=== PATIENT | female | born 1975 | race Caucasian/White ===

== ENCOUNTER 2022-07-25 09:07 | Inpatient (IN) ==
[2022-07-25] MEDS ORDERED: ACETAMINOPHEN 1,000 MG/100 ML VIAL IV STA (09:21)
[2022-07-25] MEDS ORDERED: MoRPHine SULFATE 10 MG/ML CARP/VIAL IV STA (09:21)
[2022-07-25] MEDS ORDERED: SODIUM CHLORIDE 0.9% 1000ML 1,000 ML IV ONE (09:21)
[2022-07-25] MEDS ORDERED: PIPERACILLIN/TAZOBACTAM 4.5 GM/120 ML BAG IV ONE (09:24)
[2022-07-25 09:40] LABS: Basophils # (auto) 0.04 K/uL (0-0.2); Basophils % (auto) 0.4 %; Hematocrit (blood only) 36.6 % (34.1-44.9); Hemoglobin 11.8 g/dl (12.0-16.0); Immature Granulocytes # (auto) 0.03 K/uL (0.00-0.02); Immature Granulocytes % (auto) 0.3 %; Lymphocytes # (auto) 1.64 K/uL (1.2-3.4); Lymphocytes % (auto) 17.6 %; Mean Corpuscular Hemoglobin 32.8 pg (25.0-34.0); Mean Corpuscular Hgb Conc 32.2 g/dL (32.0-36.0); Mean Corpuscular Volume 101.7 fL (80.0-100.0); Mean Platelet Volume 9.8 fL (9.4-12.3); Monocytes # (auto) 0.53 K/uL (0.24-0.82); Monocytes % (auto) 5.7 %; Neutrophils # (auto) 7.07 K/uL (1.4-6.5); Platelet Count 316 K/uL (130-400); RDW Standard Deviation 74.8 fL (36.4-46.3); White Blood Count 9.31 K/ul (4.8-10.8)
--- NOTE | 2022-07-25 09:45 | XRay Report ---
XR chest 1V portable HISTORY: 47 years-old Female SEPSIS acute sepsis COMPARISON: CTA chest 12/23/2018 TECHNIQUE: Portable AP view of the chest FINDINGS: Nipple shadow projects over the lateral right lung base. The cardiomediastinal and hilar silhouettes are unchanged. No pneumothorax, pleural effusion, airspace consolidation or overt pulmonary edema. Th e bones of the chest appear grossly intact. IMPRESSION: No acute process. ACT 112: Negative or not required by law. The above report was generated using voice recognition software. It may contain grammatical, syntax o r spelling errors. Electronically signed by: Raoul Nicholas M.D. 07/25/2022 9:44 AM
[2022-07-25 09:51] LABS: INR 1.2 (0.9-1.1); Partial Thromboplastin Ratio 0.9; Partial Thromboplastin Time 25.1 Seconds (21.0-31.0); Prothrombin Time 12.2 Seconds (9.0-12.0)
[2022-07-25 10:11] LABS: Albumin Level 3.1 gm/dl (3.4-5.0); Bilirubin,Total 1.3 mg/dl (0.2-1.0); C Reactive Protein 4.48 mg/dl (0-0.5); Calcium 8.9 mg/dl (8.5-10.1); Creatinine Clr Calc Pharmacy 83.2 ml/min; Est GFR (African American) 115.3 ml/min; Est GFR (Non-African American) 99.5 ml/min; Globulin 3.2 gm/dl (2.5-4.0); Magnesium 1.5 mg/dl (1.7-2.4); Potassium 3.5 mmol/L (3.5-5.1); Total Protein 6.3 gm/dl (6.0-8.3); Troponin I High Sensitivity 17.3 pg/ml (0-14)
[2022-07-25] MEDS ORDERED: OPTIRAY 300 500mL IV ONE (10:36)
[2022-07-25] MEDS ORDERED: LORazepam 2 MG/1 ML VIAL IV STA (10:52)
--- NOTE | 2022-07-25 11:13 | CT Scan Report ---
CT tib/fib RT w con CLINICAL HISTORY: ?necrotizing infection COMPARISON STUDY: No previous studies for comparison. TECHNIQUE: Axial images of the right lower leg/tibia and fibula were performed following intravenous injection 116 cc of Optiray 300. Sagittal and coronal reconstructions were viewed. Automated exposure control was utilized for the study. A dose lowering technique was utilized adhering to the principl es of KI. FINDINGS: Please note that the CT of the left lower leg will be reported separately. Note is made of extensive subcutaneous edema of the right lower leg and foot. There is mild fluid along the fascia. M ultifocal skin irregularity likely reflects wounds. There is no rim-enhancing fluid collection to sug gest an abscess. There is no soft tissue gas within the right lower leg or foot. There is no evidence for acute osteomyelitis. No acute fracture is present. There is a filling defect suggestive of deep venous thrombus within a right peroneal vein, shown best on axial image 107 of 541. IMPRESSION: 1. Extensive subcutaneous edema of the right lower leg with mild fascial fluid. These findings sugges t cellulitis. Multiple suspected wounds of the right lower leg. No fluid collection to suggest absces s. No soft tissue gas to suggest necrotizing fasciitis by CT. No evidence for acute osteomyelitis. 2. Deep venous thrombus within a right peroneal vein, as described above. ACT 112: Negative or not required by law. Electronically signed by: Rafita Dodd M.D. 07/25/2022 11:12 AM
--- NOTE | 2022-07-25 11:40 | CT Scan Report ---
CT angio chest PE protocol CT DOSE: 630.23 mGy.cm HISTORY: 47 years-old Female with hypoxia, tachycardia, r/o PE. Acute hypoxia with tachycardia TECHNIQUE: Multiple CTA images of the chest were obtained after the intravenous administration of 116 ml Optiray. Coronal and sagittal MIPS were obtained from the axial data set and were submitted for review. All measurements were obtained according to NASCET criteria. A dose lowering technique was u tilized adhering to the principles of ALARA. COMPARISON: CTA chest 12/23/2018 FINDINGS: CTA: Mild cardiomegaly. No pericardial effusion. The thoracic aorta and left heart structures are suboptim ally evaluated secondary to contrast bolus timing. No thoracic aortic aneurysm identified. Segmental and subsegmental acute appearing pulmonary emboli are noted within the left upper lobe. No central pu lmonary emboli or evidence of right heart strain. CT CHEST: Unremarkable thyroid. There are a few nonspecific borderline enlarged mediastinal and hilar lymph nod es measuring up to 9-10 mm. Study is limited secondary to upper extremity positioning. No pneumothora x, pleural effusion or lobar airspace consolidation. Bilateral groundglass densities with mosaic atte nuation and mild intralobular septal thickening. Mild bronchial wall thickening. Central airways are patent. There are no suspicious pulmonary nodules or masses. Mild nonspecific distal esophageal wall thickening. Nonobstructing calculi of the superior pole right kidney with medullary nephrocalcinosis. There is anasarca. No acute fracture. No destructive bone le sara. Scoliotic curvature of the thoracic spine. IMPRESSION: 1. Segmental and subsegmental pulmonary emboli of the left upper lobe. 2. Diffuse bilateral groundglass densities with mosaic attenuation suggestive of atelectasis with air trapping. An infectious or inflammatory pneumonitis could appear similarly. 3. Right renal calculi with medullary nephrocalcinosis redemonstrated. 4. Anasarca. ACT 112: Negative or not required by law. The above report was generated using voice recognition software. It may contain grammatical, syntax o r spelling errors. Electronically signed by: Raoul Nicholas M.D. 07/25/2022 11:39 AM
[2022-07-25 11:53] LABS: Base Excess VBG 6.9 mEq/L; HCO3 VBG 33 mmol/L; Oxygen Saturation VBG < 60.0 %; PCO2 VBG 49 mmHg (38-50); PO2 VBG 40 mmHg; pH VBG 7.43 (7.36-7.41)
[2022-07-25] MEDS: MAGNESIUM SULFATE / D5W 1 GM/100 ML BAG IV SCH ×2 (12:03→13:17)
--- NOTE | 2022-07-25 12:06 | CT Scan Report ---
CT SCAN OF THE LEFT TIBIA AND FIBULA WITH IV CONTRAST CLINICAL HISTORY: Left lower extremity edema. Clinical concern for necrotizing infection. COMPARISON STUDY: No priors. TECHNIQUE: Following the IV administration of 116 cc of Optiray 300, CT scan of the left tibia and fi bula is performed from the distal femur to the foot. Images are reviewed in the axial, sagittal, and coronal planes. IV contrast was administered without complication. A dose lowering technique was util ized adhering to the principles of ALARA. FINDINGS: The skeletal structures are osteopenic. There is no evidence of tibial or fibular fracture. There is no bone erosion or periostitis. The knee and ankle joints appear maintained. There is diffu se subcutaneous soft tissue edema seen throughout the left lower extremity with associated dermal thi ckening. No soft tissue gas is identified. There is generalized atrophy of the regional musculature. There is a filling defect within the deep veins of the calf, best seen on image #103 consistent with deep venous thrombosis. There is no evidence of fluid collection. The Achilles tendon is intact as im aged. IMPRESSION: 1. No osseous abnormality is seen involving the left tibia or fibula. 2. There is evidence of deep venous thrombosis in the left calf. 3. Diffuse soft tissue edema and dermal thickening is noted throughout the left lower extremity. 4. No soft tissue gas is identified. ACT 112: Negative or not required by law. Dictated: 07/25/2022 11:16 AM Transcribed: 07/25/2022 11:55 AM Dulce [id number] [email or web address] Electronically signed by: Osito Bernard M.D. 07/25/2022 12:05 PM
--- NOTE | 2022-07-25 12:29 | History & Physical Report ---
Date of Service July 25, 2022 Assessment & Plan (1) Sepsis: (2) Cellulitis, leg: (3) DVT (deep venous thrombosis): (4) Pulmonary embolism: (5) ADHD: (6) Self neglect: (7) COPD (chronic obstructive pulmonary disease): Plan 47 year old with 3 month lower extremity wound progression that has worsened more significantly over past 3 weeks; leading to her being bedbound and unable to performed her own ADL's. Pt meets sepsis criteria; cultures pending; Heparin gtt, pain and wound management; will consult ID and General surgery for possible debridement. Sepsis LE Cellulitis DVT: Meets sepsis criteria secondary to bilateral LE cellulitis. Tachycardia, tachypnea and multiple wounds as infectious source; tachycardia and tachypnea likely also related to PE Numerous anterio-medial and posterior B/L LE extensive purulent ulcers a/w associated with foul smelling and purulent drainage. LE CT: No gas ruling out necrotizing infection. No abscess noted. B/L venous Doppler US ordered. WOCN consulted; blood cultures and wound culture ordered Superficial debridement likely; general surgery consult placed. Zosyn and Dapto started in ED; ID consult placed for additional recs. NPO for now until surgery consult. Morphine PRN ordered for pain control. Hold on IVF for now due to anasarca noted on CT PE: Confirmed by CTA; Segmental and subsegmental pulmonary emboli of the left upper lobe Heparin gtt; continue per protocol Initial Troponin; 17.3; will trend ECHO ordered PT/INT per protocol VBG pending ADHD: Self neglect Continue Adderol Psych consult placed for Behavioral Health Liason to see pt due to nature of progression of wounds and worsening depression/isolation/self neglect and i nability to perform on ADL's; discussed with Beverley CAMPBELL COPD: Previously diagnosed; does not follow with Pulmonary Has Albuterol PRN for rescue inhaler No Home O2 Consider OPT referral unless worsening while IPT Disposition: PCP: Henny Panchal PA-C/Dr. Oleary Code Status: Full Code VTE Prophylaxis: Heparin gtt Next of Kin: Fausto Trujillo (father) [phone] History of Present Illness Chief Complaint: intractable LE pain Primary Care Provider: Henny Hernandez PA-C Ms. Soo Donovan presented to the [facility] ED with increasing pain in her bilateral lower extremities. She reports that over the past 3 months her wounds have progressively gotten worse with more ulcers opening and due to the pain, she has become immobile for the past 3-4 weeks. Her mother, father and oldest daughter helps with her ADLs and brings her a cooler to place next to her sofa with food inside of it. She reports not having done any wound care to her extremities. Additional PMH includes COPD, bronchitis, ADHD, GERD, kidney stones, urinary incontinence, genital herpes, Cervical LSIL, and frequent UTI's. Pt reports using liquor 1/2 pint 2-3 times per week. Last drink was Monday 07/23. Pt reports smoking 1/2-1 ppd of cigarettes. Pt has a medical marijuana card for PTSD. Pt denies dizziness, chest pain, dizziness N/V/D, appetite changes. Patient will be admitted for further evaluation and management with wound and general surgery. Please see A/P for further details. Allergies Allergy/AdvReac Type Severity Reaction Status Date / Time No Known Allergies Allergy Unknown Verified 12/28/21 02:02 Home Medications Medication Instructions Recorded Confirmed Type albuterol sulfate 90 mcg/actuation 2 puffs inhalation Q4 PRN Wheezing 08/18/19 07/25/22 History aerosol inhaler (Ventolin HFA) dextroamphetamine-amphetamine 20 20 mg PO .EVERY AFTERNOON PRN as 12/28/21 07/25/22 History mg tablet directed dextroamphetamine-amphetamine ER 30 mg PO QAM 12/28/21 07/25/22 History 30 mg 24hr capsule,extend release furosemide 20 mg tablet 20 mg PO DAILY 12/28/21 07/25/22 History potassium chloride 10 mEq 10 meq PO DAILY 12/28/21 07/25/22 History tablet,extended release(part/cryst) Past Med/Surg History Medical History (Updated 07/25/22 @ 14:13 by SHANNAN Baker) ADHD Cellulitis, leg Cervicovaginal cytology: Low grade squamous intraepithelial lesion (Unknown) "S/P LEEP " COPD (chronic obstructive pulmonary disease) DVT (deep venous thrombosis) Pulmonary embolism Self neglect Sepsis Standard chest X-ray abnormal (Unknown) "RUL density noted on CXR 05/22/12. CT follow-up recommended. " On 05/23/12 06:11 You Reina wrote "RUL density noted on CXR 05/22/12. CT follow-up recommended. " Social History Smoking Status: Current every day smoker Tobacco Type: Cigarettes Preferred Language: Bahraini Feels Safe at Home: Yes Review of Systems Review of Systems: Neuro: (-) Falls, trauma, slurred speech HEENT: (-) OLSON, dizziness, dysphagia, visual or auditory changes CV: (-) CP, palpitations, swelling Resp: (-) SOB GI: (-) appetite changes, N/V/D, bowel changes : (-) urinary changes Skin: (+) pain and ulcers in bilateral LE Psych: (-) anxiety, depression Physical Exam Physical Exam: Neuro: AAOx4, PERRLA, no aphagia, memory changes, CNII-XII grossly intact HEENT: head normocephalic, dry mucus membranes CV: S1/S2, (-) M/G/R, (-) edema, cap refill < 3 seconds Resp: Lungs CTA in all whiting. On 2LNC GI: Abdomen S/NT/ND, large ventral hernia, Ax4 bowel sounds, (-) CVA tenderness Musculoskeletal: 5/5 B/L UE strength, 5/5 B/L LE strength. No gait disturbance Skin: (+) skin sloughing and numerous anterior/medial/posterior ulcers and gangrenous skin with erythematous border Psych: scattered and not focused mood Results & Data Results & Data ([facility]) Vital Signs (Past 12 Hours) Vital Signs Temp Pulse Resp BP Pulse Ox O2 Del Method O2 Flow Rate 07/25/22 10:04 121 H 22 95 2 07/25/22 10:04 141/89 H 07/25/22 10:00 121 H 18 98 2 07/25/22 09:50 123 H 18 93 2 07/25/22 09:50 119/91 07/25/22 09:45 121 H 17 98 2 07/25/22 09:30 121 H 20 07/25/22 09:15 118 H 25 H 98 2 07/25/22 09:12 119 H 16 85 L 07/25/22 09:21 Nasal Cannula 07/25/22 09:16 88 L Room Air, Nasal Cannula 0 07/25/22 09:11 36.7 C 118 H 22 112/86 88 L Room Air Laboratory Results Short CBC 07/25/22 Range/Units 09:11 WBC 9.31 (4.8-10.8) K/ul Hgb 11.8 L (12.0-16.0) g/dl Hct 36.6 (34.1-44.9) % Plt Count 316 (130-400) K/uL BMP 07/25/22 09:11 Sodium 137 Potassium 3.5 Chloride 97 L Carbon Dioxide 30 BUN 8 Creatinine 0.73 Glucose 150 H Calcium 8.9 Cardiac Enzymes 07/25/22 Range/Units 09:11 Total Creatine Kinase 50 (26-192) U/L Liver Function 07/25/22 Range/Units 09:11 Total Bilirubin 1.3 H (0.2-1.0) mg/dl AST 16 (13-39) U/L ALT 10 (7-52) U/L Alkaline Phosphatase 124 H (34-104) U/L Albumin 3.1 L (3.4-5.0) gm/dl Diagnostic Findings Chest X-Ray 07/25/22 09:21 XR chest 1V portable HISTORY: 47 years-old Female SEPSIS acute sepsis COMPARISON: CTA chest 12/23/2018 TECHNIQUE: Portable AP view of the chest FINDINGS: Nipple shadow projects over the lateral right lung base. The cardiomediastinal and hilar silhouettes are unchanged. No pneumothorax, pleural effusion, airspace consolidation or overt pulmonary edema. The bones of the chest appear grossly intact. IMPRESSION: No acute process. ACT 112: Negative or not required by law. The above report was generated using voice recognition software. It may contain grammatical, syntax or spelling errors. Electronically signed by: Raoul Nicholas M.D. 07/25/2022 9:[address] 07/25/22 09:21 CT SCAN OF THE LEFT TIBIA AND FIBULA WITH IV CONTRAST CLINICAL HISTORY: Left lower extremity edema. Clinical concern for necrotizing infection. COMPARISON STUDY: No priors. TECHNIQUE: Following the IV administration of 116 cc of Optiray 300, CT scan of the left tibia and fibula is performed from the distal femur to the foot. Images are reviewed in the axial, sagittal, and coronal planes. IV contrast was administered without complication. A dose lowering technique was utilized adhering to the principles of ALARA. FINDINGS: The skeletal structures are osteopenic. There is no evidence of tibial or fibular fracture. There is no bone erosion or periostitis. The knee and ankle joints appear maintained. There is diffuse subcutaneous soft tissue edema seen throughout the left lower extremity with associated dermal thickening. No soft tissue gas is identified. There is generalized atrophy of the regional musculature. There is a filling defect within the deep veins of the calf, best seen on image #103 consistent with deep venous thrombosis. There is no evidence of fluid collection. The Achilles tendon is intact as imaged. IMPRESSION: 1. No osseous abnormality is seen involving the left tibia or fibula. 2. There is evidence of deep venous thrombosis in the left calf. 3. Diffuse soft tissue edema and dermal thickening is noted throughout the left lower extremity. 4. No soft tissue gas is identified. ACT 112: Negative or not required by law. Dictated: 07/25/2022 11:16 AM Transcribed: 07/25/2022 11:55 AM Dulce [id number] [email or web address] Electronically signed by: Osito Bernard M.D. 07/25/2022 12:[address] 07/25/22 09:21 CT tib/fib RT w con CLINICAL HISTORY: ?necrotizing infection COMPARISON STUDY: No previous studies for comparison. TECHNIQUE: Axial images of the right lower leg/tibia and fibula were performed following intravenous injection 116 cc of Optiray 300. Sagittal and coronal reconstructions were viewed. Automated exposure control was utilized for the study. A dose lowering technique was utilized adhering to the principles of ALARA. FINDINGS: Please note that the CT of the left lower leg will be reported separately. Note is made of extensive subcutaneous edema of the right lower leg and foot. There is mild fluid along the fascia. Multifocal skin irregularity likely reflects wounds. There is no rim-enhancing fluid collection to suggest an abscess. There is no soft tissue gas within the right lower leg or foot. There is no evidence for acute osteomyelitis. No acute fracture is present. There is a filling defect suggestive of deep venous thrombus within a right peroneal vein, shown best on axial image 107 of 541. IMPRESSION: 1. Extensive subcutaneous edema of the right lower leg with mild fascial fluid. These findings suggest cellulitis. Multiple suspected wounds of the right lower leg. No fluid collection to suggest abscess. No soft tissue gas to suggest necrotizing fasciitis by CT. No evidence for acute osteomyelitis. 2. Deep venous thrombus within a right peroneal vein, as described above. ACT 112: Negative or not required by law. Electronically signed by: Rafita Dodd M.D. 07/25/2022 11:12 AM Chest CTA 07/25/22 10:32 CT angio chest PE protocol CT DOSE: 630.23 mGy.cm HISTORY: 47 years-old Female with hypoxia, tachycardia, r/o PE. Acute hypoxia with tachycardia TECHNIQUE: Multiple CTA images of the chest were obtained after the intravenous administration of 116 ml Optiray. Coronal and sagittal MIPS were obtained from the axial data set and were submitted for review. All measurements were obtained according to NASCET criteria. A dose lowering technique was utilized adhering to the principles of ALARA. COMPARISON: CTA chest 12/23/2018 FINDINGS: CTA: Mild cardiomegaly. No pericardial effusion. The thoracic aorta and left heart structures are suboptimally evaluated secondary to contrast bolus timing. No thoracic aortic aneurysm identified. Segmental and subsegmental acute appearing pulmonary emboli are noted within the left upper lobe. No central pulmonary emboli or evidence of right heart strain. CT CHEST: Unremarkable thyroid. There are a few nonspecific borderline enlarged mediastinal and hilar lymph nodes measuring up to 9-10 mm. Study is limited secondary to upper extremity positioning. No pneumothorax, pleural effusion or lobar airspace consolidation. Bilateral groundglass densities with mosaic attenuation and mild intralobular septal thickening. Mild bronchial wall thickening. Central airways are patent. There are no suspicious pulmonary nodules or masses. Mild nonspecific distal esophageal wall thickening. Nonobstructing calculi of the superior pole right kidney with medullary nephrocalcinosis. There is anasarca. No acute fracture. No destructive bone lesion. Scoliotic curvature of the thoracic spine. IMPRESSION: 1. Segmental and subsegmental pulmonary emboli of the left upper lobe. 2. Diffuse bilateral groundglass densities with mosaic attenuation suggestive of atelectasis with air trapping. An infectious or inflammatory pneumonitis could appear similarly. 3. Right renal calculi with medullary nephrocalcinosis redemonstrated. 4. Anasarca. ACT 112: Negative or not required by law. The above report was generated using voice recognition software. It may contain grammatical, syntax or spelling errors. Electronically signed by: Raoul Nicholas M.D. 07/25/2022 11:39 AM ECG Additional Comments: ST with PVC's HR 118 RAINE 118 ms QRS 82 ms QTc 400 Code Status & VTE Plan Code Status Full code in the event of cardiac or respiratory arrest VTE Prophylaxis Plan VTE Prophylaxis will be ordered: Yes Supervising Physician Co-Signing Physician Notes 47 yo F w/ PMH of Gr B COPD, Chronic bronchitis, GERD, Drug abuse (quit 2017, used "everything" prior to that per pt), genital herpes, Cervical LSIL, marijuana use, ADHD presented to our ED 07/25 w/ c/o increasing BLE pain. Patient reports having bilateral lower extremity ulcers since last 2 to 3 months, progressively worsening, associated with pain, being immobile since last 3 to 4 weeks, and presented finally due to unbearable pain in the lower extremities. Labs reviewed, Hb low normal, renal function fairly normal, Mg low, replete w/ aim of 2.0. Trop minimally elevated at 17.3, trend. Imagings reviewed. LE CT w/ con w/ b/l DVT and BLE edema/swelling, not s/o abscesses. CTA chest w/ ISELA segmental and subsegmental PE. Also suggestive of anasarca. Echo. Heparin drip. On examination: Bilateral lower legs w/ melva-medial and posteriorly located pu rulent/extensive cellulitis with associated erythema/swelling/tenderness. Wound care nurse, general surgery consult, infectious disease consult, wound culture, blood culture, Zosyn given in the ED, continue with the same and add vanco for now. Given increased pulse and RR at presentation, likely sepsis 2/2 LE cellulitis but again since she had PE, some of the increased RR and Pulse could be contributed by this fact. Diet now, NPO midnight until Sx eval in AM. C/w home meds as able. Pain Mx. Patient smokes 15 cigarettes a day for 30+ years, has quit using alcohol excessively since 2017, drinks couple of times a month currently, has quit drug use since 2017. Patient would like nicotine patch while in here. Watch out for alcohol withdrawal. Can supplement w/ PO thiamine and folate. Upon examination: GENERAL: Alert and oriented x3. mild distress, on 2L NC O2. HEENT: No pallor, no icterus. Pupils equal, round and reactive to light. Oral mucosa moist. NECK: No JVD, no neck masses. HEART: S1 and S2 heard. Tachycardia. Systolic murmur at Pulmonic area, no gallop. RESPIRATORY SYSTEM: Normal AP diameter. No accessory muscle use. No wheezing, no crackles. ABDOMEN: Soft, bowel sounds present, nontender, no distention. Ventral hernia, nontender. CENTRAL NERVOUS SYSTEM: No facial droop. Speech is clear. Obeys simple commands. Moves extremities. EXTREMITIES: B/l legs w/ anteriomedial and posterior extensive purulent ulcers a/w erythema/swelling/tenderness. I have seen and examined the patient and have discussed the case with the provider above. I agree with the assessment and plan as stated.
[2022-07-25] MEDS ORDERED: Heparin IV Adult Wt-Based Standard WITH Bolus Protocol IV STA (12:42)
[2022-07-25] MEDS ORDERED: HEPARIN SOD (PORCINE) 1000 UNIT/ML IV ONE (12:58)
[2022-07-25] MEDS: HEPARIN SODIUM/DEXTROSE 25,000 UNITS/500 ML BAG IV SCH (13:13)
[2022-07-25] MEDS ORDERED: MAGNESIUM SULFATE / D5W 1 GM/100 ML BAG IV ONE (13:27)
--- NOTE | 2022-07-25 15:06 | Surgery Consultation ---
Date of Consultation July 25, 2022 Assessment & Plan (1) Cellulitis, leg: No indication for surgical debridement at this time. Continue local wound care and antibiotics. Supervising Physician Co-Signing Physician Notes agree with above, no abscess or eschar. Local wound care, abx, consider wound care nurse consults and follow up with wound care clinic as outpatient. History of Present Illness History of Present Illness 47 y/o female with lower leg wounds 2-3 months worsening over the past 2-3 days now being admitted for cellulitis. Allergies Allergy/AdvReac Type Severity Reaction Status Date / Time No Known Allergies Allergy Unknown Verified 12/28/21 02:02 Home Medications Medication Instructions Recorded Confirmed Type albuterol sulfate 90 mcg/actuation 2 puffs inhalation Q4 PRN Wheezing 08/18/19 07/25/22 History aerosol inhaler (Ventolin HFA) dextroamphetamine-amphetamine 20 20 mg PO .EVERY AFTERNOON PRN as 12/28/21 07/25/22 History mg tablet directed dextroamphetamine-amphetamine ER 30 mg PO QAM 12/28/21 07/25/22 History 30 mg 24hr capsule,extend release furosemide 20 mg tablet 20 mg PO DAILY 12/28/21 07/25/22 History potassium chloride 10 mEq 10 meq PO DAILY 12/28/21 07/25/22 History tablet,extended release(part/cryst) Patient History Medical History ADHD Cellulitis, leg Cervicovaginal cytology: Low grade squamous intraepithelial lesion (Unknown) "S/P LEEP " COPD (chronic obstructive pulmonary disease) DVT (deep venous thrombosis) Pulmonary embolism Self neglect Sepsis Standard chest X-ray abnormal (Unknown) "RUL density noted on CXR 05/22/12. CT follow-up recommended. " On 05/23/12 06:11 You Reina wrote "RUL density noted on CXR 05/22/12. CT follow-up recommended. " Social History Smoking Status: Current every day smoker Tobacco Type: Cigarettes Preferred Language: Macedonian Feels Safe at Home: Yes Review of Systems Constitutional: no fever and no chills Physical Exam Constitutional: no acute distress Skin: + ulcer, + wound (bilat lower extremities involving 75% both shins) and + eschar (small area left); no erythema Results & Data ([facility]) Vital Signs (Past 12 Hours) Vital Signs Temp Pulse Resp BP Pulse Ox O2 Del Method O2 Flow Rate 07/25/22 13:39 75 14 129/91 95 Room Air 07/25/22 10:04 121 H 22 95 2 07/25/22 10:04 141/89 H 07/25/22 10:00 121 H 18 98 2 07/25/22 09:50 123 H 18 93 2 07/25/22 09:50 119/91 07/25/22 09:45 121 H 17 98 2 07/25/22 09:30 121 H 20 07/25/22 09:15 118 H 25 H 98 2 07/25/22 09:12 119 H 16 85 L 07/25/22 09:21 Nasal Cannula 07/25/22 09:16 88 L Room Air, Nasal Cannula 0 07/25/22 09:11 36.7 C 118 H 22 112/86 88 L Room Air PG Care Time/CCT Total # of Minutes Spent Total Time Spent with Patient: Total time spent is greater than 50% in coordination of care (as documented) at patient's floor/unit and/or counseling patient: Coding Level of Care Code 34973 Inpt Consult Level 2 Diagnoses Cellulitis, leg L03.119
--- NOTE | 2022-07-25 15:23 | Ultrasound Report ---
BILATERAL LOWER EXTREMITY VENOUS DOPPLER HISTORY: Acute pain and swelling of the legs BLE edema COMPARISON STUDY: CT tibia and fibula of same day. FINDINGS: There is normal compressibility, flow, and augmentation within the bilateral lower extremit y deep venous systems. Study is limited secondary to reported wounds the lower legs. The deep venous thrombus of the right peroneal vein cannot be imaged secondary to these findings. IMPRESSION: No DVT within the right or left lower extremity is identified. The lower leg deep venous thrombi desc ribed on the CT studies of same day were unable to be imaged secondary to the overlying soft tissue w ounds. ACT 112: Negative or not required by law. Electronically signed by: Raoul Nicholas M.D. 07/25/2022 3:22 PM
[2022-07-25] MEDS ORDERED: ALBUTEROL HFA 8 GM INHALER INH PRN (15:28)
[2022-07-25] MEDS ORDERED: VANCOMYCIN CONSULT ACTIVE PRN (15:28)
[2022-07-25] MEDS: MoRPHine SULFATE 2 MG/ML CARP IV PRN ×2 (15:45→20:45)
[2022-07-25] MEDS ORDERED: VANCOMYCIN HCL 1,750 MG in SODIUM CHLORIDE 0.9% 500 ML IV ONE (15:45)
[2022-07-25] MEDS ORDERED: KETOROLAC TROMETHAMINE 15 MG/ML VIAL IV ONE (16:25)
[2022-07-25] MEDS ORDERED: KETOROLAC TROMETHAMINE 15 MG/ML VIAL ONE (16:34)
--- NOTE | 2022-07-25 16:43 | Electrocardiogram Report ---
Test Reason : Blood Pressure : / mmHG Vent. Rate : 118 BPM Atrial Rate : 118 BPM P-R Int : 118 ms QRS Dur : 082 ms QT Int : 286 ms P-R-T Axes : 079 -45 037 degrees QTc Int : 400 ms Sinus tachycardia with occasional Premature ventricular complexes Possible Left atrial enlargement Left axis deviation Incomplete right bundle branch block Low voltage QRS Abnormal ECG Confirmed by Grupo Wade ([id number]) on 07/25/2022 4:42:48 PM Referred By: REFERRED SELF Confirmed By:Antonio Wade
--- NOTE | 2022-07-25 17:41 | Emergency Department Note ---
Impression & Plan Sepsis, Pulmonary embolism, Bilateral lower leg cellulitis, DVT (deep venous thrombosis) ED Provider Note NAME: JAGDEEP MORRIS AGE: 47 SEX: F ARRIVES VIA: Ambulance INFORMANT: Patient, EMS ED PROVIDER(S): Navjot Valiente MD CHIEF COMPLAINT: Leg infection PLAN: Disposition: Admit MEDICAL DECISION MAKING: The patient is a pleasant 47-year-old woman with a past medical history of ADHD, COPD who presents to the emergency department from home via EMS with worsening leg pain bilaterally with bilateral leg skin infection that she reports has been ongoing for the past several months but became particularly worse over the past several weeks and most severe today where she finally agreed to seek medical attention. She reports she did not seek help prior because she felt it may have been getting better. Per EMS report patient's father who was present at the home reported that she repeatedly declined to go see a doctor. Patient reports because of the pain in her legs she has not been walking at all for the past several weeks. She denies any fevers, chills, cough, congestion, GI or symptoms. On arrival the patient is uncomfortable in no distress, afebrile with heart in the 110s and vital signs otherwise stable. O2 saturation 88% on RA, low 90s on 2L NC. She appears euvolemic to hypervolemic with 2+ edema bilateral lower extremities with erythema warmth and tenderness of bilateral lower legs with cutaneous erosions of bilateral medial lower legs with purulent discharge with foul odor, left mid calf eschar. Distal PMS is intact. EKG without overt acute ischemia. CXR negative for acute cardiopulmonary process. WBC and platelets within normal limits. H/H 11.8/36.6 without recent values for comparison. Chemistry without metabolic acidosis. Lactic acid 1.8, within normal limits. Magnesium 1.5, with repletion provided. High-sensitivity troponin elevated 17.3, nonspecific. ESR and CRP are elevated at 58 and 4.4, respectively. Procalcitonin is not elevated. COVID-19 RNA, MANOJ test was negative. CT of bilateral lower extremities was performed and demonstrates extensive cellulitis without gas to suggest necrotizing infection. No fluid collections are seen. CT evidence of left calf DVT noted. CT of the chest was performed and demonstrates segmental and subsegmental pulmonary emboli of the left upper lobe. Patient was ordered for empiric antibiotics with Zosyn and daptomycin in the setting of suspected sepsis. 30cc/kg IVF deferred; Patient was given IV fluid hydration cautiously given her lower extremity edema and was otherwise hemodynamically stable. The patient agrees with the plan for admission for further management. Case was discussed with Aisha Wood, with Dr. Jose jones who will evaluate the patient for admission. Will begin heparin for treatment of PE at this time. Bilateral lower extremity Dopplers were ordered for additional evaluation of clot burden and were negative DVT though CT imaged left calf DVT not sufficiently visualized 2/2 soft tissue. Triage Nursing notes reviewed and agree them. Prior medical records reviewed Vital Signs: reviewed and remarkable for tachycardia. Differential diagnosis: Cellulitis, abscess, MRSA infection, DVT, necrotizing fasciitis, dermatitis, drug eruption, allergic reaction, as well as other pathologies. ER treatment provided: See below. Diagnostics interpreted by me: ECG: Sinus tachycardia, 118 bpm, PVCs, no overt ST elevation or depression. Cardiac Monitoring: An order for continuous cardiac monitoring was placed and demonstrated Sinus tachycardia, 118 bpm, PVCs. Laboratory studies: See below Imaging studies: See below Consultation(s): Aisha Wood, with Dr. Jose jones HPI: The patient is a pleasant 47-year-old woman with a past medical history of ADHD, COPD who presents to the emergency department from home via EMS with worsening leg pain bilaterally with bilateral leg skin infection that she reports has been ongoing for the past several months but became particularly w orse over the past several weeks and most severe today where she finally agreed to seek medical attention. She reports she did not seek help prior because she felt it may have been getting better. Per EMS report patient's father who was present at the home reported that she repeatedly declined to go see a doctor. Patient reports because of the pain in her legs she has not been walking at all for the past several weeks. She denies any fevers, chills, cough, congestion, GI or symptoms. ROS: See above HPI for pertinent positives & negatives. A total of 10 systems reviewed and were otherwise negative. VITALS:See Below PHYSICAL EXAMINATION: GENERAL: Awake, alert, uncomfortable-appearing, in no distress, BMI 30.4. HENT: Normocephalic, atraumatic. Oropharynx with dry mucous membranes and otherwise unremarkable. . EYES: Normal conjunctiva. Sclera non-icteric. NECK: Supple. No nuchal rigidity. FROM. No JVD. RESPIRATORY: Clear to auscultation. CARDIAC: Tachycardic rate, normal rhythm. Extremities warm and well perfused. Pulses equal. ABDOMEN: Soft, non-distended. No tenderness to palpation. No rebound or gu arding. No masses. RECTAL: Deferred. MUSCULOSKELETAL: Chest examination reveals no tenderness. The back is symmetrical on inspection without obvious abnormality. There is no CVA tenderness to palpation. No joint edema. LOWER EXTREMITIES: 2+ edema bilateral lower extremities with erythema warmth and tenderness of bilateral lower legs with cutaneous erosions of bilateral medial lower legs with purulent discharge with foul odor, left mid calf eschar. Distal PMS is intact. NEURO: Normal sensorium. No sensory or motor deficits noted. SKIN: No rash or jaundice noted. ED COURSE: Critical Care: I have personally spent greater than 75 minutes of critical care time in the di rect management of this patient. This includes bedside care, interpretation of diagnostic studies, and testing, discussion with consultants, patient, and family members, and other required patient management activities. This 75 minutes is in excess of all separately billable procedures. Navjot Valiente MD Past Med/Surg History Medical History ADHD Cellulitis, leg Cervicovaginal cytology: Low grade squamous intraepithelial lesion (Unknown) "S/P LEEP " COPD (chronic obstructive pulmonary disease) DVT (deep venous thrombosis) Pulmonary embolism Self neglect Sepsis Standard chest X-ray abnormal (Unknown) "RUL density noted on CXR 05/22/12. CT follow-up recommended. " On 05/23/12 06:11 You Reina wrote "RUL density noted on CXR 05/22/12. CT follow-up recommended. 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 Beliefs That Will Affect Care: None Current Living Situation: Alone Feels Safe at Home: Yes Assistive Devices: Glasses and Walker Allergies Allergies Allergy/AdvReac Type Severity Reaction Status Date / Time No Known Allergies Allergy Unknown Verified 12/28/21 02:02 Home Meds Home Medications Medication Instructions Recorded Confirmed albuterol sulfate 90 mcg/actuation 2 puffs inhalation Q4 PRN Wheezing 08/18/19 07/25/22 aerosol inhaler (Ventolin HFA) dextroamphetamine-amphetamine 20 20 mg PO .EVERY AFTERNOON PRN as 12/28/21 07/25/22 mg tablet directed dextroamphetamine-amphetamine ER 30 mg PO QAM 12/28/21 07/25/22 30 mg 24hr capsule,extend release furosemide 20 mg tablet 20 mg PO DAILY 12/28/21 07/25/22 potassium chloride 10 mEq 10 meq PO DAILY 12/28/21 07/25/22 tablet,extended release(part/cryst) Results & Data (ED) Vital Signs Vital Signs - 24 hr 07/25/22 09:11 07/25/22 09:16 07/25/22 09:21 Temperature 36.7 C Temperature Source Oral Pulse Rate 118 H Pulse Rate from SpO2 Sensor Respiratory Rate 22 Respiratory Effort / Characteristics Non-Labored Spontaneous Blood Pressure 112/86 Blood Pressure Mean 94 Pulse Oximetry 88 L 88 L Oxygen Delivery Method Room Air Room Air Nasal Cannula Nasal Cannula Oxygen Flow Rate 0 Sepsis Recent Fever Within 48 Hours No Sepsis New/Unexplained Change in Mental Status No Sepsis Action Taken by Nursing Physician Notified Oxygen Flow Rate - Titration 2 Pulse Oximetry Post Tiitration 98 07/25/22 09:12 07/25/22 09:15 07/25/22 09:30 Temperature Temperature Source Pulse Rate 119 H 118 H 121 H Pulse Rate from SpO2 Sensor 115 H 119 H Respiratory Rate 16 25 H 20 Respiratory Effort / Characteristics Blood Pressure Blood Pressure Mean Pulse Oximetry 85 L 98 Oxygen Delivery Method Oxygen Flow Rate 2 Sepsis Recent Fever Within 48 Hours Sepsis New/Unexplained Change in Mental Status Sepsis Action Taken by Nursing Oxygen Flow Rate - Titration Pulse Oximetry Post Tiitration 07/25/22 09:45 07/25/22 09:50 07/25/22 09:50 Temperature Temperature Source Pulse Rate 121 H 123 H Pulse Rate from SpO2 Sensor 122 H 123 H Respiratory Rate 17 18 Respiratory Effort / Characteristics Blood Pressure 119/91 Blood Pressure Mean 100 Pulse Oximetry 98 93 Oxygen Delivery Method Oxygen Flow Rate 2 2 Sepsis Recent Fever Within 48 Hours Sepsis New/Unexplained Change in Mental Status Sepsis Action Taken by Nursing Oxygen Flow Rate - Titration Pulse Oximetry Post Tiitration 07/25/22 10:00 07/25/22 10:04 07/25/22 10:04 Temperature Temperature Source Pulse Rate 121 H 121 H Pulse Rate from SpO2 Sensor 121 H 124 H Respiratory Rate 18 22 Respiratory Effort / Characteristics Blood Pressure 141/89 H Blood Pressure Mean 106 Pulse Oximetry 98 95 Oxygen Delivery Method Oxygen Flow Rate 2 2 Sepsis Recent Fever Within 48 Hours Sepsis New/Unexplained Change in Mental Status Sepsis Action Taken by Nursing Oxygen Flow Rate - Titration Pulse Oximetry Post Tiitration Laboratory Data Attestation: I reviewed the patient's lab results. Result diagrams: 07/25/22 09:11 07/25/22 09:11 Lab Results 07/25/22 07/25/22 07/25/22 Range/Units 09:11 09:11 09:11 WBC 9.31 (4.8-10.8) K/ul RBC 3.60 L (3.93-5.22) M/uL Hgb 11.8 L (12.0-16.0) g/dl Hct 36.6 (34.1-44.9) % MCV 101.7 H (80.0-100.0) fL MCH 32.8 (25.0-34.0) pg MCHC 32.2 (32.0-36.0) g/dL RDW Std Deviation 74.8 H (36.4-46.3) fL RDW Coeff of Tyrel 20.0 H (11.5-14.5) % Plt Count 316 (130-400) K/uL MPV 9.8 (9.4-12.3) fL Immature Gran % (Auto) 0.3 % Neut % (Auto) 76.0 % Lymph % (Auto) 17.6 % [place] % (Auto) 5.7 % Eos % (Auto) 0.0 % Baso % (Auto) 0.4 % Neut # (Auto) 7.07 H (1.4-6.5) K/uL Lymph # (Auto) 1.64 (1.2-3.4) K/uL [place] # (Auto) 0.53 (0.24-0.82) K/uL Eos # (Auto) 0.00 (0-0.50) K/uL Baso # (Auto) 0.04 (0-0.2) K/uL Immature Gran # (Auto) 0.03 H (0.00-0.02) K/uL ESR 58 H (0-20) mm/hr PT 12.2 H (9.0-12.0) Seconds INR 1.2 H (0.9-1.1) APTT 25.1 (21.0-31.0) Seconds PTT Ratio 0.9 VBG pH (7.36-7.41) VBG pCO2 (38-50) mmHg VBG pO2 mmHg VBG HCO3 mmol/L VBG O2 Saturation % VBG Base Excess mEq/L Sodium (136-145) mmol/L Potassium (3.5-5.1) mmol/L Chloride (98-107) mmol/L Carbon Dioxide (21-32) mmol/L Anion Gap (3-11) BUN (6-23) mg/dl Creatinine (0.6-1.2) mg/dl Est Cr Clr Drug Dosing ml/min Est GFR ( Amer) ml/min Est GFR (Non-Af Amer) ml/min BUN/Creatinine Ratio (10-20) Glucose (70-99(Fasting)) mg/dl Lactate (0.4-2.0) mmol/L Calcium (8.5-10.1) mg/dl Magnesium (1.7-2.4) mg/dl Total Bilirubin (0.2-1.0) mg/dl AST (13-39) U/L ALT (7-52) U/L Alkaline Phosphatase (34-104) U/L Total Creatine Kinase (26-192) U/L Troponin I High Sens (0-14) pg/ml C-Reactive Protein (0-0.5) mg/dl Total Protein (6.0-8.3) gm/dl Albumin (3.4-5.0) gm/dl Globulin (2.5-4.0) gm/dl Albumin/Globulin Ratio (0.9-2) Procalcitonin (0-0.5) ng/ml SARS-CoV-2, RNA, NAAT (NEGATIVE) 07/25/22 07/25/22 07/25/22 Range/Units 09:11 09:11 09:29 WBC (4.8-10.8) K/ul RBC (3.93-5.22) M/uL Hgb (12.0-16.0) g/dl Hct (34.1-44.9) % MCV (80.0-100.0) fL MCH (25.0-34.0) pg MCHC (32.0-36.0) g/dL RDW Std Deviation (36.4-46.3) fL RDW Coeff of Tyrel (11.5-14.5) % Plt Count (130-400) K/uL MPV (9.4-12.3) fL Immature Gran % (Auto) % Neut % (Auto) % Lymph % (Auto) % [place] % (Auto) % Eos % (Auto) % Baso % (Auto) % Neut # (Auto) (1.4-6.5) K/uL Lymph # (Auto) (1.2-3.4) K/uL [place] # (Auto) (0.24-0.82) K/uL Eos # (Auto) (0-0.50) K/uL Baso # (Auto) (0-0.2) K/uL Immature Gran # (Auto) (0.00-0.02) K/uL ESR (0-20) mm/hr PT (9.0-12.0) Seconds INR (0.9-1.1) APTT (21.0-31.0) Seconds PTT Ratio VBG pH (7.36-7.41) VBG pCO2 (38-50) mmHg VBG pO2 mmHg VBG HCO3 mmol/L VBG O2 Saturation % VBG Base Excess mEq/L Sodium 137 (136-145) mmol/L Potassium 3.5 (3.5-5.1) mmol/L Chloride 97 L (98-107) mmol/L Carbon Dioxide 30 (21-32) mmol/L Anion Gap 10 (3-11) BUN 8 (6-23) mg/dl Creatinine 0.73 (0.6-1.2) mg/dl Est Cr Clr Drug Dosing 83.2 ml/min Est GFR ( Amer) 115.3 ml/min Est GFR (Non-Af Amer) 99.5 ml/min BUN/Creatinine Ratio 11.0 (10-20) Glucose 150 H (70-99(Fasting)) mg/dl Lactate 1.8 (0.4-2.0) mmol/L Calcium 8.9 (8.5-10.1) mg/dl Magnesium 1.5 L (1.7-2.4) mg/dl Total Bilirubin 1.3 H (0.2-1.0) mg/dl AST 16 (13-39) U/L ALT 10 (7-52) U/L Alkaline Phosphatase 124 H (34-104) U/L Total Creatine Kinase 50 (26-192) U/L Troponin I High Sens 17.3 H (0-14) pg/ml C-Reactive Protein 4.48 H (0-0.5) mg/dl Total Protein 6.3 (6.0-8.3) gm/dl Albumin 3.1 L (3.4-5.0) gm/dl Globulin 3.2 (2.5-4.0) gm/dl Albumin/Globulin Ratio 1.0 (0.9-2) Procalcitonin 0.08 (0-0.5) ng/ml SARS-CoV-2, RNA, NAAT (NEGATIVE) 07/25/22 07/25/22 Range/Units 09:34 11:01 WBC (4.8-10.8) K/ul RBC (3.93-5.22) M/uL Hgb (12.0-16.0) g/dl Hct (34.1-44.9) % MCV (80.0-100.0) fL MCH (25.0-34.0) pg MCHC (32.0-36.0) g/dL RDW Std Deviation (36.4-46.3) fL RDW Coeff of Tyrel (11.5-14.5) % Plt Count (130-400) K/uL MPV (9.4-12.3) fL Immature Gran % (Auto) % Neut % (Auto) % Lymph % (Auto) % [place] % (Auto) % Eos % (Auto) % Baso % (Auto) % Neut # (Auto) (1.4-6.5) K/uL Lymph # (Auto) (1.2-3.4) K/uL [place] # (Auto) (0.24-0.82) K/uL Eos # (Auto) (0-0.50) K/uL Baso # (Auto) (0-0.2) K/uL Immature Gran # (Auto) (0.00-0.02) K/uL ESR (0-20) mm/hr PT (9.0-12.0) Seconds INR (0.9-1.1) APTT (21.0-31.0) Seconds PTT Ratio VBG pH 7.43 H (7.36-7.41) VBG pCO2 49 (38-50) mmHg VBG pO2 40 mmHg VBG HCO3 33 mmol/L VBG O2 Saturation < 60.0 % VBG Base Excess 6.9 mEq/L Sodium (136-145) mmol/L Potassium (3.5-5.1) mmol/L Chloride (98-107) mmol/L Carbon Dioxide (21-32) mmol/L Anion Gap (3-11) BUN (6-23) mg/dl Creatinine (0.6-1.2) mg/dl Est Cr Clr Drug Dosing ml/min Est GFR ( Amer) ml/min Est GFR (Non-Af Amer) ml/min BUN/Creatinine Ratio (10-20) Glucose (70-99(Fasting)) mg/dl Lactate (0.4-2.0) mmol/L Calcium (8.5-10.1) mg/dl Magnesium (1.7-2.4) mg/dl Total Bilirubin (0.2-1.0) mg/dl AST (13-39) U/L ALT (7-52) U/L Alkaline Phosphatase (34-104) U/L Total Creatine Kinase (26-192) U/L Troponin I High Sens (0-14) pg/ml C-Reactive Protein (0-0.5) mg/dl Total Protein (6.0-8.3) gm/dl Albumin (3.4-5.0) gm/dl Globulin (2.5-4.0) gm/dl Albumin/Globulin Ratio (0.9-2) Procalcitonin (0-0.5) ng/ml SARS-CoV-2, RNA, NAAT NEGATIVE (NEGATIVE) Administered Medications Heparin Sodium/Dextrose (Heparin Sodium/Dextrose) 25,000 units in 500 mls @ 20 mls/hr IV .Q24H [facility]; Protocol Stop: 08/24/22 12:59 Last Admin: 07/25/22 13:13 Dose: 20 units/hr, 0.4 mls/hr Documented By: RALF Co-signed By: ARA Piperacillin Sod/Tazobactam (Sod 3.375 gm/ Dextrose) 115 mls @ 28.75 mls/hr IV Q8H [facility]; Protocol Stop: 08/01/22 15:59 Last Admin: 07/25/22 18:45 Dose: 28.8 mls/hr Documented By: EMIL Morphine Sulfate (Morphine Sulfate 2 Mg/Ml Carp) 2 mg IV Q4H PRN PRN Reason: Pain Stop: 08/08/22 15:27 Last Admin: 07/25/22 15:45 Dose: 2 mg Documented By: EMIL Ondansetron HCl (Ondansetron Inj 2 Mg/Ml 2 Ml Vial) 4 mg IV Q6H PRN PRN Reason: Nausea And Vomiting Stop: 08/24/22 18:48 Last Admin: 07/25/22 20:45 Dose: 4 mg Documented By: RADHA Discontinued Medications Heparin Sodium (Porcine) (Heparin Sod (Porcine) 1000 Unit/Ml) 1 units IV NOW ONE Stop: 07/25/22 12:59 Last Admin: 07/25/22 13:14 Dose: 4,000 units Documented By: RALF Co-signed By: ARA Heparin Sodium/Dextrose (Heparin Iv Adult Wt-Based Standard With Bolus Protocol) 1 each IV NOW STA; Protocol Stop: 07/25/22 12:43 Last Admin: 07/25/22 13:18 Dose: Not Given Documented By: RALF Sodium Chloride (Nss 1000ml) 1,000 mls @ 999 mls/hr IV .Q1H1M ONE Stop: 07/25/22 10:21 Last Infusion: 07/25/22 11:26 Dose: 0 mls/hr Documented By: Admin: 07/25/22 09:32 Dose: 999 mls/hr Documented By: PRIYANKA Acetaminophen (Ofirmev) 1,000 mg in 100 mls @ 400 mls/hr IV NOW STA Stop: 07/25/22 09:35 Last Infusion: 07/25/22 11:25 Dose: 0 mls/hr Documented By: Admin: 07/25/22 09:32 Dose: 400 mls/hr Documented By: PRIYANKA Piperacillin Sod/Tazobactam Sod (Zosyn) 4.5 gm in 120 mls @ 240 mls/hr IV NOW ONE Stop: 07/25/22 09:53 Last Infusion: 07/25/22 11:26 Dose: 0 mls/hr Documented By: Admin: 07/25/22 09:42 Dose: 240 mls/hr Documented By: [id number] Magnesium Sulfate/Dextrose (Magnesium Sulfate / D5w) 1 gm in 100 mls @ 100 mls/hr IV Q1H JENN Stop: 07/25/22 13:38 Last Infusion: 07/25/22 20:38 Dose: 0 mls/hr Documented By: Admin: 07/25/22 13:17 Dose: 100 mls/hr Documented By: Infusion: 07/25/22 13:08 Dose: 0 mls/hr Documented By: Admin: 07/25/22 12:03 Dose: 100 mls/hr Documented By: RALF Magnesium Sulfate/Dextrose (Magnesium Sulfate / D5w) 1 gm in 100 mls @ 50 mls/hr IV ONE ONE Stop: 07/25/22 15:26 Last Admin: 07/25/22 16:41 Dose: Not Given Documented By: EMIL Vancomycin HCl 1,750 mg/ (Sodium Chloride) 535 mls @ 200 mls/hr IV ONE ONE Stop: 07/25/22 18:25 Last Infusion: 07/25/22 20:38 Dose: 0 mls/hr Documented By: Admin: 07/25/22 16:38 Dose: 200 mls/hr Documented By: EMIL Ioversol (Optiray 300 500ml) 116 ml IV ONCE ONE Stop: 07/25/22 10:37 Last Admin: 07/25/22 10:43 Dose: 116 ml Documented By: NABIL Ketorolac Tromethamine (Ketorolac Tromethamine 15 Mg/Ml Vial) 15 mg IV NOW ONE Stop: 07/25/22 16:26 Last Admin: 07/25/22 16:45 Dose: 15 mg Documented By: EMIL Ketorolac Tromethamine (Ketorolac Tromethamine 15 Mg/Ml Vial) Confirm Admini stered Dose 15 mg .ROUTE .STK-MED ONE Stop: 07/25/22 16:35 Last Admin: 07/25/22 17:53 Dose: Not Given Documented By: EMIL Lorazepam (Lorazepam 2 Mg/1 Ml Vial) 0.5 mg IV NOW STA; Protocol Stop: 07/25/22 10:53 Last Admin: 07/25/22 10:57 Dose: 0.5 mg Documented By: KHOA Morphine Sulfate (Morphine Sulfate 10 Mg/Ml Carp/Vial) 6 mg IV NOW STA Stop: 07/25/22 09:22 Last Admin: 07/25/22 09:29 Dose: 6 mg Documented By: KN Imaging Data Radiologist's Impression: Chest X-Ray 07/25/22 09:21 XR chest 1V portable HISTORY: 47 years-old Female SEPSIS acute sepsis COMPARISON: CTA chest 12/23/2018 TECHNIQUE: Portable AP view of the chest FINDINGS: Nipple shadow projects over the lateral right lung base. The cardiomediastinal and hilar silhouettes are unchanged. No pneumothorax, pleural effusion, airspace consolidation or overt pulmonary edema. The bones of the chest appear grossly intact. IMPRESSION: No acute process. ACT 112: Negative or not required by law. The above report was generated using voice recognition software. It may contain grammatical, syntax or spelling errors. Electronically signed by: Raoul Nicholas M.D. 07/25/2022 9:[address] 07/25/22 09:21 CT SCAN OF THE LEFT TIBIA AND FIBULA WITH IV CONTRAST CLINICAL HISTORY: Left lower extremity edema. Clinical concern for necrotizing infection. COMPARISON STUDY: No priors. TECHNIQUE: Following the IV administration of 116 cc of Optiray 300, CT scan of the left tibia and fibula is performed from the distal femur to the foot. Images are reviewed in the axial, sagittal, and coronal planes. IV contrast was administered without complication. A dose lowering technique was utilized adhering to the principles of ALARA. FINDINGS: The skeletal structures are osteopenic. There is no evidence of tibial or fibular fracture. There is no bone erosion or periostitis. The knee and ankle joints appear maintained. There is diffuse subcutaneous soft tissue edema seen throughout the left lower extremity with associated dermal thickening. No soft t issue gas is identified. There is generalized atrophy of the regional musculature. There is a filling defect within the deep veins of the calf, best seen on image #103 consistent with deep venous thrombosis. There is no evidence of fluid collection. The Achilles tendon is intact as imaged. IMPRESSION: 1. No osseous abnormality is seen involving the left tibia or fibula. 2. There is evidence of deep venous thrombosis in the left calf. 3. Diffuse soft tissue edema and dermal thickening is noted throughout the left lower extremity. 4. No soft tissue gas is identified. ACT 112: Negative or not required by law. Dictated: 07/25/2022 11:16 AM Transcribed: 07/25/2022 11:55 AM Dulce [id number] [email or web address] Electronically signed by: Osito Bernard M.D. 07/25/2022 12:[address] 07/25/22 09:21 CT tib/fib RT w con CLINICAL HISTORY: ?necrotizing infection COMPARISON STUDY: No previous studies for comparison. TECHNIQUE: Axial images of the right lower leg/tibia and fibula were performed following intravenous injection 116 cc of Optiray 300. Sagittal and coronal reconstructions were viewed. Automated exposure control was utilized for the study. A dose lowering technique was utilized adhering to the principles of ALARA. FINDINGS: Please note that the CT of the left lower leg will be reported separately. Note is made of extensive subcutaneous edema of the right lower leg and foot. There is mild fluid along the fascia. Multifocal skin irregularity likely reflects wounds. There is no rim-enhancing fluid collection to suggest an abscess. There is no soft tissue gas within the right lower leg or foot. There is no evidence for acute osteomyelitis. No acute fracture is present. There is a filling defect suggestive of deep venous thrombus within a right peroneal vein, shown best on axial image 107 of 541. IMPRESSION: 1. Extensive subcutaneous edema of the right lower leg with mild fascial fluid. These findings suggest cellulitis. Multiple suspected wounds of the right lower leg. No fluid collection to suggest abscess. No soft tissue gas to suggest necrotizing fasciitis by CT. No evidence for acute osteomyelitis. 2. Deep venous thrombus within a right peroneal vein, as described above. ACT 112: Negative or not required by law. Electronically signed by: Rafita Dodd M.D. 07/25/2022 11:12 AM Chest CTA 07/25/22 10:32 CT angio chest PE protocol CT DOSE: 630.23 mGy.cm HISTORY: 47 years-old Female with hypoxia, tachycardia, r/o PE. Acute hypoxia with tachycardia TECHNIQUE: Multiple CTA images of the chest were obtained after the intravenous administration of 116 ml Optiray. Coronal and sagittal MIPS were obtained from the axial data set and were submitted for review. All measurements were obtained according to NASCET criteria. A dose lowering technique was utilized adhering to the principles of ALARA. COMPARISON: CTA chest 12/23/2018 FINDINGS: CTA: Mild cardiomegaly. No pericardial effusion. The thoracic aorta and left heart structures are suboptimally evaluated secondary to contrast bolus timing. No thoracic aortic aneurysm identified. Segmental and subsegmental acute appearing pulmonary emboli are noted within the left upper lobe. No central pulmonary emboli or evidence of right heart strain. CT CHEST: Unremarkable thyroid. There are a few nonspecific borderline enlarged mediastinal and hilar lymph nodes measuring up to 9-10 mm. Study is limited secondary to upper extremity positioning. No pneumothorax, pleural effusion or lobar airspace consolidation. Bilateral groundglass densities with mosaic attenuation and mild intralobular septal thickening. Mild bronchial wall thickening. Central airways are patent. There are no suspicious pulmonary nodules or masses. Mild nonspecific distal esophageal wall thickening. Nonobstructing calculi of the superior pole right kidney with medullary nephrocalcinosis. There is anasarca. No acute fracture. No destructive bone lesion. Scoliotic curvature of the thoracic spine. IMPRESSION: 1. Segmental and subsegmental pulmonary emboli of the left upper lobe. 2. Diffuse bilateral groundglass densities with mosaic attenuation suggestive of atelectasis with air trapping. An infectious or inflammatory pneumonitis could appear similarly. 3. Right renal calculi with medullary nephrocalcinosis redemonstrated. 4. Anasarca. ACT 112: Negative or not required by law. The above report was generated using voice recognition software. It may contain grammatical, syntax or spelling errors. Electronically signed by: Raoul Nicholas M.D. 07/25/2022 11:39 AM Discharge Plan Visit Data Chief Complaint: Leg Injury/Pain Stated Complaint: LEG INFECTION ED Provider: Navjot Valiente Discharge Problem: Sepsis, Pulmonary embolism, Bilateral lower leg cellulitis, DVT (deep venous thrombosis) Patient Disposition: Admitted As Inpatient Discharge Instructions Interventions: ED Discharge Assessment Last Done: 07/25/22 13:39
[2022-07-25 18:02] LABS: Iron 92 mcg/dl (35-150); Total Iron Binding Cap Calc 273 mcg/dl (250-450); Transferrin (FE) Percent Satur 34 % (15-50); Unsaturated Iron Binding Cap 181 mcg/dl (155-355)
--- NOTE | 2022-07-25 18:03 | XRay Report ---
SINGLE VIEW CHEST CLINICAL HISTORY: Preoperative examination. Cough and wheezing. Pulmonary embolus. FINDINGS: An AP, portable, upright chest radiograph is compared to study performed earlier the same d ay 07/25/2022. The cardiomediastinal silhouette is mildly enlarged. The pulmonary vasculature is noncon gested. The lungs and pleural spaces are clear. No pneumothorax is seen. The bony thorax is grossly i ntact. IMPRESSION: The lungs are clear. ACT 112: Negative or not required by law. Electronically signed by: Osito Bernard M.D. 07/25/2022 6:00 PM
[2022-07-25 18:15] LABS: Partial Thromboplastin Ratio 1.9
[2022-07-25] MEDS: PIPERACILLIN/TAZOBACTAM 3.375 GM in DEXTROSE 5% 100 ML IV SCH ×2 (18:45→23:17)
[2022-07-25] MEDS: ONDANSETRON INJ 2 MG/ML 2 ML VIAL IV PRN (20:45)
[2022-07-25] MEDS: KETOROLAC TROMETHAMINE 15 MG/ML VIAL IV PRN (21:20)
[2022-07-26] MEDS ORDERED: VANCOMYCIN HCL 1,000 MG in SODIUM CHLORIDE 0.9% 500 ML IV SCH
[2022-07-26] MEDS: VANCOMYCIN HCL 1,000 MG in SODIUM CHLORIDE 0.9% 250 ML IV SCH ×2 (00:35→13:30)
[2022-07-26] MEDS: MoRPHine SULFATE 2 MG/ML CARP IV PRN ×4 (00:38→19:27)
[2022-07-26 01:59] LABS: Appearance Urine Cloudy (Clear); Bilirubin Urine Negative (Negative); Blood Urine 2+ (Negative); Color Urine Dark Yellow; Epithelial Cell Urine Auto >30 /lpf (0-5); Glucose Urine UA Negative (Negative); Ketones Urine Trace (Negative); Leukocyte Esterase Urine Trace (Negative); Nitrite Urine Negative (Negative); Protein Urine 2+ (Negative); Specific Gravity Urine > 1.045 (1.000-1.030); Urobilinogen Urine Negative (Negative); WBC Urine Automated >30 /hpf (0-5)
[2022-07-26 02:33] LABS: Calcium Oxalate Crystals Urine Present (None Prsent)
[2022-07-26 02:34] LABS: Bacteria Urine Automated 1+ (Negative)
[2022-07-26] MEDS: ONDANSETRON INJ 2 MG/ML 2 ML VIAL IV PRN ×2 (02:47→19:27)
[2022-07-26 06:22] LABS: Hematocrit (blood only) 35.7 % (34.1-44.9); Hemoglobin 11.5 g/dl (12.0-16.0); Mean Corpuscular Hemoglobin 32.7 pg (25.0-34.0); Mean Corpuscular Hgb Conc 32.2 g/dL (32.0-36.0); Mean Corpuscular Volume 101.4 fL (80.0-100.0); Mean Platelet Volume 10.1 fL (9.4-12.3); Platelet Count 289 K/uL (130-400); RDW Coefficient of Variation 19.6 % (11.5-14.5); Red Blood Count 3.52 M/uL (3.93-5.22)
[2022-07-26 06:38] LABS: Partial Thromboplastin Ratio 1.1; Partial Thromboplastin Time 29.7 Seconds (21.0-31.0)
[2022-07-26] MEDS ORDERED: HEPARIN SOD (PORCINE) 1000 UNIT/ML IV ONE (06:43)
[2022-07-26 06:48] LABS: Troponin I High Sensitivity 14.1 pg/ml (0-14)
[2022-07-26 07:17] LABS: Albumin Level 2.9 gm/dl (3.4-5.0); BUN Creatinine Ratio 10.7 (10-20); Bilirubin,Total 1.6 mg/dl (0.2-1.0); C Reactive Protein 8.02 mg/dl (0-0.5); Calcium 8.8 mg/dl (8.5-10.1); Est GFR (Non-African American) 65.6 ml/min; Globulin 2.9 gm/dl (2.5-4.0); Magnesium 1.8 mg/dl (1.7-2.4); Total Protein 5.8 gm/dl (6.0-8.3)
--- NOTE | 2022-07-26 08:36 | Psychiatric Consultation ---
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 This time she endorses depressed mood due to the pain and dealing with leg wounds and how this has impacted her mobility at home consistent with adjustment disorder with depressed mood. She also has nicotine use disorder and is having significant cravings to smoke offered nicotine replacement products which she may consider. She denies suicidal ideation, homicidal ideation does not demonstrate any symptoms of acute robbie nor acute psychosis nor acute delirium and can speak to how she cares for her needs. Acute risk of self-harm is low given denial of SI. She is not interested in any current outpatient therapy nor inpatient psychiatric care nor is she felt to meet criteria at this point and does not meet involuntary criteria. Assess decision-making capacity given that she was talking about her possible desire to leave AMA and concerns about possible depression contributing to lack of self-care. In speaking with her it seems that depression did not cause her delay in seeking treatment for her leg wounds but rather a poor interaction with a medical provider and concerns about how the medical admission would limit her ability to smoke cigarettes. In terms of decision making capacity regarding leaving AMA she can speak to her diagnosis recalling that it was called "PG" and is able to tell me what the various specialists and hospitalist have talked with her about the required treatment including "steroids and wrapping my legs the certain way and antibiotics". She is able to speak to benefits of hospitalization including that "this could get better and hopefully the pain would lessen and I could do more again and my mood would improve". She can also speak to the risks of leaving stating "it could get worse but also then I could smoke and I could just check myself into a hospital somewhere else or check back in here". Per discussion with her hospitalist provider to ensure the accuracy of the information she shared with me regarding potential risks and benefits and treatment plan as they have discussed with her it seems that she does have decision-making capacity as her sense of the treatment plan is accurate and she understands the potential high risks of leaving without treatment as well as the potential benefits. (1) Adjustment disorder with depressed mood: (2) Nicotine use disorder: (3) ADHD: (4) Bilateral lower leg cellulitis: Plan -Continue Adderall as ordered -UDS ordered -At this time felt to have decision making capacity to leave AMA -Does not meet 302 criteria -If depression does not improve with ongoing medical treatment she can discuss additional medication options with her outpatient psychiatrist, in the hospital could use Vistaril 25mg q6h prn for anxiety -Agree with encouraging use of nicotine replacement products, could consider Chantix trial if cravings continue to interfere with medical treatment -Discussed recommendations with Dr. Elder Risk Factors Assessment Do You Have Access To A Gun?: No Psych History Identifying Data 47-year-old woman with history of depression, ADHD, polysubstance use, nicotine use disorder and medical comorbidities admitted medically for wounds and pain in her bilateral lower legs. Psychiatry was consulted for recommendations given concern about possible mood symptoms contributing lack of self-care/delaying seeking medical treatment for lower leg wounds. Chief Complaint "At first I thought they were just going to get better on their own and then when they didn't I knew I'd have to go into the hospital and that meant I wouldn't be able to smoke". History of Present Illness Soo is admitted for wounds on her legs and increasing bilateral pain in her l ower legs. She was seen by dermatology and the hospitalist service who feel her condition is most consistent with Pyoderma gangrenosum. Given the worsening pain of her legs she has been bedbound at home requiring family to bring her food and coolers with drinks to her bedside. He states that she had not used alcohol in a long time but recently has been using "a shot or 2 to go to sleep". She smokes 1 pack of cigarettes daily and has been smoking for the last 35 years. Today she is focused on her desire to smoke a cigarette stating that she may need to leave the hospital to do so because nicotine replacement products do not do enough for her. We review recent events and she states that while she had depression and anxiety many years ago and tried various medications for this she has not been depressed in many years since she was diagnosed with ADHD and has been on stimulant medication. Review of outpatient records from [place] is consistent with this as recent notes state that she has been stable and mood has been stable. However she states that over the last few weeks she developed wounds on her legs and the pain has become increasingly worse and due to this she has been feeling more depressed. She adamantly denies any suicidal ideation and denies any prior attempts nor any access to weapons at home nor any prior psychiatric hospitalizations. She explains further that her depression is "only because of this" in reference to her legs. She expresses frustration with not being able to smoke cigarettes noting that initially when she had the leg wounds she thought "it would get better on its own". She states when that did not happen she went to her primary care office but it was a [facility] office at a different location and she notes "the doctor made me feel like I was crazy told me to see my psychiatrist so then I was not going to go back there". She states that then as the symptoms progressed further she "knew I had be admitted and then I would not be able to smoke so I did not want to go to the hospital". States that now she is here her concerns about being unable to smoke have come to fruition and states she is considering signing herself out AMA. She currently takes Adderall and no other current psychiatric medications. He denies any recent substance use except alcohol to sleep. In the past he used cocaine and is currently on probation for a history of 3 prior DUIs due to a "controlled substances" and possession of cocaine with incarceration of 5 years previously. She has a history of cocaine, opiate, LSD use in the past. Past Psychiatric History Previous Psych History: PTSD, ADHD, dep, anxiety Current Psychiatric Diagnosis: ADHD Outpatient Services: [facility] [place] Previous Psych Admissions: denies Do You Have Access To A Gun?: No History of Previous Suicide Attempt: No Past Medication Trials: multiple SSRIs, SNRis, WEllbutrin, gabapentin, clonidine, tenex, intuniv, prazosin, Klonopin Allergies Allergy/AdvReac Type Severity Reaction Status Date / Time No Known Allergies Allergy Unknown Verified 12/28/21 02:02 Home Medications Medication Instructions Recorded Confirmed Type albuterol sulfate 90 mcg/actuation 2 puffs inhalation Q4 PRN Wheezing 08/18/19 07/25/22 History aerosol inhaler (Ventolin HFA) dextroamphetamine-amphetamine 20 20 mg PO .EVERY AFTERNOON PRN as 12/28/21 07/25/22 History mg tablet directed dextroamphetamine-amphetamine ER 30 mg PO QAM 12/28/21 07/25/22 History 30 mg 24hr capsule,extend release furosemide 20 mg tablet 20 mg PO DAILY 12/28/21 07/25/22 History potassium chloride 10 mEq 10 meq PO DAILY 12/28/21 07/25/22 History tablet,extended release(part/cryst) Family History brother with schizophrenia Substance Abuse History Extensive see HPI Personal History Living Arrangements: Home Employment Status: Unemployed Beliefs That Will Affect Care: None Patient History Medical History ADHD Cellulitis, leg Cervicovaginal cytology: Low grade squamous intraepithelial lesion (Unknown) "S/P LEEP " COPD (chronic obstructive pulmonary disease) DVT (deep venous thrombosis) Pulmonary embolism Pyoderma gangrenosum Self neglect Sepsis Standard chest X-ray abnormal (Unknown) "RUL density noted on CXR 05/22/12. CT follow-up recommended. " On 05/23/12 06:11 You Reina wrote "RUL density noted on CXR 05/22/12. CT follow-up recommended. " Social History Smoking Status: Current every day smoker Tobacco Type: Cigarettes Second Hand Exposure: No; Hx Alcohol Use: Yes Alcohol type: hard liquor Hx Substance Use: Yes Last Used Substance: Just Prior to Arrival Preferred Language: Venezuelan Communication Ability: Effective Sales Administrator Required: No Beliefs That Will Affect Care: None Current Living Situation: Alone Feels Safe at Home: Yes Assistive Devices: None Physical Exam Psychiatric: Orientation: alert and oriented x 3 Apperance: appropriately dressed and appropriately groomed Eye Contact: good eye contact Motor Behavior: no abnormal motor movements Speech: normal rate/rhythm/volume of speech Affect: + irritable affect Mood: + depressed mood and + anxious mood (due to not being able to smoke) Thought Process: goal directed thought process Thought Content: reality based without delusions Suicidal Thoughts: denies suicidal thoughts Homicidal Thoughts: denies homicidal thoughts Hallucinations: no auditory hallucinations and no visual hallucinations Cognition: recent memory grossly intact, remote memory grossly intact, attention grossly intact and language grossly intact Estimated Intelligence: consistent with education level Insight: + fair insight Judgement: + limited judgement Vital Signs (Past 24 Hours): Last Vital Signs Temp 36.3 C L 07/26/22 07:23 Pulse 57 L 07/26/22 07:23 Resp 20 07/26/22 07:23 BP 109/78 07/26/22 07:23 Pulse Ox 96 07/26/22 07:23 O2 Del Method 07/26/22 07:23 O2 Flow Rate 2 07/25/22 10:04 Review of Systems All systems reviewed & are unremarkable except as noted in HPI & below (leg pain) Results & Data (PSY) Medications Administered Heparin Sodium/Dextrose (Heparin Sodium/Dextrose) 25,000 units in 500 mls @ 23 mls/hr IV .[id number] [facility]; Protocol Stop: 08/24/22 12:59 Last Titration: 07/26/22 08:10 Dose: 1,150 units/hr, 23 mls/hr Documented By: CITLALLI Co-signed By: APRIL Titration: 07/26/22 07:09 Dose: 20 units/hr, 0.4 mls/hr Documented By: CITLALLI Co-signed By: RADHA Admin: 07/25/22 13:13 Dose: 20 units/hr, 0.4 mls/hr Documented By: RALF Co-signed By: ARA Piperacillin Sod/Tazobactam (Sod 3.375 gm/ Dextrose) 115 mls @ 28.75 mls/hr IV Q8H [facility]; Protocol Stop: 08/01/22 15:59 Last Infusion: 07/26/22 03:45 Dose: 0 mls/hr Documented By: Admin: 07/25/22 23:17 Dose: 28.8 mls/hr Documented By: Infusion: 07/25/22 22:46 Dose: 0 mls/hr Documented By: Admin: 07/25/22 18:45 Dose: 28.8 mls/hr Documented By: EMIL Vancomycin HCl 1,000 mg/ (Sodium Chloride) 270 mls @ 200 mls/hr IV Q12H [facility] Stop: 08/02/22 00:00 Last Infusion: 07/26/22 01:48 Dose: 0 mls/hr Documented By: Admin: 07/26/22 00:35 Dose: 200 mls/hr Documented By: RADHA Ketorolac Tromethamine (Ketorolac Tromethamine 15 Mg/Ml Vial) 10 mg IV Q6H PRN PRN Reason: severe pain Stop: 07/30/22 16:29 Last Admin: 07/25/22 21:20 Dose: 10 mg Documented By: RADHA Morphine Sulfate (Morphine Sulfate 2 Mg/Ml Carp) 2 mg IV Q4H PRN PRN Reason: Pain Stop: 08/08/22 15:27 Last Admin: 07/26/22 08:30 Dose: 2 mg Documented By: Admin: 07/26/22 00:38 Dose: 2 mg Documented By: Admin: 07/25/22 20:45 Dose: 2 mg Documented By: Admin: 07/25/22 15:45 Dose: 2 mg Documented By: EMIL Ondansetron HCl (Ondansetron Inj 2 Mg/Ml 2 Ml Vial) 4 mg IV Q6H PRN PRN Reason: Nausea And Vomiting Stop: 08/24/22 18:48 Last Admin: 07/26/22 02:47 Dose: 4 mg Documented By: Admin: 07/25/22 20:45 Dose: 4 mg Documented By: RADHA Coding Level of Care Code 27828 Inpt Consult Level 4 Diagnoses Adjustment disorder with depressed mood F43.21 Nicotine use disorder F17.200 ADHD F90.9 Bilateral lower leg cellulitis L03.116; L03.115 Time Spent (min) 50
[2022-07-26] MEDS ORDERED: POTASSIUM CHLORIDE 10 MEQ TABCR PO SCH (09:00)
[2022-07-26] MEDS ORDERED: FUROSEMIDE 20 MG TAB PO SCH (09:00)
[2022-07-26] MEDS ORDERED: NICOTINE 14 MG/24 HR PATCH TD SCH (09:00)
[2022-07-26] MEDS: THIAMINE HCL 100 MG TAB PO SCH (09:27)
[2022-07-26] MEDS: DEXTROAMPHETAMINE/AMPHETAMINE ER 10 MG CAP PO SCH (09:31)
[2022-07-26] MEDS: PIPERACILLIN/TAZOBACTAM 3.375 GM in DEXTROSE 5% 100 ML IV SCH ×2 (10:00→16:54)
[2022-07-26] MEDS: FOLIC ACID 1 MG TAB PO SCH (10:01)
[2022-07-26] MEDS: KETOROLAC TROMETHAMINE 15 MG/ML VIAL IV PRN (10:35)
--- NOTE | 2022-07-26 12:55 | Gastrointestinal Consultation ---
Date of Consultation July 26, 2022 Assessment & Plan (1) Elevated LFTs: Pt is a 47 yo female admitted w bilateral LE cellulitis, DVT, seen for elevated LFTs that's a new finding. She had been bed ridden for a few weeks at home, so wonder if she has rhabdomyolosis. Other DDx include DILI, antibiotic related, infection, viral hepatitis, AIH. - Obtain CK, serologies: Acute hepatitis panel, DANIEL, AMA, ASMA, Ceruloplasmin, A1A antitrypsin, Iron profile studies. - RUQ us - Check urine drug screen and APAP level - Avoid hepatotoxic meds, no APAP >2g a day if needed - Trend LFTs - Marijuana cessation recommended - Call GI if US shows signs of biliary obstruction/dilation or urgent need; otherwise will re-eval on Friday Supervising Physician Co-Signing Physician Notes I saw and evaluated the patient. We were consulted for evaluation of elevated liver enzymes noted this morning. The patient was admitted for bilateral lower extremity swelling and cellulitis and is presently on therapy with vancomycin and Zosyn. Patient denies having nausea, vomiting abdominal pain, fevers nor chills today. no scleral icterus No abdominal tenderness Bilateral edema of the lower extremities impression: Patient with a history of elevated liver enzymes, no. Would recommend a right upper quadrant ultrasound to assess her biliary tree. Based on the pattern I wonder about potential etiologies such as muscular or perhaps an antibiotic associated LFT elevation. Recommendations RUQ US Consider changing the patient's antibiotic coverage in particular the penicillin that is being used Urine tox screen Labs to screen for viral liver disease (hAV, HBV, HCV, EBV and CMV) Please call with any questions or concerns over the weekend otherwise coverage to resume on Friday History of Present Illness Reason for Consultation: Elevated LFTs Requesting Physician: Dr. Judie Elder Attending Physician: Dr. Patricia Kilpatrick History of Present Illness Pt is a 47 yo female seen today for evaluation of elevated LFTs. She was admitted with bilateral LE pain w ulcerations, rendering her immobile and bed ridden for few weeks. Noted to have cellulitis and DVT on lower extremities CT scan. She is currently being treated w Vancomycin and Zosyn IV. LFTs noted to be elevated today: Tbili 1.6, AST 386, ALT 140, Alk phose 111. US liver ordered, to be obtained. Pt denies any jaundice, + mild nausea but seen eating lunch. She denies any vomiting, abd pain. + constipation. No rectal bleeding. Hx of cholecystectomy + tatoos, no body piercing, blood transfusion She uses medical marijuana. Drank heavily in "20s", but denies ETOH uses now. + tobacco use Denies any herbal supplements at home. Denies family hx of liver dz, autoimmune dz or IBD, iron/copper overload Allergies Allergy/AdvReac Type Severity Reaction Status Date / Time No Known Allergies Allergy Unknown Verified 12/28/21 02:02 Home Medications Medication Instructions Recorded Confirmed Type albuterol sulfate 90 mcg/actuation 2 puffs inhalation Q4 PRN Wheezing 08/18/19 07/25/22 History aerosol inhaler (Ventolin HFA) dextroamphetamine-amphetamine 20 20 mg PO .EVERY AFTERNOON PRN as 12/28/21 07/25/22 History mg tablet directed dextroamphetamine-amphetamine ER 30 mg PO QAM 12/28/21 07/25/22 History 30 mg 24hr capsule,extend release furosemide 20 mg tablet 20 mg PO DAILY 12/28/21 07/25/22 History potassium chloride 10 mEq 10 meq PO DAILY 12/28/21 07/25/22 History tablet,extended release(part/cryst) Patient History Medical History ADHD Cellulitis, leg Cervicovaginal cytology: Low grade squamous intraepithelial lesion (Unknown) "S/P LEEP " COPD (chronic obstructive pulmonary disease) DVT (deep venous thrombosis) Pulmonary embolism Self neglect Sepsis Standard chest X-ray abnormal (Unknown) "RUL density noted on CXR 05/22/12. CT follow-up recommended. " On 05/23/12 06:11 You Reina wrote "RUL density noted on CXR 05/22/12. CT follow-up recommended. " Social History Smoking Status: Current every day smoker Tobacco Type: Cigarettes Second Hand Exposure: No; Hx Alcohol Use: Yes Alcohol type: hard liquor Hx Substance Use: Yes Last Used Substance: Just Prior to Arrival Preferred Language: Serbian Communication Ability: Effective Dishroom Attendant Required: No Beliefs That Will Affect Care: None Current Living Situation: Alone Feels Safe at Home: Yes Assistive Devices: Glasses and Walker Review of Systems Review of Systems: All systems reviewed & are unremarkable except as noted in HPI & below Physical Exam Constitutional: WD/WN, vitals as above well groomed, cooperative and comfortable Eyes: PERRL, conjunctivae normal, anicteric sclerae ENMT: external ear and nose normal, oropharynx normal Respiratory: normal respiratory effort, lungs clear to auscultation Cardiovascular: RRR, no murmur, no edema Gastrointestinal (Abdomen): Mild TTP RUQ, otherwise soft, BS present, seen eating lunch Skin: no rashes, warm and dry no jaundice Psychiatric: A+Ox3, euthymic affect Lymphatic: no lymphedema Results & Data ([facility]) Vital Signs (Past 12 Hours) Vital Signs Temp Pulse Pulse Resp BP Pulse Ox O2 Del Method 07/26/22 06:00 104 H 07/26/22 11:12 36.6 C 107 H 20 107/75 93 Room Air 07/26/22 07:23 36.3 C L 57 L 20 109/78 96 Room Air 07/26/22 02:53 36.9 C 107 H 18 113/83 91 Room Air
[2022-07-26] MEDS: HEPARIN SODIUM/DEXTROSE 25,000 UNITS/500 ML BAG IV SCH (13:00)
--- NOTE | 2022-07-26 14:16 | Pharmacy Report ---
Pharmacy PK ABX Note - Date of Service July 26, 2022 - Assessment and Plan Assessment 47 year old F receiving Vancomycin for treatment of bilateral lower extremity cellulitis. Cultures pending. Patient has history of frequent UTIs and chronic ulcers on her legs. She is ordered Zosyn and Vancomycin Day #2 of antimicrobial therapy. Plan Vancomycin * Loading dose: 1750 mg IV x 1 yesterday at 16:58. * Maintenance dose: 1000 mg IV every 12 hours * Regimen is predicted to achieve target AUC/MARIA ELENA of 400-600 mg/L.hr * Trough level ordered for: 07/27 before dose at 12:00 Pharmacy will continue to follow and will adjust dose/frequency as necessary. Demian meyers. Pharmacy has transitioned to AUC monitoring for vancomycin. AUC/MARIA ELENA is the preferred PK/PD target and is associated with decreased risk of nephrotoxicity compared to traditional trough targets.
[2022-07-26] MEDS: AMPHETAMINE ASP/SULF/DEXTRAMPH 20 MG TAB PO SCH (14:22)
--- NOTE | 2022-07-26 14:28 | Ultrasound Report ---
US liver CLINICAL HISTORY: Transaminitis COMPARISON STUDY: CT of the abdomen and pelvis December 23, 2018. FINDINGS: There is no biliary ductal dilatation status post cholecystectomy. Common bile duct measure s 5 mm in caliber. Trace perihepatic ascites is present. No hepatic lesions are identified. There is possible subtle nodularity of the liver surface. There is also a fat and fluid containing midline boom tral hernia of the upper abdomen. Pancreatic body is normal. Head and tail are partially obscured. Fi ndings suggestive of medullary nephrocalcinosis within the right kidney with numerous small calculi. There is no right hydronephrosis. IMPRESSION: 1. No biliary ductal dilatation status post cholecystectomy. 2. Trace perihepatic ascites. 3. Subtle nodularity of the liver surface. Although not definitive, this raises the possibility of ci rrhosis. 4. Fluid and fat-containing upper abdominal midline ventral hernia. ACT 112: Negative or not required by law. Electronically signed by: Rafita Dodd M.D. 07/26/2022 2:25 PM
--- NOTE | 2022-07-26 14:34 | Dermatology Consultation ---
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 Her overall non-toxic status, normal WBC count and largely unremarkable findings on CT scan argue against a primary infectious process. Recommend the followin) AVOID any debridement of wounds as this typically leads to worsening. 2) Agree with current wound care regimen of xeroform gauze, ABD pad and gauze wrap. Agree with wound care nursing consult for dressing changes. 3) D/w primary MD starting systemic steroids for control of inflammation. Recommend starting with Prednisone 60mg daily (or IV equivalent) for now. 4) Discussed with patient that 50% of cases are idiopathic, but 50% are also associated with underlying systemic disease process. This would typically include IBD, inflammatory arthritis, monoclonal gammopathy or hematologic ma lignancy. Recommend checking RF, SPEP/UPEP or ROGER. Also recommend GI evaluation for colonoscopy as patient has not had this done yet. 5) Agree with empiric antibiotics as per ID for now until her cultures have been resulted. 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 7) Call with any acute issues. Otherwise, will follow-up on Friday to check status. Present on Admission?: Yes History of Present Illness Reason for Consultation: Lower leg ulcerations Requesting Physician: Judie Elder MD Attending Physician: Judie Elder MD History of Present Illness Patient is a 47-year-old female admitted to [facility] on 07/25/2022 for worsening, painful bilateral lower extremity ulcerations. I have been consulted for evaluation. She has a past medical history significant for COPD and ADHD. She reports that 3 months ago she developed a couple of "pimple lesions" on the bilateral lower legs. They were asymptomatic. The lesions gradually broke down and seemed to rapidly expand to the ulcerations as a appear today. She was not performing any particular treatment at home. She denies having any evaluation prior to her admission yesterday. She reports that the areas are painful. She does not recall any trauma prior to onset. She denies any history of similar lesions elsewhere on the body. She does not have any prior history of malignancy, rheumatoid arthritis or inflammatory bowel disease. At the time of her admission she did have CT scans of the bilateral lower extremities which suggested DVT in the left calf and right peroneal vein. There was no evidence to suggest osteomyelitis or necrotizing fasciitis. CT scan of the chest also showed evidence for segmental and subsegmental pulmonary emboli in the left upper lobe. Laboratory studies at the time of admission showed unremarkable CBC, elevated ESR (58), elevated CRP (8.02) and elevated AST/ALT (patient is being evaluated by GI). Blood cultures have been negative, and superficial wound cultures have not shown any growth to date. Infectious Disease has been consulted, and patient is currently on empiric treatment with vancomycin and Zosyn. Her main complaint today is of pain associated with her ulcerations. Legs are currently wrapped with xeroform gauze, ABD pads and gauze wrap. Allergies Allergy/AdvReac Type Severity Reaction Status Date / Time No Known Allergies Allergy Unknown Verified 12/28/21 02:02 Home Medications Medication Instructions Recorded Confirmed Type albuterol sulfate 90 mcg/actuation 2 puffs inhalation Q4 PRN Wheezing 08/18/19 07/25/22 History aerosol inhaler (Ventolin HFA) dextroamphetamine-amphetamine 20 20 mg PO .EVERY AFTERNOON PRN as 12/28/21 07/25/22 History mg tablet directed dextroamphetamine-amphetamine ER 30 mg PO QAM 12/28/21 07/25/22 History 30 mg 24hr capsule,extend release furosemide 20 mg tablet 20 mg PO DAILY 12/28/21 07/25/22 History potassium chloride 10 mEq 10 meq PO DAILY 12/28/21 07/25/22 History tablet,extended release(part/cryst) Patient History Medical History (Updated 07/26/22 @ 14:47 by Joshua Oliveira MD) ADHD Cellulitis, leg Cervicovaginal cytology: Low grade squamous intraepithelial lesion (Unknown) "S/P LEEP " COPD (chronic obstructive pulmonary disease) DVT (deep venous thrombosis) Pulmonary embolism Pyoderma gangrenosum Self neglect Sepsis Standard chest X-ray abnormal (Unknown) "RUL density noted on CXR 05/22/12. CT follow-up recommended. " On 05/23/12 06:11 You Reina wrote "RUL density noted on CXR 05/22/12. CT follow-up recommended. " Social History Smoking Status: Current every day smoker Tobacco Type: Cigarettes Second Hand Exposure: No; Hx Alcohol Use: Yes Alcohol type: hard liquor Hx Substance Use: Yes Last Used Substance: Just Prior to Arrival Preferred Language: French Communication Ability: Effective Senior Compliance Analyst Required: No Beliefs That Will Affect Care: None Current Living Situation: Alone Feels Safe at Home: Yes Assistive Devices: None Review of Systems Constitutional: no fever, no chills and no sweats Gastrointestinal: no abdominal pain, no nausea, no vomiting, no diarrhea/loose stools and no blood in stools Genitourinary: no dysuria and no hematuria Musculoskeletal: no joint pain, no swelling and no stiffness Integumentary: as per Subjective / HPI Hematologic / Lymphatic: no easy bleeding, no easy bruising and no unexplained weight loss Physical Exam Physical Exam: General Appearance:Well developed, well-nourished and in no acute distress Psych:Alert, Oriented and Appropriate Skin Type:2 Right Lower Extremity:large, multi-centimeter, geometric ulceration with jagged, undermined border and purulent base with associated granulation tissue extending from the lateral robert to the calf; 2+ dorsalis pedis pulse present Left Lower Extremity:large, multi-centimeter, geometric ulceration with jagged, undermined border and purulent base with associated granulation tissue extending from the lateral robert to the calf; 2+ dorsalis pedis pulse present Right Upper Extremity:no abnormalities noted. Left Upper Extremity:no abnormalities noted. Nails: no abnormalities noted. Results & Data ([facility]) Vital Signs (Past 12 Hours) Vital Signs Temp Pulse Pulse Resp BP Pulse Ox O2 Del Method 07/26/22 08:00 Room Air 07/26/22 06:00 104 H 07/26/22 11:12 36.6 C 107 H 20 107/75 93 Room Air 07/26/22 07:23 36.3 C L 57 L 20 109/78 96 Room Air 07/26/22 02:53 36.9 C 107 H 18 113/83 91 Room Air Laboratory Results 07/26/22 07/26/22 07/26/22 Range/Units 11:20 05:37 05:37 WBC 8.00 (4.8-10.8) K/ul RBC 3.52 L (3.93-5.22) M/uL Hgb 11.5 L (12.0-16.0) g/dl Hct 35.7 (34.1-44.9) % MCV 101.4 H (80.0-100.0) fL MCH 32.7 (25.0-34.0) pg MCHC 32.2 (32.0-36.0) g/dL RDW Std Deviation 72.0 H (36.4-46.3) fL RDW Coeff of Tyrel 19.6 H (11.5-14.5) % Plt Count 289 (130-400) K/uL MPV 10.1 (9.4-12.3) fL ESR (0-20) mm/hr APTT 29.7 (21.0-31.0) Seconds PTT Ratio 1.1 Sodium (136-145) mmol/L Potassium (3.5-5.1) mmol/L Chloride (98-107) mmol/L Carbon Dioxide (21-32) mmol/L Anion Gap (3-11) BUN (6-23) mg/dl Creatinine (0.6-1.2) mg/dl Est Cr Clr Drug Dosing ml/min Est GFR ( Amer) ml/min Est GFR (Non-Af Amer) ml/min BUN/Creatinine Ratio (10-20) Glucose (70-99(Fasting)) mg/dl Calcium (8.5-10.1) mg/dl Magnesium (1.7-2.4) mg/dl Iron (35-150) mcg/dl TIBC (250-450) mcg/dl Unsaturated IBC (155-355) mcg/dl Transferrin % Sat (15-50) % Total Bilirubin (0.2-1.0) mg/dl AST (13-39) U/L ALT (7-52) U/L Alkaline Phosphatase (34-104) U/L Troponin I High Sens 14.9 H (0-14) pg/ml C-Reactive Protein (0-0.5) mg/dl Total Protein (6.0-8.3) gm/dl Albumin (3.4-5.0) gm/dl Globulin (2.5-4.0) gm/dl Albumin/Globulin Ratio (0.9-2) Vitamin B12 (180-914) pg/ml Folate (>5.38) ng/ml Urine Color Urine Appearance (Clear) Urine pH (4.5-7.5) Ur Specific [place] (1.000-1.030) Urine Protein (Negative) Urine Glucose (UA) (Negative) Urine Ketones (Negative) Urine Blood (Negative) Urine Nitrite (Negative) Urine Bilirubin (Negative) Urine Urobilinogen (Negative) Ur Leukocyte Esterase (Negative) Urine WBC (Auto) (0-5) /hpf Urine RBC (Auto) (0-4) /hpf U Hyaline Cast (Auto) (0-5) /lpf U Epithel Cells (Auto) (0-5) /lpf Urine Bacteria (Auto) (Negative) Calcium Oxalate Crystal (None Prsent) Urine Yeast 07/26/22 07/26/22 07/26/22 Range/Units 05:37 05:37 00:08 WBC (4.8-10.8) K/ul RBC (3.93-5.22) M/uL Hgb (12.0-16.0) g/dl Hct (34.1-44.9) % MCV (80.0-100.0) fL MCH (25.0-34.0) pg MCHC (32.0-36.0) g/dL RDW Std Deviation (36.4-46.3) fL RDW Coeff of Tyrel (11.5-14.5) % Plt Count (130-400) K/uL MPV (9.4-12.3) fL ESR 39 H (0-20) mm/hr APTT (21.0-31.0) Seconds PTT Ratio Sodium 135 L (136-145) mmol/L Potassium 4.0 (3.5-5.1) mmol/L Chloride 97 L (98-107) mmol/L Carbon Dioxide 27 (21-32) mmol/L Anion Gap 11 (3-11) BUN 11 (6-23) mg/dl Creatinine 1.03 D (0.6-1.2) mg/dl Est Cr Clr Drug Dosing 61.0 ml/min Est GFR ( Amer) 76.0 ml/min Est GFR (Non-Af Amer) 65.6 ml/min BUN/Creatinine Ratio 10.7 (10-20) Glucose 95 (70-99(Fasting)) mg/dl Calcium 8.8 (8.5-10.1) mg/dl Magnesium 1.8 (1.7-2.4) mg/dl Iron (35-150) mcg/dl TIBC (250-450) mcg/dl Unsaturated IBC (155-355) mcg/dl Transferrin % Sat (15-50) % Total Bilirubin 1.6 H (0.2-1.0) mg/dl AST 386 H (13-39) U/L ALT 140 H (7-52) U/L Alkaline Phosphatase 111 H (34-104) U/L Troponin I High Sens 14.1 H (0-14) pg/ml C-Reactive Protein 8.02 H (0-0.5) mg/dl Total Protein 5.8 L (6.0-8.3) gm/dl Albumin 2.9 L (3.4-5.0) gm/dl Globulin 2.9 (2.5-4.0) gm/dl Albumin/Globulin Ratio 1.0 (0.9-2) Vitamin B12 (180-914) pg/ml Folate (>5.38) ng/ml Urine Color Dark Yellow Urine Appearance Cloudy A (Clear) Urine pH 5.0 (4.5-7.5) Ur Specific [place] > 1.045 H (1.000-1.030) Urine Protein 2+ H (Negative) Urine Glucose (UA) Negative (Negative) Urine Ketones Trace H (Negative) Urine Blood 2+ H (Negative) Urine Nitrite Negative (Negative) Urine Bilirubin Negative (Negative) Urine Urobilinogen Negative (Negative) Ur Leukocyte Esterase Trace H (Negative) Urine WBC (Auto) >30 H (0-5) /hpf Urine RBC (Auto) 10-30 H (0-4) /hpf U Hyaline Cast (Auto) 5-10 H (0-5) /lpf U Epithel Cells (Auto) >30 H (0-5) /lpf Urine Bacteria (Auto) 1+ H (Negative) Calcium Oxalate Crystal Present A (None Prsent) Urine Yeast Not Reportable 07/25/22 07/25/22 07/25/22 Range/Units 22:36 16:24 16:15 WBC (4.8-10.8) K/ul RBC (3.93-5.22) M/uL Hgb (12.0-16.0) g/dl Hct (34.1-44.9) % MCV (80.0-100.0) fL MCH (25.0-34.0) pg MCHC (32.0-36.0) g/dL RDW Std Deviation (36.4-46.3) fL RDW Coeff of Tyrel (11.5-14.5) % Plt Count (130-400) K/uL MPV (9.4-12.3) fL ESR (0-20) mm/hr APTT 52.0 H* (21.0-31.0) Seconds PTT Ratio 1.9 Sodium (136-145) mmol/L Potassium (3.5-5.1) mmol/L Chloride (98-107) mmol/L Carbon Dioxide (21-32) mmol/L Anion Gap (3-11) BUN (6-23) mg/dl Creatinine (0.6-1.2) mg/dl Est Cr Clr Drug Dosing ml/min Est GFR ( Amer) ml/min Est GFR (Non-Af Amer) ml/min BUN/Creatinine Ratio (10-20) Glucose (70-99(Fasting)) mg/dl Calcium (8.5-10.1) mg/dl Magnesium (1.7-2.4) mg/dl Iron (35-150) mcg/dl TIBC (250-450) mcg/dl Unsaturated IBC (155-355) mcg/dl Transferrin % Sat (15-50) % Total Bilirubin (0.2-1.0) mg/dl AST (13-39) U/L ALT (7-52) U/L Alkaline Phosphatase (34-104) U/L Troponin I High Sens 16.9 H (0-14) pg/ml C-Reactive Protein (0-0.5) mg/dl Total Protein (6.0-8.3) gm/dl Albumin (3.4-5.0) gm/dl Globulin (2.5-4.0) gm/dl Albumin/Globulin Ratio (0.9-2) Vitamin B12 349 (180-914) pg/ml Folate (>5.38) ng/ml Urine Color Urine Appearance (Clear) Urine pH (4.5-7.5) Ur Specific [place] (1.000-1.030) Urine Protein (Negative) Urine Glucose (UA) (Negative) Urine Ketones (Negative) Urine Blood (Negative) Urine Nitrite (Negative) Urine Bilirubin (Negative) Urine Urobilinogen (Negative) Ur Leukocyte Esterase (Negative) Urine WBC (Auto) (0-5) /hpf Urine RBC (Auto) (0-4) /hpf U Hyaline Cast (Auto) (0-5) /lpf U Epithel Cells (Auto) (0-5) /lpf Urine Bacteria (Auto) (Negative) Calcium Oxalate Crystal (None Prsent) Urine Yeast 07/25/22 07/25/22 07/25/22 Range/Units 16:15 16:15 16:15 WBC (4.8-10.8) K/ul RBC (3.93-5.22) M/uL Hgb (12.0-16.0) g/dl Hct (34.1-44.9) % MCV (80.0-100.0) fL MCH (25.0-34.0) pg MCHC (32.0-36.0) g/dL RDW Std Deviation (36.4-46.3) fL RDW Coeff of Tyrel (11.5-14.5) % Plt Count (130-400) K/uL MPV (9.4-12.3) fL ESR (0-20) mm/hr APTT (21.0-31.0) Seconds PTT Ratio Sodium (136-145) mmol/L Potassium (3.5-5.1) mmol/L Chloride (98-107) mmol/L Carbon Dioxide (21-32) mmol/L Anion Gap (3-11) BUN (6-23) mg/dl Creatinine (0.6-1.2) mg/dl Est Cr Clr Drug Dosing ml/min Est GFR ( Amer) ml/min Est GFR (Non-Af Amer) ml/min BUN/Creatinine Ratio (10-20) Glucose (70-99(Fasting)) mg/dl Calcium (8.5-10.1) mg/dl Magnesium (1.7-2.4) mg/dl Iron 92 (35-150) mcg/dl TIBC 273 (250-450) mcg/dl Unsaturated IBC 181 (155-355) mcg/dl Transferrin % Sat 34 (15-50) % Total Bilirubin (0.2-1.0) mg/dl AST (13-39) U/L ALT (7-52) U/L Alkaline Phosphatase (34-104) U/L Troponin I High Sens 17.9 H (0-14) pg/ml C-Reactive Protein (0-0.5) mg/dl Total Protein (6.0-8.3) gm/dl Albumin (3.4-5.0) gm/dl Globulin (2.5-4.0) gm/dl Albumin/Globulin Ratio (0.9-2) Vitamin B12 (180-914) pg/ml Folate 15.06 (>5.38) ng/ml Urine Color Urine Appearance (Clear) Urine pH (4.5-7.5) Ur Specific [place] (1.000-1.030) Urine Protein (Negative) Urine Glucose (UA) (Negative) Urine Ketones (Negative) Urine Blood (Negative) Urine Nitrite (Negative) Urine Bilirubin (Negative) Urine Urobilinogen (Negative) Ur Leukocyte Esterase (Negative) Urine WBC (Auto) (0-5) /hpf Urine RBC (Auto) (0-4) /hpf U Hyaline Cast (Auto) (0-5) /lpf U Epithel Cells (Auto) (0-5) /lpf Urine Bacteria (Auto) (Negative) Calcium Oxalate Crystal (None Prsent) Urine Yeast Diagnostic Findings Reviewed in [facility]. Medications Administered MAR reviewed in [facility]. PG Care Time/CCT Total # of Minutes Spent Total Time Spent with Patient: Total time spent is greater than 50% in coordination of care (as documented) at patient's floor/unit and/or counseling patient: Coding Level of Care Code 88357 Inpt Consult Level 3 Diagnoses Pyoderma gangrenosum L88
[2022-07-26] MEDS ORDERED: predniSONE 20 MG TAB PO ONE (15:09)
[2022-07-26] MEDS ORDERED: NICOTINE POLACRILEX 2 MG GUM MT PRN (15:11)
--- NOTE | 2022-07-26 15:23 | Cardiology Consultation ---
Date of Consultation July 26, 2022 Assessment & Plan (1) Pyoderma gangrenosum: (2) Bilateral lower leg cellulitis: (3) COPD (chronic obstructive pulmonary disease): (4) Self neglect: (5) ADHD: (6) Pulmonary embolism: (7) DVT (deep venous thrombosis): (8) Elevated LFTs: (9) Dilated cardiomyopathy: (10) Pulmonary hypertension: Plan This is a complex patient with poor medical care and neglect. I believe her lower extremity edema is of course multifactorial including due to chronic DVTs and pulmonary hypertension. Also a low protein state is probably contributing from malnutrition. She has a dilated cardiomyopathy on her echocardiogram with mitral regurgitation. She has biventricular heart failure. I would recommend starting where we can. I would try to slowly diurese her with IV diuretics with potassium supplements. Of course she needs to be on IV heparin with her DVT and pulmonary emboli. Dermatology has already seen her for her cellulitis. Psychiatry is also seeing her. We will following with you during her hospital stay. History of Present Illness Attending Physician: Judie Elder MD History of Present Illness This is a 47-year-old female who is not a good historian. Information is taken mostly from the medical record. She has a history of mental health problems, substance abuse and smoking. I can find nowhere in the medical record and the patient denies previous heart disease. She also denies high blood pressure or diabetes. No previous history of strokes. She had been seen years ago by the PA corporate accounting manager and urologist for renal calculi. She has had lower extremity edema for a long time. More recently she has developed a cellulitis and nonhealing decubitus ulcers of the posterior calfs. Uncertain as to her nutrition status. She was admitted to the hospital due to the cellulitis of the lower extremities but also to what is described as self-neglect. After admission she had a CT of the chest that indicates bilateral pulmonary emboli. CT of the lower extremities also indicates bilateral DVTs. She denies shortness of breath orthopnea. No recent activity related chest pain. She is currently in a sinus rhythm. Echocardiogram indicates an idiopathic dilated cardiomyopathy with an estimated left ventricular ejection fraction of around 35 to 40%. There is also evidence of pulmonary hypertension with the estimated pulmonary artery pressure being around 45. Allergies Allergy/AdvReac Type Severity Reaction Status Date / Time No Known Allergies Allergy Unknown Verified 12/28/21 02:02 Home Medications Medication Instructions Recorded Confirmed Type albuterol sulfate 90 mcg/actuation 2 puffs inhalation Q4 PRN Wheezing 08/18/19 07/25/22 History aerosol inhaler (Ventolin HFA) dextroamphetamine-amphetamine 20 20 mg PO .EVERY AFTERNOON PRN as 12/28/21 07/25/22 History mg tablet directed dextroamphetamine-amphetamine ER 30 mg PO QAM 12/28/21 07/25/22 History 30 mg 24hr capsule,extend release furosemide 20 mg tablet 20 mg PO DAILY 12/28/21 07/25/22 History potassium chloride 10 mEq 10 meq PO DAILY 12/28/21 07/25/22 History tablet,extended release(part/cryst) Patient History Medical History ADHD Cellulitis, leg Cervicovaginal cytology: Low grade squamous intraepithelial lesion (Unknown) "S/P LEEP " COPD (chronic obstructive pulmonary disease) DVT (deep venous thrombosis) Pulmonary embolism Pyoderma gangrenosum Self neglect Sepsis Standard chest X-ray abnormal (Unknown) "RUL density noted on CXR 05/22/12. CT follow-up recommended. " On 05/23/12 06:11 You Reina wrote "RUL density noted on CXR 05/22/12. CT follow-up recommended. " Social History Smoking Status: Current every day smoker Tobacco Type: Cigarettes Second Hand Exposure: No; Hx Alcohol Use: Yes Alcohol type: hard liquor Hx Substance Use: Yes Last Used Substance: Just Prior to Arrival Preferred Language: Yakut Communication Ability: Effective Bench Worker Helper Required: No Beliefs That Will Affect Care: None Current Living Situation: Alone Feels Safe at Home: Yes Assistive Devices: None Review of Systems Review of Systems: Review of Systems: See HPI for pertinent positives. All other 10 point review of systems are negative. Physical Exam Physical Exam: General: no acute distress and stated age Head: normocephalic, no masses, lesions, tenderness or abnormalities Eyes: conjunctiva are pink and non-injected, sclera clear Neck: supple, no adenopathy, no bruits, normal jugular venous pulse, no hepatojugular reflux Chest: normal shape and normal respiratory effort Lungs: clear to auscultation and percussion Cardiac Exam: - regular rate & rhythm, no murmurs gallops or rubs - normal S1, normal S2 Pulses: 2(+) throughout Abdomen: abdomen soft, non-tender, no abnormal masses and no hepatosplenomegaly Musculoskeletal: no gait disturbance, no joint inflammation, no deforming arthritis Extremities: Bilateral calves are wrapped. Neuro: grossly normal exam Results & Data ([facility]) Vital Signs (Past 12 Hours) Vital Signs Temp Pulse Pulse Resp BP Pulse Ox O2 Del Method 07/26/22 08:00 Room Air 07/26/22 06:00 104 H 07/26/22 11:12 36.6 C 107 H 20 107/75 93 Room Air 07/26/22 07:23 36.3 C L 57 L 20 109/78 96 Room Air Laboratory Results Laboratory Results - last 24 hr 07/25/22 07/25/22 07/25/22 16:15 16:15 16:15 WBC RBC Hgb Hct MCV MCH MCHC RDW Std Deviation RDW Coeff of Tyrel Plt Count MPV ESR APTT PTT Ratio Sodium Potassium Chloride Carbon Dioxide Anion Gap BUN Creatinine Est Cr Clr Drug Dosing Est GFR ( Amer) Est GFR (Non-Af Amer) BUN/Creatinine Ratio Glucose Calcium Magnesium Iron 92 TIBC 273 Unsaturated IBC 181 Transferrin % Sat 34 Total Bilirubin AST ALT Alkaline Phosphatase Troponin I High Sens 17.9 H C-Reactive Protein Total Protein Albumin Globulin Albumin/Globulin Ratio Vitamin B12 Folate 15.06 Urine Color Urine Appearance Urine pH Ur Specific [place] Urine Protein Urine Glucose (UA) Urine Ketones Urine Blood Urine Nitrite Urine Bilirubin Urine Urobilinogen Ur Leukocyte Esterase Urine WBC (Auto) Urine RBC (Auto) U Hyaline Cast (Auto) U Epithel Cells (Auto) Urine Bacteria (Auto) Calcium Oxalate Crystal Urine Yeast 07/25/22 07/25/22 07/25/22 16:15 16:24 22:36 WBC RBC Hgb Hct MCV MCH MCHC RDW Std Deviation RDW Coeff of Tyrel Plt Count MPV ESR APTT 52.0 H* PTT Ratio 1.9 Sodium Potassium Chloride Carbon Dioxide Anion Gap BUN Creatinine Est Cr Clr Drug Dosing Est GFR ( Amer) Est GFR (Non-Af Amer) BUN/Creatinine Ratio Glucose Calcium Magnesium Iron TIBC Unsaturated IBC Transferrin % Sat Total Bilirubin AST ALT Alkaline Phosphatase Troponin I High Sens 16.9 H C-Reactive Protein Total Protein Albumin Globulin Albumin/Globulin Ratio Vitamin B12 349 Folate Urine Color Urine Appearance Urine pH Ur Specific [place] Urine Protein Urine Glucose (UA) Urine Ketones Urine Blood Urine Nitrite Urine Bilirubin Urine Urobilinogen Ur Leukocyte Esterase Urine WBC (Auto) Urine RBC (Auto) U Hyaline Cast (Auto) U Epithel Cells (Auto) Urine Bacteria (Auto) Calcium Oxalate Crystal Urine Yeast 07/26/22 07/26/22 07/26/22 00:08 05:37 05:37 WBC RBC Hgb Hct MCV MCH MCHC RDW Std Deviation RDW Coeff of Tyrel Plt Count MPV ESR 39 H APTT PTT Ratio Sodium 135 L Potassium 4.0 Chloride 97 L Carbon Dioxide 27 Anion Gap 11 BUN 11 Creatinine 1.03 D Est Cr Clr Drug Dosing 61.0 Est GFR ( Amer) 76.0 Est GFR (Non-Af Amer) 65.6 BUN/Creatinine Ratio 10.7 Glucose 95 Calcium 8.8 Magnesium 1.8 Iron TIBC Unsaturated IBC Transferrin % Sat Total Bilirubin 1.6 H AST 386 H ALT 140 H Alkaline Phosphatase 111 H Troponin I High Sens 14.1 H C-Reactive Protein 8.02 H Total Protein 5.8 L Albumin 2.9 L Globulin 2.9 Albumin/Globulin Ratio 1.0 Vitamin B12 Folate Urine Color Dark Yellow Urine Appearance Cloudy A Urine pH 5.0 Ur Specific [place] > 1.045 H Urine Protein 2+ H Urine Glucose (UA) Negative Urine Ketones Trace H Urine Blood 2+ H Urine Nitrite Negative Urine Bilirubin Negative Urine Urobilinogen Negative Ur Leukocyte Esterase Trace H Urine WBC (Auto) >30 H Urine RBC (Auto) 10-30 H U Hyaline Cast (Auto) 5-10 H U Epithel Cells (Auto) >30 H Urine Bacteria (Auto) 1+ H Calcium Oxalate Crystal Present A Urine Yeast Not Reportable 07/26/22 07/26/22 07/26/22 05:37 05:37 11:20 WBC 8.00 RBC 3.52 L Hgb 11.5 L Hct 35.7 MCV 101.4 H MCH 32.7 MCHC 32.2 RDW Std Deviation 72.0 H RDW Coeff of Tyrel 19.6 H Plt Count 289 MPV 10.1 ESR APTT 29.7 PTT Ratio 1.1 Sodium Potassium Chloride Carbon Dioxide Anion Gap BUN Creatinine Est Cr Clr Drug Dosing Est GFR ( Amer) Est GFR (Non-Af Amer) BUN/Creatinine Ratio Glucose Calcium Magnesium Iron TIBC Unsaturated IBC Transferrin % Sat Total Bilirubin AST ALT Alkaline Phosphatase Troponin I High Sens 14.9 H C-Reactive Protein Total Protein Albumin Globulin Albumin/Globulin Ratio Vitamin B12 Folate Urine Color Urine Appearance Urine pH Ur Specific [place] Urine Protein Urine Glucose (UA) Urine Ketones Urine Blood Urine Nitrite Urine Bilirubin Urine Urobilinogen Ur Leukocyte Esterase Urine WBC (Auto) Urine RBC (Auto) U Hyaline Cast (Auto) U Epithel Cells (Auto) Urine Bacteria (Auto) Calcium Oxalate Crystal Urine Yeast Medications Administered Current Inpatient Medications Albuterol (Albuterol Hfa 8 Gm Inhaler) 2 puffs INH Q4R PRN PRN Reason: Wheezing Stop: 08/24/22 15:27 Amphetamine/Dextroamphetamine (Amphetamine Asp/Sulf/Dextramph 20 Mg Tab) 20 mg PO DAILY@1400 [facility] Stop: 08/09/22 13:59 Last Admin: 07/26/22 14:22 Dose: 20 mg Amphetamine/Dextroamphetamine (Dextroamphetamine/Amphetamine Er 10 Mg Cap) 30 mg PO QAM [facility] Stop: 08/09/22 08:59 Last Admin: 07/26/22 09:31 Dose: 30 mg Folic Acid (Folic Acid 1 Mg Tab) 1 mg PO QAM [facility] Stop: 08/25/22 08:59 Last Admin: 07/26/22 10:01 Dose: 1 mg Furosemide (Furosemide 20 Mg Tab) 20 mg PO DAILY [facility] Stop: 08/25/22 08:59 Last Admin: 07/26/22 09:27 Dose: 20 mg Heparin Sodium/Dextrose (Heparin Sodium/Dextrose) 25,000 units in 500 mls @ 23 mls/hr IV .[id number] [facility]; Protocol Stop: 08/24/22 12:59 Last Admin: 07/26/22 13:00 Dose: 1,150 units/hr, 23 mls/hr Piperacillin Sod/Tazobactam (Sod 3.375 gm/ Dextrose) 115 mls @ 28.75 mls/hr IV Q8H [facility]; Protocol Stop: 08/01/22 15:59 Last Infusion: 07/26/22 14:00 Dose: Infused Vancomycin HCl 1,000 mg/ (Sodium Chloride) 270 mls @ 200 mls/hr IV Q12H [facility] Stop: 08/02/22 00:00 Last Infusion: 07/26/22 14:51 Dose: Infused Ketorolac Tromethamine (Ketorolac Tromethamine 15 Mg/Ml Vial) 10 mg IV Q6H PRN PRN Reason: severe pain Stop: 07/30/22 16:29 Last Admin: 07/26/22 10:35 Dose: 10 mg Miscellaneous (Remove Nicoderm Patch) 1 each N/A DAILY@0859 [facility] Stop: 08/26/22 08:58 Miscellaneous (Remove Nicoderm Patch) 1 each N/A DAILY@0859 [facility] Stop: 08/26/22 08:58 Miscellaneous Information (Vancomycin Consult Active) 1 each N/A UD PRN PRN Reason: Consult Stop: 08/24/22 15:27 Morphine Sulfate (Morphine Sulfate 2 Mg/Ml Carp) 2 mg IV Q4H PRN PRN Reason: Pain Stop: 08/08/22 15:27 Last Admin: 07/26/22 14:32 Dose: 2 mg Nicotine (Nicotine 21 Mg/24 Hr Tdsy) 21 mg TD QAM [facility] Stop: 08/25/22 14:29 Nicotine Polacrilex (Nicotine Polacrilex 2 Mg Gum) 1 piece MT Q3H PRN PRN Reason: smoking Stop: 08/25/22 15:10 Ondansetron HCl (Ondansetron Inj 2 Mg/Ml 2 Ml Vial) 4 mg IV Q6H PRN PRN Reason: Nausea And Vomiting Stop: 08/24/22 18:48 Last Admin: 07/26/22 02:47 Dose: 4 mg Potassium Chloride (Potassium Chloride 10 Meq Tabcr) 10 meq PO DAILY [facility] Stop: 08/25/22 08:59 Last Admin: 07/26/22 09:27 Dose: 10 meq Prednisone (Prednisone 20 Mg Tab) 60 mg PO DAILY [facility] Stop: 08/26/22 08:59 Thiamine HCl (Thiamine Hcl 100 Mg Tab) 100 mg PO QAM [facility] Stop: 08/25/22 08:59 Last Admin: 07/26/22 09:27 Dose: 100 mg
--- NOTE | 2022-07-26 15:41 | Hospitalist Progress Note ---
Date of Service July 26, 2022 Assessment & Plan (1) Sepsis: (2) Cellulitis, leg: (3) DVT (deep venous thrombosis): (4) Pulmonary embolism: (5) ADHD: (6) Self neglect: (7) COPD (chronic obstructive pulmonary disease): Plan 47 year old with 3 month lower extremity wound progression that has worsened more significantly over past 3 weeks; leading to her being bedbound and unable to performed her own ADL's. Pt meets sepsis criteria; cultures pending; Heparin gtt, pain and wound management; will consult ID and General surgery for possible debridement. Sepsis LE Cellulitis B/L LE wound Meets sepsis criteria on admission with tachycardia, tachypnea and multiple wounds as infectious source CT LE showed extensive subcutaneous edema of the right lower leg with mild fascial fluid. These findings suggest cellulitis. Multiple suspected wounds of the right lower leg. No fluid collection to suggest abscess. No soft tissue gas to suggest necrotizing fasciitis by CT. No evidence for acute osteomyelitis. Wound cx pending. blood cx no growth ID on board recommended to discontinue IV zosyn Will start IV Cefepime 1g q6h and metronidazole 500mg TID and continues the IV Vanco as per ID Surgery on board - No indication for surgical debridement at this time. Pyoderma Gangrenosum Etiology unknown Dermatology on board - recommended to avoid any debridement of the wound because it will lead to worsening Will start on Prednisone 60mg daily for now Will check RF, SPEP/UPEP or ROGER, DANIEL Continue wound care regimen of Xeroform gauze, ABD pad and gauze wrap. Defer biopsy at this time as it is not likely to microsoft exchange administrator given the other factors in her case. Continue monitor closely DVT PE CTA chest showed Segmental and subsegmental pulmonary emboli of the left upper lobe. CT LE showed Deep venous thrombus within a right peroneal vein. Evidence of deep venous thrombosis in the left calf. Continue IV heparin drip for now Echo showed no RV strain Will discuss about oral agent tomorrow since patient is overwhelmed today with many consultants Dilated cardiomyopathy Pt has been having lower extremities edema and SOB with exertion ECHO showed Left atrium is moderated dilated. Moderate to severe mitral regurgitation with EF 35 to 40 % cardiology on board recommended IV lasix 40mg BID Pt will need ischemic cardiac work up as an outpatient once stable Transaminitis AST 386 and ALT 140 today Unknown etiology Will check liver u/s Gastro on baord Will check Acute hepatitis panel, DANIEL, AMA, ASMA, Ceruloplasmin, A1A antitrypsin, Iron profile studies, HIV Marijuana abuse Will check UDS Counseling on marijuana cessation ADHD: Self neglect Continue Adderol Psych on board COPD: Previously diagnosed; does not follow with Pulmonary Has Albuterol PRN for rescue inhaler No Home O2 Tobacco abuse Counseling on smoking cessation Continue nicotine patch Disposition: PCP: Henny Panchal PA-C/Dr. Oleary Code Status: Full Code VTE Prophylaxis: Heparin gtt Next of Kin: Fausto Trujillo (father) [phone] Admission and Anticipated Discharge Date Admission Date: July 25, 2022 Subjective Pt was seen and examined for follow up of LE wound/cellulitis and elevated liver enzymes Sitting in bed with no acute distress. Pt said that he is having so much pain in her lower extremities While I was examining her, her dad came to visit her dad said to her to mention that few weeks ago that she was retaining so much fluid in lower extremities Pt said that she sometimes has SOB with exertion She wants to go out to smoke a cigarette. She said that the reason she never seeks help was because she knew when she came to the ER that she would be admitted then she would not be able to smoke She has been threatened to sign AMA if she does not go outside to smoke After I spoke to her later she agreed to stay and to try the nicotine patch Denies any chest pain, palpitation, dizziness and SOB Review of Systems Review of Systems: All systems reviewed & are unremarkable except as noted in Subjective Physical Exam Physical Exam: General- No acute distress Head- atraumatic Eyes- PERRL, EOMI, ENT- oropharynx clear Neck- supple, no JVD Lungs- clear to auscultation Heart- regular rhythm; no murmur Abdomen- normal bowel sounds, soft, nontender Extremities- no calf tenderness, + large ulceration with purulent and granulation tissue with tenderness in B/L LE, +edema both legs Neuro- alert, oriented x 3; PERRL, EOMI; no facial palsy; no dysarthria Skin- warm & dry Results & Data Results & Data ([facility]) Vital Signs (Past 12 Hours) Vital Signs Temp Pulse Pulse Resp BP Pulse Ox O2 Del Method 07/26/22 08:00 Room Air 07/26/22 06:00 104 H 07/26/22 11:12 36.6 C 107 H 20 107/75 93 Room Air 07/26/22 07:23 36.3 C L 57 L 20 109/78 96 Room Air
[2022-07-26 15:49] LABS: Partial Thromboplastin Ratio 1.6; Partial Thromboplastin Time 43.8 Seconds (21.0-31.0)
[2022-07-26] MEDS: NICOTINE 21 MG/24 HR TDSY TD SCH (16:05)
[2022-07-26] MEDS: CEFEPIME 2,000 MG in SYRINGE 0 ML IV SCH (19:27)
[2022-07-26 21:45] LABS: Partial Thromboplastin Ratio 1.2; Partial Thromboplastin Time 33.7 Seconds (21.0-31.0)
[2022-07-26 23:30] LABS: Amphetamines+Metham, Urine Pos (Neg); Barbiturates, Urine Neg (Neg); Benzodiazepine, Urine Neg (Neg); Cocaine, Urine Neg (Neg); MDMA (Ecstacy), Urine Pos (Neg); Methadone, Urine Neg (Neg); Opiate, Urine Pos (Neg); Phencyclidine, Urine Neg (Neg)
[2022-07-27] MEDS: VANCOMYCIN HCL 1,000 MG in SODIUM CHLORIDE 0.9% 250 ML IV SCH ×3 (00:01→23:41)
[2022-07-27] MEDS: FUROSEMIDE 40 MG/4 ML VIAL IV SCH ×3 (00:02→21:03)
[2022-07-27] MEDS: POTASSIUM CHLORIDE CRTAB 20 MEQ TABCR PO SCH ×3 (00:02→21:02)
[2022-07-27] MEDS: metroNIDAZOLE 500 MG TAB PO SCH ×4 (00:02→21:02)
[2022-07-27] MEDS: KETOROLAC TROMETHAMINE 15 MG/ML VIAL IV PRN ×3 (00:03→19:14)
[2022-07-27] MEDS: MoRPHine SULFATE 2 MG/ML CARP IV PRN ×5 (01:40→22:12)
[2022-07-27 02:30] LABS: Partial Thromboplastin Ratio 1.3; Partial Thromboplastin Time 35.4 Seconds (21.0-31.0)
[2022-07-27] MEDS ORDERED: HEPARIN SOD (PORCINE) 1000 UNIT/ML IV ONE (02:40)
[2022-07-27 07:31] LABS: Creatine Kinase 34 U/L (26-192); Ferritin 257.9 ng/ml (8-388); Transferrin 189 mg/dl (200-360)
[2022-07-27] MEDS: CEFEPIME 2,000 MG in SYRINGE 0 ML IV SCH ×2 (09:00→20:00)
[2022-07-27] MEDS: FOLIC ACID 1 MG TAB PO SCH (09:01)
[2022-07-27] MEDS: NICOTINE 21 MG/24 HR TDSY TD SCH (09:02)
[2022-07-27] MEDS: predniSONE 20 MG TAB PO SCH (09:04)
[2022-07-27] MEDS: THIAMINE HCL 100 MG TAB PO SCH (09:04)
[2022-07-27] MEDS: DEXTROAMPHETAMINE/AMPHETAMINE ER 10 MG CAP PO SCH (09:12)
[2022-07-27 09:42] LABS: Partial Thromboplastin Ratio 2.2
[2022-07-27 11:30] LABS: Hemoglobin 11.7 g/dl (12.0-16.0); Mean Corpuscular Hemoglobin 33.2 pg (25.0-34.0); Mean Corpuscular Hgb Conc 33.4 g/dL (32.0-36.0); Mean Corpuscular Volume 99.4 fL (80.0-100.0); Mean Platelet Volume 10.4 fL (9.4-12.3); Platelet Count 330 K/uL (130-400); RDW Coefficient of Variation 19.8 % (11.5-14.5); RDW Standard Deviation 70.4 fL (36.4-46.3); Red Blood Count 3.52 M/uL (3.93-5.22); White Blood Count 9.63 K/ul (4.8-10.8)
[2022-07-27] MEDS ORDERED: VANCOMYCIN LEVEL ONE (11:30)
[2022-07-27 11:54] LABS: Albumin Globulin Ratio 0.9 (0.9-2); Albumin Level 2.7 gm/dl (3.4-5.0); BUN Creatinine Ratio 15.4 (10-20); Bilirubin,Total 0.7 mg/dl (0.2-1.0); Calcium 8.1 mg/dl (8.5-10.1); Creatinine Clr Calc Pharmacy 81.5 ml/min; Est GFR (African American) 106.4 ml/min; Est GFR (Non-African American) 91.8 ml/min; Globulin 2.9 gm/dl (2.5-4.0); Total Protein 5.6 gm/dl (6.0-8.3)
[2022-07-27 12:28] LABS: Partial Thromboplastin Time 59.8 Seconds (21.0-31.0)
--- NOTE | 2022-07-27 12:36 | Pharmacy Report ---
Pharmacy PK ABX Note - Date of Service July 27, 2022 - Assessment and Plan Assessment 47 year old F receiving Vancomycin for treatment of bilateral lower extremity cellulitis. * Day #3 abx therapy. * Patient has history of frequent UTIs and chronic ulcers on her legs. * ID consulted and recommends continuing Vancomycin but switched Zosyn to Cefepime + Flagyl. * No growth to date in any cultures. Plan Vancomycin * Current regimen: 1000 mg IV every 12 hours * Trough level obtained 07/27/22 resulted as 18.9 mcg/mL. This is predicted to achieve target AUC/MARIA ELENA of 400-600 mg/L.hr * Predicted AUC at steady state: 493 mg/L.hr * Continue 1000 mg IV every 12 hours * Repeat trough level ordered for: 07/29/22 Cefepime * Continue 2000 mg IV every 12 hours Metronidazole * Continue 500 mg PO every 8 hours Pharmacy will continue to follow and will adjust dose/frequency as necessary. Thank you. Pharmacy has transitioned to AUC monitoring for vancomycin. AUC/MARIA ELENA is the preferred PK/PD target and is associated with decreased risk of nephrotoxicity compared to traditional trough targets.
[2022-07-27] MEDS: AMPHETAMINE ASP/SULF/DEXTRAMPH 20 MG TAB PO SCH (13:59)
--- NOTE | 2022-07-27 16:48 | Cardiology Progress Note ---
Date of Service July 27, 2022 Assessment & Plan (1) Dilated cardiomyopathy: Plan: Telemetry reveals sinus rhythm with sinus tachycardia in the range of 100 120 bpm. It is noted that the patient is on Adderall, will need to explore her history of little bit better to determine overall benefits and risks of this medication. Start low-dose metoprolol. Hold off on LANDY inhibitor, ARB due to relative low blood pressure, most recent systolic blood pressure 102 mmHg. -Likely most reasonable to diurese as tolerated, will reassess to that regard tomorrow. (2) Pulmonary embolism: Plan: -Agree with unfractionated heparin. (3) Pyoderma gangrenosum: Plan: -Dermatology input noted and appreciated. Patient now on prednisone. Patient on empiric antibiotics for now. Admission and Anticipated Discharge Date Admission Date: July 25, 2022 Subjective Patient seen in cardiology follow-up. No acute complaints. Enjoying her noontime meal. Review of Systems Review of Systems: All systems reviewed & are unremarkable except as noted in HPI & below Physical Exam Constitutional: Chronically ill in appearance without acute distress Respiratory: Auscultation: lungs clear to auscultation bilaterally Cardiovascular: Regular rhythm, 2+ lower extremity edema, wounds dressed Gastrointestinal (Abdomen): normal bowel sounds, soft, nontender, no hepatosplenomegaly Neurologic: PERRL, EOMI, accommodation nl, no face palsy, no dysarthria Results & Data ([facility]) Vital Signs (Past 12 Hours) Vital Signs Temp Pulse Pulse Resp BP Pulse Ox O2 Del Method 07/27/22 15:10 121 H 07/27/22 12:02 36.8 C 113 H 20 102/71 07/27/22 09:00 Room Air 07/27/22 07:00 97 H 07/27/22 08:02 36.6 C 103 H 20 105/6 L 89 L Room Air Laboratory Results Cardiac Enzymes 07/27/22 Range/Units 11:01 AST 128 H (13-39) U/L Coagulation 07/26/22 07/27/22 07/27/22 Range/Units 21:20 02:03 08:52 APTT 33.7 H 35.4 H 59.8 H* (21.0-31.0) Seconds CBC 07/27/22 Range/Units 11:01 WBC 9.63 (4.8-10.8) K/ul RBC 3.52 L (3.93-5.22) M/uL Hgb 11.7 L (12.0-16.0) g/dl Hct 35.0 (34.1-44.9) % Plt Count 330 (130-400) K/uL Comprehensive Metabolic Panel 07/27/22 Range/Units 11:01 Sodium 135 L (136-145) mmol/L Potassium 4.0 (3.5-5.1) mmol/L Chloride 98 (98-107) mmol/L Carbon Dioxide 30 (21-32) mmol/L BUN 12 (6-23) mg/dl Creatinine 0.78 (0.6-1.2) mg/dl Glucose 176 H (70-99(Fasting)) mg/dl Calcium 8.1 L (8.5-10.1) mg/dl AST 128 H (13-39) U/L ALT 107 H (7-52) U/L Alkaline Phosphatase 107 H (34-104) U/L Total Protein 5.6 L (6.0-8.3) gm/dl Albumin 2.7 L (3.4-5.0) gm/dl Intake and Output 07/27/22 07/27/22 07/27/22 06:59 14:59 22:59 Intake Total 462.4 / 1964.247 720 / 990 270 / 990 Output Total 1100 / 1100 Balance 462.4 / 1964.247 -380 / -110 270 / -110 Intake: IV 462.4 / 1224.247 270 / 270 Heparin Sodium/Dextrose 25,000 192.4 / 454.247 units In 500 ml @ 1,300 UNITS/ HR 26 mls/hr IV .[id number] [facility] Rx #:[id number] Vancomycin HCl 1,000 mg In 270 / 540 270 / 270 Sodium Chloride 0.9% 250 ml @ 200 mls/hr IV Q12H [facility] Rx#: [id number] Oral 720 / 720 Output: Urine 1100 / 1100 # Bowel Movements 0 / 0 Other: # Unmeasured Voids 1 1 Weight 73.4 kg Weight Measurement Method Built in [facility] Diagnostic Findings Echocardiogram performed 07/26/2022, LVEF 35 to 40%, mild right ventricular chamber dilatation, moderate left atrial enlargement, moderate to severe mitral regurgitation, moderate tricuspid regurgitation, pulmonary artery systolic pressure estimated be [address] of the chest 07/25/2022: Segmental and subsegmental pulmonary emboli in the left upper lobe Diffuse bilateral groundglass densities with air trapping Right renal calculi with nephrocalcinosis Anasarca Lower extremity CT of the right leg revealed extensive subcutaneous edema of the right lower leg deep venous thrombus within the right peroneal vein
[2022-07-27] MEDS: HEPARIN SODIUM/DEXTROSE 25,000 UNITS/500 ML BAG IV SCH (17:51)
--- NOTE | 2022-07-27 18:02 | Hospitalist Progress Note ---
Date of Service July 27, 2022 Assessment & Plan (1) Sepsis: (2) Cellulitis, leg: (3) DVT (deep venous thrombosis): (4) Pulmonary embolism: (5) ADHD: (6) Self neglect: (7) COPD (chronic obstructive pulmonary disease): Plan 47 year old with 3 month lower extremity wound progression that has worsened more significantly over past 3 weeks; leading to her being bedbound and unable to performed her own ADL's. Pt meets sepsis criteria; cultures pending; Heparin gtt, pain and wound management; will consult ID and General surgery for possible debridement. Sepsis LE Cellulitis B/L LE wound Meets sepsis criteria on admission with tachycardia, tachypnea and multiple wounds as infectious source CT LE showed extensive subcutaneous edema of the right lower leg with mild fascial fluid. These findings suggest cellulitis. Multiple suspected wounds of the right lower leg. No fluid collection to suggest abscess. No soft tissue gas to suggest necrotizing fasciitis by CT. No evidence for acute osteomyelitis. Wound cx pending. blood cx no growth ID on board recommended to discontinue IV zosyn Continue IV Cefepime 1g q6h and metronidazole 500mg TID and Vanco as per ID Surgery on board - No indication for surgical debridement at this time. Pyoderma Gangrenosum Etiology unknown Dermatology on board - recommended to avoid any debridement of the wound because it will lead to worsening Continue Prednisone 60mg daily RF, SPEP/UPEP or ROGER, DANIEL pending Continue wound care regimen of Xeroform gauze, ABD pad and gauze wrap. Defer biopsy at this time as it is not likely to change management coordinator given the other factors in her case. Continue monitor closely DVT PE CTA chest showed Segmental and subsegmental pulmonary emboli of the left upper lobe. CT LE showed Deep venous thrombus within a right peroneal vein. Evidence of deep venous thrombosis in the left calf. Continue IV heparin drip for now Echo showed no RV strain Discussed with patient about oral anticoagulant btw warfarin and DOAC Pt will prefer the DOAC because she does not like the idea to check INR Will transition to PO elequis if affordable Dilated cardiomyopathy Pt has been having lower extremities edema and SOB with exertion ECHO showed Left atrium is moderated dilated. Moderate to severe mitral regurgitation with EF 35 to 40 % cardiology on board Continue IV lasix 40mg BID Metoprolol 12.5 mg BID added Pt will need ischemic cardiac work up as an outpatient once stable Transaminitis AST 386 and ALT 140 today Liver enzymes trending down with AST 128 and ALT 107 Liver U/S showed no biliary ductal dilatation status post cholecystectomy. Trace perihepatic ascites. Subtle nodularity of the liver surface Gastro on baord Acute hepatitis panel, DANIEL, AMA, ASMA, Ceruloplasmin, A1A antitrypsin, Iron profile studies, HIV pending Continue monitor LFT Marijuana abuse UDS positive for Marijuana Counseling on marijuana cessation ADHD: Self neglect Continue Adderall Psych on board no change in her home medication COPD: Previously diagnosed; does not follow with Pulmonary Has Albuterol PRN for rescue inhaler stable Tobacco abuse Counseling on smoking cessation Continue nicotine patch Disposition: PCP: Henny Panchal PA-C/Dr. Oleary Code Status: Full Code VTE Prophylaxis: Heparin gtt Next of Kin: Fausto Trujillo (father) [phone] Admission and Anticipated Discharge Date Admission Date: July 25, 2022 Subjective Pt was seen and examined for follow up of LE wound/cellulitis and elevated liver enzymes Sitting in bed with no acute distress. Pt said that her pain improved in lower extremities She said that she has been urinating well Denies any chest pain, palpitation, dizziness and SOB Review of Systems Review of Systems: All systems reviewed & are unremarkable except as noted in Subjective Physical Exam Physical Exam: General- No acute distress Head- atraumatic Eyes- PERRL, EOMI, ENT- oropharynx clear Neck- supple, no JVD Lungs- clear to auscultation Heart- regular rhythm; no murmur Abdomen- normal bowel sounds, soft, nontender Extremities- no calf tenderness, + large ulceration with purulent and granulation tissue with tenderness in B/L LE, +edema both legs Neuro- alert, oriented x 3; PERRL, EOMI; no facial palsy; no dysarthria Skin- warm & dry Results & Data Results & Data ([facility]) Vital Signs (Past 12 Hours) Vital Signs Temp Pulse Pulse Resp BP Pulse Ox O2 Del Method 07/27/22 16:53 36.7 C 57 L 18 102/72 97 Room Air 07/27/22 15:10 121 H 07/27/22 12:02 36.8 C 113 H 20 102/71 07/27/22 09:00 Room Air 07/27/22 07:00 97 H 07/27/22 08:02 36.6 C 103 H 20 105/6 L 89 L Room Air
[2022-07-27] MEDS: METOPROLOL TARTRATE 25 MG TAB PO SCH (21:02)
[2022-07-28] MEDS: KETOROLAC TROMETHAMINE 15 MG/ML VIAL IV PRN ×3 (01:08→20:28)
[2022-07-28] MEDS: MoRPHine SULFATE 2 MG/ML CARP IV PRN ×3 (03:12→22:32)
[2022-07-28 08:35] LABS: Partial Thromboplastin Ratio 2.6
[2022-07-28 08:42] LABS: Albumin Level 2.9 gm/dl (3.4-5.0); BUN Creatinine Ratio 22.9 (10-20); Bilirubin,Total 0.5 mg/dl (0.2-1.0); Calcium 8.5 mg/dl (8.5-10.1); Est GFR (African American) 74.3 ml/min; Est GFR (Non-African American) 64.1 ml/min; Globulin 2.9 gm/dl (2.5-4.0); Potassium 4.3 mmol/L (3.5-5.1); Total Protein 5.8 gm/dl (6.0-8.3)
[2022-07-28] MEDS: DEXTROAMPHETAMINE/AMPHETAMINE ER 10 MG CAP PO SCH (09:14)
[2022-07-28] MEDS: FOLIC ACID 1 MG TAB PO SCH (09:15)
[2022-07-28] MEDS: FERROUS SULFATE 325 MG TAB PO SCH (09:15)
[2022-07-28] MEDS: predniSONE 20 MG TAB PO SCH (09:15)
[2022-07-28] MEDS: FUROSEMIDE 40 MG/4 ML VIAL IV SCH ×2 (09:15→20:28)
[2022-07-28] MEDS: METOPROLOL TARTRATE 25 MG TAB PO SCH ×2 (09:16→20:29)
[2022-07-28] MEDS: NICOTINE 21 MG/24 HR TDSY TD SCH (09:17)
[2022-07-28] MEDS: POTASSIUM CHLORIDE CRTAB 20 MEQ TABCR PO SCH ×2 (09:17→20:29)
[2022-07-28] MEDS: THIAMINE HCL 100 MG TAB PO SCH (09:17)
[2022-07-28] MEDS: metroNIDAZOLE 500 MG TAB PO SCH ×3 (09:17→20:30)
[2022-07-28] MEDS: CEFEPIME 2,000 MG in SYRINGE 0 ML IV SCH ×2 (09:21→20:28)
[2022-07-28 10:52] LABS: Partial Thromboplastin Time 71.7 Seconds (21.0-31.0)
[2022-07-28] MEDS: HEPARIN SODIUM/DEXTROSE 25,000 UNITS/500 ML BAG IV SCH ×2 (12:32)
[2022-07-28] MEDS: VANCOMYCIN HCL 1,000 MG in SODIUM CHLORIDE 0.9% 250 ML IV SCH (12:32)
[2022-07-28] MEDS ORDERED: lisinopril 2.5 MG TAB PO SCH (13:15)
[2022-07-28] MEDS: AMPHETAMINE ASP/SULF/DEXTRAMPH 20 MG TAB PO SCH (14:12)
--- NOTE | 2022-07-28 15:11 | Cardiology Progress Note ---
Date of Service July 28, 2022 Assessment & Plan (1) Dilated cardiomyopathy: Plan: Mild improvement in heart rate in the 90s to 100s today on low-dose metoprolol. It is noted that the patient is on Adderall, will need to explore her history of little bit better to determine overall benefits and risks of this medication. Hold off on LANDY inhibitor, ARB due to relative low blood pressure, most recent systolic blood pressure 98 mmHg. -Continue furosemide 40 mg IV twice daily. (2) Pulmonary embolism: Plan: -Agree with unfractionated heparin. (3) Pyoderma gangrenosum: Plan: -Dermatology input noted and appreciated. Patient now on prednisone. Patient on empiric antibiotics for now. Admission and Anticipated Discharge Date Admission Date: July 25, 2022 Physical Exam Constitutional: Chronically ill in appearance. Respiratory: Auscultation: lungs clear to auscultation bilaterally Cardiovascular: Rate/Rhythm: regular rate Heart Sounds: no murmur Extremities: + edema (2+ lower extremity edema) Gastrointestinal (Abdomen): normal bowel sounds, soft, nontender, no hepatosplenomegaly Neurologic: PERRL, EOMI, accommodation nl, no face palsy, no dysarthria Results & Data ([facility]) Vital Signs (Past 12 Hours) Vital Signs Temp Pulse Pulse Resp BP Pulse Ox O2 Del Method 07/28/22 15:06 97 H 18 98/72 L 94 Room Air 07/28/22 14:14 36.5 C 95 H 20 98/71 L 92 Room Air 07/28/22 07:00 95 H 07/28/22 08:07 36.5 C 97 H 18 91/64 L 93 Room Air 07/28/22 03:42 36.4 C L 101 H 16 104/74 91 Laboratory Results Cardiac Enzymes 07/28/22 Range/Units 07:44 AST 107 H (13-39) U/L Coagulation 07/28/22 Range/Units 07:44 APTT 71.7 H* (21.0-31.0) Seconds Comprehensive Metabolic Panel 07/28/22 Range/Units 07:44 Sodium 132 L (136-145) mmol/L Potassium 4.3 (3.5-5.1) mmol/L Chloride 96 L (98-107) mmol/L Carbon Dioxide 30 (21-32) mmol/L BUN 24 H (6-23) mg/dl Creatinine 1.05 (0.6-1.2) mg/dl Glucose 114 H (70-99(Fasting)) mg/dl Calcium 8.5 (8.5-10.1) mg/dl AST 107 H (13-39) U/L ALT 104 H (7-52) U/L Alkaline Phosphatase 108 H (34-104) U/L Total Protein 5.8 L (6.0-8.3) gm/dl Albumin 2.9 L (3.4-5.0) gm/dl
--- NOTE | 2022-07-28 16:20 | Hospitalist Progress Note ---
Date of Service July 28, 2022 Assessment & Plan (1) Sepsis: (2) Cellulitis, leg: (3) DVT (deep venous thrombosis): (4) Pulmonary embolism: (5) ADHD: (6) Self neglect: (7) COPD (chronic obstructive pulmonary disease): Plan 47 year old with 3 month lower extremity wound progression that has worsened more significantly over past 3 weeks; leading to her being bedbound and unable to performed her own ADL's. Pt meets sepsis criteria; cultures pending; Heparin gtt, pain and wound management; will consult ID and General surgery for possible debridement. Sepsis LE Cellulitis B/L LE wound Meets sepsis criteria on admission with tachycardia, tachypnea and multiple wounds as infectious source CT LE showed extensive subcutaneous edema of the right lower leg with mild fascial fluid. These findings suggest cellulitis. Multiple suspected wounds of the right lower leg. No fluid collection to suggest abscess. No soft tissue gas to suggest necrotizing fasciitis by CT. No evidence for acute osteomyelitis. Blood cx no growth Left wound cx grew staphylococcus species Microbiology lab never received the wound cx specimen for the right lower extremity ID on board recommended to discontinue IV zosyn Continue IV Cefepime 1g q6h and metronidazole 500mg TID and Vanco as per ID Surgery on board - No indication for surgical debridement at this time. Will discuss with ID tomorrow about abx on discharge Pyoderma Gangrenosum Etiology unknown Dermatology on board - recommended to avoid any debridement of the wound because it will lead to worsening Continue Prednisone 60mg daily RF, SPEP/UPEP or ROGER, DANIEL pending Continue wound care regimen of Xeroform gauze, ABD pad and gauze wrap. Defer biopsy at this time as it is not likely to tire changer given the other factors in her case. Continue monitor closely DVT PE CTA chest showed Segmental and subsegmental pulmonary emboli of the left upper lobe. CT LE showed Deep venous thrombus within a right peroneal vein. Evidence of deep venous thrombosis in the left calf. Continue IV heparin drip for now Echo showed no RV strain Discussed with patient about oral anticoagulant btw warfarin and DOAC Pt will prefer the DOAC because she does not like the idea to check INR Will transition to PO Eliquis if affordable tomorrow Dilated cardiomyopathy Pt has been having lower extremities edema and SOB with exertion ECHO showed Left atrium is moderated dilated. Moderate to severe mitral regurgitation with EF 35 to 40 % cardiology on board Continue IV lasix 40mg BID and Metoprolol 12.5 mg BID Transaminitis AST 386 and ALT 140 today Liver enzymes trending down with AST 128-->107 and ALT 107 -->104 Liver U/S showed no biliary ductal dilatation status post cholecystectomy. Trace perihepatic ascites. Subtle nodularity of the liver surface Gastro on board Acute hepatitis panel, DANIEL, AMA, ASMA, Ceruloplasmin, A1A antitrypsin, Iron profile studies, HIV pending Continue monitor LFT Hypoalbuminemia Mostly related to liver disease Will try IV albumin x2 with the laxix Marijuana abuse UDS positive for Marijuana Counseling on marijuana cessation ADHD: Self neglect Continue Adderall Psych on board no change in her home medication COPD: Previously diagnosed; does not follow with Pulmonary Has Albuterol PRN for rescue inhaler stable Tobacco abuse Counseling on smoking cessation Continue nicotine patch Disposition: PCP: Henny Panchal PA-C/Dr. Oleary Code Status: Full Code VTE Prophylaxis: Heparin gtt Next of Kin: Fausto Trujillo (father) [phone] Admission and Anticipated Discharge Date Admission Date: July 25, 2022 Subjective Pt was seen and examined for follow up of LE wound/cellulitis and elevated liver enzymes Sitting in bed with no acute distress. Pt said that her pain improves Denies any chest pain, palpitation, dizziness and SOB Review of Systems Review of Systems: All systems reviewed & are unremarkable except as noted in Subjective Physical Exam Physical Exam: General- No acute distress Head- atraumatic Eyes- PERRL, EOMI, ENT- oropharynx clear Neck- supple, no JVD Lungs- clear to auscultation Heart- regular rhythm; no murmur Abdomen- normal bowel sounds, soft, nontender Extremities- no calf tenderness, + large ulceration with purulent and granulation tissue with tenderness in B/L LE, +edema both legs Neuro- alert, oriented x 3; PERRL, EOMI; no facial palsy; no dysarthria Skin- warm & dry Results & Data Results & Data ([facility]) Vital Signs (Past 12 Hours) Vital Signs Temp Pulse Pulse Resp BP Pulse Ox O2 Del Method 07/28/22 15:06 97 H 18 98/72 L 94 Room Air 07/28/22 14:14 36.5 C 95 H 20 98/71 L 92 Room Air 07/28/22 07:00 95 H 07/28/22 08:07 36.5 C 97 H 18 91/64 L 93 Room Air
[2022-07-28 17:41] LABS: Partial Thromboplastin Ratio 1.7
[2022-07-28 17:59] LABS: Partial Thromboplastin Time 46.4 Seconds (21.0-31.0)
[2022-07-28] MEDS ORDERED: LACTULOSE SYRUP 30 GM/45 ML UDP PO STA (20:47)
[2022-07-28] MEDS: ALBUMIN 25% 12.5 GM/50 ML VIAL IV SCH (22:26)
[2022-07-28] MEDS: DOCUSATE SODIUM/SENNA 50/8.6MG TAB PO SCH (22:36)
[2022-07-29] MEDS: VANCOMYCIN HCL 1,000 MG in SODIUM CHLORIDE 0.9% 250 ML IV SCH ×2 (01:07→12:43)
[2022-07-29] MEDS: MoRPHine SULFATE 2 MG/ML CARP IV PRN ×5 (02:45→22:25)
[2022-07-29 06:25] LABS: Hematocrit (blood only) 37.1 % (34.1-44.9); Hemoglobin 12.3 g/dl (12.0-16.0); Mean Corpuscular Hgb Conc 33.2 g/dL (32.0-36.0); Mean Corpuscular Volume 99.5 fL (80.0-100.0); Mean Platelet Volume 10.5 fL (9.4-12.3); Nucleated RBC # (auto) 0.03 K/uL (0-0); Nucleated RBC % (auto) 0.2 %; Platelet Count 316 K/uL (130-400); RDW Coefficient of Variation 20.7 % (11.5-14.5); RDW Standard Deviation 72.9 fL (36.4-46.3); Red Blood Count 3.73 M/uL (3.93-5.22); White Blood Count 15.79 K/ul (4.8-10.8)
[2022-07-29 06:42] LABS: Albumin Globulin Ratio 1.1 (0.9-2); Albumin Level 3.2 gm/dl (3.4-5.0); BUN Creatinine Ratio 30.2 (10-20); Bilirubin,Total 0.6 mg/dl (0.2-1.0); Calcium 8.6 mg/dl (8.5-10.1); Est GFR (African American) 94.6 ml/min; Est GFR (Non-African American) 81.6 ml/min; Potassium 4.5 mmol/L (3.5-5.1); Total Protein 6.2 gm/dl (6.0-8.3)
[2022-07-29 06:49] LABS: Partial Thromboplastin Ratio 2.6
[2022-07-29 07:02] LABS: Partial Thromboplastin Time 72.2 Seconds (21.0-31.0)
--- NOTE | 2022-07-29 08:22 | Gastroenterology Progress Note ---
Date of Service July 29, 2022 Assessment & Plan (1) Elevated LFTs: Plan: 47 year old female admitted w/ bilateral LE cellulitis, DVT, seen for elevated LFTs that's a new finding. ABD US raises concern for cirrhosis, no acute biliary findings, serology pending. - Follow up serologies Acute hepatitis panel, DANIEL, AMA, ASMA, Ceruloplasmin, A1A antitrypsin, Iron profile studies. - Avoid hepatotoxic meds - Less than 2g APAP daily if using - Trend LFTs - Marijuana cessation recommended Will sign off. OP GI/Hepatology follow up. Recall with any questions or concerns. Admission and Anticipated Discharge Date Admission Date: July 25, 2022 Subjective Pt was seen and evaluated, chart reviewed. Notes from a GI standpoint, feels well. Denies abd pain, nausea, vomiting. ABD US reviewed. Questionable cirrhosis given nodularity. No biliary dilation Transaminases persistently elevated, although decreased from admission values Entirety of liver serology is pending. ABD US 2021: No biliary ductal dilatation status post cholecystectomy. Trace perihepatic ascites. Subtle nodularity of the liver surface. Although not definitive, this raises the possibility of cirrhosis. CTAP 2019: Liver: Normal morphology. Normal density. Review of Systems Review of Systems: All systems reviewed & are unremarkable except as noted in HPI & below Physical Exam Constitutional: WD/WN, vitals as above Respiratory: normal respiratory effort; no respiratory distress, no labored breathing and no retractions Skin: No jaundice or scleral icterus Results & Data ([facility]) Vital Signs (Past 12 Hours) Vital Signs Temp Pulse Pulse Resp BP Pulse Ox O2 Del Method 07/29/22 07:59 36.6 C 95 H 20 107/73 94 Room Air 07/29/22 02:59 36.6 C 96 H 20 109/79 90 Room Air 07/28/22 23:59 98 H 07/28/22 22:52 36.2 C L 94 H 16 107/78 93 Room Air Laboratory Results 07/29/22 07/29/22 07/29/22 Range/Units 05:35 05:35 05:35 WBC 15.79 H (4.8-10.8) K/ul RBC 3.73 L (3.93-5.22) M/uL Hgb 12.3 (12.0-16.0) g/dl Hct 37.1 (34.1-44.9) % MCV 99.5 (80.0-100.0) fL MCH 33.0 (25.0-34.0) pg MCHC 33.2 (32.0-36.0) g/dL RDW Std Deviation 72.9 H (36.4-46.3) fL RDW Coeff of Tyrel 20.7 H (11.5-14.5) % Plt Count 316 (130-400) K/uL MPV 10.5 (9.4-12.3) fL Absolute Nucleated RBC 0.03 H (0-0) K/uL Nucleated RBC % (auto) 0.2 % APTT 72.2 H* (21.0-31.0) Seconds PTT Ratio 2.6 Sodium 132 L (136-145) mmol/L Potassium 4.5 (3.5-5.1) mmol/L Chloride 96 L (98-107) mmol/L Carbon Dioxide 29 (21-32) mmol/L Anion Gap 7 (3-11) BUN 26 H (6-23) mg/dl Creatinine 0.86 (0.6-1.2) mg/dl Est Cr Clr Drug Dosing 75.0 ml/min Est GFR ( Amer) 94.6 ml/min Est GFR (Non-Af Amer) 81.6 ml/min BUN/Creatinine Ratio 30.2 H (10-20) Glucose 154 H (70-99(Fasting)) mg/dl Calcium 8.6 (8.5-10.1) mg/dl Total Bilirubin 0.6 (0.2-1.0) mg/dl AST 102 H (13-39) U/L ALT 106 H (7-52) U/L Alkaline Phosphatase 127 H (34-104) U/L Total Protein 6.2 (6.0-8.3) gm/dl Albumin 3.2 L (3.4-5.0) gm/dl Globulin 3.0 (2.5-4.0) gm/dl Albumin/Globulin Ratio 1.1 (0.9-2) 07/28/22 07/28/22 Range/Units 17:01 07:44 WBC (4.8-10.8) K/ul RBC (3.93-5.22) M/uL Hgb (12.0-16.0) g/dl Hct (34.1-44.9) % MCV (80.0-100.0) fL MCH (25.0-34.0) pg MCHC (32.0-36.0) g/dL RDW Std Deviation (36.4-46.3) fL RDW Coeff of Tyrel (11.5-14.5) % Plt Count (130-400) K/uL MPV (9.4-12.3) fL Absolute Nucleated RBC (0-0) K/uL Nucleated RBC % (auto) % APTT 46.4 H* 71.7 H* (21.0-31.0) Seconds PTT Ratio 1.7 2.6 Sodium (136-145) mmol/L Potassium (3.5-5.1) mmol/L Chloride (98-107) mmol/L Carbon Dioxide (21-32) mmol/L Anion Gap (3-11) BUN (6-23) mg/dl Creatinine (0.6-1.2) mg/dl Est Cr Clr Drug Dosing ml/min Est GFR ( Amer) ml/min Est GFR (Non-Af Amer) ml/min BUN/Creatinine Ratio (10-20) Glucose (70-99(Fasting)) mg/dl Calcium (8.5-10.1) mg/dl Total Bilirubin (0.2-1.0) mg/dl AST (13-39) U/L ALT (7-52) U/L Alkaline Phosphatase (34-104) U/L Total Protein (6.0-8.3) gm/dl Albumin (3.4-5.0) gm/dl Globulin (2.5-4.0) gm/dl Albumin/Globulin Ratio (0.9-2)
[2022-07-29] MEDS: DEXTROAMPHETAMINE/AMPHETAMINE ER 10 MG CAP PO SCH (09:07)
[2022-07-29] MEDS: HEPARIN SODIUM/DEXTROSE 25,000 UNITS/500 ML BAG IV SCH ×2 (09:37→18:38)
[2022-07-29] MEDS: DOCUSATE SODIUM/SENNA 50/8.6MG TAB PO SCH (09:38)
[2022-07-29] MEDS: CEFEPIME 2,000 MG in SYRINGE 0 ML IV SCH ×2 (09:38→22:24)
[2022-07-29] MEDS: metroNIDAZOLE 500 MG TAB PO SCH ×3 (09:40→22:26)
[2022-07-29] MEDS: FUROSEMIDE 40 MG/4 ML VIAL IV SCH ×3 (09:40→22:26)
[2022-07-29] MEDS: POTASSIUM CHLORIDE CRTAB 20 MEQ TABCR PO SCH ×2 (09:44→22:27)
[2022-07-29] MEDS: THIAMINE HCL 100 MG TAB PO SCH (09:44)
[2022-07-29] MEDS: FERROUS SULFATE 325 MG TAB PO SCH (09:45)
[2022-07-29] MEDS: FOLIC ACID 1 MG TAB PO SCH (09:45)
[2022-07-29] MEDS: predniSONE 20 MG TAB PO SCH (09:45)
[2022-07-29] MEDS: ALBUMIN 25% 12.5 GM/50 ML VIAL IV SCH (09:48)
[2022-07-29] MEDS: NICOTINE 21 MG/24 HR TDSY TD SCH ×2 (09:49→17:36)
[2022-07-29] MEDS: METOPROLOL TARTRATE 25 MG TAB PO SCH ×2 (09:49→22:27)
[2022-07-29] MEDS ORDERED: VANCOMYCIN LEVEL ONE (11:30)
[2022-07-29] MEDS: KETOROLAC TROMETHAMINE 15 MG/ML VIAL IV PRN ×2 (11:34→18:24)
--- NOTE | 2022-07-29 13:07 | Dermatology Progress Note ---
Date of Service July 29, 2022 Assessment & Plan (1) Pyoderma gangrenosum: Plan: [id number] improved. Recommend the followin) Continue to AVOID any debridement of wounds as this typically leads to worsening. 2) Continue Prednisone 60mg daily for now. Recommend tapering by 10mg every 7 days until rate of healing progress can be determined. 4) Lab studies (RF, SPEP/UPEP or ROGER) pending. She will eventually need GI evaluation for colonoscopy. 5) Continue antibiotics as per ID for what appears to be secondary infection based on her superficial wound culture results. 6) Continue current wound care regimen of xeroform gauze, ABD pad and gauze wrap once daily. 7) Call with any acute issues. Otherwise, patient will need close follow-up with me 1 week following discharge. Admission and Anticipated Discharge Date Admission Date: July 25, 2022 Subjective Patient seen and evaluated at bedside. No acute skin issues over the weekend. She reports that legs are still painful, but they are somewhat less painful since starting prednisone. She also notes that prior eschar on the left robert has come off and wounds seem to be showing areas of "new skin" when she had bandages changed. No new areas of involvement. Chart reviewed. Serology labs and SPEP pending. She is currently on cefepime and metronidazole as per ID as prior wound culture was positive for S. aureur and Bacteroides; sensitivities pending. Review of Systems Review of Systems: All systems reviewed & are unremarkable except as noted in HPI & below Physical Exam Physical Exam: General Appearance:Well developed, well-nourished and in no acute distress Psych:Alert, Oriented and Appropriate Skin Type:2 Right Lower Extremity:stable large, multi-centimeter, geometric ulceration with jagged, undermined border and less purulent base with associated granulation tissue extending from the lateral robert to the calf Left Lower Extremity:stable large, multi-centimeter, geometric ulceration with jagged, undermined border and less purulent base with associated granulation tissue extending from the lateral robert to the calf Results & Data ([facility]) Vital Signs (Past 12 Hours) Vital Signs Temp Pulse Pulse Resp BP Pulse Ox O2 Del Method 07/29/22 12:46 36.4 C L 111 H 18 99/77 L 07/29/22 11:21 109/79 07/29/22 08:00 100 H 07/29/22 07:59 36.6 C 95 H 20 107/73 94 Room Air 07/29/22 02:59 36.6 C 96 H 20 109/79 90 Room Air Laboratory Results 07/29/22 07/29/22 07/29/22 Range/Units 13:10 11:33 05:35 WBC (4.8-10.8) K/ul RBC (3.93-5.22) M/uL Hgb (12.0-16.0) g/dl Hct (34.1-44.9) % MCV (80.0-100.0) fL MCH (25.0-34.0) pg MCHC (32.0-36.0) g/dL RDW Std Deviation (36.4-46.3) fL RDW Coeff of Tyrel (11.5-14.5) % Plt Count (130-400) K/uL MPV (9.4-12.3) fL Absolute Nucleated RBC (0-0) K/uL Nucleated RBC % (auto) % APTT 61.2 H* 72.2 H* (21.0-31.0) Seconds PTT Ratio 2.2 2.6 Sodium (136-145) mmol/L Potassium (3.5-5.1) mmol/L Chloride (98-107) mmol/L Carbon Dioxide (21-32) mmol/L Anion Gap (3-11) BUN (6-23) mg/dl Creatinine (0.6-1.2) mg/dl Est Cr Clr Drug Dosing ml/min Est GFR ( Amer) ml/min Est GFR (Non-Af Amer) ml/min BUN/Creatinine Ratio (10-20) Glucose (70-99(Fasting)) mg/dl Calcium (8.5-10.1) mg/dl Total Bilirubin (0.2-1.0) mg/dl AST (13-39) U/L ALT (7-52) U/L Alkaline Phosphatase (34-104) U/L Total Protein (6.0-8.3) gm/dl Albumin (3.4-5.0) gm/dl Globulin (2.5-4.0) gm/dl Albumin/Globulin Ratio (0.9-2) Vancomycin Trough 19.3 (10-20) mcg/ml EBV Capsid Ag IgG Ab U/mL EBV Capsid Ag IgM Ab U/mL EBV Nuclear Antigen Ab U/mL EBV Antibody Interp 07/29/22 07/29/22 07/28/22 Range/Units 05:35 05:35 17:01 WBC 15.79 H (4.8-10.8) K/ul RBC 3.73 L (3.93-5.22) M/uL Hgb 12.3 (12.0-16.0) g/dl Hct 37.1 (34.1-44.9) % MCV 99.5 (80.0-100.0) fL MCH 33.0 (25.0-34.0) pg MCHC 33.2 (32.0-36.0) g/dL RDW Std Deviation 72.9 H (36.4-46.3) fL RDW Coeff of Tyrel 20.7 H (11.5-14.5) % Plt Count 316 (130-400) K/uL MPV 10.5 (9.4-12.3) fL Absolute Nucleated RBC 0.03 H (0-0) K/uL Nucleated RBC % (auto) 0.2 % APTT 46.4 H* (21.0-31.0) Seconds PTT Ratio 1.7 Sodium 132 L (136-145) mmol/L Potassium 4.5 (3.5-5.1) mmol/L Chloride 96 L (98-107) mmol/L Carbon Dioxide 29 (21-32) mmol/L Anion Gap 7 (3-11) BUN 26 H (6-23) mg/dl Creatinine 0.86 (0.6-1.2) mg/dl Est Cr Clr Drug Dosing 75.0 ml/min Est GFR ( Amer) 94.6 ml/min Est GFR (Non-Af Amer) 81.6 ml/min BUN/Creatinine Ratio 30.2 H (10-20) Glucose 154 H (70-99(Fasting)) mg/dl Calcium 8.6 (8.5-10.1) mg/dl Total Bilirubin 0.6 (0.2-1.0) mg/dl AST 102 H (13-39) U/L ALT 106 H (7-52) U/L Alkaline Phosphatase 127 H (34-104) U/L Total Protein 6.2 (6.0-8.3) gm/dl Albumin 3.2 L (3.4-5.0) gm/dl Globulin 3.0 (2.5-4.0) gm/dl Albumin/Globulin Ratio 1.1 (0.9-2) Vancomycin Trough (10-20) mcg/ml EBV Capsid Ag IgG Ab U/mL EBV Capsid Ag IgM Ab U/mL EBV Nuclear Antigen Ab U/mL EBV Antibody Interp 07/27/22 Range/Units 06:02 WBC (4.8-10.8) K/ul RBC (3.93-5.22) M/uL Hgb (12.0-16.0) g/dl Hct (34.1-44.9) % MCV (80.0-100.0) fL MCH (25.0-34.0) pg MCHC (32.0-36.0) g/dL RDW Std Deviation (36.4-46.3) fL RDW Coeff of Tyrel (11.5-14.5) % Plt Count (130-400) K/uL MPV (9.4-12.3) fL Absolute Nucleated RBC (0-0) K/uL Nucleated RBC % (auto) % APTT (21.0-31.0) Seconds PTT Ratio Sodium (136-145) mmol/L Potassium (3.5-5.1) mmol/L Chloride (98-107) mmol/L Carbon Dioxide (21-32) mmol/L Anion Gap (3-11) BUN (6-23) mg/dl Creatinine (0.6-1.2) mg/dl Est Cr Clr Drug Dosing ml/min Est GFR ( Amer) ml/min Est GFR (Non-Af Amer) ml/min BUN/Creatinine Ratio (10-20) Glucose (70-99(Fasting)) mg/dl Calcium (8.5-10.1) mg/dl Total Bilirubin (0.2-1.0) mg/dl AST (13-39) U/L ALT (7-52) U/L Alkaline Phosphatase (34-104) U/L Total Protein (6.0-8.3) gm/dl Albumin (3.4-5.0) gm/dl Globulin (2.5-4.0) gm/dl Albumin/Globulin Ratio (0.9-2) Vancomycin Trough (10-20) mcg/ml EBV Capsid Ag IgG Ab >750.00 H U/mL EBV Capsid Ag IgM Ab >160.00 H U/mL EBV Nuclear Antigen Ab >600.00 H U/mL EBV Antibody Interp SEE NOTE Diagnostic [facility] Medications Administered MAR reviewed. PG Care Time/CCT Total # of Minutes Spent Total Time Spent with Patient: Total time spent is greater than 50% in coordination of care (as documented) at patient's floor/unit and/or counseling patient: Coding Level of Care Code 81582 Subseq Hosp Care Lvl 2 Diagnoses Pyoderma gangrenosum L88
[2022-07-29] MEDS: AMPHETAMINE ASP/SULF/DEXTRAMPH 20 MG TAB PO SCH (13:12)
[2022-07-29 13:15] LABS: EBV Nuclear Ag Antibody >600.00 U/mL; EBV Virus Capsid Ag IgG Ab >750.00 U/mL
[2022-07-29 13:57] LABS: Partial Thromboplastin Ratio 2.2
[2022-07-29 14:11] LABS: Partial Thromboplastin Time 61.2 Seconds (21.0-31.0)
--- NOTE | 2022-07-29 15:05 | Pharmacy Report ---
Pharmacy PK ABX Note - Date of Service July 29, 2022 - Assessment and Plan Assessment 47 year old F receiving Vancomycin for treatment of bilateral lower extremity cellulitis. * Day #5 abx therapy. * Patient has history of frequent UTIs and chronic ulcers on her legs. * ID consulted and recommends continuing Vancomycin but switched Zosyn to Cefepime + Flagyl. * Leg culture growing staph aurues, bacteroides. Awaiting sensitivities Plan Vancomycin * Current regimen: 1000 mg IV every 12 hours * Trough level obtained 07/29/22 resulted as 19.3 mcg/mL. This is predicted to achieve target AUC/MARIA ELENA of 400-600 mg/L.hr * Predicted AUC at steady state: 521 mg/L.hr * Continue 1000 mg IV every 12 hours * Repeat trough level not yet ordered; will wait for sensitivities Cefepime * Continue 2000 mg IV every 12 hours Metronidazole * Continue 500 mg PO every 8 hours Pharmacy will continue to follow and will adjust dose/frequency as necessary. Thank you. Pharmacy has transitioned to AUC monitoring for vancomycin. AUC/MARIA ELENA is the preferred PK/PD target and is associated with decreased risk of nephrotoxicity compared to traditional trough targets.
--- NOTE | 2022-07-29 15:37 | Hospitalist Progress Note ---
Date of Service July 29, 2022 Assessment & Plan (1) Sepsis: (2) Cellulitis, leg: (3) DVT (deep venous thrombosis): (4) Pulmonary embolism: (5) ADHD: (6) Self neglect: (7) COPD (chronic obstructive pulmonary disease): Plan 47 year old with 3 month lower extremity wound progression that has worsened more significantly over past 3 weeks; leading to her being bedbound and unable to performed her own ADL's. Pt meets sepsis criteria; cultures pending; Heparin gtt, pain and wound management; will consult ID and General surgery for possible debridement. Sepsis LE Cellulitis B/L LE wound Meets sepsis criteria on admission with tachycardia, tachypnea and multiple wounds as infectious source CT LE showed extensive subcutaneous edema of the right lower leg with mild fascial fluid. These findings suggest cellulitis. Multiple suspected wounds of the right lower leg. No fluid collection to suggest abscess. No soft tissue gas to suggest necrotizing fasciitis by CT. No evidence for acute osteomyelitis. Blood cx no growth Left wound cx grew staphylococcus species Microbiology lab never received the wound cx specimen for the right lower extremity ID on board recommended to discontinue IV zosyn Currently on IV Cefepime 1g q6h and metronidazole 500mg TID and Vanco as per ID Surgery on board - No indication for surgical debridement at this time. Will discuss with ID tomorrow about abx on discharge once sensitivity available Pyoderma Gangrenosum Etiology unknown Dermatology on board - recommended to avoid any debridement of the wound because it will lead to worsening Continue Prednisone 60mg daily RF, SPEP/UPEP or ROGER, DANIEL pending Continue wound care regimen of Xeroform gauze, ABD pad and gauze wrap. Defer biopsy at this time as it is not likely to ticket dispenser changer given the other factors in her case. Will discuss with dermatology about the duration for the steroid DVT PE CTA chest showed Segmental and subsegmental pulmonary emboli of the left upper lobe. CT LE showed Deep venous thrombus within a right peroneal vein. Evidence of deep venous thrombosis in the left calf. Continue IV heparin drip for now Echo showed no RV strain Discussed with patient about oral anticoagulant btw warfarin and DOAC Pt will prefer the DOAC because she does not like the idea to check INR Check vital for Eliquis and it will be $3/month Will transition to Eliquis perez Dilated cardiomyopathy Pt has been having lower extremities edema and SOB with exertion ECHO showed Left atrium is moderated dilated. Moderate to severe mitral regurgitation with EF 35 to 40 % cardiology on board Continue IV lasix 40mg BID and Metoprolol 12.5 mg BID Transaminitis AST 386 and ALT 140 today Liver enzymes trending down with AST 128-->107 -->102 and ALT 107 -->104-->106 Liver U/S showed no biliary ductal dilatation status post cholecystectomy. Trace perihepatic ascites. Subtle nodularity of the liver surface Gastro on board Acute hepatitis panel, DANIEL, AMA, ASMA, Ceruloplasmin, A1A antitrypsin, Iron profile studies, HIV negative Continue monitor LFT Hypoalbuminemia Mostly related to liver disease Albumin x 2 doses given Albumin 3.2 today Hyperglycemia Mostly related to oral prednisone Glucose 154 on BMP Will check Hba1c in am Marijuana abuse UDS positive for Marijuana Counseling on marijuana cessation ADHD: Self neglect Continue Adderall Psych on board no change in her home medication COPD: Previously diagnosed; does not follow with Pulmonary Has Albuterol PRN for rescue inhaler stable Tobacco abuse Counseling on smoking cessation Continue nicotine patch Disposition: PCP: Henny Panchal PA-C/Dr. Oleary Code Status: Full Code VTE Prophylaxis: Heparin gtt Next of Kin: Fausto Trujillo (father) [phone] Admission and Anticipated Discharge Date Admission Date: July 25, 2022 Subjective Pt was seen and examined for follow up of LE wound/cellulitis and elevated liver enzymes Sitting in bed with no acute distress working in her laptop She said that she has not been walking due to the pain Denies any chest pain, palpitation, dizziness and SOB Review of Systems Review of Systems: All systems reviewed & are unremarkable except as noted in Subjective Physical Exam Physical Exam: General- No acute distress Head- atraumatic Eyes- PERRL, EOMI, ENT- oropharynx clear Neck- supple, no JVD Lungs- clear to auscultation Heart- regular rhythm; no murmur Abdomen- normal bowel sounds, soft, nontender Extremities- no calf tenderness, + large ulceration with purulent and granulation tissue with tenderness in B/L LE, +edema improved in both legs Neuro- alert, oriented x 3; PERRL, EOMI; no facial palsy; no dysarthria Skin- warm & dry Results & Data Results & Data ([facility]) Vital Signs (Past 12 Hours) Vital Signs Temp Pulse Pulse Resp BP Pulse Ox O2 Del Method 07/29/22 12:46 36.4 C L 111 H 18 99/77 L 07/29/22 11:21 109/79 07/29/22 08:00 100 H 07/29/22 07:59 36.6 C 95 H 20 107/73 94 Room Air
--- NOTE | 2022-07-29 16:30 | Cardiology Progress Note ---
Date of Service July 29, 2022 Assessment & Plan (1) Dilated cardiomyopathy: Plan: Mild improvement in heart rate in the 90s to 100s today on low-dose metoprolol. It is noted that the patient is on Adderall, will need to explore her history of little bit better to determine overall benefits and risks of this medication. Hold off on LANDY inhibitor, ARB due to relative low blood pressure, most recent systolic blood pressure 98 mmHg. -Continue furosemide 40 mg IV twice daily. (2) Pulmonary embolism: Plan: -Agree with unfractionated heparin. (3) Pyoderma gangrenosum: Plan: -Dermatology input noted and appreciated. Patient now on prednisone. Given diagnosis of cardiomyopathy, and the association of monoclonal gammopathy with PG, proceed with serum protein electrophoresis. Added lambda, kappa, urine light chains, and urine immunofixation. Added urine protein to creatinine ratio given low albumin on serum studies, and proteinuria noted on urinalysis. Admission and Anticipated Discharge Date Admission Date: July 25, 2022 Subjective Patient seen in cardiology follow-up. Sinus tachycardia 100 2010 bpm noted, and patient has ongoing pain in her legs, but overall she feels much improved compared to when I met her 48 hours ago. Physical Exam Constitutional: Chronically ill in appearance Respiratory: Auscultation: lungs clear to auscultation bilaterally Cardiovascular: Rate/Rhythm: regular rate Heart Sounds: no murmur Extremities: + edema (2+ lower extremity edema) Gastrointestinal (Abdomen): normal bowel sounds, soft, nontender, no hepatosplenomegaly Neurologic: PERRL, EOMI, accommodation nl, no face palsy, no dysarthria Results & Data ([facility]) Vital Signs (Past 12 Hours) Vital Signs Temp Pulse Pulse Resp BP Pulse Ox O2 Del Method 07/29/22 12:46 36.4 C L 111 H 18 99/77 L 07/29/22 11:21 109/79 07/29/22 08:00 100 H 07/29/22 07:59 36.6 C 95 H 20 107/73 94 Room Air
[2022-07-29 21:12] LABS: Creatinine Urine Random 109.9 mg/dl; Protein Creatinine Ratio Urine 0.2 (0-0.2); Total Protein Urine Random 23.6 mg/dl (0-11.9)
[2022-07-29] MEDS: APIXABAN 5 MG TABLET PO SCH (22:25)
[2022-07-29] MEDS: ONDANSETRON INJ 2 MG/ML 2 ML VIAL IV PRN (23:32)
[2022-07-30] MEDS: VANCOMYCIN HCL 1,000 MG in SODIUM CHLORIDE 0.9% 250 ML IV SCH ×2 (00:40→13:36)
[2022-07-30] MEDS: MoRPHine SULFATE 2 MG/ML CARP IV PRN ×4 (02:30→19:55)
[2022-07-30 06:06] LABS: Hematocrit (blood only) 36.5 % (34.1-44.9); Mean Corpuscular Hemoglobin 33.1 pg (25.0-34.0); Mean Corpuscular Hgb Conc 32.9 g/dL (32.0-36.0); Mean Corpuscular Volume 100.6 fL (80.0-100.0); Mean Platelet Volume 10.3 fL (9.4-12.3); Nucleated RBC # (auto) 0.06 K/uL (0-0); Nucleated RBC % (auto) 0.4 %; Platelet Count 301 K/uL (130-400); RDW Standard Deviation 75.4 fL (36.4-46.3); Red Blood Count 3.63 M/uL (3.93-5.22); White Blood Count 17.12 K/ul (4.8-10.8)
[2022-07-30 06:17] LABS: Partial Thromboplastin Ratio 0.9; Partial Thromboplastin Time 25.4 Seconds (21.0-31.0)
[2022-07-30 06:39] LABS: Albumin Globulin Ratio 1.2 (0.9-2); Albumin Level 3.3 gm/dl (3.4-5.0); BUN Creatinine Ratio 30.2 (10-20); Bilirubin,Total 0.5 mg/dl (0.2-1.0); Calcium 8.8 mg/dl (8.5-10.1); Creatinine Clr Calc Pharmacy 66.7 ml/min; Est GFR (African American) 82.8 ml/min; Est GFR (Non-African American) 71.4 ml/min; Globulin 2.8 gm/dl (2.5-4.0); Potassium 4.9 mmol/L (3.5-5.1); Total Protein 6.1 gm/dl (6.0-8.3)
[2022-07-30 08:39] LABS: Estimated Average Glucose 160 mg/dl; Hemoglobin A1C 7.2 % (4.5-5.6)
[2022-07-30] MEDS: DEXTROAMPHETAMINE/AMPHETAMINE ER 10 MG CAP PO SCH (09:38)
[2022-07-30] MEDS: CEFEPIME 2,000 MG in SYRINGE 0 ML IV SCH ×2 (09:38→22:08)
[2022-07-30] MEDS: predniSONE 20 MG TAB PO SCH (09:40)
[2022-07-30] MEDS: DOCUSATE SODIUM/SENNA 50/8.6MG TAB PO SCH ×2 (09:40→23:51)
[2022-07-30] MEDS: THIAMINE HCL 100 MG TAB PO SCH (09:40)
[2022-07-30] MEDS: POTASSIUM CHLORIDE CRTAB 20 MEQ TABCR PO SCH ×2 (09:40→22:06)
[2022-07-30] MEDS: FOLIC ACID 1 MG TAB PO SCH (09:41)
[2022-07-30] MEDS: METOPROLOL TARTRATE 25 MG TAB PO SCH ×2 (09:41→22:08)
[2022-07-30] MEDS: APIXABAN 5 MG TABLET PO SCH ×2 (09:41→22:04)
[2022-07-30] MEDS: FERROUS SULFATE 325 MG TAB PO SCH (09:41)
[2022-07-30] MEDS: metroNIDAZOLE 500 MG TAB PO SCH ×3 (09:42→22:07)
[2022-07-30] MEDS: FUROSEMIDE 40 MG/4 ML VIAL IV SCH ×2 (09:42→22:07)
[2022-07-30] MEDS: NICOTINE 21 MG/24 HR TDSY TD SCH (11:14)
--- NOTE | 2022-07-30 12:25 | Cardiology Progress Note ---
Date of Service July 30, 2022 Assessment & Plan (1) Dilated cardiomyopathy: Plan: Mild improvement in heart rate in the 90s to 100s today on low-dose metoprolol. It is noted that the patient is on Adderall, will need to explore her history of little bit better to determine overall benefits and risks of this medication. Hold off on LANDY inhibitor, ARB due to relative low blood pressure, most recent systolic blood pressure 98 mmHg. -Continue furosemide 40 mg IV twice daily. (2) Pulmonary embolism: Plan: -Agree with transition to Eliquis. (3) Pyoderma gangrenosum: Plan: -Dermatology input noted and appreciated. Patient now on prednisone. Given diagnosis of cardiomyopathy, and the association of monoclonal gammopathy with PG, proceed with serum protein electrophoresis. Added lambda, kappa, urine light chains, and urine immunofixation. -Urine protein creatinine ratio is normal. Admission and Anticipated Discharge Date Admission Date: July 25, 2022 Subjective Patient seen in cardiology follow-up. She states her leg pain is improved today. She notes less swelling. Ongoing sinus tachycardia with rates of 100 210 bpm noted on telemetry. Review of Systems Review of Systems: All systems reviewed & are unremarkable except as noted in HPI & below Physical Exam Physical Exam: Temp Pulse Resp BP Pulse Ox O2 Del Method O2 Flow Rate 36.4 C L 107 H 19 102/82 92 2 07/30/22 11:17 07/30/22 11:17 07/30/22 11:17 07/30/22 11:17 07/30/22 11:17 07/30/22 11:17 07/25/22 10:04 Constitutional: Chronically ill in appearance, but no acute distress Respiratory: Auscultation: lungs clear to auscultation bilaterally Cardiovascular: Rate/Rhythm: regular rate Heart Sounds: no murmur Extremities: + edema (1-2+ lower extremity edema) Gastrointestinal (Abdomen): normal bowel sounds, soft, nontender, no hepatosplenomegaly Neurologic: PERRL, EOMI, accommodation nl, no face palsy, no dysarthria Results & Data ([facility]) Vital Signs (Past 12 Hours) Vital Signs Temp Pulse Pulse Resp BP Pulse Ox O2 Del Method 07/30/22 11:17 36.4 C L 107 H 19 102/82 92 Room Air 07/30/22 07:00 90 07/30/22 07:38 36.7 C 92 H 17 100/69 91 Room Air 07/30/22 03:44 36.6 C 100 H 18 103/70 97 Room Air Laboratory Results Cardiac Enzymes 07/30/22 Range/Units 05:39 AST 60 H (13-39) U/L Coagulation 07/29/22 07/30/22 Range/Units 13:10 05:39 APTT 61.2 H* 25.4 (21.0-31.0) Seconds CBC 07/30/22 Range/Units 05:39 WBC 17.12 H (4.8-10.8) K/ul RBC 3.63 L (3.93-5.22) M/uL Hgb 12.0 (12.0-16.0) g/dl Hct 36.5 (34.1-44.9) % Plt Count 301 (130-400) K/uL Comprehensive Metabolic Panel 07/30/22 Range/Units 05:39 Sodium 132 L (136-145) mmol/L Potassium 4.9 (3.5-5.1) mmol/L Chloride 95 L (98-107) mmol/L Carbon Dioxide 33 H (21-32) mmol/L BUN 29 H (6-23) mg/dl Creatinine 0.96 (0.6-1.2) mg/dl Glucose 116 H (70-99(Fasting)) mg/dl Calcium 8.8 (8.5-10.1) mg/dl AST 60 H (13-39) U/L ALT 85 H (7-52) U/L Alkaline Phosphatase 128 H (34-104) U/L Total Protein 6.1 (6.0-8.3) gm/dl Albumin 3.3 L (3.4-5.0) gm/dl I
[2022-07-30] MEDS: KETOROLAC TROMETHAMINE 15 MG/ML VIAL IV PRN (13:36)
[2022-07-30] MEDS: AMPHETAMINE ASP/SULF/DEXTRAMPH 20 MG TAB PO SCH (13:36)
[2022-07-30] MEDS ORDERED: CARBOHYDRATES FOR HYPOGLYCEMIA PO PRN (19:04)
[2022-07-30] MEDS ORDERED: GLUCAGON FOR INJ 1 MG VIAL SQ PRN (19:04)
[2022-07-30] MEDS ORDERED: GLUCOSE 10 TAB/TUBE PO PRN (19:04)
[2022-07-30] MEDS ORDERED: GLUCOSE 40% GEL 15 GM TUBE PO PRN (19:04)
[2022-07-30] MEDS ORDERED: DEXTROSE 50% 50 ML SYRINGE IV PRN (19:04)
--- NOTE | 2022-07-30 19:04 | Hospitalist Progress Note ---
Date of Service July 30, 2022 Assessment & Plan (1) Sepsis: (2) Cellulitis, leg: (3) DVT (deep venous thrombosis): (4) Pulmonary embolism: (5) ADHD: (6) Self neglect: (7) COPD (chronic obstructive pulmonary disease): Plan 47 year old with 3 month lower extremity wound progression that has worsened more significantly over past 3 weeks; leading to her being bedbound and unable to performed her own ADL's. Pt meets sepsis criteria; cultures pending; Heparin gtt, pain and wound management; will consult ID and General surgery for possible debridement. Sepsis LE Cellulitis B/L LE wound Meets sepsis criteria on admission with tachycardia, tachypnea and multiple wounds as infectious source CT LE showed extensive subcutaneous edema of the right lower leg with mild fascial fluid. These findings suggest cellulitis. Multiple suspected wounds of the right lower leg. No fluid collection to suggest abscess. No soft tissue gas to suggest necrotizing fasciitis by CT. No evidence for acute osteomyelitis. Blood cx no growth Microbiology lab never received the wound cx specimen for the right lower extremity Left wound cx grew staphylococcus species - Staph aureus MRSA and Bacteroides Vulgatus Currently on IV Cefepime 1g q6h and metronidazole 500mg TID and Vanco as per ID Surgery on board - No indication for surgical debridement at this time. Case discussed with ID dr. Vail about final abx therapy. As per ID recommended to continue current IV abx since wound cx also grew intestinal kenia that means gram-negative and staph MRSA Pyoderma Gangrenosum Etiology unknown Dermatology on board - recommended to avoid any debridement of the wound because it will lead to worsening RF, SPEP/UPEP or ROGER, DANIEL pending Continue wound care regimen of Xeroform gauze, ABD pad and gauze wrap. Defer biopsy at this time as it is not likely to roving changer given the other factors in her case. Continue Prednisone 60mg daily Will need to discuss with dermatology about steroid duration DVT PE CTA chest showed Segmental and subsegmental pulmonary emboli of the left upper lobe. CT LE showed Deep venous thrombus within a right peroneal vein. Evidence of deep venous thrombosis in the left calf. Continue IV heparin drip for now Echo showed no RV strain Discussed with patient about oral anticoagulant btw warfarin and DOAC Pt will prefer the DOAC because she does not like the idea to check INR Check vital for Eliquis and it will be $3/month IV heparin drip was discontinued then transition to eliquis Dilated cardiomyopathy Pt has been having lower extremities edema and SOB with exertion ECHO showed Left atrium is moderated dilated. Moderate to severe mitral regurgitation with EF 35 to 40 % cardiology on board Continue IV lasix 40mg BID and Metoprolol 12.5 mg BID Transaminitis AST 386 and ALT 140 today Liver enzymes trending down with AST 128-->107 -->102--> 60 and ALT 107 -->104-->106 --> 85 Liver U/S showed no biliary ductal dilatation status post cholecystectomy. Trace perihepatic ascites. Subtle nodularity of the liver surface Gastro on board Acute hepatitis panel, DAINEL, AMA, ASMA, Ceruloplasmin, A1A antitrypsin, Iron profile studies, HIV negative Continue monitor LFT Hypoalbuminemia Mostly related to liver disease Albumin x 2 doses given Albumin 3.2 today Diabetes Most recent Hab1c 7.2 BS elevated possible due to steroid Will start on Novolog subq Will consult diabetic education Marijuana abuse UDS positive for Marijuana Counseling on marijuana cessation ADHD: Self neglect Continue Adderall Psych on board no change in her home medication COPD: Previously diagnosed; does not follow with Pulmonary Has Albuterol PRN for rescue inhaler stable Tobacco abuse Counseling on smoking cessation Continue nicotine patch Disposition: PCP: Henny Panchal PA-C/Dr. Oleary Code Status: Full Code VTE Prophylaxis: Heparin gtt Next of Kin: Fausto Trujillo (father) [phone] Admission and Anticipated Discharge Date Admission Date: July 25, 2022 Subjective Pt was seen and examined for follow up of LE wound/cellulitis and elevated liver enzymes Sitting in bed with no acute distress She started to cry when i told her that she would have therapy today She said that she would not be able to walk around without a walker Denies any chest pain, palpitation, dizziness and SOB Review of Systems Review of Systems: All systems reviewed & are unremarkable except as noted in Subjective Physical Exam Physical Exam: General- No acute distress Head- atraumatic Eyes- PERRL, EOMI, ENT- oropharynx clear Neck- supple, no JVD Lungs- clear to auscultation Heart- regular rhythm; no murmur Abdomen- normal bowel sounds, soft, nontender Extremities- no calf tenderness, + large ulceration with purulent and granu lation tissue with tenderness in B/L LE, +edema improved in both legs Neuro- alert, oriented x 3; PERRL, EOMI; no facial palsy; no dysarthria Skin- warm & dry Results & Data Results & Data ([facility]) Vital Signs (Past 12 Hours) Vital Signs Temp Pulse Pulse Resp BP Pulse Ox O2 Del Method 07/30/22 14:30 96 H 07/30/22 15:26 36.7 C 89 16 101/70 90 Room Air 07/30/22 11:17 36.4 C L 107 H 19 102/82 92 Room Air 07/30/22 07:00 90 07/30/22 07:38 36.7 C 92 H 17 100/69 91 Room Air
[2022-07-30] MEDS ORDERED: POLYETHYLENE (MIRALAX) 17 GM PACK PO STA (20:20)
[2022-07-30] MEDS: INSULIN ASPART PER UNIT SC SCH (22:04)
[2022-07-30] MEDS: MAGNESIUM HYDROXIDE SUSP 30 ML UDC PO PRN (23:46)
[2022-07-31] MEDS: MoRPHine SULFATE 2 MG/ML CARP IV PRN ×6 (00:05→21:36)
[2022-07-31] MEDS: VANCOMYCIN HCL 1,000 MG in SODIUM CHLORIDE 0.9% 250 ML IV SCH ×2 (00:05→12:10)
[2022-07-31] MEDS: NICOTINE 21 MG/24 HR TDSY TD SCH ×2 (08:37→21:00)
[2022-07-31] MEDS: APIXABAN 5 MG TABLET PO SCH ×2 (08:38→20:39)
[2022-07-31] MEDS: predniSONE 20 MG TAB PO SCH (08:38)
[2022-07-31] MEDS: METOPROLOL TARTRATE 25 MG TAB PO SCH ×2 (08:39→20:40)
[2022-07-31] MEDS: FOLIC ACID 1 MG TAB PO SCH (08:39)
[2022-07-31] MEDS: POTASSIUM CHLORIDE CRTAB 20 MEQ TABCR PO SCH ×2 (08:39→20:42)
[2022-07-31] MEDS: FERROUS SULFATE 325 MG TAB PO SCH (08:39)
[2022-07-31] MEDS: metroNIDAZOLE 500 MG TAB PO SCH ×3 (08:39→20:42)
[2022-07-31] MEDS: THIAMINE HCL 100 MG TAB PO SCH (08:39)
[2022-07-31] MEDS: DOCUSATE SODIUM/SENNA 50/8.6MG TAB PO SCH ×3 (08:41→20:30)
[2022-07-31] MEDS: FUROSEMIDE 40 MG/4 ML VIAL IV SCH ×2 (08:43→20:39)
[2022-07-31 08:47] LABS: Albumin Globulin Ratio 1.2 (0.9-2); Albumin Level 3.1 gm/dl (3.4-5.0); Bilirubin,Total 0.6 mg/dl (0.2-1.0); Calcium 8.5 mg/dl (8.5-10.1); Est GFR (African American) 78.8 ml/min; Globulin 2.6 gm/dl (2.5-4.0); Potassium 4.8 mmol/L (3.5-5.1); Total Protein 5.7 gm/dl (6.0-8.3)
[2022-07-31] MEDS: INSULIN ASPART PER UNIT SC SCH ×4 (08:59→20:30)
[2022-07-31] MEDS: CEFEPIME 2,000 MG in SYRINGE 0 ML IV SCH ×2 (09:00→20:30)
[2022-07-31] MEDS: DEXTROAMPHETAMINE/AMPHETAMINE ER 10 MG CAP PO SCH (09:00)
[2022-07-31] MEDS ORDERED: VANCOMYCIN LEVEL ONE (11:00)
[2022-07-31] MEDS: AMPHETAMINE ASP/SULF/DEXTRAMPH 20 MG TAB PO SCH (13:02)
[2022-07-31 15:26] LABS: Free Kappa/Lambda Ratio 1.36 (0.26-1.65); Free Lambda 19.8 mg/L (5.7-26.3)
--- NOTE | 2022-07-31 17:13 | Hospitalist Progress Note ---
Date of Service July 31, 2022 Assessment & Plan (1) Sepsis: (2) Cellulitis, leg: (3) DVT (deep venous thrombosis): (4) Pulmonary embolism: (5) ADHD: (6) Self neglect: (7) COPD (chronic obstructive pulmonary disease): Plan 47 year old with 3 month lower extremity wound progression that has worsened more significantly over past 3 weeks; leading to her being bedbound and unable to performed her own ADL's. Pt meets sepsis criteria; cultures pending; Heparin gtt, pain and wound management; will consult ID and General surgery for possible debridement. Sepsis LE Cellulitis B/L LE wound Meets sepsis criteria on admission with tachycardia, tachypnea and multiple wounds as infectious source CT LE showed extensive subcutaneous edema of the right lower leg with mild fascial fluid. These findings suggest cellulitis. Multiple suspected wounds of the right lower leg. No fluid collection to suggest abscess. No soft tissue gas to suggest necrotizing fasciitis by CT. No evidence for acute osteomyelitis. Blood cx no growth Microbiology lab never received the wound cx specimen for the right lower extremity Left wound cx grew staphylococcus species - Staph aureus MRSA and Bacteroides Vulgatus Currently on IV Cefepime 1g q6h and metronidazole 500mg TID and Vanco as per ID Surgery on board - No indication for surgical debridement at this time. Case discussed with ID dr. Vail about final abx therapy. As per ID recommended to continue current IV abx since wound cx also grew intestinal kenia that means gram-negative and staph MRSA Will need to discuss with ID for antibiotic duration and type Clinically much better and denies any fever and no chills White count is elevated likely secondary to use of steroid Pyoderma Gangrenosum Etiology unknown Dermatology on board - recommended to avoid any debridement of the wound because it will lead to worsening RF, SPEP/UPEP or ROGER, DANIEL pending Continue wound care regimen of Xeroform gauze, ABD pad and gauze wrap. Defer biopsy at this time as it is not likely to address change clerk given the other factors in her case. Continue Prednisone 60mg daily Will need to discuss with dermatology about steroid duration DVT PE CTA chest showed Segmental and subsegmental pulmonary emboli of the left upper lobe. CT LE showed Deep venous thrombus within a right peroneal vein. Evidence of deep venous thrombosis in the left calf. Continue IV heparin drip for now Echo showed no RV strain Discussed with patient about oral anticoagulant btw warfarin and DOAC Pt will prefer the DOAC because she does not like the idea to check INR Check vital for Eliquis and it will be $3/month IV heparin drip was discontinued then transition to eliquis Advised to ambulate more and participate in physical therapy Dilated cardiomyopathy Pt has been having lower extremities edema and SOB with exertion ECHO showed Left atrium is moderated dilated. Moderate to severe mitral regurgitation with EF 35 to 40 % cardiology on board Continue IV lasix 40mg BID and Metoprolol 12.5 mg BID No acute fluid overload Transaminitis AST 386 and ALT 140 today Liver enzymes trending down with AST 128-->107 -->102--> 60 and ALT 107 -->104-->106 --> 85 Liver U/S showed no biliary ductal dilatation status post cholecystectomy. Trace perihepatic ascites. Subtle nodularity of the liver surface Gastro on board Acute hepatitis panel, DANIEL, AMA, ASMA, Ceruloplasmin, A1A antitrypsin, Iron profile studies, HIV negative Continue monitor LFT -normal Hypoalbuminemia Mostly related to liver disease Albumin x 2 doses given Albumin 3.2 today Diabetes Most recent Hab1c 7.2 BS elevated possible due to steroid Will start on Novolog subq Will consult diabetic education Marijuana abuse UDS positive for Marijuana Counseling on marijuana cessation ADHD: Self neglect Continue Adderall Psych on board no change in her home medication COPD: Previously diagnosed; does not follow with Pulmonary Has Albuterol PRN for rescue inhaler stable Tobacco abuse Counseling on smoking cessation Continue nicotine patch Disposition: PCP: Henny Panchal PA-C/Dr. Oleary Code Status: Full Code VTE Prophylaxis: Heparin gtt Next of Kin: Fausto Trujillo (father) [phone] Admission and Anticipated Discharge Date Admission Date: July 25, 2022 Subjective 07/31/2022 The patient was seen and examined in telemetry unit She has been feeling much better but has not been out of bed to participate in physical therapy Her legs are getting better Denies any other significant symptoms Review of Systems Review of Systems: All systems reviewed and are unremarkable except as noted below Physical Exam Physical Exam: Lying in bed comfortably Constitutional: + ill appearing and average body habitus Eyes: PERRL, conjunctivae normal, anicteric sclerae ENMT: external ear and nose normal, oropharynx normal Neck: trachea midline, no thyromegaly Respiratory: no respiratory distress Auscultation: lungs clear to auscultation bilaterally Cardiovascular: Rate/Rhythm: regular rate and regular rhythm; not tachycardic Heart Sounds: normal S1 and normal S2; no murmur Extremities: + edema (Trace to 1+ edema bilaterally) Musculoskeletal: Both the legs are bandaged. Please see the image of the wound Neurologic: Alert, awake and oriented x3. Lymphatic: no cervical or axillary lymphadenopathy Results & Data Results & Data ([facility]) Vital Signs (Past 12 Hours) Vital Signs Temp Pulse Pulse Resp BP Pulse Ox O2 Del Method 07/31/22 16:00 98 H 07/31/22 15:26 36.5 C 105 H 19 95/64 L 92 Room Air 07/31/22 11:26 36.5 C 71 19 108/77 95 Room Air 07/31/22 08:00 100 H 07/31/22 07:38 36.4 C L 98 H 20 103/73 92 Room Air Laboratory Results [facility] 07/31/22 07:48 Sodium 133 L Potassium 4.8 Chloride 97 L Carbon Dioxide 32 BUN 33 H Creatinine 1.00 Glucose 103 H Calcium 8.5 Liver Function 07/31/22 Range/Units 07:48 Total Bilirubin 0.6 (0.2-1.0) mg/dl AST 37 (13-39) U/L ALT 65 H (7-52) U/L Alkaline Phosphatase 111 H (34-104) U/L Albumin 3.1 L (3.4-5.0) gm/dl Medications Administered Current Inpatient Medications Albuterol (Albuterol Hfa 8 Gm Inhaler) 2 puffs INH Q4R PRN PRN Reason: Wheezing Stop: 08/24/22 15:27 Amphetamine/Dextroamphetamine (Amphetamine Asp/Sulf/Dextramph 20 Mg Tab) 20 mg PO DAILY@1400 [facility] Stop: 08/09/22 13:59 Last Admin: 07/31/22 13:02 Dose: 20 mg Amphetamine/Dextroamphetamine (Dextroamphetamine/Amphetamine Er 10 Mg Cap) 30 mg PO QAM [facility] Stop: 08/09/22 08:59 Last Admin: 07/31/22 09:00 Dose: 30 mg Apixaban (Apixaban 5 Mg Tablet) 10 mg PO BID [facility] Stop: 08/05/22 09:01 Last Admin: 07/31/22 08:38 Dose: 10 mg Apixaban (Apixaban 5 Mg Tablet) 5 mg PO BID [facility] Stop: 09/04/22 20:59 Dextrose (Dextrose 50% 50 Ml Syringe) 25 - 50 ml IV UD PRN; Protocol PRN Reason: Hypoglycemia Protocol Stop: 08/29/22 19:03 Ferrous Sulfate (Ferrous Sulfate 325 Mg Tab) 325 mg PO QAM JENN Stop: 08/27/22 08:59 Last Admin: 07/31/22 08:39 Dose: 325 mg Folic Acid (Folic Acid 1 Mg Tab) 1 mg PO QAM JENN Stop: 08/25/22 08:59 Last Admin: 07/31/22 08:39 Dose: 1 mg Furosemide (Furosemide 40 Mg/4 Ml Vial) 40 mg IV BID JENN Stop: 08/25/22 20:59 Last Admin: 07/31/22 08:43 Dose: 40 mg Glucagon (Glucagon For Inj 1 Mg Vial) 1 mg SQ UD PRN; Protocol PRN Reason: Hypoglycemia Protocol Stop: 08/29/22 19:03 Glucose (Glucose 40% Gel 15 Gm Tube) 15 - 30 gm PO UD PRN; Protocol PRN Reason: Hypoglycemia Protocol Stop: 08/29/22 19:03 Glucose (Glucose 10 Tab/Tube) 4 - 8 tab PO UD PRN; Protocol PRN Reason: Hypoglycemia Treatment Stop: 08/29/22 19:03 Cefepime HCl 2,000 mg/ Syringe 20 mls @ 5.5 mls/min IV Q12H [facility]; Protocol Stop: 08/02/22 19:59 Last Admin: 07/31/22 09:00 Dose: 5.5 mls/min Vancomycin HCl 750 mg/ Sodium (Chloride) 265 mls @ 200 mls/hr IV Q12H [facility] Stop: 08/02/22 23:59 Insulin Aspart (Insulin Aspart Per Unit) 0 units SC ACHS JENN Stop: 08/29/22 20:59 Last Admin: 07/31/22 13:02 Dose: 2 units Magnesium Hydroxide (Magnesium Hydroxide Susp 30 Ml Udc) 30 ml PO DAILY PRN PRN Reason: Constipation Stop: 08/29/22 20:18 Last Admin: 07/30/22 23:46 Dose: 30 ml Metoprolol Tartrate (Metoprolol Tartrate 25 Mg Tab) 12.5 mg PO BID JENN Stop: 08/26/22 20:59 Last Admin: 07/31/22 08:39 Dose: 12.5 mg Metronidazole (Metronidazole 500 Mg Tab) 500 mg PO TID [facility] Stop: 08/02/22 20:59 Last Admin: 07/31/22 13:04 Dose: 500 mg Miscellaneous (Remove Nicoderm Patch) 1 each N/A DAILY@0859 [facility] Stop: 08/26/22 08:58 Last Admin: 07/31/22 08:42 Dose: 1 each Miscellaneous (Remove Nicoderm Patch) 1 each N/A DAILY@0859 [facility] Stop: 08/26/22 08:58 Last Admin: 07/31/22 08:43 Dose: Not Given Miscellaneous (Carbohydrates For Hypoglycemia ) 15 - 30 gm PO UD PRN PRN Reason: Hypoglycemia Protocol Stop: 08/29/22 19:03 Miscellaneous Information (Vancomycin Consult Active) 1 each N/A UD PRN PRN Reason: Consult Stop: 08/24/22 15:27 Morphine Sulfate (Morphine Sulfate 2 Mg/Ml Carp) 2 mg IV Q4H PRN PRN Reason: Pain Stop: 08/08/22 15:27 Last Admin: 07/31/22 13:03 Dose: 2 mg Nicotine (Nicotine 21 Mg/24 Hr Tdsy) 21 mg TD QAM [facility] Stop: 08/25/22 14:29 Last Admin: 07/31/22 08:37 Dose: 21 mg Nicotine Polacrilex (Nicotine Polacrilex 2 Mg Gum) 1 piece MT Q3H PRN PRN Reason: smoking Stop: 08/25/22 15:10 Last Admin: 07/27/22 00:02 Dose: 1 piece Ondansetron HCl (Ondansetron Inj 2 Mg/Ml 2 Ml Vial) 4 mg IV Q6H PRN PRN Reason: Nausea And Vomiting Stop: 08/24/22 18:48 Last Admin: 07/29/22 23:32 Dose: 4 mg Potassium Chloride (Potassium Chloride Crtab 20 Meq Tabcr) 20 meq PO BID [facility] Stop: 08/25/22 20:59 Last Admin: 07/31/22 08:39 Dose: 20 meq Prednisone (Prednisone 20 Mg Tab) 60 mg PO DAILY [facility] Stop: 08/26/22 08:59 Last Admin: 07/31/22 08:38 Dose: 60 mg Senna/Docusate Sodium (Docusate Sodium/Senna 50/8.6mg Tab) 1 tab PO BID [facility] Stop: 08/29/22 20:19 Last Admin: 07/31/22 08:41 Dose: 1 tab Thiamine HCl (Thiamine Hcl 100 Mg Tab) 100 mg PO QAM [facility] Stop: 08/25/22 08:59 Last Admin: 07/31/22 08:39 Dose: 100 mg
--- NOTE | 2022-07-31 19:02 | Cardiology Progress Note ---
Date of Service July 31, 2022 Assessment & Plan (1) Dilated cardiomyopathy: Plan: Continue metoprolol, low-dose. Hold off on LANDY inhibitor, ARB due to relative low blood pressure, most recent systolic blood pressure 95 mmHg. -Continue furosemide 40 mg IV twice daily. -Serum protein electrophoresis, urine protein electrophoresis results still pending. Very minimally elevated free kappa urine light chain, normal lambda light chain, ratio normal. Doubt that this is pathologic. (2) Pulmonary embolism: Plan: -Agree with transition to Eliquis. (3) Pyoderma gangrenosum: Plan: -Dermatology input noted and appreciated. Patient now on prednisone. Given diagnosis of cardiomyopathy, and the association of monoclonal gammopathy with PG, proceed with serum protein electrophoresis. Added lambda, kappa, urine light chains, and urine immunofixation. -Urine protein creatinine ratio is normal. Admission and Anticipated Discharge Date Admission Date: July 25, 2022 Subjective Patient seen in cardiology follow-up. She describes that she has had a rough day today. She is tearful. She had been incontinent of urine several times, and to change her gown and bedding, and she feels her nicotine patch "fell off ". She notes ongoing pain in her legs. Physical Exam Constitutional: Tearful. Respiratory: Auscultation: lungs clear to auscultation bilaterally Cardiovascular: Rate/Rhythm: regular rate Heart Sounds: no murmur Extremities: + edema (1+ lower extremity edema, slightly improved compared to 9/) Gastrointestinal (Abdomen): normal bowel sounds, soft, nontender, no hepatosplenomegaly Neurologic: PERRL, EOMI, accommodation nl, no face palsy, no dysarthria Results & Data ([facility]) Vital Signs (Past 12 Hours) Vital Signs Temp Pulse Pulse Resp BP Pulse Ox O2 Del Method 07/31/22 16:00 98 H 07/31/22 15:26 36.5 C 105 H 19 95/64 L 92 Room Air 07/31/22 11:26 36.5 C 71 19 108/77 95 Room Air 07/31/22 08:00 100 H 07/31/22 07:38 36.4 C L 98 H 20 103/73 92 Room Air Laboratory Results Cardiac Enzymes 07/31/22 Range/Units 07:48 AST 37 (13-39) U/L Comprehensive Metabolic Panel 07/31/22 Range/Units 07:48 Sodium 133 L (136-145) mmol/L Potassium 4.8 (3.5-5.1) mmol/L Chloride 97 L (98-107) mmol/L Carbon Dioxide 32 (21-32) mmol/L BUN 33 H (6-23) mg/dl Creatinine 1.00 (0.6-1.2) mg/dl Glucose 103 H (70-99(Fasting)) mg/dl Calcium 8.5 (8.5-10.1) mg/dl AST 37 (13-39) U/L ALT 65 H (7-52) U/L Alkaline Phosphatase 111 H (34-104) U/L Total Protein 5.7 L (6.0-8.3) gm/dl Albumin 3.1 L (3.4-5.0) gm/dl Intake and Output 07/31/22 07/31/22 07/31/22 06:59 14:59 22:59 Intake Total 270 / 1340 1230 / 1230 Output Total 900 / 3500 1000 / 1000 Balance -630 / -2160 230 / 230 Intake: IV 270 / 540 270 / 270 Vancomycin HCl 1,000 mg In 270 / 540 270 / 270 Sodium Chloride 0.9% 250 ml @ 200 mls/hr IV Q12H [facility] Rx#: [id number] Oral 960 / 960 Output: Urine Amount (Catheter) 900 / 3500 1000 / 1000 External 900 / 3500 1000 / 1000 Other: # Unmeasured Voids 1 Weight 74.5 kg Patient Weight 08/01/22 06:59 Weight 74.5 kg
[2022-08-01] MEDS: MoRPHine SULFATE 2 MG/ML CARP IV PRN ×6 (01:41→23:22)
[2022-08-01] MEDS: VANCOMYCIN HCL 750 MG in SODIUM CHLORIDE 0.9% 250 ML IV SCH ×2 (06:13→17:45)
[2022-08-01 06:53] LABS: Hematocrit (blood only) 36.6 % (34.1-44.9); Mean Corpuscular Hemoglobin 32.9 pg (25.0-34.0); Mean Corpuscular Hgb Conc 32.8 g/dL (32.0-36.0); Mean Corpuscular Volume 100.3 fL (80.0-100.0); Mean Platelet Volume 10.1 fL (9.4-12.3); Nucleated RBC # (auto) 0.05 K/uL (0-0); Nucleated RBC % (auto) 0.2 %; Platelet Count 322 K/uL (130-400); RDW Coefficient of Variation 20.9 % (11.5-14.5); Red Blood Count 3.65 M/uL (3.93-5.22); White Blood Count 21.29 K/ul (4.8-10.8)
[2022-08-01 07:18] LABS: Basophils # (auto) 0.08 K/uL (0-0.2); Basophils % (auto) 0.4 %; Immature Granulocytes # (auto) 0.32 K/uL (0.00-0.02); Immature Granulocytes % (auto) 1.5 %; Lymphocytes # (auto) 5.13 K/uL (1.2-3.4); Lymphocytes % (auto) 24.1 %; Monocytes # (auto) 1.33 K/uL (0.24-0.82); Monocytes % (auto) 6.2 %; Neutrophils # (auto) 14.43 K/uL (1.4-6.5); Neutrophils % (auto) 67.8 %
[2022-08-01 07:20] LABS: BUN Creatinine Ratio 30.7 (10-20); Calcium 8.5 mg/dl (8.5-10.1); Creatinine Clr Calc Pharmacy 63.3 ml/min; Est GFR (African American) 77.9 ml/min; Est GFR (Non-African American) 67.2 ml/min; Potassium 4.4 mmol/L (3.5-5.1)
[2022-08-01] MEDS: CEFEPIME 2,000 MG in SYRINGE 0 ML IV SCH ×2 (07:48→20:05)
[2022-08-01] MEDS: NICOTINE 21 MG/24 HR TDSY TD SCH (08:29)
[2022-08-01] MEDS: metroNIDAZOLE 500 MG TAB PO SCH ×3 (08:30→20:10)
[2022-08-01] MEDS: FOLIC ACID 1 MG TAB PO SCH (08:30)
[2022-08-01] MEDS: POTASSIUM CHLORIDE CRTAB 20 MEQ TABCR PO SCH ×2 (08:30→20:09)
[2022-08-01] MEDS: DOCUSATE SODIUM/SENNA 50/8.6MG TAB PO SCH ×2 (08:30→20:05)
[2022-08-01] MEDS: predniSONE 20 MG TAB PO SCH (08:30)
[2022-08-01] MEDS: METOPROLOL TARTRATE 25 MG TAB PO SCH ×2 (08:31→20:08)
[2022-08-01] MEDS: FUROSEMIDE 40 MG/4 ML VIAL IV SCH ×2 (08:33→20:07)
[2022-08-01] MEDS: FERROUS SULFATE 325 MG TAB PO SCH (08:33)
[2022-08-01] MEDS: THIAMINE HCL 100 MG TAB PO SCH (08:33)
[2022-08-01] MEDS: APIXABAN 5 MG TABLET PO SCH ×2 (08:33→20:07)
[2022-08-01] MEDS: INSULIN ASPART PER UNIT SC SCH ×4 (08:40→21:13)
[2022-08-01] MEDS: DEXTROAMPHETAMINE/AMPHETAMINE ER 10 MG CAP PO SCH (10:42)
[2022-08-01] MEDS ORDERED: DEXTROAMPHETAMINE/AMPHETAMINE ER 10 MG CAP PO ONE (10:45)
--- NOTE | 2022-08-01 13:38 | Cardiology Progress Note ---
Date of Service August 01, 2022 Assessment & Plan (1) Dilated cardiomyopathy: Plan: -Echocardiogram performed 07/26/2022 revealed moderate left ventricular systolic dysfunction, LVEF in the range of 35-40%, with mild right ventricular dilatation and mild right ventricular systolic dysfunction. Moderate to severe mitral regurgitation noted, moderate tricuspid vegetation, PASP 45 mmHg. -This of course was performed in the setting of patient being acutely volume overloaded, and having been found to have an acute lower extremity DVT and pulmonary embolism. -Continue medication therapy, transition to Toprol tartrate to metoprolol succinate 25 mg daily -Start low-dose lisinopril 08/01/2022, -treatment with LANDY inhibitor/ARB has been limited by relative systolic hypertension -Anticipate ejection fraction may improve with treatment of her pulmonary embolism, improved volume status, treatment of PG. -No ventricular arrhythmias observed on telemetry (2) Pulmonary embolism: Plan: -Continue Eliquis (3) Pyoderma gangrenosum: Plan: This -Dermatology input noted and appreciated. Patient now on prednisone. Given diagnosis of cardiomyopathy, and the association of monoclonal gammopathy with PG, proceed with serum protein electrophoresis. Added lambda, kappa, urine light chains, and urine immunofixation. -Urine protein creatinine ratio is normal. -Wound culture yielded MRSA and Bacteroides vulgatus. Remains on IV cefepime, vancomycin. Admission and Anticipated Discharge Date Admission Date: July 25, 2022 Subjective Patient seen and cardiology follow-up of lower extremity edema, moderate left ventricular systolic dysfunction. Her leg pain is controlled well enough that she is ambulating to the bathroom to void. Subtle improvement in her lower extremity edema noted today. Patient had a tearful night last night, was significantly frustrated, feeling better today. Telemetry reveals subtle improvement in the heart rate to the mid 90s. Physical Exam Physical Exam: Temp Pulse Resp BP Pulse Ox O2 Del Method O2 Flow Rate 36.5 C 100 H 18 108/76 95 2 08/01/22 11:09 08/01/22 11:08/01/22 11:08/01/22 11:08/01/22 11:08/01/22 11:07/25/22 10:04 Constitutional: WD/WN, vitals as above Neck: normal visual inspection Respiratory: Auscultation: lungs clear to auscultation bilaterally Cardiovascular: Rate/Rhythm: regular rate Heart Sounds: no murmur Extremities: + edema (1+ lower extremity edema, slightly improved ) Gastrointestinal (Abdomen): normal bowel sounds, soft, nontender, no hepatosplenomegaly Neurologic: PERRL, EOMI, accommodation nl, no face palsy, no dysarthria Results & Data ([facility]) Vital Signs (Past 12 Hours) Vital Signs Temp Pulse Pulse Resp BP Pulse Ox O2 Del Method 08/01/22 08:00 101 H 08/01/22 11:09 36.5 C 100 H 18 108/76 95 Room Air 08/01/22 07:11 36.6 C 89 18 105/71 95 Room Air Laboratory Results CBC 08/01/22 Range/Units 06:30 WBC 21.29 H (4.8-10.8) K/ul RBC 3.65 L (3.93-5.22) M/uL Hgb 12.0 (12.0-16.0) g/dl Hct 36.6 (34.1-44.9) % Plt Count 322 (130-400) K/uL Neut # (Auto) 14.43 H (1.4-6.5) K/uL Lymph # (Auto) 5.13 H (1.2-3.4) K/uL [place]ala # (Auto) 1.33 H (0.24-0.82) K/uL Eos # (Auto) 0.00 (0-0.50) K/uL Baso # (Auto) 0.08 (0-0.2) K/uL Comprehensive Metabolic Panel 08/01/22 Range/Units 06:30 Sodium 132 L (136-145) mmol/L Potassium 4.4 (3.5-5.1) mmol/L Chloride 96 L (98-107) mmol/L Carbon Dioxide 31 (21-32) mmol/L BUN 31 H (6-23) mg/dl Creatinine 1.01 (0.6-1.2) mg/dl Glucose 109 H (70-99(Fasting)) mg/dl Calcium 8.5 (8.5-10.1) mg/dl
[2022-08-01 14:06] LABS: Amphetamine Urine, Confirm >15000 ng/mL (<250); Codeine Urine NEGATIVE ng/mL (<50); Hydrocodone Urine 1820 ng/mL (<50); Hydromor Urine 433 ng/mL (<50); MDA negative; MDEA negative; MDMA (Ecstasy) Urine, Confirm negative; Marijuana Quant, GCMS Urine 66 ng/mL (<5); Methamphetamine, Ur Confirm NEGATIVE ng/mL (<250); Morphine Urine 5530 ng/mL (<50); Norhydrocodone Conf Ur 2180 ng/mL (<50); Noroxycodone Urine NEGATIVE ng/mL (<50); Oxycodone Urine NEGATIVE ng/mL (<50); Oxymorph Urine NEGATIVE ng/mL (<50)
[2022-08-01] MEDS: AMPHETAMINE ASP/SULF/DEXTRAMPH 20 MG TAB PO SCH (14:38)
--- NOTE | 2022-08-01 16:56 | Hospitalist Progress Note ---
Date of Service August 01, 2022 Assessment & Plan (1) Sepsis: (2) Cellulitis, leg: (3) DVT (deep venous thrombosis): (4) Pulmonary embolism: (5) ADHD: (6) Self neglect: (7) COPD (chronic obstructive pulmonary disease): Plan 47 year old with 3 month lower extremity wound progression that has worsened more significantly over past 3 weeks; leading to her being bedbound and unable to performed her own ADL's. Pt meets sepsis criteria; cultures pending; Heparin gtt, pain and wound management; will consult ID and General surgery for possible debridement. Sepsis LE Cellulitis B/L LE wound Meets sepsis criteria on admission with tachycardia, tachypnea and multiple wounds as infectious source CT LE showed extensive subcutaneous edema of the right lower leg with mild fascial fluid. These findings suggest cellulitis. Multiple suspected wounds of the right lower leg. No fluid collection to suggest abscess. No soft tissue gas to suggest necrotizing fasciitis by CT. No evidence for acute osteomyelitis. Blood cx no growth Microbiology lab never received the wound cx specimen for the right lower extremity Left wound cx grew staphylococcus species - Staph aureus MRSA and Bacteroides Vulgatus Currently on IV Cefepime 1g q6h and metronidazole 500mg TID and Vanco as per ID Surgery on board - No indication for surgical debridement at this time. Case discussed with ID dr. Vail about final abx therapy. As per ID recommended to continue current IV abx since wound cx also grew intestinal kenia that means gram-negative and staph MRSA Will need to discuss with ID for antibiotic duration and type Clinically much better and denies any fever and no chills White count is elevated likely secondary to use of steroid Bilateral legs wound seems to be minimally improved Will discuss with ID specialist about the type and duration of antibiotics to be used Pyoderma Gangrenosum Etiology unknown Dermatology on board - recommended to avoid any debridement of the wound because it will lead to worsening RF, SPEP/UPEP or ROGER, DANIEL pending Continue wound care regimen of Xeroform gauze, ABD pad and gauze wrap. 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 Continue Prednisone 60mg daily Will need to discuss with dermatology about steroid duration As above DVT PE CTA chest showed Segmental and subsegmental pulmonary emboli of the left upper lobe. CT LE showed Deep venous thrombus within a right peroneal vein. Evidence of deep venous thrombosis in the left calf. Continue IV heparin drip for now Echo showed no RV strain Discussed with patient about oral anticoagulant btw warfarin and DOAC Pt will prefer the DOAC because she does not like the idea to check INR Check vital for Eliquis and it will be $3/month IV heparin drip was discontinued then transition to eliquis Advised to ambulate more and participate in physical therapy We will continue Eliquis Dilated cardiomyopathy Pt has been having lower extremities edema and SOB with exertion ECHO showed Left atrium is moderated dilated. Moderate to severe mitral regurgitation with EF 35 to 40 % cardiology on board Continue IV lasix 40mg BID and Metoprolol 12.5 mg BID No acute fluid overload Cardiac medications will be adjusted as per charge accounts audit clerk Transaminitis AST 386 and ALT 140 today Liver enzymes trending down with AST 128-->107 -->102--> 60 and ALT 107 -->104-->106 --> 85 Liver U/S showed no biliary ductal dilatation status post cholecystectomy. Trace perihepatic ascites. Subtle nodularity of the liver surface Gastro on board Acute hepatitis panel, DANIEL, AMA, ASMA, Ceruloplasmin, A1A antitrypsin, Iron profile studies, HIV negative Continue monitor LFT -normal Hypoalbuminemia Mostly related to liver disease Albumin x 2 doses given Albumin 3.2 today Diabetes Most recent Hab1c 7.2 BS elevated possible due to steroid Will start on Novolog subq Will consult diabetic education Marijuana abuse UDS positive for Marijuana Counseling on marijuana cessation ADHD: Self neglect Continue Adderall Psych on board no change in her home medication COPD: Previously diagnosed; does not follow with Pulmonary Has Albuterol PRN for rescue inhaler stable Tobacco abuse Counseling on smoking cessation Continue nicotine patch Disposition: PCP: Henny Panchal PA-C/Dr. Oleary Code Status: Full Code VTE Prophylaxis: Heparin gtt Next of Kin: Fausto Trujillo (father) [phone] Admission and Anticipated Discharge Date Admission Date: July 25, 2022 Subjective 07/31/2022 The patient was seen and examined in telemetry unit She has been feeling much better but has not been out of bed to participate in physical therapy Her legs are getting better Denies any other significant symptoms 08/01/2022 The patient was seen and examined in medical telemetry unit She mentions that her wound has improved a little bit but he still has significant pain with movement and during dressing Denies any other symptoms of fever and or chills, no nausea no vomiting Has been getting physical therapy the way she is supposed to get Review of Systems Review of Systems: All systems reviewed and are unremarkable except as noted below Physical Exam Physical Exam: Lying in bed comfortably Constitutional: + ill appearing and average body habitus Eyes: PERRL, conjunctivae normal, anicteric sclerae ENMT: external ear and nose normal, oropharynx normal Neck: trachea midline, no thyromegaly Respiratory: no respiratory distress Auscultation: lungs clear to auscultation bilaterally Cardiovascular: Rate/Rhythm: regular rate and regular rhythm; not tachycardic Heart Sounds: normal S1 and normal S2; no murmur Extremities: + edema (Trace to 1+ edema bilaterally) Gastrointestinal (Abdomen): Inspection/Auscultation: normal bowel sounds; abdomen not distended Percussion/Palpation: abdomen soft; abdomen nontender Musculoskeletal: Bilateral leg pain secondary to pyoderma gangrenosum Neurologic: normal touch/pain/proprioception and moves all extremities; no focal motor deficits Lymphatic: no cervical or axillary lymphadenopathy Results & Data Results & Data ([facility]) Vital Signs (Past 12 Hours) Vital Signs Temp Pulse Pulse Resp BP Pulse Ox O2 Del Method 08/01/22 16:00 101 H 08/01/22 16:23 36.6 C 96 H 18 100/70 93 Room Air 08/01/22 08:00 101 H 08/01/22 11:09 36.5 C 100 H 18 108/76 95 Room Air 08/01/22 07:11 36.6 C 89 18 105/71 95 Room Air Laboratory Results Short CBC 08/01/22 Range/Units 06:30 WBC 21.29 H (4.8-10.8) K/ul Hgb 12.0 (12.0-16.0) g/dl Hct 36.6 (34.1-44.9) % Plt Count 322 (130-400) K/uL BMP 08/01/22 06:30 Sodium 132 L Potassium 4.4 Chloride 96 L Carbon Dioxide 31 BUN 31 H Creatinine 1.01 Glucose 109 H Calcium 8.5 Medications Administered Current Inpatient Medications Albuterol (Albuterol Hfa 8 Gm Inhaler) 2 puffs INH Q4R PRN PRN Reason: Wheezing Stop: 08/24/22 15:27 Amphetamine/Dextroamphetamine (Amphetamine Asp/Sulf/Dextramph 20 Mg Tab) 20 mg PO DAILY@1400 [facility] Stop: 08/09/22 13:59 Last Admin: 08/01/22 14:38 Dose: 20 mg Amphetamine/Dextroamphetamine (Dextroamphetamine/Amphetamine Er 10 Mg Cap) 30 mg PO QAM [facility] Stop: 08/09/22 08:59 Last Admin: 08/01/22 10:42 Dose: Not Given Apixaban (Apixaban 5 Mg Tablet) 10 mg PO BID [facility] Stop: 08/05/22 09:01 Last Admin: 08/01/22 08:33 Dose: 10 mg Apixaban (Apixaban 5 Mg Tablet) 5 mg PO BID [facility] Stop: 09/04/22 20:59 Dextrose (Dextrose 50% 50 Ml Syringe) 25 - 50 ml IV UD PRN; Protocol PRN Reason: Hypoglycemia Protocol Stop: 08/29/22 19:03 Ferrous Sulfate (Ferrous Sulfate 325 Mg Tab) [facility] Stop: 08/27/22 08:59 Last Admin: 08/01/22 08:33 Dose: 325 mg Folic Acid (Folic Acid 1 Mg Tab) 1 mg PO [facility] Stop: 08/25/22 08:59 Last Admin: 08/01/22 08:30 Dose: 1 mg Furosemide (Furosemide 40 Mg/4 Ml Vial) 40 mg IV BID [facility] Stop: 08/25/22 20:59 Last Admin: 08/01/22 08:33 Dose: 40 mg Glucagon (Glucagon For Inj 1 Mg Vial) 1 mg SQ UD PRN; Protocol PRN Reason: Hypoglycemia Protocol Stop: 08/29/22 19:03 Glucose (Glucose 40% Gel 15 Gm Tube) 15 - 30 gm PO UD PRN; Protocol PRN Reason: Hypoglycemia Protocol Stop: 08/29/22 19:03 Glucose (Glucose 10 Tab/Tube) 4 - 8 tab PO UD PRN; Protocol PRN Reason: Hypoglycemia Treatment Stop: 08/29/22 19:03 Cefepime HCl 2,000 mg/ Syringe 20 mls @ 5.5 mls/min IV Q12H JENN; Protocol Stop: 08/02/22 19:59 Last Admin: 08/01/22 07:48 Dose: 5.5 mls/min Vancomycin HCl 750 mg/ Sodium (Chloride) 265 mls @ 200 mls/hr IV Q12H [facility] Stop: 08/02/22 23:59 Last Infusion: 08/01/22 07:45 Dose: Infused Insulin Aspart (Insulin Aspart Per Unit) 0 units SC ACHS [facility] Stop: 08/29/22 20:59 Last Admin: 08/01/22 12:41 Dose: 4 units Lisinopril (Lisinopril 2.5 Mg Tab) 2.5 mg PO QAM [facility] Stop: 09/01/22 08:59 Magnesium Hydroxide (Magnesium Hydroxide Susp 30 Ml Udc) 30 ml PO DAILY PRN PRN Reason: Constipation Stop: 08/29/22 20:18 Last Admin: 07/30/22 23:46 Dose: 30 ml Metoprolol Succinate (Metoprolol Succ 25mg Ext Rel Tab) 25 mg PO QAM [facility] Stop: 09/01/22 08:59 Metoprolol Tartrate (Metoprolol Tartrate 25 Mg Tab) 12.5 mg PO BID [facility] Stop: 08/01/22 23:59 Last Admin: 08/01/22 08:31 Dose: 12.5 mg Metronidazole (Metronidazole 500 Mg Tab) 500 mg PO TID [facility] Stop: 08/02/22 20:59 Last Admin: 08/01/22 14:36 Dose: 500 mg Miscellaneous (Carbohydrates For Hypoglycemia ) 15 - 30 gm PO UD PRN PRN Reason: Hypoglycemia Protocol Stop: 08/29/22 19:03 Miscellaneous (Remove Nicoderm Patch) 1 each N/A DAILY@0859 [facility] Stop: 08/31/22 08:58 Last Admin: 08/01/22 08:34 Dose: 1 each Miscellaneous Information (Vancomycin Consult Active) 1 each N/A UD PRN PRN Reason: Consult Stop: 08/24/22 15:27 Morphine Sulfate (Morphine Sulfate 2 Mg/Ml Carp) 2 mg IV Q4H PRN PRN Reason: Pain Stop: 08/08/22 15:27 Last Admin: 08/01/22 14:35 Dose: 2 mg Nicotine (Nicotine 21 Mg/24 Hr Tdsy) 21 mg TD QAM [facility] Stop: 08/30/22 18:14 Last Admin: 08/01/22 08:29 Dose: 21 mg Nicotine Polacrilex (Nicotine Polacrilex 2 Mg Gum) 1 piece MT Q3H PRN PRN Reason: smoking Stop: 08/25/22 15:10 Last Admin: 07/27/22 00:02 Dose: 1 piece Ondansetron HCl (Ondansetron Inj 2 Mg/Ml 2 Ml Vial) 4 mg IV Q6H PRN PRN Reason: Nausea And Vomiting Stop: 08/24/22 18:48 Last Admin: 07/29/22 23:32 Dose: 4 mg Potassium Chloride (Potassium Chloride Crtab 20 Meq Tabcr) 20 meq PO BID [facility] Stop: 08/25/22 20:59 Last Admin: 08/01/22 08:30 Dose: 20 meq Prednisone (Prednisone 20 Mg Tab) 60 mg PO DAILY [facility] Stop: 08/26/22 08:59 Last Admin: 08/01/22 08:30 Dose: 60 mg Senna/Docusate Sodium (Docusate Sodium/Senna 50/8.6mg Tab) 1 tab PO BID [facility] Stop: 08/29/22 20:19 Last Admin: 08/01/22 08:30 Dose: 1 tab Thiamine HCl (Thiamine Hcl 100 Mg Tab) 100 mg PO QAM [facility] Stop: 08/25/22 08:59 Last Admin: 08/01/22 08:33 Dose: 100 mg
[2022-08-01] MEDS: MAGNESIUM HYDROXIDE SUSP 30 ML UDC PO PRN (20:21)
[2022-08-02] MEDS ORDERED: MoRPHine SULFATE 4 MG/ML 1 ML CARP\\VIAL IV STA (02:46)
[2022-08-02] MEDS ORDERED: MoRPHine SULFATE 4 MG/ML 1 ML CARP\\VIAL ONE (02:51)
[2022-08-02] MEDS: MoRPHine SULFATE 2 MG/ML CARP IV PRN ×4 (06:12→19:33)
[2022-08-02] MEDS: VANCOMYCIN HCL 750 MG in SODIUM CHLORIDE 0.9% 250 ML IV SCH ×2 (06:13→17:23)
[2022-08-02] MEDS: NICOTINE 21 MG/24 HR TDSY TD SCH (07:53)
[2022-08-02] MEDS: DEXTROAMPHETAMINE/AMPHETAMINE ER 10 MG CAP PO SCH (07:53)
[2022-08-02] MEDS: metroNIDAZOLE 500 MG TAB PO SCH ×3 (07:54→20:22)
[2022-08-02] MEDS: lisinopril 2.5 MG TAB PO SCH (07:54)
[2022-08-02] MEDS: FERROUS SULFATE 325 MG TAB PO SCH (07:54)
[2022-08-02] MEDS: APIXABAN 5 MG TABLET PO SCH ×2 (07:55→20:23)
[2022-08-02] MEDS: METOPROLOL SUCC 25MG EXT REL TAB PO SCH (07:55)
[2022-08-02] MEDS: POTASSIUM CHLORIDE CRTAB 20 MEQ TABCR PO SCH ×2 (07:55→20:23)
[2022-08-02] MEDS: DOCUSATE SODIUM/SENNA 50/8.6MG TAB PO SCH ×2 (07:56→20:22)
[2022-08-02] MEDS: predniSONE 20 MG TAB PO SCH (07:56)
[2022-08-02] MEDS: THIAMINE HCL 100 MG TAB PO SCH (07:56)
[2022-08-02] MEDS: CEFEPIME 2,000 MG in SYRINGE 0 ML IV SCH ×2 (07:57→20:10)
[2022-08-02] MEDS: FUROSEMIDE 40 MG/4 ML VIAL IV SCH (07:58)
[2022-08-02] MEDS: FOLIC ACID 1 MG TAB PO SCH (07:58)
[2022-08-02] MEDS: INSULIN ASPART PER UNIT SC SCH ×4 (08:52→21:48)
--- NOTE | 2022-08-02 10:43 | Pharmacy Report ---
Pharmacy PK ABX Note - Date of Service August 02, 2022 - Assessment and Plan Assessment * Ms Donovan is a 47 year old F receiving Vancomycin for treatment of bilateral lower extremity cellulitis. * Day #7 abx therapy. * Patient has history of frequent UTIs and chronic ulcers on her legs. * ID consulted and recommends continuing Vancomycin, Cefepime, and Flagyl. Awaiting further recs for duration of therapy. * L leg culture with: * MRSA (vanc MARIA ELENA = 2) * Bacteroides vulgatus * Trough level obtained 07/31 while on Vancomycin 1gm IV q12h was 21.5mcg/mL, indicating supratherapeutic dosing (likely d/t accumulation in obese patient). Plan Vancomycin * Trough level obtained 07/31 is predicted to produce greater than AUC/MARIA ELENA of 400-600 mg/L.hr * Dose reduced to Vanc 750mg IV q12h * Will check a vanc level tomorrow morning to monitor for appropriateness of new regimen. Cefepime * Continue 2000 mg IV every 12 hours Metronidazole * Continue 500 mg PO every 8 hours Pharmacy will continue to follow and will adjust dose/frequency as necessary. Thank you. Pharmacy has transitioned to AUC monitoring for vancomycin. AUC/MARIA ELENA is the preferred PK/PD target and is associated with decreased risk of nephrotoxicity compared to traditional trough targets.
--- NOTE | 2022-08-02 11:28 | Cardiology Progress Note ---
Date of Service August 02, 2022 Assessment & Plan (1) Dilated cardiomyopathy: Plan: -Echocardiogram performed 07/26/2022 revealed moderate left ventricular systolic dysfunction, LVEF in the range of 35-40%, with mild right ventricular dilatation and mild right ventricular systolic dysfunction. Moderate to severe mitral regurgitation noted, moderate tricuspid vegetation, PASP 45 mmHg. -This of course was performed in the setting of patient being acutely volume overloaded, and having been found to have an acute lower extremity DVT and pulmonary embolism. -Continue medication therapy, transition to Toprol tartrate to metoprolol succinate 25 mg daily -Started low-dose lisinopril 08/01/2022, -treatment with LANDY inhibitor/ARB has been limited by relative systolic hypertension -Patient has been on furosemide 40 mg IV twice daily since 07/26 -Transition to furosemide 40 mg p.o. once daily on 08/03 -May need to increase diuretic dose depending upon her intake/output as she is still on IV antibiotics. -Anticipate ejection fraction may improve with treatment of her pulmonary embolism, improved volume status, treatment of PG. -No ventricular arrhythmias observed on telemetry (2) Pulmonary embolism: Plan: -Continue Eliquis (3) Pyoderma gangrenosum: Plan: -Dermatology input noted and appreciated. Patient now on prednisone. Given diagnosis of cardiomyopathy, and the association of monoclonal gammopathy with PG. -Serum protein electrophoresis results still pending. -Urine electrophoresis results reveal a faint lambda band for which 24-hour collection will be performed for further assessment -Urine protein creatinine ratio is normal. -Wound culture yielded MRSA and Bacteroides vulgatus. Remains on IV cefepime, vancomycin. DVT prophylaxis: Patient is already on full dose anticoagulation with Eliquis for DVT, PE Admission and Anticipated Discharge Date Admission Date: July 25, 2022 Subjective Patient seen in cardiology follow-up. Telemetry reveals ongoing sinus rhythm a nd sinus tachycardia in the range of 90 to 105 bpm. Patient denies shortness of breath. Walking minimal distance to the restroom. Walking is impaired due to her pain of her legs, she touches down with her toes, without placing her heels on the floor in an effort to not extend her calf muscles due to the pain it causes. Physical Exam Constitutional: WD/WN, vitals as above Neck: normal visual inspection Respiratory: Auscultation: lungs clear to auscultation bilaterally Cardiovascular: Rate/Rhythm: regular rate Heart Sounds: no murmur Extremities: + edema (1+ lower extremity edema, slightly improved ) Gastrointestinal (Abdomen): normal bowel sounds, soft, nontender, no hepatosplenomegaly Neurologic: PERRL, EOMI, accommodation nl, no face palsy, no dysarthria Results & Data ([facility]) Vital Signs (Past 12 Hours) Vital Signs Temp Pulse Pulse Resp BP Pulse Ox O2 Del Method 08/02/22 09:06 101 H 08/02/22 08:25 Room Air 08/02/22 07:33 36.4 C L 104 H 16 100/68 96 Room Air 08/02/22 02:57 36.4 C L 98 H 24 98/63 L 100 Room Air
[2022-08-02] MEDS: AMPHETAMINE ASP/SULF/DEXTRAMPH 20 MG TAB PO SCH (13:11)
--- NOTE | 2022-08-02 15:07 | Hospitalist Progress Note ---
Date of Service August 02, 2022 Assessment & Plan (1) Sepsis: (2) Cellulitis, leg: (3) DVT (deep venous thrombosis): (4) Pulmonary embolism: (5) ADHD: (6) Self neglect: (7) COPD (chronic obstructive pulmonary disease): Plan 47 year old with 3 month lower extremity wound progression that has worsened more significantly over past 3 weeks; leading to her being bedbound and unable to performed her own ADL's. Pt meets sepsis criteria; cultures pending; Heparin gtt, pain and wound management; will consult ID and General surgery for possible debridement. Sepsis LE Cellulitis B/L LE wound Meets sepsis criteria on admission with tachycardia, tachypnea and multiple wounds as infectious source CT LE showed extensive subcutaneous edema of the right lower leg with mild fascial fluid. These findings suggest cellulitis. Multiple suspected wounds of the right lower leg. No fluid collection to suggest abscess. No soft tissue gas to suggest necrotizing fasciitis by CT. No evidence for acute osteomyelitis. Blood cx no growth Microbiology lab never received the wound cx specimen for the right lower extremity Left wound cx grew staphylococcus species - Staph aureus MRSA and Bacteroides Vulgatus Currently on IV Cefepime 1g q6h and metronidazole 500mg TID and Vanco as per ID Surgery on board - No indication for surgical debridement at this time. Case discussed with ID dr. Vail about final abx therapy. As per ID recommended to continue current IV abx since wound cx also grew intestinal kenia that means gram-negative and staph MRSA Will need to discuss with ID for antibiotic duration and type Clinically much better and denies any fever and no chills White count is elevated likely secondary to use of steroid Bilateral legs wound seems to be minimally improved Will discuss with ID specialist about the type and duration of antibiotics to be used Leg wounds are getting better Pyoderma Gangrenosum Etiology unknown Dermatology on board - recommended to avoid any debridement of the wound because it will lead to worsening RF, SPEP/UPEP or ROGER, DANIEL pending Continue wound care regimen of Xeroform gauze, ABD pad and gauze wrap. Defer biopsy at this time as it is not likely to pattern changer given the other factors in her case. Continue Prednisone 60mg daily Will need to discuss with dermatology about steroid duration Complains to have more pain involving the legs and she is unable to move around by herself due to pain Will ask for pain therapy evaluation DVT PE CTA chest showed Segmental and subsegmental pulmonary emboli of the left upper lobe. CT LE showed Deep venous thrombus within a right peroneal vein. Evidence of deep venous thrombosis in the left calf. Continue IV heparin drip for now Echo showed no RV strain Discussed with patient about oral anticoagulant btw warfarin and DOAC Pt will prefer the DOAC because she does not like the idea to check INR Check vital for Eliquis and it will be $3/month IV heparin drip was discontinued then transition to eliquis Advised to ambulate more and participate in physical therapy We will continue Eliquis Dilated cardiomyopathy Pt has been having lower extremities edema and SOB with exertion ECHO showed Left atrium is moderated dilated. Moderate to severe mitral regurgitation with EF 35 to 40 % cardiology on board Continue IV lasix 40mg BID and Metoprolol 12.5 mg BID No acute fluid overload Cardiac medications will be adjusted as per collector of internal revenue Transaminitis AST 386 and ALT 140 today Liver enzymes trending down with AST 128-->107 -->102--> 60 and ALT 107 -->104-->106 --> 85 Liver U/S showed no biliary ductal dilatation status post cholecystectomy. Trace perihepatic ascites. Subtle nodularity of the liver surface Gastro on board Acute hepatitis panel, DANIEL, AMA, ASMA, Ceruloplasmin, A1A antitrypsin, Iron profile studies, HIV negative Continue monitor LFT -normal Hypoalbuminemia Mostly related to liver disease Albumin x 2 doses given Albumin 3.2 today Diabetes Most recent Hab1c 7.2 BS elevated possible due to steroid Will start on Novolog subq Will consult diabetic education Marijuana abuse UDS positive for Marijuana Counseling on marijuana cessation ADHD: Self neglect Continue Adderall Psych on board no change in her home medication COPD: Previously diagnosed; does not follow with Pulmonary Has Albuterol PRN for rescue inhaler stable Tobacco abuse Counseling on smoking cessation Continue nicotine patch Disposition: PCP: Henny Panchal PA-C/Dr. Oleary Code Status: Full Code Awaiting placement VTE Prophylaxis: Heparin gtt Next of Kin: Fausto Trujillo (father) [phone] Admission and Anticipated Discharge Date Admission Date: July 25, 2022 Subjective 07/31/2022 The patient was seen and examined in telemetry unit She has been feeling much better but has not been out of bed to participate in physical therapy Her legs are getting better Denies any other significant symptoms 08/01/2022 The patient was seen and examined in medical telemetry unit She mentions that her wound has improved a little bit but he still has significant pain with movement and during dressing Denies any other symptoms of fever and or chills, no nausea no vomiting Has been getting physical therapy the way she is supposed to get 08/02/2022 The patient was seen and examined in telemetry unit She remains stable but complains to have more pain in the legs She is not yet be able to move independently due to bilateral leg pain Denies any fever and or chills Review of Systems Review of Systems: All systems reviewed and are unremarkable except as noted below Physical Exam Physical Exam: Lying in bed comfortably Constitutional: + ill appearing and average body habitus Eyes: PERRL, conjunctivae normal, anicteric sclerae ENMT: external ear and nose normal, oropharynx normal Neck: trachea midline, no thyromegaly Respiratory: no respiratory distress Auscultation: lungs clear to auscultation bilaterally Cardiovascular: Rate/Rhythm: regular rate and regular rhythm; not tachycardic Heart Sounds: normal S1 and normal S2; no murmur Extremities: + edema (Trace to 1+ edema bilaterally) Gastrointestinal (Abdomen): Inspection/Auscultation: normal bowel sounds; abdomen not distended Percussion/Palpation: abdomen soft; abdomen nontender Musculoskeletal: No acute arthritis but does have bilateral leg pain secondary to pyoderma gangrenosum Neurologic: normal touch/pain/proprioception and moves all extremities; no focal motor deficits Psychiatric: Affect: + anxious affect Lymphatic: no cervical or axillary lymphadenopathy Results & Data Results & Data ([facility]) Vital Signs (Past 12 Hours) Vital Signs Temp Pulse Pulse Resp BP Pulse Ox O2 Del Method 08/02/22 12:45 36.6 C 89 18 102/65 96 Room Air 08/02/22 09:06 101 H 08/02/22 08:25 Room Air 08/02/22 07:33 36.4 C L 104 H 16 100/68 96 Room Air Diagnostic Findings Current Inpatient Medications Albuterol (Albuterol Hfa 8 Gm Inhaler) 2 puffs INH Q4R PRN PRN Reason: Wheezing Stop: 08/24/22 15:27 Amphetamine/Dextroamphetamine (Amphetamine Asp/Sulf/Dextramph 20 Mg Tab) 20 mg PO DAILY@1400 JENN Stop: 08/09/22 13:59 Last Admin: 08/02/22 13:11 Dose: 20 mg Amphetamine/Dextroamphetamine (Dextroamphetamine/Amphetamine Er 10 Mg Cap) 30 mg PO QAM [facility] Stop: 08/09/22 08:59 Last Admin: 08/02/22 07:53 Dose: 30 mg Apixaban (Apixaban 5 Mg Tablet) 10 mg PO BID JENN Stop: 08/05/22 09:01 Last Admin: 08/02/22 07:55 Dose: 10 mg Apixaban (Apixaban 5 Mg Tablet) 5 mg PO BID [facility] Stop: 09/04/22 20:59 Dextrose (Dextrose 50% 50 Ml Syringe) 25 - 50 ml IV UD PRN; Protocol PRN Reason: Hypoglycemia Protocol Stop: 08/29/22 19:03 Ferrous Sulfate (Ferrous S[facility]ate 325 Mg Tab) [facility] Stop: 08/27/22 08:59 Last Admin: 08/02/22 07:54 Dose: 325 mg Folic Acid (Folic Acid 1 Mg Tab) [facility] Stop: 08/25/22 08:59 Last Admin: 08/02/22 07:58 Dose: 1 mg Furosemide (Furosemide 40 Mg Tab) 40 mg PO QAM [facility] Stop: 09/02/22 08:59 Glucagon (Glucagon For Inj 1 Mg Vial) 1 mg SQ UD PRN; Protocol PRN Reason: Hypoglycemia Protocol Stop: 08/29/22 19:03 Glucose (Glucose 40% Gel 15 Gm Tube) 15 - 30 gm PO UD PRN; Protocol PRN Reason: Hypoglycemia Protocol Stop: 08/29/22 19:03 Glucose (Glucose 10 Tab/Tube) 4 - 8 tab PO UD PRN; Protocol PRN Reason: Hypoglycemia Treatment Stop: 08/29/22 19:03 Cefepime HCl 2,000 mg/ Syringe 20 mls @ 5.5 mls/min IV Q12H JENN; Protocol Stop: 08/05/22 23:59 Last Admin: 08/02/22 07:57 Dose: 5.5 mls/min Vancomycin HCl 750 mg/ Sodium (Chloride) 265 mls @ 200 mls/hr IV Q12H [facility] Stop: 08/05/22 23:59 Last Infusion: 08/02/22 07:34 Dose: Infused Insulin Aspart (Insulin Aspart Per Unit) 0 units SC ACHS [facility] Stop: 08/29/22 20:59 Last Admin: 08/02/22 13:04 Dose: 3 units Lisinopril (Lisinopril 2.5 Mg Tab) [facility] Stop: 09/01/22 08:59 Last Admin: 08/02/22 07:54 Dose: 2.5 mg Magnesium Hydroxide (Magnesium Hydroxide Susp 30 Ml Udc) 30 ml PO DAILY PRN PRN Reason: Constipation Stop: 08/29/22 20:18 Last Admin: 08/01/22 20:21 Dose: 30 ml Metoprolol Succinate (Metoprolol Succ 25mg Ext Rel Tab) [facility] Stop: 09/01/22 08:59 Last Admin: 08/02/22 07:55 Dose: 25 mg Metronidazole (Metronidazole 500 Mg Tab) 500 mg PO TID [facility] Stop: 08/05/22 23:59 Last Admin: 08/02/22 13:11 Dose: 500 mg Miscellaneous (Carbohydrates For Hypoglycemia ) 15 - 30 gm PO UD PRN PRN Reason: Hypoglycemia Protocol Stop: 08/29/22 19:03 Miscellaneous (Remove Nicoderm Patch) 1 each N/A DAILY@0859 [facility] Stop: 08/31/22 08:58 Last Admin: 08/02/22 07:57 Dose: 1 each Miscellaneous Information (Vancomycin Consult Active) 1 each N/A UD PRN PRN Reason: Consult Stop: 08/24/22 15:27 Morphine Sulfate (Morphine Sulfate 2 Mg/Ml Carp) 2 mg IV Q4H PRN PRN Reason: Pain Stop: 08/08/22 15:27 Last Admin: 08/02/22 10:25 Dose: 2 mg Nicotine (Nicotine 21 Mg/24 Hr Tdsy) 21 mg TD [facility] Stop: 08/30/22 18:14 Last Admin: 08/02/22 07:53 Dose: 21 mg Nicotine Polacrilex (Nicotine Polacrilex 2 Mg Gum) 1 piece MT Q3H PRN PRN Reason: smoking Stop: 08/25/22 15:10 Last Admin: 07/27/22 00:02 Dose: 1 piece Ondansetron HCl (Ondansetron Inj 2 Mg/Ml 2 Ml Vial) 4 mg IV Q6H PRN PRN Reason: Nausea And Vomiting Stop: 08/24/22 18:48 Last Admin: 07/29/22 23:32 Dose: 4 mg Potassium Chloride (Potassium Chloride Crtab 20 Meq Tabcr) 20 meq PO BID JENN Stop: 08/25/22 20:59 Last Admin: 08/02/22 07:55 Dose: 20 meq Prednisone (Prednisone 20 Mg Tab) 60 mg PO DAILY JENN Stop: 08/26/22 08:59 Last Admin: 08/02/22 07:56 Dose: 60 mg Senna/Docusate Sodium (Docusate Sodium/Senna 50/8.6mg Tab) 1 tab PO BID JENN Stop: 08/29/22 20:19 Last Admin: 08/02/22 07:56 Dose: 1 tab Thiamine HCl (Thiamine Hcl 100 Mg Tab) 100 mg PO QAM [facility] Stop: 08/25/22 08:59 Last Admin: 08/02/22 07:56 Dose: 100 mg
[2022-08-02 23:06] LABS: Albumin 2.4 g/dL (3.8-4.8); Alpha 1 Globulin 0.5 g/dL (0.2-0.3); Alpha 2 Globulin 0.7 g/dL (0.5-0.9); Anti Mitochondrial Antibody NEGATIVE (NEGATIVE); Anti Nuclear Antibody Screen NEGATIVE (NEGATIVE); Beta-1-Globulin 0.3 g/dL (0.4-0.6); Beta-2-Globulin 0.4 g/dL (0.2-0.5); CMV IgG Antibody >10.00 U/mL; CMV IgM Antibody <30.00 AU/mL; Ceruloplasmin 43 mg/dL (18-53); HBSAG NON-REACTIVE (NON-REACTIVE); Hepatitis A Antibody IgM NON-REACTIVE (NON-REACTIVE); Hepatitis B Core Antibody IgM NON-REACTIVE (NON-REACTIVE); Herpes Simplex Ab IgG-2 7.18 index; Monoclonal Protein Band 1 DNR g/dL (NONE DETECTED); Monoclonal Protein Band 2 DNR g/dL (NONE DETECTED); Monoclonal Protein Band 3 DNR g/dL (NONE DETECTED); Rheumatoid Factor <14 IU/mL (<14); Smooth Muscle Antibody POSITIVE (NEGATIVE); Total Protein 5.2 g/dL (6.1-8.1)
[2022-08-03] MEDS: MoRPHine SULFATE 2 MG/ML CARP IV PRN ×5 (00:47→23:26)
[2022-08-03] MEDS ORDERED: VANCOMYCIN LEVEL ONE (05:30)
[2022-08-03] MEDS: VANCOMYCIN HCL 750 MG in SODIUM CHLORIDE 0.9% 250 ML IV SCH ×2 (06:17→17:51)
[2022-08-03 06:50] LABS: Creatinine Clr Calc Pharmacy 63.9 ml/min; Est GFR (African American) 82.8 ml/min; Est GFR (Non-African American) 71.4 ml/min
[2022-08-03] MEDS: METOPROLOL SUCC 25MG EXT REL TAB PO SCH (09:29)
[2022-08-03] MEDS: DOCUSATE SODIUM/SENNA 50/8.6MG TAB PO SCH ×2 (09:41→20:17)
[2022-08-03] MEDS: predniSONE 20 MG TAB PO SCH (09:41)
[2022-08-03] MEDS: FOLIC ACID 1 MG TAB PO SCH (09:41)
[2022-08-03] MEDS: FUROSEMIDE 40 MG TAB PO SCH (09:42)
[2022-08-03] MEDS: THIAMINE HCL 100 MG TAB PO SCH (09:42)
[2022-08-03] MEDS: POTASSIUM CHLORIDE CRTAB 20 MEQ TABCR PO SCH ×2 (09:43→20:17)
[2022-08-03] MEDS: lisinopril 2.5 MG TAB PO SCH (09:43)
[2022-08-03] MEDS: metroNIDAZOLE 500 MG TAB PO SCH ×3 (09:43→20:16)
[2022-08-03] MEDS: APIXABAN 5 MG TABLET PO SCH ×2 (09:44→20:16)
[2022-08-03] MEDS: FERROUS SULFATE 325 MG TAB PO SCH (09:44)
[2022-08-03] MEDS: NICOTINE 21 MG/24 HR TDSY TD SCH (09:44)
[2022-08-03] MEDS: CEFEPIME 2,000 MG in SYRINGE 0 ML IV SCH ×2 (09:49→20:16)
[2022-08-03] MEDS: DEXTROAMPHETAMINE/AMPHETAMINE ER 10 MG CAP PO SCH (09:50)
[2022-08-03] MEDS: INSULIN ASPART PER UNIT SC SCH ×4 (10:14→21:01)
--- NOTE | 2022-08-03 10:26 | Pharmacy Report ---
Pharmacy PK ABX Note - Date of Service August 03, 2022 - Assessment and Plan Assessment * Ms Donovan is a 47 year old F receiving Vancomycin for treatment of bilateral lower extremity cellulitis. * Day #9 abx therapy. * Patient has history of frequent UTIs and chronic ulcers on her legs. * ID consulted and recommends continuing Vancomycin, Cefepime, and Flagyl. Awaiting further recs for duration of therapy. * L leg culture with: * MRSA (vanc MARIA ELENA = 2) * Bacteroides vulgatus * Trough level obtained 07/31 while on Vancomycin 1gm IV q12h was 21.5mcg/mL, indicating supratherapeutic dosing (likely d/t accumulation in obese patient). Plan Vancomycin * Trough level 12.6 is predicted to produce greater than AUC/MARIA ELENA of 400-600 mg/L.hr * Continue Vanc 750mg IV q12h * Will consider rechecking level if therapy to continue past 08/05 Cefepime * Continue 2000 mg IV every 12 hours Metronidazole * Continue 500 mg PO every 8 hours Pharmacy will continue to follow and will adjust dose/frequency as necessary. Thank you. Pharmacy has transitioned to AUC monitoring for vancomycin. AUC/MARIA ELENA is the preferred PK/PD target and is associated with decreased risk of nephrotoxicity compared to traditional trough targets.
[2022-08-03] MEDS: AMPHETAMINE ASP/SULF/DEXTRAMPH 20 MG TAB PO SCH (13:18)
--- NOTE | 2022-08-03 17:05 | Hospitalist Progress Note ---
Date of Service August 03, 2022 Assessment & Plan (1) Sepsis: (2) Cellulitis, leg: (3) DVT (deep venous thrombosis): (4) Pulmonary embolism: (5) ADHD: (6) Self neglect: (7) COPD (chronic obstructive pulmonary disease): Plan 47 year old with 3 month lower extremity wound progression that has worsened more significantly over past 3 weeks; leading to her being bedbound and unable to performed her own ADL's. Pt meets sepsis criteria; cultures pending; Heparin gtt, pain and wound management; will consult ID and General surgery for possible debridement. Sepsis LE Cellulitis B/L LE wound Meets sepsis criteria on admission with tachycardia, tachypnea and multiple wounds as infectious source CT LE showed extensive subcutaneous edema of the right lower leg with mild fascial fluid. These findings suggest cellulitis. Multiple suspected wounds of the right lower leg. No fluid collection to suggest abscess. No soft tissue gas to suggest necrotizing fasciitis by CT. No evidence for acute osteomyelitis. Blood cx no growth Microbiology lab never received the wound cx specimen for the right lower extremity Left wound cx grew staphylococcus species - Staph aureus MRSA and Bacteroides Vulgatus Currently on IV Cefepime 1g q6h and metronidazole 500mg TID and Vanco as per ID Surgery on board - No indication for surgical debridement at this time. Case discussed with ID dr. Vail about final abx therapy. As per ID recommended to continue current IV abx since wound cx also grew intestinal kenia that means gram-negative and staph MRSA Will need to discuss with ID for antibiotic duration and type Clinically much better and denies any fever and no chills White count is elevated likely secondary to use of steroid Bilateral legs wound seems to be minimally improved Will discuss with ID specialist about the type and duration of antibiotics to be used Leg wounds are getting better Appreciate wound care input and recommendation Pyoderma Gangrenosum Etiology unknown Dermatology on board - recommended to avoid any debridement of the wound because it will lead to worsening RF, SPEP/UPEP or ROGER, DANIEL pending Continue wound care regimen of Xeroform gauze, ABD pad and gauze wrap. Defer biopsy at this time as it is not likely to policy change clerk given the other factors in her case. Continue Prednisone 60mg daily Will need to discuss with dermatology about steroid duration Complains to have more pain involving the legs and she is unable to move around by herself due to pain Will ask for pain therapy evaluation The images of the wound are compared and showing improvement Discussed with the ID specialist and antibiotic will be done by Friday DVT PE CTA chest showed Segmental and subsegmental pulmonary emboli of the left upper lobe. CT LE showed Deep venous thrombus within a right peroneal vein. Evidence of deep venous thrombosis in the left calf. Continue IV heparin drip for now Echo showed no RV strain Discussed with patient about oral anticoagulant btw warfarin and DOAC Pt will prefer the DOAC because she does not like the idea to check INR Check vital for Eliquis and it will be $3/month IV heparin drip was discontinued then transition to eliquis Advised to ambulate more and participate in physical therapy We will continue Eliquis Dilated cardiomyopathy Pt has been having lower extremities edema and SOB with exertion ECHO showed Left atrium is moderated dilated. Moderate to severe mitral regurgitation with EF 35 to 40 % cardiology on board Continue IV lasix 40mg BID and Metoprolol 12.5 mg BID No acute fluid overload Cardiac medications will be adjusted as per parking meter collector Transaminitis AST 386 and ALT 140 today Liver enzymes trending down with AST 128-->107 -->102--> 60 and ALT 107 -->104-->106 --> 85 Liver U/S showed no biliary ductal dilatation status post cholecystectomy. Trace perihepatic ascites. Subtle nodularity of the liver surface Gastro on board Acute hepatitis panel, DANIEL, AMA, ASMA, Ceruloplasmin, A1A antitrypsin, Iron profile studies, HIV negative Continue monitor LFT -normal Hypoalbuminemia Mostly related to liver disease Albumin x 2 doses given Albumin 3.2 today Diabetes Most recent Hab1c 7.2 BS elevated possible due to steroid Will start on Novolog subq Will consult diabetic education Marijuana abuse UDS positive for Marijuana Counseling on marijuana cessation ADHD: Self neglect Continue Adderall Psych on board no change in her home medication COPD: Previously diagnosed; does not follow with Pulmonary Has Albuterol PRN for rescue inhaler stable Tobacco abuse Counseling on smoking cessation Continue nicotine patch Disposition: PCP: Henny Panchal PA-C/Dr. Oleary Code Status: Full Code Awaiting placement VTE Prophylaxis: Heparin gtt Next of Kin: Fausto Trujillo (father) [phone] Discussed with the family members Admission and Anticipated Discharge Date Admission Date: July 25, 2022 Subjective 07/31/2022 The patient was seen and examined in telemetry unit She has been feeling much better but has not been out of bed to participate in physical therapy Her legs are getting better Denies any other significant symptoms 08/01/2022 The patient was seen and examined in medical telemetry unit She mentions that her wound has improved a little bit but he still has significant pain with movement and during dressing Denies any other symptoms of fever and or chills, no nausea no vomiting Has been getting physical therapy the way she is supposed to get 08/02/2022 The patient was seen and examined in telemetry unit She remains stable but complains to have more pain in the legs She is not yet be able to move independently due to bilateral leg pain Denies any fever and or chills 08/03/2022 The patient was seen and examined in telemetry unit She has been feeling much better and getting physical therapy She is accepted to skilled care facility and likely to be transferred on Friday or Friday Review of Systems Review of Systems: All systems reviewed and are unremarkable except as noted below Physical Exam Physical Exam: Lying in bed comfortably Constitutional: + ill appearing and average body habitus Eyes: PERRL, conjunctivae normal, anicteric sclerae ENMT: external ear and nose normal, oropharynx normal Neck: trachea midline, no thyromegaly Respiratory: no respiratory distress Auscultation: lungs clear to auscultation bilaterally Cardiovascular: Rate/Rhythm: regular rate and regular rhythm; not tachycardic Heart Sounds: normal S1 and normal S2; no murmur Extremities: + edema (Trace to 1+ edema bilaterally) Gastrointestinal (Abdomen): Inspection/Auscultation: normal bowel sounds; abdomen not distended Percussion/Palpation: abdomen soft; abdomen nontender Neurologic: normal touch/pain/proprioception and moves all extremities; no focal motor deficits Psychiatric: Affect: + anxious affect Lymphatic: no cervical or axillary lymphadenopathy Results & Data Results & Data ([facility]) Vital Signs (Past 12 Hours) Vital Signs Temp Pulse Pulse Resp BP BP Pulse Ox 08/03/22 16:02 36.5 C 104 H 16 95/62 L 96 08/03/22 11:37 36.8 C 83 16 100/70 97 08/03/22 11:27 08/03/22 11:21 92 H 08/03/22 08:46 36.8 C 100 H 16 98/73 L 100 O2 Del Method 08/03/22 16:02 Room Air 08/03/22 11:37 Room Air 08/03/22 11:27 Room Air 08/03/22 11:21 08/03/22 08:46 Room Air Laboratory Results [facility] 08/03/22 05:30 Creatinine 0.96 Medications Administered Current Inpatient Medications Albuterol (Albuterol Hfa 8 Gm Inhaler) 2 puffs INH Q4R PRN PRN Reason: Wheezing Stop: 08/24/22 15:27 Amphetamine/Dextroamphetamine (Amphetamine Asp/Sulf/Dextramph 20 Mg Tab) 20 mg PO DAILY@1400 [facility] Stop: 08/09/22 13:59 Last Admin: 08/03/22 13:18 Dose: 20 mg Amphetamine/Dextroamphetamine (Dextroamphetamine/Amphetamine Er 10 Mg Cap) 30 mg PO QAM [facility] Stop: 08/09/22 08:59 Last Admin: 08/03/22 09:50 Dose: 30 mg Apixaban (Apixaban 5 Mg Tablet) 10 mg PO BID [facility] Stop: 08/05/22 09:01 Last Admin: 08/03/22 09:44 Dose: 10 mg Apixaban (Apixaban 5 Mg Tablet) 5 mg PO BID [facility] Stop: 09/04/22 20:59 Dextrose (Dextrose 50% 50 Ml Syringe) 25 - 50 ml IV UD PRN; Protocol PRN Reason: Hypoglycemia Protocol Stop: 08/29/22 19:03 Ferrous Sulfate (Ferrous S[facility]ate 325 Mg Tab) [facility] Stop: 08/27/22 08:59 Last Admin: 08/03/22 09:44 Dose: 325 mg Folic Acid (Folic Acid 1 Mg Tab) [facility] [place] Stop: 08/25/22 08:59 Last Admin: 08/03/22 09:41 Dose: 1 mg Furosemide (Furosemide 40 Mg Tab) 40 mg PO QAM [facility] Stop: 09/02/22 08:59 Last Admin: 08/03/22 09:42 Dose: 40 mg Glucagon (Glucagon For Inj 1 Mg Vial) 1 mg SQ UD PRN; Protocol PRN Reason: Hypoglycemia Protocol Stop: 08/29/22 19:03 Glucose (Glucose 40% Gel 15 Gm Tube) 15 - 30 gm PO UD PRN; Protocol PRN Reason: Hypoglycemia Protocol Stop: 08/29/22 19:03 Glucose (Glucose 10 Tab/Tube) 4 - 8 tab PO UD PRN; Protocol PRN Reason: Hypoglycemia Treatment Stop: 08/29/22 19:03 Cefepime HCl 2,000 mg/ Syringe 20 mls @ 5.5 mls/min IV Q12H [facility]; Protocol Stop: 08/05/22 23:59 Last Admin: 08/03/22 09:49 Dose: 5.5 mls/min Vancomycin HCl 750 mg/ Sodium (Chloride) 265 mls @ 200 mls/hr IV Q12H [facility] Stop: 08/05/22 23:59 Last Infusion: 08/03/22 07:38 Dose: Infused Insulin Aspart (Insulin Aspart Per Unit) 0 units SC ACHS [facility] Stop: 08/29/22 20:59 Last Admin: 08/03/22 13:13 Dose: 3 units Lisinopril (Lisinopril 2.5 Mg Tab) 2.5 mg PO QAM [facility] Stop: 09/01/22 08:59 Last Admin: 08/03/22 09:43 Dose: 2.5 mg Magnesium Hydroxide (Magnesium Hydroxide Susp 30 Ml Udc) 30 ml PO DAILY PRN PRN Reason: Constipation Stop: 08/29/22 20:18 Last Admin: 08/01/22 20:21 Dose: 30 ml Metoprolol Succinate (Metoprolol Succ 25mg Ext Rel Tab) 25 mg PO QAM [facility] Stop: 09/01/22 08:59 Last Admin: 08/03/22 09:29 Dose: Not Given Metronidazole (Metronidazole 500 Mg Tab) 500 mg PO TID [facility] Stop: 08/05/22 23:59 Last Admin: 08/03/22 13:19 Dose: 500 mg Miscellaneous (Carbohydrates For Hypoglycemia ) 15 - 30 gm PO UD PRN PRN Reason: Hypoglycemia Protocol Stop: 08/29/22 19:03 Miscellaneous (Remove Nicoderm Patch) 1 each N/A DAILY@0859 [facility] Stop: 08/31/22 08:58 Last Admin: 08/03/22 09:50 Dose: 1 each Miscellaneous Information (Vancomycin Consult Active) 1 each N/A UD PRN PRN Reason: Consult Stop: 08/24/22 15:27 Morphine Sulfate (Morphine Sulfate 2 Mg/Ml Carp) 2 mg IV Q4H PRN PRN Reason: Pain Stop: 08/08/22 15:27 Last Admin: 08/03/22 14:41 Dose: 2 mg Nicotine (Nicotine 21 Mg/24 Hr Tdsy) 21 mg TD QAM [facility] Stop: 08/30/22 18:14 Last Admin: 08/03/22 09:44 Dose: 21 mg Nicotine Polacrilex (Nicotine Polacrilex 2 Mg Gum) 1 piece MT Q3H PRN PRN Reason: smoking Stop: 08/25/22 15:10 Last Admin: 07/27/22 00:02 Dose: 1 piece Ondansetron HCl (Ondansetron Inj 2 Mg/Ml 2 Ml Vial) 4 mg IV Q6H PRN PRN Reason: Nausea And Vomiting Stop: 08/24/22 18:48 Last Admin: 07/29/22 23:32 Dose: 4 mg Potassium Chloride (Potassium Chloride Crtab 20 Meq Tabcr) 20 meq PO BID [facility] Stop: 08/25/22 20:59 Last Admin: 08/03/22 09:43 Dose: 20 meq Prednisone (Prednisone 20 Mg Tab) 60 mg PO DAILY [facility] Stop: 08/26/22 08:59 Last Admin: 08/03/22 09:41 Dose: 60 mg Senna/Docusate Sodium (Docusate Sodium/Senna 50/8.6mg Tab) 1 tab PO BID [facility] Stop: 08/29/22 20:19 Last Admin: 08/03/22 09:41 Dose: 1 tab Thiamine HCl (Thiamine Hcl 100 Mg Tab) 100 mg PO QAM [facility] Stop: 08/25/22 08:59 Last Admin: 08/03/22 09:42 Dose: 100 mg
[2022-08-03] MEDS: MAGNESIUM HYDROXIDE SUSP 30 ML UDC PO PRN (20:19)
[2022-08-04] MEDS ORDERED: MoRPHine SULFATE 2 MG/ML CARP ONE (03:29)
[2022-08-04] MEDS: MoRPHine SULFATE 2 MG/ML CARP IV PRN ×5 (03:31→19:50)
[2022-08-04] MEDS ORDERED: MoRPHine SULFATE 2 MG/ML CARP IV STA (04:38)
[2022-08-04] MEDS ORDERED: oxyCODONE HCL IR 5 MG TAB (IMMEDIATE RELEASE) PO STA (04:40)
[2022-08-04] MEDS: VANCOMYCIN HCL 750 MG in SODIUM CHLORIDE 0.9% 250 ML IV SCH ×2 (05:01→18:28)
[2022-08-04] MEDS: INSULIN ASPART PER UNIT SC SCH ×4 (08:38→20:53)
[2022-08-04] MEDS: CEFEPIME 2,000 MG in SYRINGE 0 ML IV SCH ×2 (08:41→19:50)
[2022-08-04] MEDS: POTASSIUM CHLORIDE CRTAB 20 MEQ TABCR PO SCH ×2 (08:49→19:53)
[2022-08-04] MEDS: APIXABAN 5 MG TABLET PO SCH ×2 (08:49→19:51)
[2022-08-04] MEDS: DOCUSATE SODIUM/SENNA 50/8.6MG TAB PO SCH ×2 (08:49→19:51)
[2022-08-04] MEDS: DEXTROAMPHETAMINE/AMPHETAMINE ER 10 MG CAP PO SCH (08:49)
[2022-08-04] MEDS: lisinopril 2.5 MG TAB PO SCH (08:50)
[2022-08-04] MEDS: FERROUS SULFATE 325 MG TAB PO SCH (08:50)
[2022-08-04] MEDS: THIAMINE HCL 100 MG TAB PO SCH (08:52)
[2022-08-04] MEDS: FOLIC ACID 1 MG TAB PO SCH (08:52)
[2022-08-04] MEDS: FUROSEMIDE 40 MG TAB PO SCH (08:52)
[2022-08-04] MEDS: predniSONE 20 MG TAB PO SCH (08:52)
[2022-08-04] MEDS: NICOTINE 21 MG/24 HR TDSY TD SCH (08:53)
[2022-08-04] MEDS: METOPROLOL SUCC 25MG EXT REL TAB PO SCH (08:53)
[2022-08-04] MEDS: metroNIDAZOLE 500 MG TAB PO SCH ×3 (08:54→19:52)
[2022-08-04] MEDS: AMPHETAMINE ASP/SULF/DEXTRAMPH 20 MG TAB PO SCH (13:46)
--- NOTE | 2022-08-04 14:52 | Hospitalist Progress Note ---
Date of Service August 04, 2022 Assessment & Plan (1) Sepsis: (2) Cellulitis, leg: (3) DVT (deep venous thrombosis): (4) Pulmonary embolism: (5) ADHD: (6) Self neglect: (7) COPD (chronic obstructive pulmonary disease): Plan 47 year old with 3 month lower extremity wound progression that has worsened more significantly over past 3 weeks; leading to her being bedbound and unable to performed her own ADL's. Pt meets sepsis criteria; cultures pending; Heparin gtt, pain and wound management; will consult ID and General surgery for possible debridement. Sepsis LE Cellulitis B/L LE wound Meets sepsis criteria on admission with tachycardia, tachypnea and multiple wounds as infectious source CT LE showed extensive subcutaneous edema of the right lower leg with mild fascial fluid. These findings suggest cellulitis. Multiple suspected wounds of the right lower leg. No fluid collection to suggest abscess. No soft tissue gas to suggest necrotizing fasciitis by CT. No evidence for acute osteomyelitis. Blood cx no growth Microbiology lab never received the wound cx specimen for the right lower extremity Left wound cx grew staphylococcus species - Staph aureus MRSA and Bacteroides Vulgatus Currently on IV Cefepime 1g q6h and metronidazole 500mg TID and Vanco as per ID Surgery on board - No indication for surgical debridement at this time. Case discussed with ID dr. Vail about final abx therapy. As per ID recommended to continue current IV abx since wound cx also grew intestinal kenia that means gram-negative and staph MRSA Will need to discuss with ID for antibiotic duration and type Clinically much better and denies any fever and no chills White count is elevated likely secondary to use of steroid Bilateral legs wound seems to be minimally improved Will discuss with ID specialist about the type and duration of antibiotics to be used Leg wounds are getting better Appreciate wound care input and recommendation Continue wound care as per instruction Pyoderma Gangrenosum Etiology unknown Dermatology on board - recommended to avoid any debridement of the wound because it will lead to worsening RF, SPEP/UPEP or ROGER, DANIEL pending Continue wound care regimen of Xeroform gauze, ABD pad and gauze wrap. 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 Continue Prednisone 60mg daily Will need to discuss with dermatology about steroid duration Complains to have more pain involving the legs and she is unable to move around by herself due to pain Will ask for pain therapy evaluation The images of the wound are compared and showing improvement Discussed with the ID specialist and antibiotic will be done by Friday Will decrease steroid doses as advised by the document manager DVT PE CTA chest showed Segmental and subsegmental pulmonary emboli of the left upper lobe. CT LE showed Deep venous thrombus within a right peroneal vein. Evidence of deep venous thrombosis in the left calf. Continue IV heparin drip for now Echo showed no RV strain Discussed with patient about oral anticoagulant btw warfarin and DOAC Pt will prefer the DOAC because she does not like the idea to check INR Check vital for Eliquis and it will be $3/month IV heparin drip was discontinued then transition to eliquis Advised to ambulate more and participate in physical therapy We will continue Eliquis Dilated cardiomyopathy Pt has been having lower extremities edema and SOB with exertion ECHO showed Left atrium is moderated dilated. Moderate to severe mitral regurgitation with EF 35 to 40 % cardiology on board Continue IV lasix 40mg BID and Metoprolol 12.5 mg BID No acute fluid overload Cardiac medications will be adjusted as per physician internist Transaminitis AST 386 and ALT 140 today Liver enzymes trending down with AST 128-->107 -->102--> 60 and ALT 107 -->104-->106 --> 85 Liver U/S showed no biliary ductal dilatation status post cholecystectomy. Trace perihepatic ascites. Subtle nodularity of the liver surface Gastro on board Acute hepatitis panel, DANIEL, AMA, ASMA, Ceruloplasmin, A1A antitrypsin, Iron profile studies, HIV negative Continue monitor LFT -normal Hypoalbuminemia Mostly related to liver disease Albumin x 2 doses given Albumin 3.2 today Diabetes Most recent Hab1c 7.2 BS elevated possible due to steroid Will start on Novolog subq Will consult diabetic education Marijuana abuse UDS positive for Marijuana Counseling on marijuana cessation ADHD: Self neglect Continue Adderall Psych on board no change in her home medication COPD: Previously diagnosed; does not follow with Pulmonary Has Albuterol PRN for rescue inhaler stable Tobacco abuse Counseling on smoking cessation Continue nicotine patch Disposition: PCP: Henny Panchal PA-C/Dr. Oleary Code Status: Full Code Awaiting placement VTE Prophylaxis: Heparin gtt Next of Kin: Fausto Trujillo (father) [phone] Discussed with the family members Likely discharge in a day or 2 Admission and Anticipated Discharge Date Admission Date: July 25, 2022 Subjective 07/31/2022 The patient was seen and examined in telemetry unit She has been feeling much better but has not been out of bed to participate in physical therapy Her legs are getting better Denies any other significant symptoms 08/01/2022 The patient was seen and examined in medical telemetry unit She mentions that her wound has improved a little bit but he still has significant pain with movement and during dressing Denies any other symptoms of fever and or chills, no nausea no vomiting Has been getting physical therapy the way she is supposed to get 08/02/2022 The patient was seen and examined in telemetry unit She remains stable but complains to have more pain in the legs She is not yet be able to move independently due to bilateral leg pain Denies any fever and or chills 08/03/2022 The patient was seen and examined in telemetry unit She has been feeling much better and getting physical therapy She is accepted to skilled care facility and likely to be transferred on Friday or Friday08/04/2022 The patient was seen and examined in telemetry unit She has been complaining of more pain even during administration of insulin Very anxious but denies any other significant symptoms Review of Systems Review of Systems: All systems reviewed and are unremarkable except as noted below Physical Exam Physical Exam: Lying in bed comfortably Constitutional: + ill appearing and average body habitus Eyes: PERRL, conjunctivae normal, anicteric sclerae ENMT: external ear and nose normal, oropharynx normal Neck: trachea midline, no thyromegaly Respiratory: no respiratory distress Auscultation: lungs clear to auscultation bilaterally Cardiovascular: Rate/Rhythm: regular rate and regular rhythm; not tachycardic Heart Sounds: normal S1 and normal S2; no murmur Extremities: + edema (Trace to 1+ edema bilaterally) Gastrointestinal (Abdomen): Inspection/Auscultation: normal bowel sounds; abdomen not distended Percussion/Palpation: abdomen soft; abdomen nontender Musculoskeletal: Both knees are a little stiff from not being moving around that much but no acute arthritis Neurologic: normal touch/pain/proprioception and moves all extremities; no focal motor deficits Psychiatric: Affect: + anxious affect Lymphatic: no cervical or axillary lymphadenopathy Results & Data Results & Data ([facility]) Vital Signs (Past 12 Hours) Vital Signs Temp Pulse Pulse Resp BP BP Pulse Ox 08/04/22 11:57 08/04/22 11:31 36.5 C 114 H 16 92/67 L 98 08/04/22 09:53 111 H 08/04/22 08:36 36.5 C 97 H 16 112/76 99 08/04/22 03:02 36.7 C 105 H 16 90/63 L 100 O2 Del Method 08/04/22 11:57 Room Air 08/04/22 11:31 Room Air 08/04/22 09:53 08/04/22 08:36 Room Air 08/04/22 03:02 Room Air Medications Administered Current Inpatient Medications Albuterol (Albuterol Hfa 8 Gm Inhaler) 2 puffs INH Q4R PRN PRN Reason: Wheezing Stop: 08/24/22 15:27 Amphetamine/Dextroamphetamine (Amphetamine Asp/Sulf/Dextramph 20 Mg Tab) 20 mg PO DAILY@1400 [facility] Stop: 08/09/22 13:59 Last Admin: 08/04/22 13:46 Dose: 20 mg Amphetamine/Dextroamphetamine (Dextroamphetamine/Amphetamine Er 10 Mg Cap) 30 mg PO QAM [facility] Stop: 08/09/22 08:59 Last Admin: 08/04/22 08:49 Dose: 30 mg Apixaban (Apixaban 5 Mg Tablet) 10 mg PO BID [facility] Stop: 08/05/22 09:01 Last Admin: 08/04/22 08:49 Dose: 10 mg Apixaban (Apixaban 5 Mg Tablet) 5 mg PO BID [facility] Stop: 09/04/22 20:59 Dextrose (Dextrose 50% 50 Ml Syringe) 25 - 50 ml IV UD PRN; Protocol PRN Reason: Hypoglycemia Protocol Stop: 08/29/22 19:03 Ferrous Sulfate (Ferrous Sulfate 325 Mg Tab) 325 mg PO QAM [facility] Stop: 08/27/22 08:59 Last Admin: 08/04/22 08:50 Dose: 325 mg Folic Acid (Folic Acid 1 Mg Tab) 1 mg PO QAM [facility] Stop: 08/25/22 08:59 Last Admin: 08/04/22 08:52 Dose: 1 mg Furosemide (Furosemide 40 Mg Tab) 40 mg PO QAM [facility] Stop: 09/02/22 08:59 Last Admin: 08/04/22 08:52 Dose: 40 mg Glucagon (Glucagon For Inj 1 Mg Vial) 1 mg SQ UD PRN; Protocol PRN Reason: Hypoglycemia Protocol Stop: 08/29/22 19:03 Glucose (Glucose 40% Gel 15 Gm Tube) 15 - 30 gm PO UD PRN; Protocol PRN Reason: Hypoglycemia Protocol Stop: 08/29/22 19:03 Glucose (Glucose 10 Tab/Tube) 4 - 8 tab PO UD PRN; Protocol PRN Reason: Hypoglycemia Treatment Stop: 08/29/22 19:03 Cefepime HCl 2,000 mg/ Syringe 20 mls @ 5.5 mls/min IV Q12H [facility]; Protocol Stop: 08/05/22 23:59 Last Admin: 08/04/22 08:41 Dose: 5.5 mls/min Vancomycin HCl 750 mg/ Sodium (Chloride) 265 mls @ 200 mls/hr IV Q12H [facility] Stop: 08/05/22 23:59 Last Infusion: 08/04/22 07:07 Dose: Infused Insulin Aspart (Insulin Aspart Per Unit) 0 units SC ACHS [facility] Stop: 08/29/22 20:59 Last Admin: 08/04/22 13:05 Dose: 3 units Lisinopril (Lisinopril 2.5 Mg Tab) 2.5 mg PO QAM [facility] Stop: 09/01/22 08:59 Last Admin: 08/04/22 08:50 Dose: 2.5 mg Magnesium Hydroxide (Magnesium Hydroxide Susp 30 Ml Udc) 30 ml PO DAILY PRN PRN Reason: Constipation Stop: 08/29/22 20:18 Last Admin: 08/03/22 20:19 Dose: 30 ml Metoprolol Succinate (Metoprolol Succ 25mg Ext Rel Tab) 25 mg PO QAM [facility] Stop: 09/01/22 08:59 Last Admin: 08/04/22 08:53 Dose: 25 mg Metronidazole (Metronidazole 500 Mg Tab) 500 mg PO TID [facility] Stop: 08/05/22 23:59 Last Admin: 08/04/22 13:46 Dose: 500 mg Miscellaneous (Carbohydrates For Hypoglycemia ) 15 - 30 gm PO UD PRN PRN Reason: Hypoglycemia Protocol Stop: 08/29/22 19:03 Miscellaneous (Remove Nicoderm Patch) 1 each N/A DAILY@0859 [facility] Stop: 08/31/22 08:58 Last Admin: 08/04/22 08:54 Dose: Not Given Miscellaneous Information (Vancomycin Consult Active) 1 each N/A UD PRN PRN Reason: Consult Stop: 08/24/22 15:27 Morphine Sulfate (Morphine Sulfate 2 Mg/Ml Carp) 2 mg IV Q4H PRN PRN Reason: Pain Stop: 08/08/22 15:27 Last Admin: 08/04/22 11:33 Dose: 2 mg Nicotine (Nicotine 21 Mg/24 Hr Tdsy) 21 mg TD QAM [facility] Stop: 08/30/22 18:14 Last Admin: 08/04/22 08:53 Dose: 21 mg Nicotine Polacrilex (Nicotine Polacrilex 2 Mg Gum) 1 piece MT Q3H PRN PRN Reason: smoking Stop: 08/25/22 15:10 Last Admin: 07/27/22 00:02 Dose: 1 piece Ondansetron HCl (Ondansetron Inj 2 Mg/Ml 2 Ml Vial) 4 mg IV Q6H PRN PRN Reason: Nausea And Vomiting Stop: 08/24/22 18:48 Last Admin: 07/29/22 23:32 Dose: 4 mg Potassium Chloride (Potassium Chloride Crtab 20 Meq Tabcr) 20 meq PO BID [facility] Stop: 08/25/22 20:59 Last Admin: 08/04/22 08:49 Dose: 20 meq Prednisone (Prednisone 20 Mg Tab) 60 mg PO DAILY [facility] Stop: 08/26/22 08:59 Last Admin: 08/04/22 08:52 Dose: 60 mg Senna/Docusate Sodium (Docusate Sodium/Senna 50/8.6mg Tab) 1 tab PO BID [facility] Stop: 08/29/22 20:19 Last Admin: 08/04/22 08:49 Dose: 1 tab Thiamine HCl (Thiamine Hcl 100 Mg Tab) 100 mg PO QAM [facility] Stop: 08/25/22 08:59 Last Admin: 08/04/22 08:52 Dose: 100 mg
[2022-08-04] MEDS: MAGNESIUM HYDROXIDE SUSP 30 ML UDC PO PRN (20:46)
[2022-08-05] MEDS: MoRPHine SULFATE 2 MG/ML CARP IV PRN ×4 (00:35→22:20)
[2022-08-05] MEDS: VANCOMYCIN HCL 750 MG in SODIUM CHLORIDE 0.9% 250 ML IV SCH (06:10)
[2022-08-05 08:16] LABS: BUN Creatinine Ratio 33.7 (10-20); Calcium 8.6 mg/dl (8.5-10.1); Creatinine Clr Calc Pharmacy 63.7 ml/min; Est GFR (African American) 83.8 ml/min; Est GFR (Non-African American) 72.3 ml/min; Magnesium 2.1 mg/dl (1.7-2.4); Potassium 4.1 mmol/L (3.5-5.1)
[2022-08-05] MEDS: INSULIN ASPART PER UNIT SC SCH ×4 (08:37→21:42)
[2022-08-05] MEDS: DEXTROAMPHETAMINE/AMPHETAMINE ER 10 MG CAP PO SCH (08:55)
[2022-08-05] MEDS: NICOTINE 21 MG/24 HR TDSY TD SCH (08:59)
[2022-08-05] MEDS: FOLIC ACID 1 MG TAB PO SCH (09:00)
[2022-08-05] MEDS: METOPROLOL SUCC 25MG EXT REL TAB PO SCH (09:00)
[2022-08-05] MEDS: lisinopril 2.5 MG TAB PO SCH (09:00)
[2022-08-05] MEDS: predniSONE 20 MG TAB PO SCH (09:01)
[2022-08-05] MEDS: FERROUS SULFATE 325 MG TAB PO SCH (09:01)
[2022-08-05] MEDS: FUROSEMIDE 40 MG TAB PO SCH (09:01)
[2022-08-05] MEDS: POTASSIUM CHLORIDE CRTAB 20 MEQ TABCR PO SCH ×2 (09:02→21:21)
[2022-08-05] MEDS: THIAMINE HCL 100 MG TAB PO SCH (09:02)
[2022-08-05] MEDS: APIXABAN 5 MG TABLET PO SCH ×2 (09:03→21:21)
[2022-08-05] MEDS: DOCUSATE SODIUM/SENNA 50/8.6MG TAB PO SCH ×2 (09:04→21:21)
[2022-08-05 09:18] LABS: Hematocrit (blood only) 37.7 % (34.1-44.9); Hemoglobin 12.5 g/dl (12.0-16.0); Mean Corpuscular Hemoglobin 33.9 pg (25.0-34.0); Mean Corpuscular Hgb Conc 33.2 g/dL (32.0-36.0); Mean Corpuscular Volume 102.2 fL (80.0-100.0); Platelet Count 350 K/uL (130-400); RDW Coefficient of Variation 21.2 % (11.5-14.5); RDW Standard Deviation 79.7 fL (36.4-46.3); Red Blood Count 3.69 M/uL (3.93-5.22); White Blood Count 19.35 K/ul (4.8-10.8)
[2022-08-05 09:20] LABS: Basophils # (auto) 0.06 K/uL (0-0.2); Basophils % (auto) 0.3 %; Immature Granulocytes # (auto) 0.22 K/uL (0.00-0.02); Immature Granulocytes % (auto) 1.1 %; Lymphocytes # (auto) 4.54 K/uL (1.2-3.4); Lymphocytes % (auto) 23.5 %; Monocytes # (auto) 1.24 K/uL (0.24-0.82); Monocytes % (auto) 6.4 %; Neutrophils # (auto) 13.29 K/uL (1.4-6.5); Neutrophils % (auto) 68.7 %
--- NOTE | 2022-08-05 09:31 | Pain Management Consultation ---
Date of Consultation August 05, 2022 Assessment & Plan (1) Pyoderma gangrenosum: (2) Neuropathic pain: Plan 1. Recommend utilization of gabapentin 300 mg p.o. 3 times daily to reduce neuropathic component of pain. We discussed the risk benefits and side effects and she agrees to proceed. 2. Recommend utilization of tramadol 50 mg p.o. q.8hr as needed pain to hopefully reduce IV morphine consumption. 3. Please call with any questions. Thank you for this consultation History of Present Illness Attending Physician: Jes Flowers MD Pain Assessment Pain scale - at its best (0-10): 0 Pain scale - at its worst (0-10): 5 Allergies Allergy/AdvReac Type Severity Reaction Status Date / Time No Known Allergies Allergy Unknown Verified 12/28/21 02:02 Home Medications Medication Instructions Recorded Confirmed Type albuterol sulfate 90 mcg/actuation 2 puffs inhalation Q4 PRN Wheezing 08/18/19 07/25/22 History aerosol inhaler (Ventolin HFA) dextroamphetamine-amphetamine 20 20 mg PO .EVERY AFTERNOON PRN as 12/28/21 07/25/22 History mg tablet directed dextroamphetamine-amphetamine ER 30 mg PO QAM 12/28/21 07/25/22 History 30 mg 24hr capsule,extend release furosemide 20 mg tablet 20 mg PO DAILY 12/28/21 07/25/22 History potassium chloride 10 mEq 10 meq PO DAILY 12/28/21 07/25/22 History tablet,extended release(part/cryst) apixaban 5 mg tablet (Eliquis) 5 mg PO UD #74 tabs 07/27/22 Rx Pain History Chief Complaint Chief Complaint: 47-year-old female with admission for pyoderma gangrenosum bilateral lower extremity from ankle to knee. She states that pain ranges between 0-5 out of 10 only over her ankle to the knee characterized as burning electric " feels like my legs are on fire." She states that pain is intermittent and worse with contact. She finds mild to moderate benefit with IV morphine and has utilized 12 mg over the last 24 hours. She is uncertain of pain reduction with oral steroids. She is under the direction of dermatology in regards to her PG. She states nothing seems to make the pain better at this point other than IV morphine. Pain Location Full Body Front + Back: 1. Pain Intensity [facility] Combined Pain Scale: 5-Moderate - Cannot perform normal tasks without increase in pain Pain scale - at its best (0-10): 0 Pain scale - at its worst (0-10): 5 Patient History Medical History (Updated 08/05/22 @ 09:29 by Rubia Casper DO) ADHD Cellulitis, leg Cervicovaginal cytology: Low grade squamous intraepithelial lesion (Unknown) "S/P LEEP " COPD (chronic obstructive pulmonary disease) DVT (deep venous thrombosis) Neuropathic pain Pulmonary embolism Pyoderma gangrenosum Self neglect Sepsis Standard chest X-ray abnormal (Unknown) "RUL density noted on CXR 05/22/12. CT follow-up recommended. " On 05/23/12 06:11 You Reina wrote "RUL density noted on CXR 05/22/12. CT follow-up recommended. " Social History Smoking Status: Current every day smoker Tobacco Type: Cigarettes Second Hand Exposure: No; Hx Alcohol Use: Yes Alcohol type: hard liquor Hx Substance Use: Yes Last Used Substance: Just Prior to Arrival Preferred Language: [place]ian Communication Ability: Effective [place] Tier Required: No Beliefs That Will Affect Care: None Current Living Situation: Alone Feels Safe at Home: Yes Assistive Devices: None Physical Exam Physical Exam: Constitutional: Well-developed, well-nourished, healthy- appearing, normal weight Psych: Awake, alert, and oriented 3 with normal affect and mood. Recent memory appears grossly intact Eyes: Pupils are equally round and reactive to light with normal size pupils, eyelids appear normal Ear, nose, mouth, and throat: Moist nasal and oral membranes, lips and tongues appear normal, no external ear abnormalities are noted Neck: The trachea is midline without deviation Respiratory: Normal respiratory effort without distress, no audible wheezes or rhonchi Musculoskeletal: Head is normocephalic and atraumatic, gait is within normal limits Cervical: Lordotic curve: Normal Range of motion is normal with extension, flexion, side-bending, rotation Lumbar: Lordotic curve: Normal Range of motion is normal with extension, flexion, side-bending, rotation Strength: Strength is slightly equal bilaterally with 5 out of 5 strength in all planes Sensation of lower extremities: Intact bilaterally Skin: Bilateral lower extremities from ankle to knee are wrapped. Dressings are clean dry and intact. These were not removed for examination today. Neuro: No nystagmus noted, the tongue is midline, the patient is able to rotate their head bilaterally
[2022-08-05] MEDS: CEFEPIME 2,000 MG in SYRINGE 0 ML IV SCH (09:50)
[2022-08-05] MEDS: GABAPENTIN 300 MG CAP PO SCH ×3 (10:11→21:21)
[2022-08-05 10:14] LABS: Smooth Muscle Ab Titer 1:20 titer (<1:20)
[2022-08-05] MEDS: AMPHETAMINE ASP/SULF/DEXTRAMPH 20 MG TAB PO SCH (13:09)
--- NOTE | 2022-08-05 15:03 | Hospitalist Progress Note ---
Date of Service August 05, 2022 Assessment & Plan (1) Sepsis: (2) Cellulitis, leg: (3) DVT (deep venous thrombosis): (4) Pulmonary embolism: (5) ADHD: (6) Self neglect: (7) COPD (chronic obstructive pulmonary disease): Plan 47 year old with 3 month lower extremity wound progression that has worsened more significantly over past 3 weeks; leading to her being bedbound and unable to performed her own ADL's. Pt meets sepsis criteria; cultures pending; Heparin gtt, pain and wound management; will consult ID and General surgery for possible debridement. Sepsis LE Cellulitis B/L LE wound Meets sepsis criteria on admission with tachycardia, tachypnea and multiple wounds as infectious source CT LE showed extensive subcutaneous edema of the right lower leg with mild fascial fluid. These findings suggest cellulitis. Multiple suspected wounds of the right lower leg. No fluid collection to suggest abscess. No soft tissue gas to suggest necrotizing fasciitis by CT. No evidence for acute osteomyelitis. Blood cx no growth Microbiology lab never received the wound cx specimen for the right lower extremity Left wound cx grew staphylococcus species - Staph aureus MRSA and Bacteroides Vulgatus Currently on IV Cefepime 1g q6h and metronidazole 500mg TID and Vanco as per ID Surgery on board - No indication for surgical debridement at this time. Case discussed with ID dr. Vail about final abx therapy. As per ID recommended to continue current IV abx since wound cx also grew intestinal kenia that means gram-negative and staph MRSA Will need to discuss with ID for antibiotic duration and type Clinically much better and denies any fever and no chills White count is elevated likely secondary to use of steroid Bilateral legs wound seems to be minimally improved Will discuss with ID specialist about the type and duration of antibiotics to be used Leg wounds are getting better Likely discharge in a day or 2 and will follow the instructions of the wound as per the wound care nurse Pyoderma Gangrenosum Etiology unknown Dermatology on board - recommended to avoid any debridement of the wound because it will lead to worsening RF, SPEP/UPEP or ROGER, DANIEL pending Continue wound care regimen of Xeroform gauze, ABD pad and gauze wrap. Defer biopsy at this time as it is not likely to exchange architect given the other factors in her case. Continue Prednisone 60mg daily Will need to discuss with dermatology about steroid duration Complains to have more pain involving the legs and she is unable to move around by herself due to pain Will ask for pain therapy evaluation The images of the wound are compared and showing improvement Discussed with the ID specialist and antibiotic will be done by Friday Will decrease steroid doses as advised by the guide delegate Will need to be seen by the guide delegate as an outpatient DVT PE CTA chest showed Segmental and subsegmental pulmonary emboli of the left upper lobe. CT LE showed Deep venous thrombus within a right peroneal vein. Evidence of deep venous thrombosis in the left calf. Continue IV heparin drip for now Echo showed no RV strain Discussed with patient about oral anticoagulant btw warfarin and DOAC Pt will prefer the DOAC because she does not like the idea to check INR Check vital for Eliquis and it will be $3/month IV heparin drip was discontinued then transition to eliquis Advised to ambulate more and participate in physical therapy We will continue Eliquis Dilated cardiomyopathy Pt has been having lower extremities edema and SOB with exertion ECHO showed Left atrium is moderated dilated. Moderate to severe mitral regurgitation with EF 35 to 40 % cardiology on board Continue IV lasix 40mg BID and Metoprolol 12.5 mg BID No acute fluid overload Cardiac medications will be adjusted as per economic developer Transaminitis AST 386 and ALT 140 today Liver enzymes trending down with AST 128-->107 -->102--> 60 and ALT 107 -->104-->106 --> 85 Liver U/S showed no biliary ductal dilatation status post cholecystectomy. Trace perihepatic ascites. Subtle nodularity of the liver surface Gastro on board Acute hepatitis panel, DANIEL, AMA, ASMA, Ceruloplasmin, A1A antitrypsin, Iron profile studies, HIV negative Continue monitor LFT -normal Hypoalbuminemia Mostly related to liver disease Albumin x 2 doses given Albumin 3.2 today Diabetes Most recent Hab1c 7.2 BS elevated possible due to steroid Will start on Novolog subq Will consult diabetic education Marijuana abuse UDS positive for Marijuana Counseling on marijuana cessation ADHD: Self neglect Continue Adderall Psych on board no change in her home medication COPD: Previously diagnosed; does not follow with Pulmonary Has Albuterol PRN for rescue inhaler stable Tobacco abuse Counseling on smoking cessation Continue nicotine patch Disposition: PCP: Henny Panchal PA-C/Dr. Oleary Code Status: Full Code Awaiting placement VTE Prophylaxis: Heparin gtt Next of Kin: Fausto Trujillo (father) [phone] Discussed with the family members Likely discharge tomorrow or day after Admission and Anticipated Discharge Date Admission Date: July 25, 2022 Subjective 07/31/2022 The patient was seen and examined in telemetry unit She has been feeling much better but has not been out of bed to participate in physical therapy Her legs are getting better Denies any other significant symptoms 08/01/2022 The patient was seen and examined in medical telemetry unit She mentions that her wound has improved a little bit but he still has significant pain with movement and during dressing Denies any other symptoms of fever and or chills, no nausea no vomiting Has been getting physical therapy the way she is supposed to get 08/02/2022 The patient was seen and examined in telemetry unit She remains stable but complains to have more pain in the legs She is not yet be able to move independently due to bilateral leg pain Denies any fever and or chills 08/03/2022 The patient was seen and examined in telemetry unit She has been feeling much better and getting physical therapy She is accepted to skilled care facility and likely to be transferred on Friday or Friday08/04/2022 The patient was seen and examined in telemetry unit She has been complaining of more pain even during administration of insulin Very anxious but denies any other significant symptoms 08/05/2022 The patient was seen and examined in telemetry unit She has been reasonably stable today without significant pain She was seen by pain therapist Has had physical therapy and the patient wants to go home Review of Systems Review of Systems: All systems reviewed and are unremarkable except as noted below Physical Exam Physical Exam: Lying in bed comfortably Constitutional: + ill appearing and average body habitus Eyes: PERRL, conjunctivae normal, anicteric sclerae ENMT: external ear and nose normal, oropharynx normal Neck: trachea midline, no thyromegaly Respiratory: no respiratory distress Auscultation: lungs clear to auscu ltation bilaterally Cardiovascular: Rate/Rhythm: regular rate and regular rhythm; not tachycardic Heart Sounds: normal S1 and normal S2; no murmur Extremities: + edema (Trace to 1+ edema bilaterally) Gastrointestinal (Abdomen): Inspection/Auscultation: normal bowel sounds; abdomen not distended Percussion/Palpation: abdomen soft; abdomen nontender Neurologic: normal touch/pain/proprioception and moves all extremities; no focal motor deficits Psychiatric: Affect: + anxious affect Lymphatic: no cervical or axillary lymphadenopathy Results & Data Results & Data ([facility]) Vital Signs (Past 12 Hours) Vital Signs Temp Pulse Resp BP Pulse Ox O2 Del Method 08/05/22 11:58 36.8 C 109 H 20 101/64 96 Room Air 08/05/22 07:59 Room Air 08/05/22 07:53 36.8 C 112 H 18 115/68 99 Room Air 08/05/22 05:59 36.6 C 107 H 16 99/67 L 97 Room Air Laboratory Results Short CBC 08/05/22 Range/Units 07:22 WBC 19.35 H (4.8-10.8) K/ul Hgb 12.5 (12.0-16.0) g/dl Hct 37.7 (34.1-44.9) % Plt Count 350 (130-400) K/uL BMP 08/05/22 07:22 Sodium 136 Potassium 4.1 Chloride 101 Carbon Dioxide 30 BUN 32 H Creatinine 0.95 Glucose 82 Calcium 8.6 Medications Administered Current Inpatient Medications Albuterol (Albuterol Hfa 8 Gm Inhaler) 2 puffs INH Q4R PRN PRN Reason: Wheezing Stop: 08/24/22 15:27 Amphetamine/Dextroamphetamine (Amphetamine Asp/Sulf/Dextramph 20 Mg Tab) 20 mg PO DAILY@1400 [facility] Stop: 08/09/22 13:59 Last Admin: 08/05/22 13:09 Dose: 20 mg Amphetamine/Dextroamphetamine (Dextroamphetamine/Amphetamine Er 10 Mg Cap) 30 mg PO QAM JENN Stop: 08/09/22 08:59 Last Admin: 08/05/22 08:55 Dose: 30 mg Apixaban (Apixaban 5 Mg Tablet) 5 mg PO BID JENN Stop: 09/04/22 20:59 Dextrose (Dextrose 50% 50 Ml Syringe) 25 - 50 ml IV UD PRN; Protocol PRN Reason: Hypoglycemia Protocol Stop: 08/29/22 19:03 Ferrous Sulfate (Ferrous Sulfate 325 Mg Tab) 325 mg PO QAM JENN Stop: 08/27/22 08:59 Last Admin: 08/05/22 09:01 Dose: 325 mg Folic Acid (Folic Acid 1 Mg Tab) 1 mg PO QAM JENN Stop: 08/25/22 08:59 Last Admin: 08/05/22 09:00 Dose: 1 mg Furosemide (Furosemide 40 Mg Tab) 40 mg PO QAM [facility] Stop: 09/02/22 08:59 Last Admin: 08/05/22 09:01 Dose: 40 mg Gabapentin (Gabapentin 300 Mg Cap) 300 mg PO TID [facility] Stop: 09/04/22 08:59 Last Admin: 08/05/22 13:09 Dose: 300 mg Glucagon (Glucagon For Inj 1 Mg Vial) 1 mg SQ UD PRN; Protocol PRN Reason: Hypoglycemia Protocol Stop: 08/29/22 19:03 Glucose (Glucose 40% Gel 15 Gm Tube) 15 - 30 gm PO UD PRN; Protocol PRN Reason: Hypoglycemia Protocol Stop: 08/29/22 19:03 Glucose (Glucose 10 Tab/Tube) 4 - 8 tab PO UD PRN; Protocol PRN Reason: Hypoglycemia Treatment Stop: 08/29/22 19:03 Insulin Aspart (Insulin Aspart Per Unit) 0 units SC ACHS [facility] Stop: 08/29/22 20:59 Last Admin: 08/05/22 12:33 Dose: 2 units Lisinopril (Lisinopril 2.5 Mg Tab) 2.5 mg PO QAM [facility] Stop: 09/01/22 08:59 Last Admin: 08/05/22 09:00 Dose: 2.5 mg Magnesium Hydroxide (Magnesium Hydroxide Susp 30 Ml Udc) 30 ml PO DAILY PRN PRN Reason: Constipation Stop: 08/29/22 20:18 Last Admin: 08/04/22 20:46 Dose: 30 ml Metoprolol Succinate (Metoprolol Succ 25mg Ext Rel Tab) 25 mg PO QAM [facility] Stop: 09/01/22 08:59 Last Admin: 08/05/22 09:00 Dose: 25 mg Miscellaneous (Carbohydrates For Hypoglycemia ) 15 - 30 gm PO UD PRN PRN Reason: Hypoglycemia Protocol Stop: 08/29/22 19:03 Miscellaneous (Remove Nicoderm Patch) 1 each N/A DAILY@0859 [facility] Stop: 08/31/22 08:58 Last Admin: 08/05/22 09:04 Dose: 1 each Morphine Sulfate (Morphine Sulfate 2 Mg/Ml Carp) 2 mg IV Q4H PRN PRN Reason: Pain Stop: 08/08/22 15:27 Last Admin: 08/05/22 10:11 Dose: 2 mg Nicotine (Nicotine 21 Mg/24 Hr Tdsy) 21 mg TD QAM [facility] Stop: 08/30/22 18:14 Last Admin: 08/05/22 08:59 Dose: 21 mg Nicotine Polacrilex (Nicotine Polacrilex 2 Mg Gum) 1 piece MT Q3H PRN PRN Reason: smoking Stop: 08/25/22 15:10 Last Admin: 07/27/22 00:02 Dose: 1 piece Ondansetron HCl (Ondansetron Inj 2 Mg/Ml 2 Ml Vial) 4 mg IV Q6H PRN PRN Reason: Nausea And Vomiting Stop: 08/24/22 18:48 Last Admin: 07/29/22 23:32 Dose: 4 mg Potassium Chloride (Potassium Chloride Crtab 20 Meq Tabcr) 20 meq PO BID [facility] Stop: 08/25/22 20:59 Last Admin: 08/05/22 09:02 Dose: 20 meq Prednisone (Prednisone 20 Mg Tab) 60 mg PO DAILY [facility] Stop: 08/26/22 08:59 Last Admin: 08/05/22 09:01 Dose: 60 mg Senna/Docusate Sodium (Docusate Sodium/Senna 50/8.6mg Tab) 1 tab PO BID JENN Stop: 08/29/22 20:19 Last Admin: 08/05/22 09:04 Dose: 1 tab Thiamine HCl (Thiamine Hcl 100 Mg Tab) 100 mg PO QAM [facility] Stop: 08/25/22 08:59 Last Admin: 08/05/22 09:02 Dose: 100 mg Tramadol HCl (Tramadol Hcl 50 Mg Tablet) 50 mg PO Q8H PRN PRN Reason: Pain Stop: 09/04/22 09:30
[2022-08-06] MEDS: traMADol HCL 50 MG TABLET PO PRN ×2 (06:54→14:29)
[2022-08-06] MEDS ORDERED: predniSONE 50 MG TAB PO SCH (09:00)
[2022-08-06] MEDS: DOCUSATE SODIUM/SENNA 50/8.6MG TAB PO SCH (09:04)
[2022-08-06] MEDS: FOLIC ACID 1 MG TAB PO SCH (09:04)
[2022-08-06] MEDS: METOPROLOL SUCC 25MG EXT REL TAB PO SCH (09:04)
[2022-08-06] MEDS: lisinopril 2.5 MG TAB PO SCH (09:05)
[2022-08-06] MEDS: NICOTINE 21 MG/24 HR TDSY TD SCH (09:05)
[2022-08-06] MEDS: DEXTROAMPHETAMINE/AMPHETAMINE ER 10 MG CAP PO SCH ×2 (09:15→09:54)
[2022-08-06] MEDS: FERROUS SULFATE 325 MG TAB PO SCH (09:30)
[2022-08-06] MEDS: POTASSIUM CHLORIDE CRTAB 20 MEQ TABCR PO SCH (09:30)
[2022-08-06] MEDS: THIAMINE HCL 100 MG TAB PO SCH (09:30)
[2022-08-06] MEDS: GABAPENTIN 300 MG CAP PO SCH ×2 (09:30→13:46)
[2022-08-06] MEDS: APIXABAN 5 MG TABLET PO SCH (09:30)
[2022-08-06] MEDS: FUROSEMIDE 40 MG TAB PO SCH (09:31)
[2022-08-06] MEDS: MoRPHine SULFATE 2 MG/ML CARP IV PRN (09:54)
[2022-08-06] MEDS: INSULIN ASPART PER UNIT SC SCH ×3 (10:02→18:22)
[2022-08-06] MEDS: AMPHETAMINE ASP/SULF/DEXTRAMPH 20 MG TAB PO SCH (13:46)
--- NOTE | 2022-08-06 15:22 | Hospitalist Progress Note ---
Date of Service August 06, 2022 Assessment & Plan (1) Sepsis: (2) Cellulitis, leg: (3) DVT (deep venous thrombosis): (4) Pulmonary embolism: (5) ADHD: (6) Self neglect: (7) COPD (chronic obstructive pulmonary disease): Plan 47 year old with 3 month lower extremity wound progression that has worsened more significantly over past 3 weeks; leading to her being bedbound and unable to performed her own ADL's. Pt meets sepsis criteria; cultures pending; Heparin gtt, pain and wound management; will consult ID and General surgery for possible debridement. Sepsis LE Cellulitis B/L LE wound Meets sepsis criteria on admission with tachycardia, tachypnea and multiple wounds as infectious source CT LE showed extensive subcutaneous edema of the right lower leg with mild fascial fluid. These findings suggest cellulitis. Multiple suspected wounds of the right lower leg. No fluid collection to suggest abscess. No soft tissue gas to suggest necrotizing fasciitis by CT. No evidence for acute osteomyelitis. Blood cx no growth Microbiology lab never received the wound cx specimen for the right lower extremity Left wound cx grew staphylococcus species - Staph aureus MRSA and Bacteroides Vulgatus Currently on IV Cefepime 1g q6h and metronidazole 500mg TID and Vanco as per ID Surgery on board - No indication for surgical debridement at this time. Case discussed with ID dr. Vail about final abx therapy. As per ID recommended to continue current IV abx since wound cx also grew intestinal kenia that means gram-negative and staph MRSA Will need to discuss with ID for antibiotic duration and type Clinically much better and denies any fever and no chills White count is elevated likely secondary to use of steroid Bilateral legs wound seems to be minimally improved Will discuss with ID specialist about the type and duration of antibiotics to be used Leg wounds are getting better Will reevaluate PT today and possible home and/or skilled care facility discharge tomorrow Pyoderma Gangrenosum Etiology unknown Dermatology on board - recommended to avoid any debridement of the wound because it will lead to worsening RF, SPEP/UPEP or ROGER, DANIEL pending Continue wound care regimen of Xeroform gauze, ABD pad and gauze wrap. Defer biopsy at this time as it is not likely to job change crew member given the other factors in her case. Continue Prednisone 60mg daily Will need to discuss with dermatology about steroid duration Complains to have more pain involving the legs and she is unable to move around by herself due to pain Will ask for pain therapy evaluation The images of the wound are compared and showing improvement Discussed with the ID specialist and antibiotic will be done by Friday Will decrease steroid doses as advised by the wafer mounter Will need to be seen by the wafer mounter as an outpatient Antibiotics course is done DVT PE CTA chest showed Segmental and subsegmental pulmonary emboli of the left upper lobe. CT LE showed Deep venous thrombus within a right peroneal vein. Evidence of deep venous thrombosis in the left calf. Continue IV heparin drip for now Echo showed no RV strain Discussed with patient about oral anticoagulant btw warfarin and DOAC Pt will prefer the DOAC because she does not like the idea to check INR Check vital for Eliquis and it will be $3/month IV heparin drip was discontinued then transition to eliquis Advised to ambulate more and participate in physical therapy We will continue Eliquis Dilated cardiomyopathy Pt has been having lower extremities edema and SOB with exertion ECHO showed Left atrium is moderated dilated. Moderate to severe mitral regurgitation with EF 35 to 40 % cardiology on board Continue IV lasix 40mg BID and Metoprolol 12.5 mg BID No acute fluid overload Cardiac medications will be adjusted as per crystalizer operator Transaminitis AST 386 and ALT 140 today Liver enzymes trending down with AST 128-->107 -->102--> 60 and ALT 107 -->104-->106 --> 85 Liver U/S showed no biliary ductal dilatation status post cholecystectomy. Trace perihepatic ascites. Subtle nodularity of the liver surface Gastro on board Acute hepatitis panel, DANIEL, AMA, ASMA, Ceruloplasmin, A1A antitrypsin, Iron profile studies, HIV negative Continue monitor LFT -normal Hypoalbuminemia Mostly related to liver disease Albumin x 2 doses given Albumin 3.2 today Diabetes Most recent Hab1c 7.2 BS elevated possible due to steroid Will start on Novolog subq Will consult diabetic education Marijuana abuse UDS positive for Marijuana Counseling on marijuana cessation ADHD: Self neglect Continue Adderall Psych on board no change in her home medication COPD: Previously diagnosed; does not follow with Pulmonary Has Albuterol PRN for rescue inhaler stable Tobacco abuse Counseling on smoking cessation Continue nicotine patch Disposition: PCP: Henny Panchal PA-C/Dr. Oleary Code Status: Full Code Awaiting placement VTE Prophylaxis: Heparin gtt Next of Kin: Fausto Trujillo (father) [phone] Discussed with the family members Will need PT reevaluation before discharge Admission and Anticipated Discharge Date Admission Date: July 25, 2022 Subjective 07/31/2022 The patient was seen and examined in telemetry unit She has been feeling much better but has not been out of bed to participate in physical therapy Her legs are getting better Denies any other significant symptoms 08/01/2022 The patient was seen and examined in medical telemetry unit She mentions that her wound has improved a little bit but he still has significant pain with movement and during dressing Denies any other symptoms of fever and or chills, no nausea no vomiting Has been getting physical therapy the way she is supposed to get 08/02/2022 The patient was seen and examined in telemetry unit She remains stable but complains to have more pain in the legs She is not yet be able to move independently due to bilateral leg pain Denies any fever and or chills 08/03/2022 The patient was seen and examined in telemetry unit She has been feeling much better and getting physical therapy She is accepted to skilled care facility and likely to be transferred on Friday or Friday08/04/2022 The patient was seen and examined in telemetry unit She has been complaining of more pain even during administration of insulin Very anxious but denies any other significant symptoms 08/05/2022 The patient was seen and examined in telemetry unit She has been reasonably stable today without significant pain She was seen by pain therapist Has had physical therapy and the patient wants to go home 08/06/2022 The patient was seen and examined in telemetry unit She has been in pain and will need physical therapy reevaluation prior to discharge Denies any fever and or chills Review of Systems Review of Systems: All systems reviewed and are unremarkable except as noted below Physical Exam Physical Exam: Lying in bed comfortably Constitutional: + ill appearing and average body habitus Eyes: PERRL, conjunctivae normal, anicteric sclerae ENMT: external ear and nose normal, oropharynx normal Neck: trachea midline, no thyromegaly Respiratory: no respiratory distress Auscultation: lungs clear to auscultation bilaterally Cardiovascular: Rate/Rhythm: regular rate and regular rhythm; not tachycardic Heart Sounds: normal S1 and normal S2; no murmur Extremities: + edema (Trace to 1+ edema bilaterally) Gastrointestinal (Abdomen): Inspection/Auscultation: normal bowel sounds; abdomen not distended Percussion/Palpation: abdomen soft; abdomen nontender Musculoskeletal: No acute arthritis but does have bilateral pyoderma gangrenosum which is making the knee and ankle movement painful Neurologic: normal touch/pain/proprioception and moves all extremities; no focal motor deficits Psychiatric: Affect: + anxious affect Lymphatic: no cervical or axillary lymphadenopathy Results & Data Results & Data ([facility]) Vital Signs (Past 12 Hours) Vital Signs Temp Pulse Pulse Resp BP Pulse Ox O2 Del Method 08/06/22 08:00 Room Air 08/06/22 08:00 110 H 08/06/22 11:30 36.5 C 116 H 18 105/75 97 Room Air 08/06/22 07:38 36.6 C 114 H 19 117/81 99 Room Air Medications Administered Current Inpatient Medications Albuterol (Albuterol Hfa 8 Gm Inhaler) 2 puffs INH Q4R PRN PRN Reason: Wheezing Stop: 08/24/22 15:27 Amphetamine/Dextroamphetamine (Amphetamine Asp/Sulf/Dextramph 20 Mg Tab) 20 mg PO DAILY@1400 [facility] Stop: 08/09/22 13:59 Last Admin: 08/06/22 13:46 Dose: 20 mg Amphetamine/Dextroamphetamine (Dextroamphetamine/Amphetamine Er 10 Mg Cap) 30 mg PO QAM [facility] Stop: 08/09/22 08:59 Last Admin: 08/06/22 09:15 Dose: 30 mg Apixaban (Apixaban 5 Mg Tablet) 5 mg PO BID JENN Stop: 09/04/22 20:59 Last Admin: 08/06/22 09:30 Dose: 5 mg Dextrose (Dextrose 50% 50 Ml Syringe) 25 - 50 ml IV UD PRN; Protocol PRN Reason: Hypoglycemia Protocol Stop: 08/29/22 19:03 Ferrous Sulfate (Ferrous Sulfate 325 Mg Tab) 325 mg PO QAM [facility] Stop: 08/27/22 08:59 Last Admin: 08/06/22 09:30 Dose: 325 mg Folic Acid (Folic Acid 1 Mg Tab) 1 mg PO QAM JENN Stop: 08/25/22 08:59 Last Admin: 08/06/22 09:04 Dose: 1 mg Furosemide (Furosemide 40 Mg Tab) 40 mg PO QAM [facility] Stop: 09/02/22 08:59 Last Admin: 08/06/22 09:31 Dose: 40 mg Gabapentin (Gabapentin 300 Mg Cap) 300 mg PO TID [facility] Stop: 09/04/22 08:59 Last Admin: 08/06/22 13:46 Dose: 300 mg Glucagon (Glucagon For Inj 1 Mg Vial) 1 mg SQ UD PRN; Protocol PRN Reason: Hypoglycemia Protocol Stop: 08/29/22 19:03 Glucose (Glucose 40% Gel 15 Gm Tube) 15 - 30 gm PO UD PRN; Protocol PRN Reason: Hypoglycemia Protocol Stop: 08/29/22 19:03 Glucose (Glucose 10 Tab/Tube) 4 - 8 tab PO UD PRN; Protocol PRN Reason: Hypoglycemia Treatment Stop: 08/29/22 19:03 Insulin Aspart (Insulin Aspart Per Unit) 0 units SC ACHS [facility] Stop: 08/29/22 20:59 Last Admin: 08/06/22 13:46 Dose: 3 units Lisinopril (Lisinopril 2.5 Mg Tab) 2.5 mg PO QAM [facility] Stop: 09/01/22 08:59 Last Admin: 08/06/22 09:05 Dose: 2.5 mg Magnesium Hydroxide (Magnesium Hydroxide Susp 30 Ml Udc) 30 ml PO DAILY PRN PRN Reason: Constipation Stop: 08/29/22 20:18 Last Admin: 08/04/22 20:46 Dose: 30 ml Metoprolol Succinate (Metoprolol Succ 25mg Ext Rel Tab) 25 mg PO QAM [facility] Stop: 09/01/22 08:59 Last Admin: 08/06/22 09:04 Dose: 25 mg Miscellaneous (Carbohydrates For Hypoglycemia ) 15 - 30 gm PO UD PRN PRN Reason: Hypoglycemia Protocol Stop: 08/29/22 19:03 Miscellaneous (Remove Nicoderm Patch) 1 each N/A DAILY@0859 [facility] Stop: 08/31/22 08:58 Last Admin: 08/06/22 10:03 Dose: 1 each Morphine Sulfate (Morphine Sulfate 2 Mg/Ml Carp) 2 mg IV Q4H PRN PRN Reason: Pain Stop: 08/08/22 15:27 Last Admin: 08/06/22 09:54 Dose: 2 mg Nicotine (Nicotine 21 Mg/24 Hr Tdsy) 21 mg TD QAM [facility] Stop: 08/30/22 18:14 Last Admin: 08/06/22 09:05 Dose: 21 mg Nicotine Polacrilex (Nicotine Polacrilex 2 Mg Gum) 1 piece MT Q3H PRN PRN Reason: smoking Stop: 08/25/22 15:10 Last Admin: 07/27/22 00:02 Dose: 1 piece Ondansetron HCl (Ondansetron Inj 2 Mg/Ml 2 Ml Vial) 4 mg IV Q6H PRN PRN Reason: Nausea And Vomiting Stop: 08/24/22 18:48 Last Admin: 07/29/22 23:32 Dose: 4 mg Potassium Chloride (Potassium Chloride Crtab 20 Meq Tabcr) 20 meq PO BID [facility] Stop: 08/25/22 20:59 Last Admin: 08/06/22 09:30 Dose: 20 meq Prednisone (Prednisone 50 Mg Tab) 50 mg PO DAILY [facility] Stop: 09/05/22 08:59 Last Admin: 08/06/22 09:32 Dose: 50 mg Senna/Docusate Sodium (Docusate Sodium/Senna 50/8.6mg Tab) 1 tab PO BID [facility] Stop: 08/29/22 20:19 Last Admin: 08/06/22 09:04 Dose: 1 tab Thiamine HCl (Thiamine Hcl 100 Mg Tab) 100 mg PO QAM [facility] Stop: 08/25/22 08:59 Last Admin: 08/06/22 09:30 Dose: 100 mg Tramadol HCl (Tramadol Hcl 50 Mg Tablet) 50 mg PO Q8H PRN PRN Reason: Pain Stop: 09/04/22 09:30 Last Admin: 08/06/22 14:29 Dose: 50 mg
--- NOTE | 2022-08-07 07:20 | Discharge Summary ---
Date of Service August 07, 2022 Admission HPI Per Admitting Provider Ms. Soo Donovan presented to the [facility] ED with increasing pain in her bilateral lower extremities. She reports that over the past 3 months her wounds have progressively gotten worse with more ulcers opening and due to the pain, she has become immobile for the past 3-4 weeks. Her mother, father and oldest daughter helps with her ADLs and brings her a cooler to place next to her sofa with food inside of it. She reports not having done any wound care to her extremities. Additional PMH includes COPD, bronchitis, ADHD, GERD, kidney stones, urinary incontinence, genital herpes, Cervical LSIL, and frequent UTI's. Pt reports using liquor 1/2 pint 2-3 times per week. Last drink was Monday 07/23. Pt reports smoking 1/2-1 ppd of cigarettes. Pt has a medical marijuana card for PTSD. Pt denies dizziness, chest pain, dizziness N/V/D, appetite changes. Patient will be admitted for further evaluation and management with wound and general surgery. Please see A/P for further details. Admission Exam Per Admitting Provider Physical Exam: Neuro: AAOx4, PERRLA, no aphagia, memory changes, CNII-XII grossly intact HEENT: head normocephalic, dry mucus membranes CV: S1/S2, (-) M/G/R, (-) edema, cap refill < 3 seconds Resp: Lungs CTA in all whiting. On 2LNC GI: Abdomen S/NT/ND, large ventral hernia, Ax4 bowel sounds, (-) CVA tenderness Musculoskeletal: 5/5 B/L UE strength, 5/5 B/L LE strength. No gait disturbance Skin: (+) skin sloughing and numerous anterior/medial/posterior ulcers and gangrenous skin with erythematous border Psych: scattered and not focused mood Principal Diagnosis Sepsis secondary to bilateral pyoderma gangrenosum, DVT and pulmonary embolism, dilated cardiomyopathy, type 2 diabetes, ADHD, COPD Discharge Exam Lying in bed comfortably Constitutional + ill appearing and average body habitus Eyes PERRL, conjunctivae normal, anicteric sclerae ENMT external ear and nose normal, oropharynx normal Neck trachea midline, no thyromegaly Respiratory no respiratory distress Auscultation: lungs clear to auscultation bilaterally Cardiovascular Rate/Rhythm: regular rate and regular rhythm; not tachycardic Heart Sounds: normal S1 and normal S2; no murmur Extremities: + edema (Trace to 1+ edema bilaterally) Gastrointestinal (Abdomen) Inspection/Auscultation: normal bowel sounds; abdomen not distended Percussion/Palpation: abdomen soft; abdomen nontender Neurologic normal touch/pain/proprioception and moves all extremities; no focal motor deficits Psychiatric Affect: + anxious affect Lymphatic no cervical or axillary lymphadenopathy Discharge Data Allergies Allergy/AdvReac Type Severity Reaction Status Date / Time No Known Allergies Allergy Unknown Verified 12/28/21 02:02 Consultations 07/25/22 12:42 ED Decision to Admit Stat 07/25/22 13:25 Consult Infectious Diseases Routine 07/25/22 13:29 Consult General Surgery Routine 07/25/22 15:28 Consult Psychiatry Routine 07/26/22 11:43 Consult Gastroenterology Routine 07/26/22 11:51 Consult Dermatology Routine 07/26/22 13:10 Consult Cardiology Routine 08/02/22 15:07 Consult Pain Management Routine Ordered Studies 07/25/22 09:21 CT leg [CT tib/fib LT w con] Stat CT leg [CT tib/fib RT w con] Stat 07/25/22 10:32 CT angio chest PE protocol Stat 07/25/22 12:42 US venous doppler LE BI Stat 07/26/22 11:43 US liver Routine Diabetes Follow up Diabetes Follow-up Needed for Newly Diagnosed Diabetes Hospital Course (1) Sepsis: (2) Cellulitis, leg: (3) DVT (deep venous thrombosis): (4) Pulmonary embolism: (5) ADHD: (6) Self neglect: (7) COPD (chronic obstructive pulmonary disease): Plan 47 year old with 3 month lower extremity wound progression that has worsened more significantly over past 3 weeks; leading to her being bedbound and unable to performed her own ADL's. Pt meets sepsis criteria; cultures pending; Heparin gtt, pain and wound management; will consult ID and General surgery for possible debridement. Sepsis LE Cellulitis B/L LE wound Meets sepsis criteria on admission with tachycardia, tachypnea and multiple wounds as infectious source CT LE showed extensive subcutaneous edema of the right lower leg with mild fascial fluid. These findings suggest cellulitis. Multiple suspected wounds of the right lower leg. No fluid collection to suggest abscess. No soft tissue gas to suggest necrotizing fasciitis by CT. No evidence for acute osteomyelitis. Blood cx no growth Microbiology lab never received the wound cx specimen for the right lower extremity Left wound cx grew staphylococcus species - Staph aureus MRSA and Bacteroides Vulgatus Currently on IV Cefepime 1g q6h and metronidazole 500mg TID and Vanco as per ID Surgery on board - No indication for surgical debridement at this time. Case discussed with ID dr. Vail about final abx therapy. As per ID recommended to continue current IV abx since wound cx also grew intestinal kenia that means gram-negative and staph MRSA Will need to discuss with ID for antibiotic duration and type Clinically much better and denies any fever and no chills White count is elevated likely secondary to use of steroid Bilateral legs wound seems to be minimally improved Will discuss with ID specialist about the type and duration of antibiotics to be used Leg wounds are getting better Will reevaluate PT today and possible home and/or skilled care facility discharge tomorrow Pyoderma Gangrenosum Etiology unknown Dermatology on board - recommended to avoid any debridement of the wound because it will lead to worsening RF, SPEP/UPEP or ROGER, DANIEL pending Continue wound care regimen of Xeroform gauze, ABD pad and gauze wrap. Defer biopsy at this time as it is not likely to interchange agent given the other factors in her case. Continue Prednisone 60mg daily Will need to discuss with dermatology about steroid duration Complains to have more pain involving the legs and she is unable to move around by herself due to pain Will ask for pain therapy evaluation The images of the wound are compared and showing improvement Discussed with the ID specialist and antibiotic will be done by Friday Will decrease steroid doses as advised by the protection specialist Will need to be seen by the protection specialist as an outpatient Antibiotics course is done DVT PE CTA chest showed Segmental and subsegmental pulmonary emboli of the left upper lobe. CT LE showed Deep venous thrombus within a right peroneal vein. Evidence of deep venous thrombosis in the left calf. Continue IV heparin drip for now Echo showed no RV strain Discussed with patient about oral anticoagulant btw warfarin and DOAC Pt will prefer the DOAC because she does not like the idea to check INR Check vital for Eliquis and it will be $3/month IV heparin drip was discontinued then transition to eliquis Advised to ambulate more and participate in physical therapy We will continue Eliquis Dilated cardiomyopathy Pt has been having lower extremities edema and SOB with exertion ECHO showed Left atrium is moderated dilated. Moderate to severe mitral regurgitation with EF 35 to 40 % cardiology on board Continue IV lasix 40mg BID and Metoprolol 12.5 mg BID No acute fluid overload Cardiac medications will be adjusted as per tube lancer Transaminitis AST 386 and ALT 140 today Liver enzymes trending down with AST 128-->107 -->102--> 60 and ALT 107 -->104-->106 --> 85 Liver U/S showed no biliary ductal dilatation status post cholecystectomy. Trace perihepatic ascites. Subtle nodularity of the liver surface Gastro on board Acute hepatitis panel, DANIEL, AMA, ASMA, Ceruloplasmin, A1A antitrypsin, Iron profile studies, HIV negative Continue monitor LFT -normal Hypoalbuminemia Mostly related to liver disease Albumin x 2 doses given Albumin 3.2 today Diabetes Most recent Hab1c 7.2 BS elevated possible due to steroid Will start on Novolog subq Will consult diabetic education Marijuana abuse UDS positive for Marijuana Counseling on marijuana cessation ADHD: Self neglect Continue Adderall Psych on board no change in her home medication COPD: Previously diagnosed; does not follow with Pulmonary Has Albuterol PRN for rescue inhaler stable Tobacco abuse Counseling on smoking cessation Continue nicotine patch Disposition: PCP: Henny Panchal PA-C/Dr. Oleary Code Status: Full Code Awaiting placement VTE Prophylaxis: Heparin gtt Next of Kin: Fausto Trujillo (father) [phone] Discussed with the family members Will need PT reevaluation before discharge Total Time Total Time Spent Total Time Spent (In Minutes): 45 minutes Discharge Plan Discharge Items Patient Disposition: Home - Home Health Services Reason For Visit: PE Discharge Diagnosis: Sepsis secondary to bilateral pyoderma gangrenosum, DVT and pulmonary embolism, dilated cardiomyopathy, type 2 diabetes, ADHD, COPD Activity: Resume your previous activity Non-emergency contact: Primary Care Provider Call non-emergency contact if: you have any medication questions and your symptoms worsen Follow-up/Referrals: Henny Hernandez PA-C [Primary Care Provider] - (Date & Time 08/12/2022 11:00 AM Provider Red Crespo DO Department [facility] ) Ember Bauman CRNP [Nurse Practitioner] - (Date & Time 08/13/2022 12:30 PM Provider SHANNAN Menendez Department Gastroenterology, [facility] ) Diet: Carb Consistent or DM2 Addtl Attending Provider Instructions: Please take precautions to avoid fall Please continue dressing your leg wounds as advised Try to keep your legs elevated while sleeping and while in bed and even when you are sitting down to decrease swelling and the pain Please keep appointments with your healthcare providers Please make appointment with your protection specialist as soon as possible Please keep checking your blood sugar and keep a record of that and take it to your primary care physician to make decision for any medications to be given for your diabetes Please note that accidentally your medications for ADHD have been stopped-please continue to take these medications as before Pending Studies at Discharge: No Stand-Alone Forms: [facility], Smoking Cessation Medications and DC Order Prescriptions: New nicotine [Nicoderm CQ] 21 mg/24 hr Patch 24 Hour 21 mg transdermal QAM Qty: 28 0RF Eliquis 5 mg Tablet 5 mg PO BID Qty: 60 0RF ferrous sulfate 325 mg (65 mg iron) Tablet,Delayed Release (Dr/Ec) 325 mg PO QAM Qty: 30 0RF lisinopril 2.5 mg Tablet 2.5 mg PO QAM Qty: 30 0RF metoprolol succinate 25 mg Tablet Extended Release 24 Hr 25 mg PO QAM Qty: 30 0RF gabapentin 300 mg Capsule 300 mg PO TID Qty: 90 0RF tramadol 50 mg Tablet 50 mg PO Q6HWA PRN (Reason: pain) 7 Days Qty: 30 0RF furosemide 40 mg Tablet 40 mg PO QAM Qty: 30 0RF potassium chloride 20 mEq Tablet,Er Particles/Crystals 20 meq PO BID Qty: 60 0RF folic acid 1 mg Tablet 1 mg PO QAM Qty: 30 0RF thiamine HCl (vitamin B1) 100 mg Tablet 100 mg PO QAM Qty: 30 0RF prednisone 10 mg tablet 10 mg PO UD Qty: 70 0RF Rx Instructions: 4 p.o. daily for 7 days, 3 p.o. daily for next 7 days, 2 p.o. daily for next 7 days and then 1 daily for next 7 days until otherwise by the protection specialist (DME) OneTouch Verio test strips Strip See Rx Instructions .Route Qty: 100 0RF Rx Instructions: tid (DME) lancets [OneTouch Delica Lancets] 33 gauge misc See Rx Instructions .Route Qty: 100 0RF Rx Instructions: tid Continued albuterol sulfate [Ventolin HFA] 90 mcg/actuation HFA aerosol inhaler 2 puffs INH Q4 PRN (Reason: Wheezing) Discontinued dextroamphetamine-amphetamine 20 mg tablet 20 mg PO .EVERY AFTERNOON PRN (Reason: as directed) furosemide 20 mg tablet 20 mg PO DAILY dextroamphetamine-amphetamine 30 mg capsule,extended release 24hr 30 mg PO QAM potassium chloride 10 mEq tablet,ER particles/crystals 10 meq PO DAILY Discharge Orders: Discharge Order (Routine); Ordered 08/06/22 Ordered By: Jes Reyes/Other Patient Handouts: Diabetes: Meal Planning, Type 2 Diabetes Admission Data Admit Date/Time: 07/25/22 12:28 Attending Provider: Jes Flowers Admit Provider: Meli Garcia Primary Care Provider: Henny Hernandez Other Providers: Tad Smith ; Landen Hart ; Bert Polo I. ; Noé Bose II ; Charmaine Luther ; Isidoro Stanford ; Pepe Vail ; Meli Garcia ; Valerio Metzger ; Beverley Fonseca ; Inge Mansfield ; Sybil Olivier ; Patricia Kilpatrick ; Joshua Oliveira ; Ryan Moe ; Judie Elder ; Areli Mueller ; [facility] Other Interventions: Discharge Summary Assessment (RN) Last Done: 08/06/22 17:55
[2022-08-07 09:57] LABS: Abnormal Protein Band 1 DNR mg/24 h (NONE DETECTED); Abnormal Protein Band 2 DNR mg/24 h (NONE DETECTED); Abnormal Protein Band 3 DNR mg/24 h (NONE DETECTED); Protein, Urine 24 Hour 698 mg/24 h (<150); Ur Protein/Creatinine Rat mg/g 1000 mg/g creat (<150)
== END 2022-08-06 20:05 | disposition home or self-care (01) | DRG 871 ==
LOC: ED 09:07 → SUATTDRO 12:28 → 4W 12:28

== ENCOUNTER 2022-08-15 11:13 | Inpatient (IN) ==
--- NOTE | 2022-08-15 11:21 | Emergency Department Note ---
Impression & Plan Pyoderma gangrenosum, Bilateral lower leg cellulitis, Intractable pain ED Provider Note NAME: JAGDEEP MORRIS AGE: 47 SEX: F : 1975 ARRIVES VIA: Ambulance INFORMANT: Patient, ED PROVIDER(S): Rodríguez Andre MD Chief Complaint: Leg pain HPI: Patient presents due to concern for leg pain. The patient states that her pain worsens several days ago and does have a history of some chronic wounds which developed several months ago. Patient denies any fevers chills chest pains or shortness of breath. The patient did have a recent admission for sepsis and associated cellulitic change of these wounds. The patient did have a CT of the lower extremities which showed extensive subcutaneous edema but no fluid collections to suggest abscess or gas to suggest necrotizing fasciitis. There was no evidence of osteomyelitis. Patient had negative blood cultures. Patient was on IV cefepime Flagyl and Vanco per infectious disease. Dermatology also saw the patient patient has likely pyoderma gangrenosum. Dermatology did not recommend debridement except that this would worsen patient's symptoms. The patient was to continue wound care with Xeroform ABD pad and gauze wrap. Patient currently has open wounds at this time. Patient is on a DOAC for history of DVT and PE. The patient did have segmental and subsegmental PEs in the left upper lobe and evidence of DVT in the left calf. ROS: See HPI for pertinent positives and negatives. A total of 10 systems were reviewed and otherwise negative. Past medical history: See below Surgical history: See below Social history: See below Physical Exam: GENERAL: Mildly uncomfortable in appearance. nNon-toxic. EYE EXAM: Normal conjunctiva. PERRL, no anisocoria and EOM's grossly intact w/o pain. NECK: Supple, no nuchal rigidity, no adenopathy, non-tender. No signs of meningismus. FROM of the neck with good chin to chest and neck extension. No str idor. LUNGS: Clear to auscultation. Normal chest wall mechanics. HEART: NSRTachycardic and regular, no MRG. ABDOMEN: Abdomen soft, non-tender, normo-active bowel sounds, no masses, no rebound or guarding. BACK: No CVA TTP. SKIN: No rashes and no bruising. UPPER EXTREMITIES: Upper extremities are grossly normal. LOWER EXTREMITIES: Significant ulcerative lesions over the medial and posterior aspects of the bilateral lower extremities, no obvious surrounding erythema fluctuance or drainage, neurovascular intact distally. No crepitus. NEURO EXAM: A&O x3, cranial nerves II-XII grossly intact, normal speech, moves all 4 extremities. Differential diagnoses: Cellulitis, abscess, MRSA infection, DVT, necrotizing fasciitis, dermatitis, drug eruption, allergic reaction, as well as other pathologies. Course: Patient was seen and evaluated the bedside. Full history physical exam was performed. EKG interpreted by me Sinus tachycardia, rate of 111, normal intervals, normal axis. No ST elevati ons. Imaging Studies: See Below Cardiac monitoring: An order was placed for continuous cardiac monitoring. The monitor shows a rate of 102 with tachycardic and regular rhythm. MDM: Patient was seen due to concern for leg pain. The patient is currently compliant on Eliquis with a history of DVT. Do not believe the patient requires repeat ultrasound patient has good DP pulses do not believe she requires arterial Doppler. Blood work was obtained along with blood cultures. Lactate and procalcitonin. The patient did require multiple rounds of pain medication stated that the tramadol and the gabapentin were not working well at home. The patient did have a normal white count 10 with a normal H&H. Patient's platelet count is also normal. Normal kidney function. The patient has a negative procalcitonin. Did order first-time doses of antibiotics given prior wound cultures. During the patient's stay the patient did seem to develop some more warmthI di and redness that was not initially present. d speak the on-call hospitalist Renae Caballero PA-C the patient was admitted by Dr. Garcia. Past Med/Surg History Medical History ADHD Cellulitis, leg Cervicovaginal cytology: Low grade squamous intraepithelial lesion (Unknown) "S/P LEEP " COPD (chronic obstructive pulmonary disease) DVT (deep venous thrombosis) Neuropathic pain Pulmonary embolism Pyoderma gangrenosum Self neglect Sepsis Standard chest X-ray abnormal (Unknown) "RUL density noted on CXR 05/22/12. CT follow-up recommended. " On 05/23/12 06:11 You Reina wrote "RUL density noted on CXR 05/22/12. CT follow-up recommended. " Surgical History History of loop electrical excision procedure (LEEP) History of nasal surgery History of partial hysterectomy Hx laparoscopic cholecystectomy Hx of rhinoplasty Family History Mother Hypertension Social History Smoking Status: Current every day smoker Tobacco Type: Cigarettes Second Hand Exposure: No; Hx Alcohol Use: Yes Alcohol type: hard liquor Hx Substance Use: Yes Preferred Language: Urdu Communication Ability: Effective Computer Forensics Technician Required: No Beliefs That Will Affect Care: None Current Living Situation: Alone Current Living Situation Comment: living with parents Feels Safe at Home: Yes Safety Concerns: Feels Safe At This Time Assistive Devices: None Allergies Allergies Allergy/AdvReac Type Severity Reaction Status Date / Time No Known Allergies Allergy Unknown Verified 12/28/21 02:02 Home Meds Home Medications Medication Instructions Recorded Confirmed albuterol sulfate 90 mcg/actuation 2 puffs inhalation Q4 PRN Wheezing 08/18/19 08/15/22 aerosol inhaler (Ventolin HFA) dextroamphetamine-amphetamine 20 20 mg PO DAILY@1400 08/15/22 08/15/22 mg tablet dextroamphetamine-amphetamine ER 30 mg PO DAILY 08/15/22 08/15/22 30 mg 24hr capsule,extend release gabapentin 400 mg capsule 400 mg PO TID 08/15/22 08/15/22 tramadol 50 mg tablet 50 mg PO Q6H PRN Pain 08/15/22 08/15/22 Previous Rx's Medication Instructions Recorded apixaban 5 mg tablet (Eliquis) 5 mg PO BID #60 tabs 08/06/22 blood sugar diagnostic (MobittoTouch #100 ea 08/06/22 Verio test strips) ferrous sulfate 325 mg (65 mg 325 mg PO QAM #30 tabs 08/06/22 iron) tablet,delayed release folic acid 1 mg tablet 1 mg PO QAM #30 tabs 08/06/22 furosemide 40 mg tablet 40 mg PO QAM #30 tabs 08/06/22 lancets 33 gauge (OneTouch Delica #100 ea 08/06/22 Lancets) lisinopril 2.5 mg tablet 2.5 mg PO QAM #30 tabs 08/06/22 metoprolol succinate 25 mg 25 mg PO QAM #30 tabs 08/06/22 tablet,extended release 24 hr nicotine 21 mg/24 hr daily 21 mg transdermal QAM #28 ea 08/06/22 transdermal patch (Nicoderm CQ) potassium chloride 20 mEq 20 meq PO BID #60 tabs 08/06/22 tablet,extended release(part/cryst) prednisone 10 mg tablet 10 mg PO UD #70 tabs 08/06/22 thiamine HCl (vitamin B1) 100 mg 100 mg PO QAM #30 tabs 08/06/22 tablet Results & Data (ED) Vital Signs Vital Signs - 24 hr 08/15/22 11:20 08/15/22 12:11 08/15/22 12:11 Temperature 36.4 C L Temperature Source Oral Pulse Rate 114 H 120 H Pulse Rate [Finger] 120 H Pulse Rhythm [Finger] Regular Pulse Strength [Finger] Normal Respiratory Rate 20 24 24 Respiratory Effort / Characteristics Non-Labored Respiratory Depth Normal Normal Respiratory Pattern Regular Regular Blood Pressure 108/82 Blood Pressure [Left Arm] 143/67 H Blood Pressure Mean 90 Blood Pressure Mean [Left Arm] 92 Blood Pressure Position [Left Arm] Lying Pulse Oximetry 99 99 97 Oxygen Delivery Method Room Air Room Air Room Air Sepsis Recent Fever Within 48 Hours No Sepsis New/Unexplained Change in Mental Status N/A Sepsis Action Taken by Nursing No Action Required 08/15/22 13:08 08/15/22 14:00 Temperature Temperature Source Pulse Rate Pulse Rate [Finger] 109 H Pulse Rhythm [Finger] Regular Pulse Strength [Finger] Normal Respiratory Rate 24 22 Respiratory Effort / Characteristics Non-Labored Non-Labored Respiratory Depth Normal Respiratory Pattern Regular Regular Blood Pressure Blood Pressure [Left Arm] 97/65 L 100/69 Blood Pressure Mean Blood Pressure Mean [Left Arm] 75 79 Blood Pressure Position [Left Arm] Lying Lying Pulse Oximetry 95 Oxygen Delivery Method Room Air Sepsis Recent Fever Within 48 Hours Sepsis New/Unexplained Change in Mental Status Sepsis Action Taken by Long-Term Medications Current Medication List: was personally reviewed by me Laboratory Data Attestation: I reviewed the patient's lab results. Result diagrams: 08/16/22 06:51 08/16/22 06:51 Lab Results 08/15/22 08/15/22 08/15/22 Range/Units 12:15 12:15 12:15 WBC 10.79 (4.8-10.8) K/ul RBC 3.55 L (3.93-5.22) M/uL Hgb 12.3 (12.0-16.0) g/dl Hct 38.6 (34.1-44.9) % MCV 108.7 H (80.0-100.0) fL MCH 34.6 H (25.0-34.0) pg MCHC 31.9 L (32.0-36.0) g/dL RDW Std Deviation 71.2 H (36.4-46.3) fL RDW Coeff of Tyrel 17.4 H (11.5-14.5) % Plt Count 237 (130-400) K/uL MPV 8.9 L (9.4-12.3) fL Immature Gran % (Auto) 0.4 % Neut % (Auto) 71.7 % Lymph % (Auto) 19.6 % [place] % (Auto) 7.9 % Eos % (Auto) 0.0 % Baso % (Auto) 0.4 % Neut # (Auto) 7.74 H (1.4-6.5) K/uL Lymph # (Auto) 2.12 (1.2-3.4) K/uL [place] # (Auto) 0.85 H (0.24-0.82) K/uL Eos # (Auto) 0.00 (0-0.50) K/uL Baso # (Auto) 0.04 (0-0.2) K/uL Immature Gran # (Auto) 0.04 H (0.00-0.02) K/uL ESR (0-20) mm/hr Sodium 143 (136-145) mmol/L Potassium 3.7 (3.5-5.1) mmol/L Chloride 104 (98-107) mmol/L Carbon Dioxide 34 H (21-32) mmol/L Anion Gap 5 (3-11) BUN 17 (6-23) mg/dl Creatinine 0.67 (0.6-1.2) mg/dl Est Cr Clr Drug Dosing 86.9 ml/min Est GFR ( Amer) 123.0 ml/min Est GFR (Non-Af Amer) 106.2 ml/min BUN/Creatinine Ratio 25.4 H (10-20) Glucose 118 H (70-99(Fasting)) mg/dl Lactate (0.4-2.0) mmol/L Calcium 9.2 (8.5-10.1) mg/dl Total Bilirubin 0.7 (0.2-1.0) mg/dl AST 16 (13-39) U/L ALT 23 (7-52) U/L Alkaline Phosphatase 127 H (34-104) U/L C-Reactive Protein (0-0.5) mg/dl Total Protein 6.6 (6.0-8.3) gm/dl Albumin 3.5 (3.4-5.0) gm/dl Globulin 3.1 (2.5-4.0) gm/dl Albumin/Globulin Ratio 1.1 (0.9-2) Procalcitonin (0-0.5) ng/ml TSH 3.469 (0.300-4.500) uIu/ml 08/15/22 08/15/22 08/15/22 Range/Units 12:15 12:15 12:15 WBC (4.8-10.8) K/ul RBC (3.93-5.22) M/uL Hgb (12.0-16.0) g/dl Hct (34.1-44.9) % MCV (80.0-100.0) fL MCH (25.0-34.0) pg MCHC (32.0-36.0) g/dL RDW Std Deviation (36.4-46.3) fL RDW Coeff of Tyrel (11.5-14.5) % Plt Count (130-400) K/uL MPV (9.4-12.3) fL Immature Gran % (Auto) % Neut % (Auto) % Lymph % (Auto) % [place] % (Auto) % Eos % (Auto) % Baso % (Auto) % Neut # (Auto) (1.4-6.5) K/uL Lymph # (Auto) (1.2-3.4) K/uL [place] # (Auto) (0.24-0.82) K/uL Eos # (Auto) (0-0.50) K/uL Baso # (Auto) (0-0.2) K/uL Immature Gran # (Auto) (0.00-0.02) K/uL ESR 43 H (0-20) mm/hr Sodium (136-145) mmol/L Potassium (3.5-5.1) mmol/L Chloride (98-107) mmol/L Carbon Dioxide (21-32) mmol/L Anion Gap (3-11) BUN (6-23) mg/dl Creatinine (0.6-1.2) mg/dl Est Cr Clr Drug Dosing ml/min Est GFR ( Amer) ml/min Est GFR (Non-Af Amer) ml/min BUN/Creatinine Ratio (10-20) Glucose (70-99(Fasting)) mg/dl Lactate 1.2 (0.4-2.0) mmol/L Calcium (8.5-10.1) mg/dl Total Bilirubin (0.2-1.0) mg/dl AST (13-39) U/L ALT (7-52) U/L Alkaline Phosphatase (34-104) U/L C-Reactive Protein (0-0.5) mg/dl Total Protein (6.0-8.3) gm/dl Albumin (3.4-5.0) gm/dl Globulin (2.5-4.0) gm/dl Albumin/Globulin Ratio (0.9-2) Procalcitonin < 0.05 (0-0.5) ng/ml TSH (0.300-4.500) uIu/ml 08/15/22 Range/Units 12:15 WBC (4.8-10.8) K/ul RBC (3.93-5.22) M/uL Hgb (12.0-16.0) g/dl Hct (34.1-44.9) % MCV (80.0-100.0) fL MCH (25.0-34.0) pg MCHC (32.0-36.0) g/dL RDW Std Deviation (36.4-46.3) fL RDW Coeff of Tyrel (11.5-14.5) % Plt Count (130-400) K/uL MPV (9.4-12.3) fL Immature Gran % (Auto) % Neut % (Auto) % Lymph % (Auto) % [place] % (Auto) % Eos % (Auto) % Baso % (Auto) % Neut # (Auto) (1.4-6.5) K/uL Lymph # (Auto) (1.2-3.4) K/uL [place] # (Auto) (0.24-0.82) K/uL Eos # (Auto) (0-0.50) K/uL Baso # (Auto) (0-0.2) K/uL Immature Gran # (Auto) (0.00-0.02) K/uL ESR (0-20) mm/hr Sodium (136-145) mmol/L Potassium (3.5-5.1) mmol/L Chloride (98-107) mmol/L Carbon Dioxide (21-32) mmol/L Anion Gap (3-11) BUN (6-23) mg/dl Creatinine (0.6-1.2) mg/dl Est Cr Clr Drug Dosing ml/min Est GFR ( Amer) ml/min Est GFR (Non-Af Amer) ml/min BUN/Creatinine Ratio (10-20) Glucose (70-99(Fasting)) mg/dl Lactate (0.4-2.0) mmol/L Calcium (8.5-10.1) mg/dl Total Bilirubin (0.2-1.0) mg/dl AST (13-39) U/L ALT (7-52) U/L Alkaline Phosphatase (34-104) U/L C-Reactive Protein 4.25 H (0-0.5) mg/dl Total Protein (6.0-8.3) gm/dl Albumin (3.4-5.0) gm/dl Globulin (2.5-4.0) gm/dl Albumin/Globulin Ratio (0.9-2) Procalcitonin (0-0.5) ng/ml TSH (0.300-4.500) uIu/ml Administered Medications Apixaban (Apixaban 5 Mg Tablet) 5 mg PO BID JENN Stop: 09/14/22 20:59 Last Admin: 08/15/22 21:31 Dose: 5 mg Documented By: REYNOLD Gabapentin (Gabapentin 400 Mg Cap) 400 mg PO TID JENN Stop: 09/14/22 20:59 Last Admin: 08/15/22 22:47 Dose: 400 mg Documented By: GABINO Metronidazole (Flagyl) 500 mg in 100 mls @ 100 mls/hr IV Q8H JENN; Protocol Stop: 10/06/22 21:59 Last Admin: 08/16/22 06:09 Dose: 100 mls/hr Documented By: Infusion: 08/15/22 22:46 Dose: 0 mls/hr Documented By: Admin: 08/15/22 21:33 Dose: 100 mls/hr Documented By: GERMAINE Cefepime HCl 2,000 mg/ Syringe 20 mls @ 5 mls/min IV Q8 JENN; Protocol Stop: 08/22/22 21:59 Last Admin: 08/16/22 06:09 Dose: 5 mls/min Documented By: Admin: 08/15/22 22:47 Dose: 5 mls/min Documented By: GABINO Vancomycin HCl 1,000 mg/ (Sodium Chloride) 270 mls @ 200 mls/hr IV Q12H [facility] Stop: 08/22/22 15:59 Last Infusion: 08/16/22 05:20 Dose: 0 mls/hr Documented By: Admin: 08/16/22 03:56 Dose: 200 mls/hr Documented By: Insulin Aspart (Insulin Aspart Per Unit) 0 units SC ACHS [facility] Stop: 09/14/22 19:16 Last Admin: 08/15/22 21:38 Dose: Not Given Documented By: GERMAINE Co-signed By: JOSE ANTONIO Admin: 08/15/22 19:30 Dose: Not Given Documented By: GERMAINE Co-signed By: JOSE ANTONIO Miscellaneous (Remove Nicoderm Patch) 1 each N/A DAILY@0859 [facility] Stop: 09/14/22 19:15 Last Admin: 08/15/22 20:29 Dose: Not Given Documented By: GERMAINE Morphine Sulfate (Morphine Sulfate 4 Mg/Ml 1 Ml Carp\\Vial) 4 mg IV Q4H PRN PRN Reason: severe pain, 7-10 Stop: 08/29/22 19:16 Last Admin: 08/16/22 05:46 Dose: 4 mg Documented By: Admin: 08/16/22 00:42 Dose: 4 mg Documented By: Admin: 08/15/22 20:20 Dose: 4 mg Documented By: GERMAINE Nicotine (Nicotine 21 Mg/24 Hr Tdsy) 21 mg TD QAM [facility] Stop: 09/15/22 08:59 Last Admin: 08/15/22 20:29 Dose: Not Given Documented By: GERMAINE Oxycodone HCl (Oxycodone Hcl Ir 5 Mg Tab (Immediate Release)) 5 mg PO Q6H PRN PRN Reason: mod pain , 4-6 Stop: 08/29/22 19:16 Last Admin: 08/16/22 04:10 Dose: 5 mg Documented By: Admin: 08/15/22 20:19 Dose: 5 mg Documented By: GERMAINE Potassium Chloride (Potassium Chloride Crtab 20 Meq Tabcr) 20 meq PO BID JENN Stop: 09/14/22 20:59 Last Admin: 08/15/22 21:32 Dose: 20 meq Documented By: GERMAINE Discontinued Medications Fentanyl Citrate (Fentanyl Citrate 100 Mcg/2 Ml Vial) 50 mcg IV NOW STA Stop: 08/15/22 13:04 Last Admin: 08/15/22 13:09 Dose: 50 mcg Documented By: ESAU Sodium Chloride (Nss) 500 mls @ 999 mls/hr IV .Q31M JENN Stop: 08/15/22 12:00 Last Infusion: 08/15/22 12:51 Dose: 0 mls/hr Documented By: Admin: 08/15/22 12:11 Dose: 999 mls/hr Documented By: ESAU Vancomycin HCl 1,250 mg/ (Sodium Chloride) 275 mls @ 200 mls/hr IV NOW ONE Stop: 08/15/22 15:52 Last Infusion: 08/15/22 17:56 Dose: 0 mls/hr Documented By: Admin: 08/15/22 16:12 Dose: 200 mls/hr Documented By: GERMAINE Cefepime HCl (Maxipime) 20 mls @ 5 mls/min IV NOW ONE Stop: 08/15/22 14:33 Last Admin: 08/15/22 14:40 Dose: 5 mls/min Documented By: ESAU Metronidazole (Flagyl) 500 mg in 100 mls @ 100 mls/hr IV NOW ONE Stop: 08/15/22 15:29 Last Infusion: 08/15/22 17:55 Dose: 0 mls/hr Documented By: Admin: 08/15/22 15:12 Dose: 100 mls/hr Documented By: GERMAINE Morphine Sulfate (Morphine Sulfate 4 Mg/Ml 1 Ml Carp\\Vial) 4 mg IV NOW STA Stop: 08/15/22 11:30 Last Admin: 08/15/22 12:11 Dose: 4 mg Documented By: ESAU Morphine Sulfate (Morphine Sulfate 4 Mg/Ml 1 Ml Carp\\Vial) 4 mg IV NOW STA Stop: 08/15/22 15:40 Last Admin: 08/15/22 16:12 Dose: 4 mg Documented By: REYNOLD Nicotine (Nicotine 21 Mg/24 Hr Tdsy) 21 mg TD NOW ONE Stop: 08/15/22 19:18 Last Admin: 08/15/22 20:34 Dose: 21 mg Documented By: [facility] Discharge Plan Visit Data Chief Complaint: Infection, Wound Stated Complaint: LEG PAIN, LARGE OPEN WOUNDS ON LEGS ED Provider: Rodríguez Andre Discharge Problem: Pyoderma gangrenosum, Bilateral lower leg cellulitis, Intractable pain Patient Disposition: Admitted As Inpatient Discharge Instructions Interventions: ED Discharge Assessment Last Done: 08/15/22 19:19
[2022-08-15] MEDS ORDERED: MoRPHine SULFATE 4 MG/ML 1 ML CARP\\VIAL IV STA ×2 (11:29→15:39)
[2022-08-15] MEDS ORDERED: SODIUM CHLORIDE 0.9% 500 ML IV SCH (11:30)
[2022-08-15 12:30] LABS: Basophils # (auto) 0.04 K/uL (0-0.2); Basophils % (auto) 0.4 %; Hematocrit (blood only) 38.6 % (34.1-44.9); Hemoglobin 12.3 g/dl (12.0-16.0); Immature Granulocytes # (auto) 0.04 K/uL (0.00-0.02); Immature Granulocytes % (auto) 0.4 %; Lymphocytes # (auto) 2.12 K/uL (1.2-3.4); Lymphocytes % (auto) 19.6 %; Mean Corpuscular Hemoglobin 34.6 pg (25.0-34.0); Mean Corpuscular Hgb Conc 31.9 g/dL (32.0-36.0); Mean Corpuscular Volume 108.7 fL (80.0-100.0); Mean Platelet Volume 8.9 fL (9.4-12.3); Monocytes # (auto) 0.85 K/uL (0.24-0.82); Monocytes % (auto) 7.9 %; Neutrophils # (auto) 7.74 K/uL (1.4-6.5); Neutrophils % (auto) 71.7 %; Platelet Count 237 K/uL (130-400); RDW Coefficient of Variation 17.4 % (11.5-14.5); RDW Standard Deviation 71.2 fL (36.4-46.3); Red Blood Count 3.55 M/uL (3.93-5.22); White Blood Count 10.79 K/ul (4.8-10.8)
[2022-08-15 12:58] LABS: Albumin Globulin Ratio 1.1 (0.9-2); Albumin Level 3.5 gm/dl (3.4-5.0); BUN Creatinine Ratio 25.4 (10-20); Bilirubin,Total 0.7 mg/dl (0.2-1.0); Calcium 9.2 mg/dl (8.5-10.1); Creatinine Clr Calc Pharmacy 86.9 ml/min; Est GFR (Non-African American) 106.2 ml/min; Globulin 3.1 gm/dl (2.5-4.0); Potassium 3.7 mmol/L (3.5-5.1); Total Protein 6.6 gm/dl (6.0-8.3)
[2022-08-15] MEDS ORDERED: fentaNYL citrate 100 MCG/2 ML VIAL IV STA (13:03)
[2022-08-15] MEDS ORDERED: CEFEPIME 20 ML IV ONE (14:30)
[2022-08-15] MEDS ORDERED: VANCOMYCIN HCL 1,250 MG in SODIUM CHLORIDE 0.9% 250 ML IV ONE (14:30)
[2022-08-15] MEDS ORDERED: metroNIDAZOLE 500 MG/100 ML BAG IV ONE (14:30)
--- NOTE | 2022-08-15 15:58 | History & Physical Report ---
Date of Service August 15, 2022 Assessment & Plan (1) Pyoderma gangrenosum: (2) Intractable pain: (3) Diabetes: (4) Dilated cardiomyopathy: (5) Neuropathic pain: (6) COPD (chronic obstructive pulmonary disease): (7) DVT (deep venous thrombosis): Plan This is a 47-year-old female who has a significant past medical history of T2DM, cardiomyopathy, tobacco abuse, DVT/PE on Eliquis, COPD, GERD, history of drug abuse and marijuana use, history of cervical cancer who presents to ED secondary to worsening pain in lower extremities. Patient recently hospitalized 07/25 to 08/07/2022 secondary to sepsis, cellulitis, pyoderma gangrenosum, wound culture positive for MRSA and bacteroids, DVT/PE treated with Eliquis, dilated cardiomyopathy and decompensated heart failure. She was discharged to home and doing well except for pain control. She ran out of tramadol and feels it has not been helping. Her gabapentin was recently increased to 400 mg 3 times a day. Overall she feels her wounds are much improved. Pyoderma gangrenosum Intractable neuropathic pain +MRSA Admit to telemetry Continue gabapentin, change tramadol to Oxy IR 5 mg every 6 hours as needed mild to moderate pain IV morphine as needed for severe pain Consider reconsulting pain management if no improvement She continues to take prednisone 30 mg daily Consult wound care Consult Dermatology - prior notes mention avoid any debridement as it leads to worsening +Anti Smooth muscle Ab and elevated free kappa levels from previous hosp work up Urine revealed small amount of kappa/lambda chain, recommended 24hr collection She does have an appearance of redness, warmth (pt thinks improving) wbc WNL, afebrile, negative procal antibiotics initiated in ED, will continue for now IV Flagyl, Vanco and Cefepime based on prior cultures cellulitis ruled out obtain CT lower exts yo need further OP w/u to determine underlying etiology SARS COV2 Positive pt tested positive on admission no acute sx, no indication for tx monitor T2DM a1c 6.5 on 08/13/22 Novolog per protocol diabetic diet Dilated cardiomyopathy Echocardiogram performed 07/26/2022 revealed moderate left ventricular systolic dysfunction, LVEF in the range of 35-40%, with mild right ventricular dilatation and mild right ventricular systolic dysfunction. Moderate to severe mitral regurgitation noted, moderate tricuspid vegetation, PASP 45 mmHg. Appears compensated from volume standpoint Continue to monitor on telemetry Continue metoprolol, lisinopril and Lasix Daily weights, strict I's and O's DVT/PE Diagnosed last admission with right peroneal vein DVT, left calf DVT and segmental and subsegmental pulmonary emboli of left upper lobe Continue Eliquis COPD Tobacco abuse No acute exacerbation As needed inhalers Nicotine patch Encouraged cessation ADHD on Adderal DVT ppx: Eliquis Dispo: Admit for pain control, Consult Derm for further recs, r/o infection, pt open to SNF for further wound care if needed FULL CODE PCP: Cherie Pt was seen and examined in collaboration with Dr. Garcia, please see addendum History of Present Illness Chief Complaint: Pain to b/l lower extremities for several days. Primary Care Provider: Henny Hernandez PA-C This is a 47-year-old female who has a significant past medical history of T2DM, cardiomyopathy, tobacco abuse, DVT/PE on Eliquis, COPD, GERD, history of drug abuse and marijuana use, history of cervical cancer who presents to ED secondary to worsening pain in lower extremities. Of significance patient was hospitalized 07/25 to 08/07/2022 secondary to sepsis and cellulitis. She presented with bilateral lower extremity redness and significant ulcerations. She was seen and evaluated by dermatology who diagnosed her with pyoderma gangrenosum and started her on prednisone therapy. Her wound culture was positive for MRSA and bacteroids. She was treated with IV antibiotics vancomycin, Flagyl and cefepime. She was seen and evaluated by infectious disease. She was further diagnosed with right peroneal vein DVT and left calf vein DVT as well as pulmonary embolism. She was started on Eliquis for VTE. Echocardiogram revealed EF 35 to 40% with RV mildly dilated, RV SF reduced, left and right atrial dilatation, moderate pulmonary hypertension. She was seen and evaluated by cardiology for cardiomyopathy. She was started on a medical regimen of meto prolol succinate 25 mg daily, lisinopril 2.5 mg daily and 40 mg of oral Lasix. She did require IV diuresis while in the hospital. She was seen and evaluated by pain management prior to discharge and placed on gabapentin as well as tramadol. She was discharged to home on 08/07/2022. She did follow-up with PCP on 08/12/2022. She feels she has otherwise been doing well in regards to her lower extremity ulcerations. She continues to take her prednisone and is currently on 30 mg daily. Her appetite is very good. She admits to taking her medications including her newly prescribed cardiac medications as well as Eliquis. She comes in today due to pain being uncontrolled at home. Her gabapentin was recently increased to 400 mg 3 times a day and she continues the tramadol without much relief. She feels in regards to her legs they are significantly improved in regards to her ulcerations, no significant redness and drainage has recently subsided. She feels they may be slightly warm today but otherwise much improved. Pain currently 06/26. She ran out of her home tramadol. She has not yet followed up with dermatology and will see them on 08/19/2022. She denies any fever, chills, sweats, lightheadedness, dizziness, chest pain, shortness of breath, nausea, vomiting, abdominal pain, change in bowel or urinary habits. She has been mostly incontinent of urine. She has difficulty ambulating due to her pain. She is currently living at home with her parents. She states she was on a wait list for senior living facility but has not heard anything about this yet. She feels she could use this for wound care. Allergies Allergy/AdvReac Type Severity Reaction Status Date / Time No Known Allergies Allergy Unknown Verified 12/28/21 02:02 Home Medications Medication Instructions Recorded Confirmed Type albuterol sulfate 90 mcg/actuation 2 puffs inhalation Q4 PRN Wheezing 08/18/19 08/15/22 History aerosol inhaler (Ventolin HFA) apixaban 5 mg tablet (Eliquis) 5 mg PO BID #60 tabs 08/06/22 08/15/22 Rx blood sugar diagnostic ([facility] #100 ea 08/06/22 08/15/22 Rx Verio test strips) ferrous sulfate 325 mg (65 mg 325 mg PO QAM #30 tabs 08/06/22 08/15/22 Rx iron) tablet,delayed release folic acid 1 mg tablet 1 mg PO QAM #30 tabs 08/06/22 08/15/22 Rx furosemide 40 mg tablet 40 mg PO QAM #30 tabs 08/06/22 08/15/22 Rx lancets 33 gauge ([facility] #100 ea 08/06/22 08/15/22 Rx Lancets) lisinopril 2.5 mg tablet 2.5 mg PO QAM #30 tabs 08/06/22 08/15/22 Rx metoprolol succinate 25 mg 25 mg PO QAM #30 tabs 08/06/22 08/15/22 Rx tablet,extended release 24 hr nicotine 21 mg/24 hr daily 21 mg transdermal QAM #28 ea 08/06/22 08/15/22 Rx transdermal patch (Nicoderm CQ) potassium chloride 20 mEq 20 meq PO BID #60 tabs 08/06/22 08/15/22 Rx tablet,extended release(part/cryst) prednisone 10 mg tablet 10 mg PO UD #70 tabs 08/06/22 08/15/22 Rx thiamine HCl (vitamin B1) 100 mg 100 mg PO QAM #30 tabs 08/06/22 08/15/22 Rx tablet dextroamphetamine-amphetamine 20 20 mg PO DAILY@1400 08/15/22 08/15/22 History mg tablet dextroamphetamine-amphetamine ER 30 mg PO DAILY 08/15/22 08/15/22 History 30 mg 24hr capsule,extend release gabapentin 400 mg capsule 400 mg PO TID 08/15/22 08/15/22 History tramadol 50 mg tablet 50 mg PO Q6H PRN Pain 08/15/22 08/15/22 History Past Med/Surg History Medical History (Updated 08/15/22 @ 16:52 by Trudi Caballero PA-C) ADHD Cellulitis, leg Cervicovaginal cytology: Low grade squamous intraepithelial lesion (Unknown) "S/P LEEP " COPD (chronic obstructive pulmonary disease) DVT (deep venous thrombosis) Neuropathic pain Pulmonary embolism Pyoderma gangrenosum Self neglect Sepsis Standard chest X-ray abnormal (Unknown) "RUL density noted on CXR 05/22/12. CT follow-up recommended. " On 05/23/12 06:11 You Reina wrote "RUL density noted on CXR 05/22/12. CT follow-up recommended. " Surgical History (Updated 08/15/22 @ 16:45 by Trudi Caballero PA-C) History of loop electrical excision procedure (LEEP) History of nasal surgery History of partial hysterectomy Hx laparoscopic cholecystectomy Hx of rhinoplasty Family History (Updated 08/15/22 @ 16:45 by Trudi Caballero PA-C) Mother Hypertension Social History (Updated 08/15/22 @ 16:46 by Trudi Caballero PA-C) Smoking Status: Current every day smoker Tobacco Type: Cigarettes Second Hand Exposure: No; Hx Alcohol Use: Yes Alcohol type: hard liquor Hx Substance Use: Yes Preferred Language: Afghan Communication Ability: Effective Forging Operator Required: No Beliefs That Will Affect Care: None Current Living Situation: Alone Current Living Situation Comment: living with parents Feels Safe at Home: Yes Safety Concerns: Feels Safe At This Time Assistive Devices: None Review of Systems Review of Systems: All systems reviewed & are unremarkable except as noted in HPI & below Physical Exam Physical Exam: Constitutional: WD/WN, vitals as above, + pain to b/l lower ext, moaning, sitting up in bed, pleasant, conversing easily Head: Normocephalic, Atraumatic Eyes: PERRL, conjunctivae normal, anicteric sclerae ENMT: external ear and nose normal, oropharynx normal Neck: trachea midline, no thyromegaly normal visual inspection Respiratory: normal respiratory effort, lungs clear to auscultation, no wheeze, rales, rhonchi. Normal insp/exp effort, no accessory muscle use Cardiovascular: tachycardiac rate, regular rhythm, no murmur, no edema Vessels: no JVD or carotid bruit Chest: normal inspection of chest Abdomen: normal bowel sounds, soft, nontender Musculoskeletal: no cyanosis or clubbing, arom x 4 Skin: B/L lower ext significant ulceration to anterior/post aspect inferior to knee, ulcerations are dry and scabbed, mild surrounding erythema and warmth, no drainage, warm and dry normal turgor Neurologic: PERRL, EOMI, accommodation nl, no face palsy, no dysarthria CN's II-XI intact bilaterally and moves all extremities Psychiatric: A+Ox3, euthymic affect Lymphatic: no cervical or axillary lymphadenopathy : deferred Results & Data Results & Data ([facility]) Vital Signs (Past 12 Hours) Vital Signs Temp Pulse Pulse Resp BP BP Pulse Ox 08/15/22 14:00 22 100/69 08/15/22 13:08 109 H 24 97/65 L 95 08/15/22 12:11 120 H 24 97 08/15/22 12:11 120 H 24 143/67 H 99 08/15/22 11:20 36.4 C L 114 H 20 108/82 99 O2 Del Method 08/15/22 14:00 08/15/22 13:08 Room Air 08/15/22 12:11 Room Air 08/15/22 12:11 Room Air 08/15/22 11:20 Room Air Medications Administered Medication List Discontinued Medications Fentanyl Citrate (Fentanyl Citrate 100 Mcg/2 Ml Vial) 50 mcg IV NOW STA Stop: 08/15/22 13:04 Last Admin: 08/15/22 13:09 Dose: 50 mcg Documented By: ESAU Sodium Chloride (Nss) 500 mls @ 999 mls/hr IV .Q31M JENN Stop: 08/15/22 12:00 Last Infusion: 08/15/22 12:51 Dose: 0 mls/hr Documented By: Admin: 08/15/22 12:11 Dose: 999 mls/hr Documented By: ESAU Metronidazole (Flagyl) 500 mg in 100 mls @ 100 mls/hr IV NOW ONE Stop: 08/15/22 15:29 Last Admin: 08/15/22 15:12 Dose: 100 mls/hr Documented By: [facility] Morphine Sulfate (Morphine Sulfate 4 Mg/Ml 1 Ml Carp\\Vial) 4 mg IV NOW STA Stop: 08/15/22 11:30 Last Admin: 08/15/22 12:11 Dose: 4 mg Documented By: ESAU ECG Rate (beats per minute): 111 Rhythm: sinus tachycardia Additional Comments: qtc 484ms COVID-19 Results Results COVID-19 Adm Lab Results: RBC 3.55 M/uL (3.93-5.22) L 08/15/22 WBC 10.79 K/ul (4.8-10.8) 08/15/22 Hgb 12.3 g/dl (12.0-16.0) 08/15/22 Hct 38.6 % (34.1-44.9) 08/15/22 Plt Count 237 K/uL (130-400) 08/15/22 Neutrophils (%) (Auto) 71.7 % 08/15/22 Lymphocytes (%) (Auto) 19.6 % 08/15/22 Monocytes # (Auto) 0.85 K/uL (0.24-0.82) H 08/15/22 Eosinophils # (Auto) 0.00 K/uL (0-0.50) 08/15/22 Immature Granulocyte % (Auto) 0.4 % 08/15/22 Neutrophils # (Auto) 7.74 K/uL (1.4-6.5) H 08/15/22 Lymphocytes # (Auto) 2.12 K/uL (1.2-3.4) 08/15/22 Monocytes # (Auto) 0.85 K/uL (0.24-0.82) H 08/15/22 Eosinophils # (Auto) 0.00 K/uL (0-0.50) 08/15/22 Basophils # (Auto) 0.04 K/uL (0-0.2) 08/15/22 Immature Granulocyte # (Auto) 0.04 K/uL (0.00-0.02) H 08/15 Na 143 mmol/L (136-145) 08/15/22 K 3.7 mmol/L (3.5-5.1) 08/15/22 Cl 104 mmol/L (98-107) 08/15/22 CO2 34 mmol/L (21-32) H 08/15/22 Anion Gap 5 (3-11) 08/15/22 BUN 17 mg/dl (6-23) 08/15/22 Creatinine 0.67 mg/dl (0.6-1.2) 08/15/22 BUN/Creatinine Ratio 25.4 (10-20) H 08/15/22 Glucose Level 118 mg/dl (70-99(Fasting)) H 08/15/22 Ca 9.2 mg/dl (8.5-10.1) 08/15/22 Total Bilirubin 0.7 mg/dl (0.2-1.0) 08/15/22 AST/SGOT 16 U/L (13-39) 08/15/22 ALT/SGPT 23 U/L (7-52) 08/15/22 Alkaline Phosphatase 127 U/L (34-104) H 08/15/22 Total Protein 6.6 gm/dl (6.0-8.3) 08/15/22 Albumin 3.5 gm/dl (3.4-5.0) 08/15/22 Globulin 3.1 gm/dl (2.5-4.0) 08/15/22 Albumin/Globulin Ratio 1.1 (0.9-2) 08/15/22 CRP 4.25 mg/dl (0-0.5) H 08/15/22 Procalcitonin < 0.05 ng/ml (0-0.5) 08/15/22 SARS-CoV-2, RNA, NAAT POSITIVE (NEGATIVE) A* 08/15/22 Code Status & VTE Plan Code Status FULL CODE VTE Prophylaxis Plan VTE Prophylaxis will be ordered: No Supervising Physician Co-Signing Physician Notes Pt seen and examined by me, care coordinated w/ B. MAGI Caballero, pls refer to her note above for further detail. Pt is a 47 yo F who w/ T2DM, cardiomyopathy, tobacco abuse, DVT/PE on Eliquis, COPD, GERD, history of drug abuse and marijuana use, history of cervical cancer who presents w/worsening pain in lower extremities. Patient recently hospitalized 07/25 to 08/07/2022 secondary to sepsis, cellulitis, pyoderma gangrenosum, wound culture positive for MRSA and bacteroids, DVT/PE treated with Eliquis, dilated cardiomyopathy and decompensated heart failure. She was discharged to home and doing well except for pain control. She ran out of tramadol and feels it has not been helping. Her gabapentin was recently increased to 400 mg 3 times a day. Overall she feels her wounds are much improved. She was also found to be positive for COVID-19. Patient is asymptomatic, breathing comfortably on room air , saturating 98% , without any cough or shortness of breath. Denies fevers chills, denies abdominal pain nausea vomiting. Started antibiotics in the ED for cellulitis. We will continue empirically for now. Blood cultures pending. Patient was supposed to follow-up with dermatology, will have her seen while in the hospital. We will also involve wound care. Otherwise continue her prednisone, Eliquis and medications as above. MD Radha
--- NOTE | 2022-08-15 19:14 | CT Scan Report ---
CT OF THE RIGHT TIBIA AND FIBULA WITHOUT CONTRAST CLINICAL HISTORY: pain, recent cellulitis, pyoderm gang COMPARISON STUDY: CT of the right tibia and fibula July 25, 2022 TECHNIQUE: Axial images of the right tibia and fibula were obtained without IV contrast. Sagittal and coronal reconstructions were viewed. Automated exposure control was utilized for the study. A dose lowering technique was utilized adhering to the principles of ALARA. FINDINGS: No acute fracture within the right tibia or fibula is identified. There is no CT evidence f or acute osteomyelitis. Subcutaneous edema of the right lower leg is noted. This has decreased when c ompared to CT of July 25, 2022. No fluid collections are identified to suggest an abscess. There are suspected multiple wounds of the right lower leg. No soft tissue gas is present. CT of the left t ibia and fibula will be reported separately. IMPRESSION: 1. Subcutaneous edema of the right lower leg which favors cellulitis. This has decreased since prior CT. No fluid collection to suggest abscess. No soft tissue gas. Multiple wounds of the right lower le g. 2. No evidence for acute osteomyelitis within the right tibia or fibula. ACT 112: Negative or not required by law. Electronically signed by: Rafita Dodd M.D. 08/15/2022 7:11 PM
[2022-08-15] MEDS ORDERED: POLYETHYLENE (MIRALAX) 17 GM PACK PO PRN (19:17)
[2022-08-15] MEDS ORDERED: NICOTINE 21 MG/24 HR TDSY TD ONE (19:17)
[2022-08-15] MEDS ORDERED: MAGNESIUM HYDROXIDE SUSP 30 ML UDC PO PRN (19:17)
[2022-08-15] MEDS ORDERED: ACETAMINOPHEN 500 MG TAB PO PRN (19:17)
[2022-08-15] MEDS ORDERED: CARBOHYDRATES FOR HYPOGLYCEMIA PO PRN (19:17)
[2022-08-15] MEDS ORDERED: PROMETHAZINE HCL 6.25 MG in SODIUM CHLORIDE 0.9% 50 ML IV PRN (19:17)
[2022-08-15] MEDS ORDERED: ALBUTEROL HFA 8 GM INHALER INH PRN (19:17)
[2022-08-15] MEDS ORDERED: GLUCOSE 40% GEL 15 GM TUBE PO PRN (19:17)
[2022-08-15] MEDS ORDERED: GLUCOSE 10 TAB/TUBE PO PRN (19:17)
[2022-08-15] MEDS ORDERED: GLUCAGON FOR INJ 1 MG VIAL SQ PRN (19:17)
[2022-08-15] MEDS ORDERED: VANCOMYCIN CONSULT ACTIVE PRN (19:17)
[2022-08-15] MEDS ORDERED: DEXTROSE 50% 50 ML SYRINGE IV PRN (19:17)
[2022-08-15] MEDS ORDERED: ALUMINUM/MAGNESIUM SUSP 30 ML UDC PO PRN (19:17)
--- NOTE | 2022-08-15 19:19 | CT Scan Report ---
CT OF THE LEFT TIBIA AND FIBULA WITHOUT CONTRAST CLINICAL HISTORY: pain, recent cellulitis, pyoderm gang COMPARISON STUDY: CT of the left tibia and fibula July 25, 2022. TECHNIQUE: Axial images of the left tibia and fibula were obtained without IV contrast. Sagittal and coronal reconstructions were viewed. Automated exposure control was utilized for the study. A dose l owering technique was utilized adhering to the principles of ALARA. FINDINGS: Multiple wounds of the left lower leg are noted. There is no fluid collection to suggest an abscess on this unenhanced exam. Moderate subcutaneous edema of the left lower leg is noted. This is decreased when compared to CT of July 25, 2022. There is no soft tissue gas. No acute fracture o r evidence for acute osteomyelitis within the left tibia or fibula. IMPRESSION: 1. Multiple wounds of the left lower leg. No fluid collection to suggest abscess. No soft tissue gas. No evidence for acute osteomyelitis within the left tibia or fibula. 2. Moderate subcutaneous edema of the left lower leg, decreased since prior CT. ACT 112: Negative or not required by law. Electronically signed by: Rafita Dodd M.D. 08/15/2022 7:16 PM
[2022-08-15] MEDS: INSULIN ASPART PER UNIT SC SCH ×2 (19:30→21:38)
[2022-08-15] MEDS: oxyCODONE HCL IR 5 MG TAB (IMMEDIATE RELEASE) PO PRN (20:19)
[2022-08-15] MEDS: MoRPHine SULFATE 4 MG/ML 1 ML CARP\\VIAL IV PRN (20:20)
[2022-08-15] MEDS: NICOTINE 21 MG/24 HR TDSY TD SCH (20:29)
--- NOTE | 2022-08-15 21:08 | Pharmacy Report ---
Pharmacy PK ABX Note - Date of Service August 15, 2022 - Assessment and Plan Assessment 47 year old F receiving vancomycin, cefepime, and Flagyl for treatment of possible cellulitis. Per H&P: "Patient recently hospitalized 07/25 to 08/07/2022 secondary to sepsis, cellulitis, pyoderma gangrenosum, wound culture positive for MRSA and bacteroids" Plan Vancomycin * Loading dose: 1250 mg IV x 1 * Maintenance dose: 1000 mg IV every 12 hours * Regimen is predicted to achieve target AUC/MARIA ELENA of 400-600 mg/L.hr * Random level ordered for: 08/17/22 @ 1000. Pharmacy will continue to follow and will adjust dose/frequency as necessary. Thank you. Pharmacy has transitioned to AUC monitoring for vancomycin. AUC/MARIA ELENA is the preferred PK/PD target and is associated with decreased risk of nephrotoxicity compared to traditional trough targets.
[2022-08-15] MEDS: APIXABAN 5 MG TABLET PO SCH (21:31)
[2022-08-15] MEDS: POTASSIUM CHLORIDE CRTAB 20 MEQ TABCR PO SCH (21:32)
[2022-08-15] MEDS: metroNIDAZOLE 500 MG/100 ML BAG IV SCH (21:33)
[2022-08-15] MEDS: GABAPENTIN 400 MG CAP PO SCH (22:47)
[2022-08-15] MEDS: CEFEPIME 2,000 MG in SYRINGE 0 ML IV SCH (22:47)
[2022-08-16] MEDS: MoRPHine SULFATE 4 MG/ML 1 ML CARP\\VIAL IV PRN ×5 (00:42→21:46)
[2022-08-16] MEDS ORDERED: VANCOMYCIN HCL 1,000 MG in SODIUM CHLORIDE 0.9% 250 ML IV SCH (04:00)
[2022-08-16] MEDS: oxyCODONE HCL IR 5 MG TAB (IMMEDIATE RELEASE) PO PRN ×4 (04:10→23:56)
--- NOTE | 2022-08-16 05:02 | Electrocardiogram Report ---
Test Reason : Blood Pressure : / mmHG Vent. Rate : 111 BPM Atrial Rate : 111 BPM P-R Int : 122 ms QRS Dur : 082 ms QT Int : 356 ms P-R-T Axes : 076 -31 043 degrees QTc Int : 484 ms Sinus tachycardia Possible Left atrial enlargement Left axis deviation Anterior infarct (cited on or before 15-AUG-2022) Nonspecific T wave abnormality Abnormal ECG When compared with ECG of 25-JUL-2022 09:13, Premature ventricular complexes are no longer Present Confirmed by Yousif Ch ([id number]) on 08/16/2022 5:02:31 AM Referred By: Confirmed By:Yousif Ch
[2022-08-16] MEDS: metroNIDAZOLE 500 MG/100 ML BAG IV SCH (06:09)
[2022-08-16] MEDS: CEFEPIME 2,000 MG in SYRINGE 0 ML IV SCH (06:09)
[2022-08-16 07:25] LABS: Basophils # (auto) 0.05 K/uL (0-0.2); Basophils % (auto) 0.5 %; Hematocrit (blood only) 35.9 % (34.1-44.9); Hemoglobin 11.4 g/dl (12.0-16.0); Immature Granulocytes # (auto) 0.03 K/uL (0.00-0.02); Immature Granulocytes % (auto) 0.3 %; Lymphocytes # (auto) 3.59 K/uL (1.2-3.4); Lymphocytes % (auto) 36.3 %; Mean Corpuscular Hemoglobin 33.8 pg (25.0-34.0); Mean Corpuscular Hgb Conc 31.8 g/dL (32.0-36.0); Mean Corpuscular Volume 106.5 fL (80.0-100.0); Mean Platelet Volume 9.5 fL (9.4-12.3); Monocytes # (auto) 0.54 K/uL (0.24-0.82); Monocytes % (auto) 5.5 %; Neutrophils # (auto) 5.67 K/uL (1.4-6.5); Neutrophils % (auto) 57.4 %; Platelet Count 252 K/uL (130-400); RDW Coefficient of Variation 17.2 % (11.5-14.5); RDW Standard Deviation 68.1 fL (36.4-46.3); Red Blood Count 3.37 M/uL (3.93-5.22); White Blood Count 9.88 K/ul (4.8-10.8)
[2022-08-16 07:46] LABS: Albumin Globulin Ratio 1.1 (0.9-2); Albumin Level 3.3 gm/dl (3.4-5.0); Bilirubin,Total 0.6 mg/dl (0.2-1.0); Calcium 8.8 mg/dl (8.5-10.1); Creatinine Clr Calc Pharmacy 77.6 ml/min; Est GFR (African American) 111.6 ml/min; Est GFR (Non-African American) 96.3 ml/min; Globulin 2.9 gm/dl (2.5-4.0); Magnesium 1.9 mg/dl (1.7-2.4); Potassium 4.5 mmol/L (3.5-5.1); Total Protein 6.2 gm/dl (6.0-8.3)
[2022-08-16] MEDS ORDERED: DEXTROAMPHETAMINE/AMPHETAMINE ER 10 MG CAP PO SCH (09:00)
[2022-08-16] MEDS: INSULIN ASPART PER UNIT SC SCH ×4 (09:17→21:50)
[2022-08-16] MEDS: FERROUS SULFATE 325 MG TAB PO SCH (09:22)
[2022-08-16] MEDS: FUROSEMIDE 40 MG TAB PO SCH (09:22)
[2022-08-16] MEDS: FOLIC ACID 1 MG TAB PO SCH (09:22)
[2022-08-16] MEDS: lisinopril 2.5 MG TAB PO SCH (09:23)
[2022-08-16] MEDS: METOPROLOL SUCC 25MG EXT REL TAB PO SCH (09:23)
[2022-08-16] MEDS: THIAMINE HCL 100 MG TAB PO SCH (09:23)
[2022-08-16] MEDS: GABAPENTIN 400 MG CAP PO SCH ×3 (09:23→20:22)
[2022-08-16] MEDS: predniSONE 10 MG TABLET PO SCH (09:23)
[2022-08-16] MEDS: POTASSIUM CHLORIDE CRTAB 20 MEQ TABCR PO SCH ×2 (09:29→21:46)
[2022-08-16] MEDS: DEXTROAMPHETAMINE/AMPHETAMINE ER 10 MG CAP PO SCH (09:29)
[2022-08-16] MEDS: APIXABAN 5 MG TABLET PO SCH ×2 (10:23→20:22)
--- NOTE | 2022-08-16 11:58 | Hospitalist Progress Note ---
Date of Service August 16, 2022 Assessment & Plan (1) Pyoderma gangrenosum: (2) Intractable pain: (3) Diabetes: (4) Dilated cardiomyopathy: (5) Neuropathic pain: (6) COPD (chronic obstructive pulmonary disease): (7) DVT (deep venous thrombosis): Plan This is a 47-year-old female who has a significant past medical history of T2DM, cardiomyopathy, tobacco abuse, DVT/PE on Eliquis, COPD, GERD, history of drug abuse and marijuana use, history of cervical cancer who presents to ED secondary to worsening pain in lower extremities. Patient recently hospitalized 07/25 to 08/07/2022 secondary to sepsis, cellulitis, pyoderma gangrenosum, wound culture positive for MRSA and bacteroids, DVT/PE treated with Eliquis, dilated cardiomyopathy and decompensated heart failure. She was discharged to home and doing well except for pain control. She ran out of tramadol and feels it has not been helping. Her gabapentin was recently increased to 400 mg 3 times a day. Overall she feels her wounds are much improved. Pyoderma gangrenosum Intractable neuropathic pain Admitted from 07/25-08/07. Evaluated by dermatology on 07/29; diagnosed with pyoderma gangrenosum. Readmitted on 08/15 with intractable pain in the ulcer site Patient reports improvement in the wound. status post antibiotics in previous hospitalization Plan; - We will continue on prednisone as per recommendation by dermatology last admission; currently on 30 mg once daily. Taper by 10 mg every 7 days Discontinue antibiotics; no signs of infection. Treated with antibiotic last admission. Continue wound care; wound care nurse on consult. --Patient unable to take care of herself at home; request placement to snf rehab. Case management on board. -Discharge when placement is available. She has follow-up appointment with dermatology as outpatient. Pain control on current regimen. SARS COV2 Positive pt tested positive on admission no acute sx, no indication for tx monitor T2DM a1c 6.5 on 08/13/22 Novolog per protocol diabetic diet Dilated cardiomyopathy Echocardiogram performed 07/26/2022 revealed moderate left ventricular systolic dysfunction, LVEF in the range of 35-40%, with mild right ventricular dilatation and mild right ventricular systolic dysfunction. Moderate to severe mitral regurgitation noted, moderate tricuspid vegetation, PASP 45 mmHg. Appears compensated from volume standpoint Continue to monitor on telemetry Continue metoprolol, lisinopril and Lasix Daily weights, strict I's and O's DVT/PE Diagnosed last admission with right peroneal vein DVT, left calf DVT and segmental and subsegmental pulmonary emboli of left upper lobe Continue Eliquis COPD Tobacco abuse No acute exacerbation As needed inhalers Nicotine patch Encouraged cessation ADHD on Adderal DVT ppx: Eliquis Dispo: Admit for pain control, SNF when placement avaiable. FULL CODE PCP: Cherie Admission and Anticipated Discharge Date Admission Date: August 15, 2022 Subjective Patient seen and examined at bedside. She continues to complain of pain in her bilateral lower extremity. She acknowledges that is the swelling and redness has improved compared to her last admission. No episode of fever, chills. Review of Systems Review of Systems: All systems reviewed & are unremarkable except as noted in Subjective Physical Exam Physical Exam: Constitutional: WD/WN, vitals as above, NAD, sitting up in bed, pleasant, conversing easily Respiratory: normal respiratory effort, lungs clear to auscultation, no wheeze, rales, rhonchi. Normal insp/exp effort, no accessory muscle use Cardiovascular: RRR, no murmur, no edema Vessels: no JVD or carotid bruit Chest: normal inspection of chest Abdomen: normal bowel sounds, soft, nontender, no hepatosplenomegaly Musculoskeletal: no cyanosis or clubbing, extremities motor strength 5/5 Skin: Bilateral lower extremity ulcerated area with undetermined margin. Minimal surrounding erythema and redness. No discharge present. Neurologic: PERRL, EOMI, accommodation nl, no face palsy, no dysarthria CN's II- XI intact bilaterally and moves all extremities Psychiatric: A+Ox3, euthymic affect Lymphatic: no cervical or axillary lymphadenopathy : deferred Results & Data Results & Data ([facility]) Vital Signs (Past 12 Hours) Vital Signs Temp Pulse Pulse Resp BP Pulse Ox O2 Del Method 08/16/22 09:55 100 H 08/16/22 09:20 36.6 C 101 H 16 100/66 100 Room Air 08/16/22 04:00 36.3 C L 92 H 18 111/78 98 Room Air Laboratory Results Laboratory Results WBC 9.88 K/ul (4.8-10.8) 08/16/22 06:51 RBC 3.37 M/uL (3.93-5.22) L 08/16/22 06:51 Hgb 11.4 g/dl (12.0-16.0) L 08/16/22 06:51 Hct 35.9 % (34.1-44.9) 08/16/22 06:51 MCV 106.5 fL (80.0-100.0) H 08/16/22 06:51 MCH 33.8 pg (25.0-34.0) 08/16/22 06:51 MCHC 31.8 g/dL (32.0-36.0) L 08/16/22 06:51 RDW Std Deviation 68.1 fL (36.4-46.3) H 08/16/22 06:51 RDW Coeff of Tyrel 17.2 % (11.5-14.5) H 08/16/22 06:51 Plt Count 252 K/uL (130-400) 08/16/22 06:51 MPV 9.5 fL (9.4-12.3) 08/16/22 06:51 Immature Gran % (Auto) 0.3 % 08/16/22 06:51 Neut % (Auto) 57.4 % 08/16/22 06:51 Lymph % (Auto) 36.3 % 08/16/22 06:51 [place] % (Auto) 5.5 % 08/16/22 06:51 Eos % (Auto) 0.0 % 08/16/22 06:51 Baso % (Auto) 0.5 % 08/16/22 06:51 Neut # (Auto) 5.67 K/uL (1.4-6.5) 08/16/22 06:51 Lymph # (Auto) 3.59 K/uL (1.2-3.4) H 08/16/22 06:51 [place] # (Auto) 0.54 K/uL (0.24-0.82) 08/16/22 06:51 Eos # (Auto) 0.00 K/uL (0-0.50) 08/16/22 06:51 Baso # (Auto) 0.05 K/uL (0-0.2) 08/16/22 06:51 Immature Gran # (Auto) 0.03 K/uL (0.00-0.02) H 08/16/22 06:51 ESR 43 mm/hr (0-20) H 08/15/22 12:15 Sodium 138 mmol/L (136-145) 08/16/22 06:51 Potassium 4.5 mmol/L (3.5-5.1) D 08/16/22 06:51 Chloride 102 mmol/L (98-107) 08/16/22 06:51 Carbon Dioxide 33 mmol/L (21-32) H 08/16/22 06:51 Anion Gap 3 (3-11) 08/16/22 06:51 BUN 18 mg/dl (6-23) 08/16/22 06:51 Creatinine 0.75 mg/dl (0.6-1.2) 08/16/22 06:51 Est Cr Clr Drug Dosing 77.6 ml/min 08/16/22 06:51 Est GFR ( Amer) 111.6 ml/min 08/16/22 06:51 Est GFR (Non-Af Amer) 96.3 ml/min 08/16/22 06:51 BUN/Creatinine Ratio 24.0 (10-20) H 08/16/22 06:51 Glucose 86 mg/dl (70-99(Fasting)) 08/16/22 06:51 POC Glucose 140 mg/dl (70-99) H 08/16/22 11:41 Lactate 1.2 mmol/L (0.4-2.0) 08/15/22 12:15 Calcium 8.8 mg/dl (8.5-10.1) 08/16/22 06:51 Magnesium 1.9 mg/dl (1.7-2.4) 08/16/22 06:51 Total Bilirubin 0.6 mg/dl (0.2-1.0) 08/16/22 06:51 AST 15 U/L (13-39) 08/16/22 06:51 ALT 20 U/L (7-52) 08/16/22 06:51 Alkaline Phosphatase 85 U/L (34-104) 08/16/22 06:51 C-Reactive Protein 4.25 mg/dl (0-0.5) H 08/15/22 12:15 Total Protein 6.2 gm/dl (6.0-8.3) 08/16/22 06:51 Albumin 3.3 gm/dl (3.4-5.0) L 08/16/22 06:51 Globulin 2.9 gm/dl (2.5-4.0) 08/16/22 06:51 Albumin/Globulin Ratio 1.1 (0.9-2) 08/16/22 06:51 Procalcitonin < 0.05 ng/ml (0-0.5) 08/15/22 12:15 TSH 3.469 uIu/ml (0.300-4.500) 08/15/22 12:15 SARS-CoV-2, RNA, NAAT POSITIVE (NEGATIVE) A* 08/15/22 17:[address] 08/15/22 17:03 CT OF THE LEFT TIBIA AND FIBULA WITHOUT CONTRAST CLINICAL HISTORY: pain, recent cellulitis, pyoderm gang COMPARISON STUDY: CT of the left tibia and fibula July 25, 2022. TECHNIQUE: Axial images of the left tibia and fibula were obtained without IV contrast. Sagittal and coronal reconstructions were viewed. Automated exposure control was utilized for the study. A dose lowering technique was utilized adhering to the principles of ALARA. FINDINGS: Multiple wounds of the left lower leg are noted. There is no fluid collection to suggest an abscess on this unenhanced exam. Moderate subcutaneous edema of the left lower leg is noted. This is decreased when compared to CT of July 25, 2022. There is no soft tissue gas. No acute fracture or evidence for acute osteomyelitis within the left tibia or fibula. IMPRESSION: 1. Multiple wounds of the left lower leg. No fluid collection to suggest abscess. No soft tissue gas. No evidence for acute osteomyelitis within the left tibia or fibula. 2. Moderate subcutaneous edema of the left lower leg, decreased since prior CT. ACT 112: Negative or not required by law. Electronically signed by: Rafita Dodd M.D. 08/15/2022 7:16 PM
--- NOTE | 2022-08-16 12:28 | Dermatology Progress Note ---
Date of Service August 16, 2022 Assessment & Plan (1) Pyoderma gangrenosum: Plan: Gradually improving on prednisone. Given the size of the wounds, they will take weeks to completely heal. No overt clinical signs of secondary infection on exam today. Recommend the followin) Continue to AVOID any debridement of wounds as this typically leads to worsening. 2) Continue Prednisone 30mg daily at this point until I see her in outpatient follow-up given that her ESR and CRP are still somewhat elevated. 4) She will eventually need outpatient GI evaluation for colonoscopy. 5) Continue pain control as per primary team. 6) Continue current wound care regimen of xeroform gauze, ABD pad and gauze wrap once daily. 7) Call with any acute issues. Otherwise, patient will need close follow-up with me 1 week following discharge. Admission and Anticipated Discharge Date Admission Date: August 15, 2022 Subjective Patient is a 47-year-old female known to me from recent hospitalization from 07/25/2020 to 08/07/2022. She has past medical history significant for type 2 diabetes, cardiomyopathy, recent DVT/PE on Eliquis, COPD, GERD and history of cervical cancer. I was consulted for lower extremity ulcerations consistent with pyoderma getting. At the time of her last discharge she was on prednisone 60 mg daily, and the plan was to taper her by 10 mg every 7 days. As mentioned, patient was discharged home on 08/07/2022. She continued her prednisone taper as directed. She is currently on prednisone 30 mg daily. Her wounds have been gradually improving, but she has been having issues with pain control, which led to her presenting to the ER again yesterday. She has been readmitted for pain control. At the time of my visit today, she is a in the bathroom washing her wounds. She reports that current discomfort is tolerable. No new areas of involvement. At the time of her last hospitalization, laboratory workup in cluding rheumatoid factor and SPEP was unremarkable. She does still need workup for evaluation of underlying IBD. Of note, she was COVID positive at the time of her admission, but she is asymptomatic. Current blood cultures have not shown any growth. She was previously treated with courses of antibiotics at her last admission for secondary infection of her wounds with MRSA. She is not currently on additional antibiotic therapy. Review of Systems Review of Systems: All systems reviewed & are unremarkable except as noted in Subjective Physical Exam Physical Exam: General Appearance:Well developed, well-nourished and in no ac cristine distress Psych:Alert, Oriented and Appropriate Skin Type:2 Right Lower Extremity:more shallow, large, multi-centimeter, geometric ulceration with base of granulation tissue extending from the lateral robert to the calf; no edema/erythema at the border Left Lower Extremity:more shallow, large, multi-centimeter, geometric ulceration with base of granulation tissue extending from the lateral robert to the calf; no edema/erythema at the border Results & Data ([facility]) Vital Signs (Past 12 Hours) Vital Signs Temp Pulse Pulse Resp BP Pulse Ox O2 Del Method 08/16/22 09:55 100 H 08/16/22 09:20 36.6 C 101 H 16 100/66 100 Room Air 08/16/22 04:00 36.3 C L 92 H 18 111/78 98 Room Air Laboratory Results 08/16/22 08/16/22 08/16/22 Range/Units 11:41 06:51 06:51 WBC 9.88 (4.8-10.8) K/ul RBC 3.37 L (3.93-5.22) M/uL Hgb 11.4 L (12.0-16.0) g/dl Hct 35.9 (34.1-44.9) % MCV 106.5 H (80.0-100.0) fL MCH 33.8 (25.0-34.0) pg MCHC 31.8 L (32.0-36.0) g/dL RDW Std Deviation 68.1 H (36.4-46.3) fL RDW Coeff of Tyrel 17.2 H (11.5-14.5) % Plt Count 252 (130-400) K/uL MPV 9.5 (9.4-12.3) fL Immature Gran % (Auto) 0.3 % Neut % (Auto) 57.4 % Lymph % (Auto) 36.3 % Giles % (Auto) 5.5 % Eos % (Auto) 0.0 % Baso % (Auto) 0.5 % Neut # (Auto) 5.67 (1.4-6.5) K/uL Lymph # (Auto) 3.59 H (1.2-3.4) K/uL Giles # (Auto) 0.54 (0.24-0.82) K/uL Eos # (Auto) 0.00 (0-0.50) K/uL Baso # (Auto) 0.05 (0-0.2) K/uL Immature Gran # (Auto) 0.03 H (0.00-0.02) K/uL ESR (0-20) mm/hr Sodium 138 (136-145) mmol/L Potassium 4.5 D (3.5-5.1) mmol/L Chloride 102 (98-107) mmol/L Carbon Dioxide 33 H (21-32) mmol/L Anion Gap 3 (3-11) BUN 18 (6-23) mg/dl Creatinine 0.75 (0.6-1.2) mg/dl Est Cr Clr Drug Dosing 77.6 ml/min Est GFR ( Amer) 111.6 ml/min Est GFR (Non-Af Amer) 96.3 ml/min BUN/Creatinine Ratio 24.0 H (10-20) Glucose 86 (70-99(Fasting)) mg/dl POC Glucose 140 H (70-99) mg/dl Lactate (0.4-2.0) mmol/L Calcium 8.8 (8.5-10.1) mg/dl Magnesium 1.9 (1.7-2.4) mg/dl Total Bilirubin 0.6 (0.2-1.0) mg/dl AST 15 (13-39) U/L ALT 20 (7-52) U/L Alkaline Phosphatase 85 (34-104) U/L C-Reactive Protein (0-0.5) mg/dl Total Protein 6.2 (6.0-8.3) gm/dl Albumin 3.3 L (3.4-5.0) gm/dl Globulin 2.9 (2.5-4.0) gm/dl Albumin/Globulin Ratio 1.1 (0.9-2) Procalcitonin (0-0.5) ng/ml TSH (0.300-4.500) uIu/ml SARS-CoV-2, RNA, NAAT (NEGATIVE) 08/15/22 08/15/22 08/15/22 Range/Units 21:23 17:20 12:15 WBC (4.8-10.8) K/ul RBC (3.93-5.22) M/uL Hgb (12.0-16.0) g/dl Hct (34.1-44.9) % MCV (80.0-100.0) fL MCH (25.0-34.0) pg MCHC (32.0-36.0) g/dL RDW Std Deviation (36.4-46.3) fL RDW Coeff of Tyrel (11.5-14.5) % Plt Count (130-400) K/uL MPV (9.4-12.3) fL Immature Gran % (Auto) % Neut % (Auto) % Lymph % (Auto) % Giles % (Auto) % Eos % (Auto) % Baso % (Auto) % Neut # (Auto) (1.4-6.5) K/uL Lymph # (Auto) (1.2-3.4) K/uL [place]iles # (Auto) (0.24-0.82) K/uL Eos # (Auto) (0-0.50) K/uL Baso # (Auto) (0-0.2) K/uL Immature Gran # (Auto) (0.00-0.02) K/uL ESR (0-20) mm/hr Sodium (136-145) mmol/L Potassium (3.5-5.1) mmol/L Chloride (98-107) mmol/L Carbon Dioxide (21-32) mmol/L Anion Gap (3-11) BUN (6-23) mg/dl Creatinine (0.6-1.2) mg/dl Est Cr Clr Drug Dosing ml/min Est GFR ( Amer) ml/min Est GFR (Non-Af Amer) ml/min BUN/Creatinine Ratio (10-20) Glucose (70-99(Fasting)) mg/dl POC Glucose 139 H (70-99) mg/dl Lactate (0.4-2.0) mmol/L Calcium (8.5-10.1) mg/dl Magnesium (1.7-2.4) mg/dl Total Bilirubin (0.2-1.0) mg/dl AST (13-39) U/L ALT (7-52) U/L Alkaline Phosphatase (34-104) U/L C-Reactive Protein 4.25 H (0-0.5) mg/dl Total Protein (6.0-8.3) gm/dl Albumin (3.4-5.0) gm/dl Globulin (2.5-4.0) gm/dl Albumin/Globulin Ratio (0.9-2) Procalcitonin (0-0.5) ng/ml TSH (0.300-4.500) uIu/ml SARS-CoV-2, RNA, NAAT POSITIVE A* (NEGATIVE) 08/15/22 08/15/22 08/15/22 Range/Units 12:15 12:15 12:15 WBC (4.8-10.8) K/ul RBC (3.93-5.22) M/uL Hgb (12.0-16.0) g/dl Hct (34.1-44.9) % MCV (80.0-100.0) fL MCH (25.0-34.0) pg MCHC (32.0-36.0) g/dL RDW Std Deviation (36.4-46.3) fL RDW Coeff of Tyrel (11.5-14.5) % Plt Count (130-400) K/uL MPV (9.4-12.3) fL Immature Gran % (Auto) % Neut % (Auto) % Lymph % (Auto) % [place]iles % (Auto) % Eos % (Auto) % Baso % (Auto) % Neut # (Auto) (1.4-6.5) K/uL Lymph # (Auto) (1.2-3.4) K/uL [place]iles # (Auto) (0.24-0.82) K/uL Eos # (Auto) (0-0.50) K/uL Baso # (Auto) (0-0.2) K/uL Immature Gran # (Auto) (0.00-0.02) K/uL ESR 43 H (0-20) mm/hr Sodium (136-145) mmol/L Potassium (3.5-5.1) mmol/L Chloride (98-107) mmol/L Carbon Dioxide (21-32) mmol/L Anion Gap (3-11) BUN (6-23) mg/dl Creatinine (0.6-1.2) mg/dl Est Cr Clr Drug Dosing ml/min Est GFR ( Amer) ml/min Est GFR (Non-Af Amer) ml/min BUN/Creatinine Ratio (10-20) Glucose (70-99(Fasting)) mg/dl POC Glucose (70-99) mg/dl Lactate 1.2 (0.4-2.0) mmol/L Calcium (8.5-10.1) mg/dl Magnesium (1.7-2.4) mg/dl Total Bilirubin (0.2-1.0) mg/dl AST (13-39) U/L ALT (7-52) U/L Alkaline Phosphatase (34-104) U/L C-Reactive Protein (0-0.5) mg/dl Total Protein (6.0-8.3) gm/dl Albumin (3.4-5.0) gm/dl Globulin (2.5-4.0) gm/dl Albumin/Globulin Ratio (0.9-2) Procalcitonin < 0.05 (0-0.5) ng/ml TSH (0.300-4.500) uIu/ml SARS-CoV-2, RNA, NAAT (NEGATIVE) 08/15/22 08/15/22 Range/Units 12:15 12:15 WBC (4.8-10.8) K/ul RBC (3.93-5.22) M/uL Hgb (12.0-16.0) g/dl Hct (34.1-44.9) % MCV (80.0-100.0) fL MCH (25.0-34.0) pg MCHC (32.0-36.0) g/dL RDW Std Deviation (36.4-46.3) fL RDW Coeff of Tyrel (11.5-14.5) % Plt Count (130-400) K/uL MPV (9.4-12.3) fL Immature Gran % (Auto) % Neut % (Auto) % Lymph % (Auto) % [place] % (Auto) % Eos % (Auto) % Baso % (Auto) % Neut # (Auto) (1.4-6.5) K/uL Lymph # (Auto) (1.2-3.4) K/uL [place]iles # (Auto) (0.24-0.82) K/uL Eos # (Auto) (0-0.50) K/uL Baso # (Auto) (0-0.2) K/uL Immature Gran # (Auto) (0.00-0.02) K/uL ESR (0-20) mm/hr Sodium 143 (136-145) mmol/L Potassium 3.7 (3.5-5.1) mmol/L Chloride 104 (98-107) mmol/L Carbon Dioxide 34 H (21-32) mmol/L Anion Gap 5 (3-11) BUN 17 (6-23) mg/dl Creatinine 0.67 (0.6-1.2) mg/dl Est Cr Clr Drug Dosing 86.9 ml/min Est GFR ( Amer) 123.0 ml/min Est GFR (Non-Af Amer) 106.2 ml/min BUN/Creatinine Ratio 25.4 H (10-20) Glucose 118 H (70-99(Fasting)) mg/dl POC Glucose (70-99) mg/dl Lactate (0.4-2.0) mmol/L Calcium 9.2 (8.5-10.1) mg/dl Magnesium (1.7-2.4) mg/dl Total Bilirubin 0.7 (0.2-1.0) mg/dl AST 16 (13-39) U/L ALT 23 (7-52) U/L Alkaline Phosphatase 127 H (34-104) U/L C-Reactive Protein (0-0.5) mg/dl Total Protein 6.6 (6.0-8.3) gm/dl Albumin 3.5 (3.4-5.0) gm/dl Globulin 3.1 (2.5-4.0) gm/dl Albumin/Globulin Ratio 1.1 (0.9-2) Procalcitonin (0-0.5) ng/ml TSH 3.469 (0.300-4.500) uIu/ml SARS-CoV-2, RNA, NAAT (NEGATIVE) Diagnostic Findings Reviewed in [facility]. Medications Administered MAR reviewed in chart PG Care Time/CCT Total # of Minutes Spent Total Time Spent with Patient: Total time spent is greater than 50% in coordination of care (as documented) at patient's floor/unit and/or counseling patient: Coding Level of Care Code 47655 Subseq Hosp Care Lvl 2 Diagnoses Pyoderma gangrenosum L88
[2022-08-16] MEDS ORDERED: AMPHETAMINE ASP/SULF/DEXTRAMPH 20 MG TAB PO SCH (14:00)
--- NOTE | 2022-08-16 21:26 | Electrocardiogram Report ---
Test Reason : Blood Pressure : / mmHG Vent. Rate : 087 BPM Atrial Rate : 087 BPM P-R Int : 134 ms QRS Dur : 082 ms QT Int : 424 ms P-R-T Axes : 072 076 092 degrees QTc Int : 510 ms Normal sinus rhythm Biatrial enlargement Prolonged QT Nonspecific T wave abnormality Abnormal ECG When compared with ECG of 15-AUG-2022 11:59, No significant change was found Confirmed by Yousif Ch ([id number]) on 08/16/2022 9:26:17 PM Referred By: REFERRED SELF Confirmed By:Yousif Ch
[2022-08-17] MEDS: MoRPHine SULFATE 4 MG/ML 1 ML CARP\\VIAL IV PRN ×2 (03:32→07:41)
[2022-08-17] MEDS: oxyCODONE HCL IR 5 MG TAB (IMMEDIATE RELEASE) PO PRN ×2 (06:05→12:15)
[2022-08-17 07:19] LABS: Basophils # (auto) 0.03 K/uL (0-0.2); Basophils % (auto) 0.3 %; Hematocrit (blood only) 34.3 % (34.1-44.9); Hemoglobin 11.5 g/dl (12.0-16.0); Immature Granulocytes # (auto) 0.06 K/uL (0.00-0.02); Immature Granulocytes % (auto) 0.5 %; Lymphocytes # (auto) 2.81 K/uL (1.2-3.4); Lymphocytes % (auto) 25.1 %; Mean Corpuscular Hemoglobin 34.5 pg (25.0-34.0); Mean Corpuscular Hgb Conc 33.5 g/dL (32.0-36.0); Mean Platelet Volume 9.4 fL (9.4-12.3); Monocytes # (auto) 1.09 K/uL (0.24-0.82); Monocytes % (auto) 9.7 %; Neutrophils # (auto) 7.19 K/uL (1.4-6.5); Neutrophils % (auto) 64.4 %; Platelet Count 260 K/uL (130-400); RDW Coefficient of Variation 16.6 % (11.5-14.5); RDW Standard Deviation 63.2 fL (36.4-46.3); Red Blood Count 3.33 M/uL (3.93-5.22); White Blood Count 11.18 K/ul (4.8-10.8)
[2022-08-17 07:47] LABS: BUN Creatinine Ratio 38.7 (10-20); Calcium 8.3 mg/dl (8.5-10.1); Creatinine Clr Calc Pharmacy 93.9 ml/min; Est GFR (African American) 126.2 ml/min; Est GFR (Non-African American) 108.9 ml/min; Potassium 3.8 mmol/L (3.5-5.1)
[2022-08-17] MEDS: DEXTROAMPHETAMINE/AMPHETAMINE ER 10 MG CAP PO SCH (07:56)
[2022-08-17] MEDS: APIXABAN 5 MG TABLET PO SCH (07:56)
[2022-08-17] MEDS: THIAMINE HCL 100 MG TAB PO SCH (07:57)
[2022-08-17] MEDS: GABAPENTIN 400 MG CAP PO SCH (07:57)
[2022-08-17] MEDS: FOLIC ACID 1 MG TAB PO SCH (07:57)
[2022-08-17] MEDS: predniSONE 10 MG TABLET PO SCH (07:57)
[2022-08-17] MEDS: NICOTINE 21 MG/24 HR TDSY TD SCH (07:58)
[2022-08-17] MEDS: FUROSEMIDE 40 MG TAB PO SCH (07:58)
[2022-08-17] MEDS: FERROUS SULFATE 325 MG TAB PO SCH (07:58)
[2022-08-17] MEDS: POTASSIUM CHLORIDE CRTAB 20 MEQ TABCR PO SCH (07:59)
[2022-08-17] MEDS: INSULIN ASPART PER UNIT SC SCH ×2 (08:30→12:48)
[2022-08-17] MEDS: METOPROLOL SUCC 25MG EXT REL TAB PO SCH (09:51)
[2022-08-17] MEDS: lisinopril 2.5 MG TAB PO SCH (09:51)
--- NOTE | 2022-08-17 14:43 | Discharge Summary ---
Date of Service August 17, 2022 Admission HPI Per Admitting Provider This is a 47-year-old female who has a significant past medical history of T2DM, cardiomyopathy, tobacco abuse, DVT/PE on Eliquis, COPD, GERD, history of drug abuse and marijuana use, history of cervical cancer who presents to ED secondary to worsening pain in lower extremities. Of significance patient was hospitalized 07/25 to 08/07/2022 secondary to sepsis and cellulitis. She presented with bilateral lower extremity redness and significant ulcerations. She was seen and evaluated by dermatology who diagnosed her with pyoderma gangrenosum and started her on prednisone therapy. Her wound culture was positive for MRSA and bacteroids. She was treated with IV antibiotics vancomycin, Flagyl and cefepime. She was seen and evaluated by infectious disease. She was further diagnosed with right peroneal vein DVT and left calf vein DVT as well as pulmonary embolism. She was started on Eliquis for VTE. Echocardiogram revealed EF 35 to 40% with RV mildly dilated, RV SF reduced, left and right atrial dilatation, moderate pulmonary hypertension. She was seen and evaluated by cardiology for cardiomyopathy. She was started on a medical regimen of metoprolol succinate 25 mg daily, lisinopril 2.5 mg daily and 40 mg of oral Lasix. She did require IV diuresis while in the hospital. She was seen and evaluated by pain management prior to discharge and placed on gabapentin as well as tramadol. She was discharged to home on 08/07/2022. She did follow-up with PCP on 08/12/2022. She feels she has otherwise been doing well in regards to her lower extremity ulcerations. She continues to take her prednisone and is currently on 30 mg daily. Her appetite is very good. She admits to taking her medications including her newly prescribed cardiac medications as well as Eliquis. She comes in today due to pain being uncontrolled at home. Her gabapentin was recently increased to 400 mg 3 times a day and she continues the tramadol without much relief. She feels in regards to her legs they are significantly improved in regards to her ulcerations, no significant redness and drainage has recently subsided. She feels they may be slightly warm today but otherwise much improved. Pain currently 8/10. She ran out of her home tramadol. She has not yet followed up with dermatology and will see them on 08/19/2022. She denies any fever, chills, sweats, lightheadedness, dizziness, chest pain, shortness of breath, nausea, vomiting, abdominal pain, change in bowel or urinary habits. She has been mostly incontinent of urine. She has difficulty ambulating due to her pain. She is currently living at home with her parents. She states she was on a wait list for [facility] facility but has not heard anything about this yet. She feels she could use this for wound care. Admission Exam Per Admitting Provider Constitutional: WD/WN, vitals as above, + pain to b/l lower ext, moaning, sitting up in bed, pleasant, conversing easily Head: Normocephalic, Atraumatic Eyes: PERRL, conjunctivae normal, anicteric sclerae ENMT: external ear and nose normal, oropharynx normal Neck: trachea midline, no thyromegaly normal visual inspection Respiratory: normal respiratory effort, lungs clear to auscultation, no wheeze, rales, rhonchi. Normal insp/exp effort, no accessory muscle use Cardiovascular: tachycardiac rate, regular rhythm, no murmur, no edema Vessels: no JVD or carotid bruit Chest: normal inspection of chest Abdomen: normal bowel sounds, soft, nontender Musculoskeletal: no cyanosis or clubbing, arom x 4 Skin: B/L lower ext significant ulceration to anterior/post aspect inferior to knee, ulcerations are dry and scabbed, mild surrounding erythema and warmth, no drainage, warm and dry normal turgor Neurologic: PERRL, EOMI, accommodation nl, no face palsy, no dysarthria CN's II-XI intact bilaterally and moves all extremities Psychiatric: A+Ox3, euthymic affect Lymphatic: no cervical or axillary lymphadenopathy : deferred Principal Diagnosis Pyoderma gangrenosum COVID-19 infection Discharge Exam Constitutional: WD/WN, vitals as above, NAD, sitting up in bed, pleasant, conversing easily Respiratory: normal respiratory effort, lungs clear to auscultation, no wheeze, rales, rhonchi. Normal insp/exp effort, no accessory muscle use Cardiovascular: RRR, no murmur, no edema Vessels: no JVD or carotid bruit Chest: normal inspection of chest Abdomen: normal bowel sounds, soft, nontender, no hepatosplenomegaly Musculoskeletal: no cyanosis or clubbing, extremities motor strength 5/5 Skin: Bilateral lower extremity bandaged over the wounds; no overlying soakage. Neurologic: PERRL, EOMI, accommodation nl, no face palsy, no dysarthria CN's II- XI intact bilaterally and moves all extremities Psychiatric: A+Ox3, euthymic affect Lymphatic: no cervical or axillary lymphadenopathy : deferred Discharge Data Allergies Allergy/AdvReac Type Severity Reaction Status Date / Time No Known Allergies Allergy Unknown Verified 12/28/21 02:02 Consultations 08/15/22 14:48 ED Decision to Admit Stat 08/15/22 19:17 Consult Dermatology Routine Ordered Studies 08/15/22 17:03 CT leg [CT tib/fib LT wo con] Stat CT leg [CT tib/fib RT wo con] Stat Hospital Course (1) Pyoderma gangrenosum: (2) Intractable pain: (3) Diabetes: (4) Dilated cardiomyopathy: (5) Neuropathic pain: (6) COPD (chronic obstructive pulmonary disease): (7) DVT (deep venous thrombosis): Plan This is a 47-year-old female who has a significant past medical history of T2DM, cardiomyopathy, tobacco abuse, DVT/PE on Eliquis, COPD, GERD, history of drug abuse and marijuana use, history of cervical cancer who presents to ED secondary to worsening pain in lower extremities. Patient was recently hospitalized 07/25 to 08/07/2022 secondary to sepsis, cellulitis, pyoderma gangrenosum, wound culture positive for MRSA and bacteroids, DVT/PE treated with Eliquis, dilated cardiomyopathy and decompensated heart failure.She was discharged to home and doing well except for pain control. She ran out of tramadol and feels it has not been helping. Her gabapentin was recently increased to 400 mg 3 times a day by her primary care doctor but it was not helping her. Patient was admitted to telemetry floor and dermatology was consulted for comanagement. Patient was seen by dermatology and was recommended to be placed on 30 mg of prednisone daily she goes to the follow-up. Pain was controlled with IV morphine oxycodone and Tylenol. Patient initially wanted to go to subacute rehab for which case management was consulted. However, patient decided that she would be best at her home with home health. Patient was also found to have COVID-19 infection; she did not require any supplemental oxygen during her admission and was asymptomatic. Total Time Total Time Spent Total Time Spent (In Minutes): 35 Total Time Includes: Examination of the Patient, Discharge Planning, Medication Reconciliation, Communication With Other Providers and Other Discharge Plan Discharge Items Patient Disposition: Home - Home Health Services Reason For Visit: LEG PAIN, LARGE OPEN WOUNDS ON LEGS Discharge Diagnosis: Pyoderma gangrenosum, Activity: Resume your previous activity Non-emergency contact: Primary Care Provider Call non-emergency contact if: you have any medication questions and your symptoms worsen Follow-up/Referrals: Henny Hernandez PA-C [Primary Care Provider] - Diet: Heart Healthy Addtl Attending Provider Instructions: Continue on prednisone 30 mg daily till you see dermatology hours as outpatient. Please go to the follow-up next week. Please follow-up with your primary care doctor as soon as possible. Continue all the medication as before. You are given prescription for oxycodone 5 mg as needed to be taken when you have severe pain. Please continue to do wound care on your bilateral lower extremity wounds as instructed. Use xeroform gauze, ABD pad and gauze wrap once daily Pending Studies at Discharge: No Stand-Alone Forms: My [facility] [employer], Smoking Cessation Medications and DC Order Prescriptions: New oxycodone 5 mg Tablet 5 mg PO Q6H PRN (Reason: pain) Qty: 10 0RF Continued albuterol sulfate [Ventolin HFA] 90 mcg/actuation HFA aerosol inhaler 2 puffs INH Q4 PRN (Reason: Wheezing) nicotine [Nicoderm CQ] 21 mg/24 hr Patch 24 Hour 21 mg transdermal QAM Qty: 28 0RF Eliquis 5 mg Tablet 5 mg PO BID Qty: 60 0RF ferrous sulfate 325 mg (65 mg iron) Tablet,Delayed Release (Dr/Ec) 325 mg PO QAM Qty: 30 0RF lisinopril 2.5 mg Tablet 2.5 mg PO QAM Qty: 30 0RF metoprolol succinate 25 mg Tablet Extended Release 24 Hr 25 mg PO QAM Qty: 30 0RF furosemide 40 mg Tablet 40 mg PO QAM Qty: 30 0RF potassium chloride 20 mEq Tablet,Er Particles/Crystals 20 meq PO BID Qty: 60 0RF folic acid 1 mg Tablet 1 mg PO QAM Qty: 30 0RF thiamine HCl (vitamin B1) 100 mg Tablet 100 mg PO QAM Qty: 30 0RF (DME) OneTouch Verio test strips Strip See Rx Instructions .Route Qty: 100 0RF Rx Instructions: tid (DME) lancets [OneTouch Delica Lancets] 33 gauge misc See Rx Instructions .Route Qty: 100 0RF Rx Instructions: tid gabapentin 400 mg Capsule 400 mg PO TID tramadol 50 mg tablet 50 mg PO Q6H PRN (Reason: Pain) dextroamphetamine-amphetamine 20 mg tablet 20 mg PO DAILY@1400 dextroamphetamine-amphetamine 30 mg capsule,extended release 24hr 30 mg PO DAILY Changed prednisone 10 mg tablet 30 mg PO UD Qty: 70 0RF Rx Instructions: 4 p.o. daily for 7 days, 3 p.o. daily for next 7 days, 2 p.o. daily for next 7 days and then 1 daily for next 7 days until otherwise by the receiving teller Discharge Orders: Discharge Order (Routine); Ordered 08/17/22 Ordered By: Martir Chacon Admission Data Admit Date/Time: 08/15/22 15:52 Attending Provider: Martir Chacon Admit Provider: Suleman Garcia Primary Care Provider: Henny Hernandez Other Providers: Suleman Garcia ; Joshua Oliveira ; [place] ; [facility] ; [facility] ; [facility] ; [facility] ; [facility] Other Interventions: Discharge Summary Assessment (RN) Last Done: 08/17/22 13:20
== END 2022-08-17 15:55 | disposition home health service (06) | DRG 602 ==
LOC: ED 11:13 → EDINP 15:52 → SUATTDRO 15:52 → 2N 19:19